=== PATIENT | male | born 1945 | race Caucasian/White ===

== ENCOUNTER → 2020-07-21 10:42 | Outpatient (BNVA) | payer MEDICARE, SELFPAY | PROVIDERS: Visit Provider Orthopaedic Surgery | DX: M25.561 Pain in right knee (principal); M17.10 Unilateral primary osteoarthritis, unspecified knee | CPT/HCPCS: 73560; 73565 ==

== ENCOUNTER 2020-08-24 15:08 | Inpatient (IN) | payer MEDICARE, SELFPAY ==
[2020-08-11 12:10] VITALS: BMI 30.7
--- NOTE | 2020-08-11 12:48 | ECG_ITS ---
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 Measurements Intervals [place] Rate: 47 P: 31 WA: 253 QRS: -34 QRSD: 101 T: 13 QT: 427 QTc: 381 Interpretive Statements SINUS BRADYCARDIA WITH FIRST DEGREE AV BLOCK MARKED LEFT AXIS DEVIATION [QRS AXIS < -30] MODERATE VOLTAGE CRITERIA FOR LVH, CONSIDER NORMAL VARIANT [MEETS CRITERIA IN ONE OF: R(aVL), S(V1), R(V5), R(V5/V6)+S(V1)] No previous ECG available for comparison Electronically Signed On 08-11-2020 23:50:06 BEE TENDER by Madai Richard M.D. [id number]
--- NOTE | 2020-08-11 13:20 | ANES.PREANE2 ---
Pre-Anesthetic Assessment Pre-Anesthetic Assessment: Height/Weight: Height 1.8 m Weight 99.79 kg Proposed Procedure: Operation Date: 08/24/20 09:40 Proposed Procedures p Total Knee Arthroplasty 48243 M17.0(Right) - Arnulfo Lawler MD Was Beta Eric taken within 24 hours: Yes Social: Social History: No alcohol and No tobacco Exam: Pre-Anes Outpt Exam: alert, oriented x 3, clear to auscultation bilaterally and regular rate & rhythm Airway: Submandibular: WNL Cervical ROM: WNL MP: 3 Dentition: Full Pulmonary: Pulmonary: None reported CV/HEM: CV/HEM: HTN : : None reported Hepatic: Hepatic: None reported GI: GI: None reported Metabolic: Metabolic: None reported Musc/skel: Musc/skel: OA/DJD Comments: Gout Neuropsych: Neuropsych: None reported Anesthetic Plan: ASA status: 3 Anesthesia: Regional (specify below) Other: SAB and adductor blk PFSH Anesthesia PFSH: Social History (Updated 07/21/20 @ 10:40 by Anni Lawson LPN) Smoking and tobacco status: never smoked Alcohol intake: never Data Anesthesia Cardiac Studies: No Data to Display
[2020-08-24] VITALS (19 sets, daily range): BP systolic 87–138; BP diastolic 39–90; PULSE 57–73; RESP 14–85; TEMP 36.3–36.8; O2SAT 93–99
[2020-08-24] MEDS: sodium chloride 0.9% 1,000 ML 30 ML IV (08:16)
[2020-08-24] MEDS: gabapentin 300 mg Capsule PO (08:26)
[2020-08-24] MEDS: oxyCODONE 20 mg ER (12 HR) Tablet PO (08:26)
[2020-08-24] MEDS: acetaminophen 500 mg Tablet 1000 MG PO (08:27)
[2020-08-24] MEDS: CELEcoxib 200 mg Capsule 400 MG PO (08:27)
--- NOTE | 2020-08-24 09:00 | ANES.PAUD2 ---
Pre-Anesthetic Update Pre-Anesthetic Assessment: Date of Surgery/Procedure: 08/24/20 Preop Diagnosis: Osteoarthritis Right knee Proposed Procedure: Operation Date: 08/24/20 09:40 Proposed Procedures p Total Knee Arthroplasty 36890 M17.0(Right) - Arnulfo Lawler MD Any changes to Pre-Anesthetic Assessment?: No Last Intake: Intake Last Liquid Date 08/24/20 Last Liquid Time 05:00 Last Solid Date 08/23/20 Last Solid Time 20:30 Vitals: Temperature 97.5 F L 08/24/20 08:00 Temperature Source Temporal Artery S can 08/24/20 08:00 Pulse Rate 65 08/24/20 08:00 Pulse Strength 3+ Normal 08/24/20 08:04 Respiratory Rate 18 08/24/20 08:00 Blood Pressure 132/77 08/24/20 08:00 Blood Pressure Diana n 95 08/24/20 08:00 Pulse Oximetry 99 08/24/20 08:00 Oxygen Delivery Me thod 08/24/20 08:04 Exam: Pre-Anes Outpt Exam: alert, oriented x 3, clear to auscultation bilaterally and regular rate & rhythm Cardiac Studies: No Data to Display
--- NOTE | 2020-08-24 09:26 | W.PM.OPSFHP ---
Same Day Surgery H&P Indication for Procedure/HPI DATE OF PROCEDURE: August 24, 2020 CHIEF COMPLAINT/INDICATIONFOR SURGICAL PROCEDURE: Enrique is a 74-year-old male with severe osteoarthritis of the right knee. 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 He has had an injection years ago with no significant improvement. He is here now for elective right total knee arthroplasty. He reports that he had been working very hard in the shop going up and down a step on a job and has quite a bit of swelling and pain today PREOP DIAGNOSIS: Osteoarthritis Right knee PLANNED PROCEDRUE: Operation Date: 08/24/20 09:40 Proposed Procedures p Total Knee Arthroplasty 58966 M17.0(Right) - Arnulfo Lawler MD Medications/Allergies* Home Medications Medication Instructions Recorded Confirmed Type allopurinol 100 mg tablet 100 mg PO DAILY 07/21/20 08/11/20 History atenolol 50 mg tablet 50 mg PO DAILY 07/21/20 08/11/20 History hydrochlorothiazide 25 mg tablet 25 mg PO DAILY 07/21/20 08/11/20 History Allergies/Adverse Reactions Allergy/AdvReac Type Severity Reaction Status Date / Time No Known Allergies Allergy Verified 07/21/20 10:36 Current Medications: Generic Name Dose Route Start Last Admin Trade Name Freq PRN Reason Stop Dose Admin Sodium Chloride 1,000 mls @ 30 mls/hr 08/24/20 07:45 08/24/20 08:16 Sodium Chloride 0.9% IV 08/25/20 07:44 30 mls/hr .Q24H RADHA Administration Pertinent History/Comorbid Conditions* Social History Smoking and tobacco status: never smoked Alcohol intake: never Pertinent Exam Findings alert, oriented x 3, clear to auscultation bilaterally and regular rate & rhythm Recommendations Surgery/Procedure today Coding Level of Care Code Acute 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
--- NOTE | 2020-08-24 10:20 | ANES.PROC ---
Anesthesia Procedures Procedure/Date: 08/24/20 Nerve Block ^: Nerve Block 1: Main Anesthesia: spinal anesthesia block Time Out Performed: Yes Consent: requested by attending/covering physician, from patient, risks and benefits reviewed and patient agrees to proceed Nerve block location: adductor canal Anesthesia monitors applied: pulse oximetry, EKG, BP cuff and oxygen Nerve block position: supine Anesthetic Used: ropivicaine 0.5% Amount of anesthesia used (mL): 20 Ultrasound used to: recognize landmarks Nerve Stimulator Used?: No Interscalene/Femoral BLK: 4 stimuplex 21 g needle used for position and inplane approach, visualize local anesthetic spread and no vascular puncture identified Injection: neg aspiration of heme Patient Tolerated Procedure: well and no complications Complications: none
[2020-08-24] MEDS: EPINEPHrine 1 mg/mL INJ IM (10:40)
[2020-08-24] MEDS: ketorolac 30 mg/mL INJ IM (10:40)
--- NOTE | 2020-08-24 11:24 | SUR.PHASEI ---
PT TO PACU AWAKE ALERT PT HAD ADDUCTOR CANAL BLOCK TO RT LEG PRE SURGERY AND HAD SPINAL ANESTHESIA, PT SPINAL LEVEL VOICED BY PT AT T-6 LEVEL , HOB AT 2O DEGREES , RT KNEE DRESSING D/I LUPE WRAP WITH DISTAL PULSE STRONG AND REGULAR, VSS. PT HAS FOOT PUMP TO LT FOOT. PT SURGERY WAS ABORTED.
--- NOTE | 2020-08-24 11:28 | PM.OP ---
Operative Report Date of procedure: August 24, 2020 Pre-op Diagnosis: Osteoarthritis Right knee Post-op Diagnosis: Same with possible superimposed septic knee Post-op Findings: The patient had mucopurulent material within the knee and cantor dysvascular synovium worrisome for deep infection. No gouty tophi were identified Procedure Done: Open excisional irrigation and debridement right knee Specimens removed/disposition: Fluid was sent for routine and anaerobic cultures. Synovial biopsies were sent for routine and anaerobic cultures as well as pathology for white blood cell count and crystals. Pathology: none sent Surgeon: Arnulfo Lawler Anesthesia: Nerve Block (Spinal) Estimated blood loss (mL): 100 Findings: Patient had full-thickness erosions in the medial lateral and patellofemoral compartment. He had mucoid material within the knee joint and a greatest necrotic hue to the synovium. No gouty tophi were identified. The appearance was worrisome for deep sepsis. Condition: stable Disposition: PACU Procedure: The patient was taken to the operating room and given a abductor canal block and spinal anesthesia. His right lower extremity was prepped and draped in the usual fashion for total knee with a tourniquet on the right thigh. The knee was entered through a medial parapatellar approach. Upon entering the knee a mucoid material was produced raising concerns about infection.'s routine anaerobic swabs of this fluid were sent for culture. The fluid was removed revealing fairly grayish mucoid synovium. Ronleona was used to send samples of this for pathology for cell count and crystals as well as routine and anaerobic culture. Aggressive debridement was then accomplished removing all visualized necrotic synovium in the suprapatellar pouch, medial and lateral gutters.. The knee was irrigated with 6 L of saline and antibiotic solution. As sepsis could not be completely excluded total decision was made to defer full joint replacement until infection can be treated or excluded. The extensor retinaculum was closed with interrupted 0 Vicryl. The subcu deep tissues were closed with a few 2-0 Vicryl and the skin with interrupted 1 Prolene. Sterile dressings were applied. The patient was taken to recovery room in stable condition.
--- NOTE | 2020-08-24 11:39 | SUR.PHASEI ---
PT NOW AT T8 LEVEL AND MOVING DOWN, HOB AT 30 DEGREES VSS PT ALERT, WILL MOVE TO OPS SO PT CAN HAVE SOMETHING TO DRINK, RT KNEE DRESSING D/I
--- NOTE | 2020-08-24 12:41 | ANE.PACU2 ---
Inpatient post-anesthesia follow up: Airway intact: Yes Vital signs: Temperature 98.2 F Pulse Rate 64 Respiratory Rate 16 Blood Pressure 130/64 Pulse Oximetry 96 Oxygen Delivery Me thod Room Air Oxygen Flow Rate Fraction of Inspir ed Oxygen Hydration adequate: Yes Nausea and vomiting: No Pain level: 2 Mental status: Baseline
--- NOTE | 2020-08-24 13:02 | SUR.PHASEII ---
PATIENT WITH BILATERAL THIGH SENSATION AND LEG MOVEMENT.
[2020-08-24] MEDS: ondansetron 2 mg/ML SDV 2 mL 4 MG IVP (13:12)
--- NOTE | 2020-08-24 13:12 | SUR.PHASEII ---
MEDICATED FOR NAUSEA.
[2020-08-24] MEDS: oxyCODONE-APAP 5-325 mg Tablet 1 TAB PO (13:53)
--- NOTE | 2020-08-24 14:13 | SUR.PHASEII ---
patient with relief of nausea.
[2020-08-24 15:13] LABS: Basophils % 0.2 %; Eosinophils % 0.1 %; Hematocrit 39.5 % (42.0-52.0); Hemoglobin 12.7 g/dL (11.7-16.6); Lymphocytes # 0.5 10^3/uL (0.8-4.8); Lymphocytes % 4.6 %; Mean Corpuscular HGB Conc 32.2 g/dL (30.0-36.0); Mean Corpuscular Hemoglobin 30.6 pg (28.0-34.0); Mean Corpuscular Volume 95.2 fL (80-94); Monocytes # 1.1 10^3/uL (0.2-0.9); Monocytes % 10.1 %; Neutrophils % 84.6 %; Nucleated Red Blood Cells % 0 %; Platelet Count 228 10^3/cmm (130-400); Red Blood Count 4.15 10^6/uL (4.1-5.3); Red Cell Distribution Width 13.9 % (12.1-15.1); White Blood Count 11.2 10^3/uL (4.0-10.0)
--- NOTE | 2020-08-24 15:13 | SUR.PHASEII ---
15:00 labs drawn. plan of care explained to patient and family.
[2020-08-24 15:37] LABS: Alanine Aminotransferase 20 U/L (0-41); Albumin Level 2.7 g/dL (3.5-5.2); Alkaline Phosphatase 114 IU/L (40-130); Anion Gap 11.8 (5-19); Aspartate Amino Transferase 16 U/L (0-40); Blood Urea Nitrogen 41 mg/dL (8-23); Calcium 9.1 mg/dL (8.5-10.5); Carbon Dioxide 28 mmol/L (22-29); Chloride 102 mmol/L (98-107); Globulin 3.7 g/dL (1.3-4.6); Glucose 145 mg/dL (65-115); Osmolality Calculated 299 mOsm/kg (285-295); Potassium 3.8 mmol/L (3.5-5.1); Sodium 138 mmol/L (136-145); Total Bilirubin 0.8 mg/dL (0.15-1.2); Total Protein 6.4 g/dL (6.6-8.7)
[2020-08-24 16:11] LABS: C Reactive Protein 390.8 mg/L (0.0-4.9)
--- NOTE | 2020-08-24 16:29 | SUR.PHASEII ---
report given to brianna whitman,weapons system instrument mechanic and pt brought to room 255 via w/c and assisted in bed,call light within reach and family at bedside
[2020-08-24 16:57] LABS: Erythrocyte Sedimentation Rate 73 mm/hr (0-10)
--- NOTE | 2020-08-24 18:26 | P.HP_ITS ---
Providers/Chief Complaint Admitting Physician: García Jimenez MD Chief Complaint: Primary osteoarthritis right knee History of Present Illness Enrique Murguia is a 74 year old male with PMH of HTN,Gout,Severe Rt knee O.A was admitted with c/o worseing rt knee pain and swelling.He was here today to see for elective rt knee Total arthoplasty,per patient underwent Open excisional irrigation and debridement of right knee with mucopurulent material within the knee and cantor dysvascular synovium worrisome for deep infection.No gouty tophi were identified. Fluid was sent for routine and anaerobic cultures. Synovial biopsies were sent for routine and anaerobic cultures as well as pathology for white blood cell count and crystals. Currently he deny any fever,cough, urinary complain, abdominal pain,nausea,vomiting. Prior Imaging study : Bone on bone articulation in the medial right knee joint. Significant osteo arthropathy in the patellofemoral joint space. Pertinet labs : WBC: 11.2 , ESR : 73, BUN/SCR: 41/1.7 (Baseline SCR is unkown ) Review of Systems Const: Denies: fever(s), chills, body aches, change in appetite or diaphoresis Card: Denies: palpitations, edema, swelling of feet/ankles, dyspnea on exertion, orthopnea or leg pain with exertion Resp: Denies: dyspnea, productive cough, wheezing or pain on inspiration GI: Denies: abdominal pain, nausea, vomiting, diarrhea or constipation : Denies: flank pain or difficulty urinating Musc: Denies: back pain Neuro: Denies: headache(s) Medications/Allergies Home Medications Medication Instructions Recorded Confirmed Last Taken Type allopurinol 100 mg tablet 100 mg PO DAILY 07/21/20 08/11/20 08/11/20 History atenolol 50 mg tablet 50 mg PO DAILY 07/21/20 08/11/20 08/24/20 05:00 History hydrochlorothiazide 25 mg tablet 25 mg PO DAILY 07/21/20 08/11/20 08/24/20 05:00 History cephalexin 500 mg PO Q8H #30 cap 08/24/20 Unknown Rx oxycodone 5 mg PO Q4H 7 Days #42 cap 08/24/20 Unknown Rx Allergies Allergy/AdvReac Type Severity Reaction Status Date / Time No Known Allergies Allergy Verified 07/21/20 10:36 PFSH Acute PFSH: Social History (Updated 07/21/20 @ 10:40 by Anni Lawson LPN) Smoking and tobacco status: never smoked Alcohol intake: never Vitals/I&O/Wt Last Vital Signs Temp 97.5 F L 08/24/20 16:33 Pulse 58 L 08/24/20 16:33 Resp 18 08/24/20 16:33 BP 106/64 08/24/20 16:33 Pulse Ox 95 08/24/20 16:33 08/24/20 08/24/20 08/24/20 06:59 14:59 22:59 Intake Total 170 / 170 Output Total 325 / 325 Balance -155 / -155 Physical Exam HENMT: COMMON NORMALS: normocephalic and atraumatic HEAD & SCALP: normocephalic and atraumatic Chest: COMMONS NORMALS: normal inspection of the chest and normal palpation of entire chest wall CHEST: Yes Symmetrical chest wall rise Resp: COMMON NORMALS: normal respiratory effort, No retractions, No use of accessory muscles and clear to auscultation bilaterally EFFORT & INSPECTION: Yes symmetric chest movement AUSCULTATION: clear to auscultation bilaterally Cardio: COMMON NORMALS: regular rate, regular rhythm, S1 normal heart sound present, S2 normal heart sound present, No gallops present (Cardio), No murmurs present (Cardio), No rub (Cardio) and Peripheral pulses 2+ throughout RATE: regular rate RHYTHM: regular rhythm HEART SOUNDS: S1 normal heart sound present and S2 normal heart sound present PERIPHERAL PULSES: Peripheral pulses 2+ throughout GI: COMMON NORMALS: Normal to inspection, nondistended, normoactive bowel sounds present, Soft to palpation, non-tender, No hepatosplenomegaly present and no masses AUSCULTATION: Yes normoactive bowel sounds PALPATION: Yes Soft to palpation and Yes No hepatosplenomegaly present RECTAL EXAM: Yes deferred Extremity: COMMON NORMALS: no clubbing, cyanosis or edema and no pedal edema Neuro: COMMON NORMALS: patient oriented x3 Urinary Catheter Management^: Castillo: Cath Placed During This Visit: yes, but has since been removed by the nurse Urinary Catheter Date of Insertion: 08/24/20 Urinary Catheter Time of Insertion: 10:10 Date Urinary Catheter Removed: 08/24/20 Time Urinary Catheter Discontinued: 11:05 Data : 08/24/20 14:56 08/24/20 14:56 Micro: Microbiology 08/24/20 10:28 Gram Stain - Final Knee - Right 08/24/20 10:28 Gram Stain - Final Knee - #1 A&P Assessment and plan (1) Septic arthritis: Continue Vancomycin and Zosyn for now. Follow rt knee joint fluid culture Status: Acute (2) Acute kidney injury superimposed on CKD: BUN/SCR: 41/1.7 (Baseline SCR is unkown ) Contiue I.V Hydartion Urine electrolytes ( Na,CR ) Monitor BMP Status: Acute (3) Osteoarthritis of right knee: Status: Acute (4) Gout: Allopurinol 100 mg po daily Status: Acute (5) Hypertension: Status: Acute Attestations Medical Necessity Statement*: Patient needs to be in hospital for the management of possible rt knee septic arthritis.Anticipated LOS Greater then 2 midnights. 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
[2020-08-24] MEDS: vancomycin 1,500 MG/300 ML PIGGYBACK 200 MG IV (18:41)
[2020-08-24] MEDS: heparin 5,000 unit/mL INJ 1 mL 5000 UNIT SUBCUT (18:41)
[2020-08-24] MEDS: piperacillin-tazobactam 3.375 GM in sodium chloride 0.9% (plus) 50 ML IV (21:36)
[2020-08-25] VITALS (9 sets, daily range): BP systolic 91–144; BP diastolic 59–84; PULSE 62–69; RESP 16–22; TEMP 36.6–37.2; O2SAT 93–97
[2020-08-25] MEDS: sodium chloride 0.9% 1,000 ML 75 ML IV ×2 (00:38→10:51)
[2020-08-25 02:01] LABS: Basophils % 0.2 %; Eosinophils % 0.5 %; Hematocrit 32.9 % (42.0-52.0); Hemoglobin 10.6 g/dL (11.7-16.6); Lymphocytes # 0.7 10^3/uL (0.8-4.8); Lymphocytes % 8.5 %; Mean Corpuscular HGB Conc 32.2 g/dL (30.0-36.0); Mean Corpuscular Hemoglobin 30.4 pg (28.0-34.0); Mean Corpuscular Volume 94.3 fL (80-94); Mean Platelet Volume 10.2 fL (7.4-10.4); Monocytes # 1.1 10^3/uL (0.2-0.9); Monocytes % 13.1 %; Neutrophils # 6.58 10^3/uL (1.8-7.7); Neutrophils % 77.1 %; Nucleated Red Blood Cells % 0 %; Platelet Count 213 10^3/cmm (130-400); Red Blood Count 3.49 10^6/uL (4.1-5.3); Red Cell Distribution Width 14.2 % (12.1-15.1); White Blood Count 8.5 10^3/uL (4.0-10.0)
[2020-08-25 02:09] LABS: INR 1.29 (0.8-1.2)
[2020-08-25 02:10] LABS: Partial Thromboplastin Time 40.3 SECONDS (23.9-36.7)
[2020-08-25 02:31] LABS: Alanine Aminotransferase 14 U/L (0-41); Albumin Level 2.4 g/dL (3.5-5.2); Alkaline Phosphatase 95 IU/L (40-130); Anion Gap 14.9 (5-19); Aspartate Amino Transferase 12 U/L (0-40); Blood Urea Nitrogen 46 mg/dL (8-23); Calcium 8.2 mg/dL (8.5-10.5); Carbon Dioxide 25 mmol/L (22-29); Chloride 101 mmol/L (98-107); Globulin 2.3 g/dL (1.3-4.6); Glucose 159 mg/dL (65-115); Magnesium 2.2 mg/dL (1.7-2.3); Osmolality Calculated 299 mOsm/kg (285-295); Potassium 3.9 mmol/L (3.5-5.1); Sodium 137 mmol/L (136-145); Total Bilirubin 0.6 mg/dL (0.15-1.2); Total Protein 4.7 g/dL (6.6-8.7)
[2020-08-25 02:40] LABS: Procalcitonin 1.21 ng/mL (0-0.5)
[2020-08-25] MEDS: heparin 5,000 unit/mL INJ 1 mL 5000 UNIT SUBCUT ×2 (05:40→16:57)
[2020-08-25] MEDS: piperacillin-tazobactam 3.375 GM in sodium chloride 0.9% (plus) 50 ML IV ×3 (05:40→21:47)
--- NOTE | 2020-08-25 07:55 | PM.PN ---
Subjective Subjective: Interval history: Expected right knee pain. Vitals/I&O/Wt Last Vital Signs Temp 99.0 F 08/25/20 07:43 Pulse 65 08/25/20 07:43 Resp 16 08/25/20 07:43 BP 118/73 08/25/20 07:43 Pulse Ox 94 08/25/20 07:43 08/24/20 08/25/20 08/25/20 22:59 06:59 14:59 Intake Total 120 / 290 50 / 340 Output Total 50 / 375 Balance 120 / -35 0 / -35 Physical Exam Narrative: EXAM NARRATIVE: Right knee dressing clean and dry. Urinary Catheter Management^: Castillo: Cath Placed During This Visit: yes, but has since been removed by the nurse Urinary Catheter Date of Insertion: 08/24/20 Urinary Catheter Time of Insertion: 10:10 Date Urinary Catheter Removed: 08/24/20 Time Urinary Catheter Discontinued: 11:05 Data : 08/25/20 01:45 08/25/20 01:45 Micro: Microbiology 08/24/20 10:28 Gram Stain - Final Knee - Right 08/24/20 10:28 Gram Stain - Final Knee - #1 A&P Assessment and plan (1) Osteoarthritis of right knee: Luminary pathology verbal report revealed high number of acute inflammatory cells and tissues. C-reactive protein significantly elevated both suggestive of superimposed infection. I again had a discussion the patient of possible source. He does report early last summer he received an injection in the knee in [facility]. He is not really certain what was injected. Perhaps a low grade infection could have been initiated at that time. Patient covered for septic joint now. Will await final culture and sensitivity results. Status: Acute Attestations Medical Necessity Statement*: As per medicine Coding Level of Care Code Acute Retail Product Demo Specialist for Main [place] Diagnoses Osteoarthritis of right knee M17.11
[2020-08-25] MEDS: allopurinol 100 mg Tablet PO (08:16)
[2020-08-25] MEDS: atenolol 50 mg Tablet PO (08:17)
[2020-08-25] MEDS: HYDROcodone-acetaminophen 5-325 mg Tablet 1 TAB PO (09:44)
--- NOTE | 2020-08-25 10:33 | PC.NURSE ---
DR JACK SANTIAGO NOTIFIED OF NEED FOR CHANGE IN PAIN MED - 1 5/325MG HYDROCODONE GIVEN PREVIOUSLY WITH NO PAIN RELIEF
[2020-08-25 11:06] LABS: Glucose Point of Care 179 mg/dL (70-110)
[2020-08-25] MEDS: vancomycin 1,500 MG/300 ML PIGGYBACK 200 MG IV (12:02)
[2020-08-25] MEDS: oxyCODONE 5 mg IR Tab/Cap 10 MG PO (13:22)
--- NOTE | 2020-08-25 15:08 | PM.PN ---
Subjective Subjective: Interval history: Patient was seen resting comfortably in bed. Was complaining of Rt knee pain. He has remained afebrile,his other vitals and labs have been reviewed. Medications: Reviewed: Yes Vitals/I&O/Wt Last Vital Signs Temp 97.8 F 08/25/20 14:00 Pulse 68 08/25/20 14:00 Resp 18 08/25/20 14:00 BP 130/74 08/25/20 14:00 Pulse Ox 97 08/25/20 14:00 08/25/20 08/25/20 08/25/20 06:59 14:59 22:59 Intake Total 50 / 640 1616.25 / 1616.25 Output Total 50 / 375 Balance 0 / 265 1616.25 / 1616.25 Physical Exam Const: COMMON NORMALS: patient oriented x3 HENMT: COMMON NORMALS: normocephalic and atraumatic HEAD & SCALP: normocephalic and atraumatic Resp: COMMON NORMALS: clear to auscultation bilaterally EFFORT & INSPECTION: Yes symmetric chest movement AUSCULTATION: clear to auscultation bilaterally Cardio: COMMON NORMALS: regular rate, regular rhythm, S1 normal heart sound present, S2 normal heart sound present, No gallops present (Cardio), No murmurs present (Cardio), No rub (Cardio) and Peripheral pulses 2+ throughout RATE: regular rate RHYTHM: regular rhythm HEART SOUNDS: S1 normal heart sound present and S2 normal heart sound present PERIPHERAL PULSES: Peripheral pulses 2+ throughout GI: COMMON NORMALS: Normal to inspection, nondistended, normoactive bowel sounds present, Soft to palpation, non-tender, No hepatosplenomegaly present and no masses AUSCULTATION: Yes normoactive bowel sounds PALPATION: Yes Soft to palpation and Yes No hepatosplenomegaly present RECTAL EXAM: Yes deferred Extremity: COMMON NORMALS: no clubbing, cyanosis or edema NARRATIVE EXTREMITY EXAM: Right knee dressing clean and dry. Neuro: COMMON NORMALS: patient oriented x3 Urinary Catheter Management^: Castillo: Cath Placed During This Visit: yes, but has since been removed by the nurse Urinary Catheter Date of Insertion: 08/24/20 Urinary Catheter Time of Insertion: 10:10 Date Urinary Catheter Removed: 08/24/20 Time Urinary Catheter Discontinued: 11:05 Data : 08/25/20 01:45 08/25/20 01:45 Micro: Microbiology 08/24/20 10:28 Gram Stain - Final Knee - #1 Anaerobic Culture - Preliminary Wound Culture - Preliminary Staphylococcus species 08/24/20 10:28 Gram Stain - Final Knee - Right Tissue Culture - Preliminary Staphylococcus species A&P Assessment and plan (1) Septic arthritis: Continue Vancomycin and Zosyn for now. rt knee joint fluid culture:Staph.Aureus Procalcitonin : 1.21 CRP:390 ESR:73 Status: Acute (2) Acute kidney injury superimposed on CKD: BUN/SCR: 41/1.7 (Baseline SCR is unkown ) Current SCR :1.9 Contiue I.V Hydartion Urine electrolytes ( Na,CR ) Monitor BMP Status: Acute (3) Osteoarthritis of right knee: Status: Acute (4) Gout: Allopurinol 100 mg po daily Status: Acute (5) Hypertension: Status: Acute Attestations Medical Necessity Statement*: Patient needs to be in hospital for the management of rt knee septic arthritis Coding Level of Care Code Acute Associate Professor Of Biostatistics for Main [place] Diagnoses Septic arthritis M00.9 Acute kidney injury superimposed on CKD N17.9; N18.9 Osteoarthritis of right knee M17.11 Gout M10.9 Hypertension I10
--- NOTE | 2020-08-25 17:04 | PC.CHAP ---
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 [x] Patient/Family/Request visit [] Outpatient visit [] Follow-up visit [] Physician referral [] Code/Alert [x] Routine visit [] Staff referral [] Actively dying [] Patient sleeping [] Family support [] [] Out of room [] Palliative care [] [] Receiving care in room [] Pre-surgical visit [] Trauma [] Long length of stay [] ICU visit [] Other: Relational/Emotional Strength [x] Patient feels connected with others/family/visitors/staff [] Distress [] Loneliness/isolation [] Abandonment Spirituality of Patient [x] Person of Michelle [] Attends Uatsdin of their Michelle [x] Believes in Prayer [] Reads Bible or Caodaism materials [] There are Spiritual issues to be addressed Livestock Broker Interventions [x] Prayer [x] Active listening [x] Non-anxious presence [] Spiritual/emotional support [] Crisis/trauma care [] Spiritual counseling [] Bereavement support [] Provided bereavement packet [] Provided Bible/devotional materials [] Provided toy/stuffed animal, coloring book to patient or family member [] Provided Communion [] Anointing/[place] [] Salvation [x] Completed spiritual assessment [] Other: Impact on Illness or Injury [] Angry [] Fearful [] Anxious [] Often cries [] Exhaustion [] Unable to work [] Unable to attend mandaeism [] Unable to walk/stand [] Unable to read [] Unable to drive [] Unable to eat/drink [] Unable to sleep [] Unable to be with family [] Patient intubated [] Other: Summary Happy man, though his knee is infected prohibiting his surgery. Time spent with patient 10min
[2020-08-25 20:10] LABS: Glucose Point of Care 192 mg/dL (70-110)
[2020-08-26] VITALS (9 sets, daily range): BP systolic 124–165; BP diastolic 73–82; PULSE 64–89; RESP 16–19; TEMP 36.3–37.1; O2SAT 92–96
[2020-08-26] MEDS: oxyCODONE 5 mg IR Tab/Cap 10 MG PO ×2 (02:31→12:24)
[2020-08-26] MEDS: sodium chloride 0.9% 1,000 ML 75 ML IV ×2 (02:50→16:16)
--- NOTE | 2020-08-26 02:58 | PC.NURSE ---
pt sat up on side of bed himself, when pt was ready to get back in bed, this nurse assisted him to a standing position using a front-wheeled walker. Pt needed some moderate assistance and coaching cues to pivot his left foot while toe-touching with his right foot. pt moved a couple steps up toward head of bed.
[2020-08-26] MEDS: piperacillin-tazobactam 3.375 GM in sodium chloride 0.9% (plus) 50 ML IV ×3 (04:22→20:25)
[2020-08-26 05:47] LABS: Basophils % 0.2 %; Eosinophils % 0.3 %; Hematocrit 36.3 % (42.0-52.0); Hemoglobin 11.5 g/dL (11.7-16.6); Lymphocytes # 0.6 10^3/uL (0.8-4.8); Mean Corpuscular HGB Conc 31.7 g/dL (30.0-36.0); Mean Corpuscular Hemoglobin 30.3 pg (28.0-34.0); Mean Corpuscular Volume 95.5 fL (80-94); Mean Platelet Volume 9.9 fL (7.4-10.4); Monocytes # 1.6 10^3/uL (0.2-0.9); Monocytes % 15.5 %; Neutrophils # 7.72 10^3/uL (1.8-7.7); Neutrophils % 77.2 %; Nucleated Red Blood Cells % 0 %; Platelet Count 287 10^3/cmm (130-400); Red Cell Distribution Width 14.5 % (12.1-15.1)
[2020-08-26 06:16] LABS: Alanine Aminotransferase 10 U/L (0-41); Albumin Level 2.6 g/dL (3.5-5.2); Alkaline Phosphatase 135 IU/L (40-130); Anion Gap 14.2 (5-19); Aspartate Amino Transferase 19 U/L (0-40); Blood Urea Nitrogen 42 mg/dL (8-23); Calcium 8.8 mg/dL (8.5-10.5); Carbon Dioxide 25 mmol/L (22-29); Chloride 101 mmol/L (98-107); Creatinine Clr Calc Pharmacy 42.0227; Globulin 3.9 g/dL (1.3-4.6); Glucose 138 mg/dL (65-115); Osmolality Calculated 295 mOsm/kg (285-295); Potassium 4.2 mmol/L (3.5-5.1); Sodium 136 mmol/L (136-145); Total Bilirubin 0.5 mg/dL (0.15-1.2); Total Protein 6.5 g/dL (6.6-8.7)
[2020-08-26 06:17] LABS: Vancomycin Trough 12.9 ug/mL (10-15)
[2020-08-26 06:36] LABS: Glucose Point of Care 125 mg/dL (70-110)
[2020-08-26] MEDS: vancomycin 1,500 MG/300 ML PIGGYBACK 200 MG IV (06:39)
[2020-08-26] MEDS: heparin 5,000 unit/mL INJ 1 mL 5000 UNIT SUBCUT ×2 (06:40→16:17)
--- NOTE | 2020-08-26 07:47 | P.PN_ITS ---
Subjective Subjective: Interval history: Still with expected right knee pain. Vitals/I&O/Wt Last Vital Signs Temp 97.9 F 08/26/20 04:00 Pulse 67 08/26/20 04:00 Resp 19 H 08/26/20 04:00 BP 133/75 08/26/20 04:00 Pulse Ox 93 08/26/20 04:00 08/25/20 08/26/20 08/26/20 22:59 06:59 14:59 Intake Total 170 / 2086.25 1079.792 / 3166.042 100 / 100 Output Total 250 / 250 800 / 1050 Balance -80 / 1836.25 279.792 / 2116.042 100 / 100 Physical Exam Narrative: EXAM NARRATIVE: Right knee incisoin clean and free of drainage. Expected swelling right knee Urinary Catheter Management^: Castillo: Cath Placed During This Visit: yes, but has since been removed by the nurse Urinary Catheter Date of Insertion: 08/24/20 Urinary Catheter Time of Insertion: 10:10 Date Urinary Catheter Removed: 08/24/20 Time Urinary Catheter Discontinued: 11:05 Data : 08/26/20 05:35 08/26/20 05:35 Micro: Microbiology 08/24/20 10:28 Gram Stain - Final Knee - #1 Anaerobic Culture - Preliminary Wound Culture - Preliminary Staphylococcus species 08/24/20 10:28 Gram Stain - Final Knee - Right Tissue Culture - Preliminary Staphylococcus species A&P Assessment and plan (1) Osteoarthritis of right knee: Status: Acute (2) Septic arthritis: Cultures with Staph aureus. Discussed with patient. Will need senior care IV ABX. Very likely caroline need Snf placement. Will have therapy begin working on ROM and gait training. Status: Acute Attestations Medical Necessity Statement*: as per medicine Coding Level of Care Code Acute Database Operator for Main [place] Diagnoses Osteoarthritis of right knee M17.11 Septic arthritis M00.9
[2020-08-26] MEDS: atenolol 50 mg Tablet PO (07:51)
[2020-08-26] MEDS: allopurinol 100 mg Tablet PO (07:51)
--- NOTE | 2020-08-26 08:47 | PC.NURSE ---
CHELLY MARTI FROM PT CURRENTLY WORKING WITH [employer]
--- NOTE | 2020-08-26 13:12 | PM.PN ---
Subjective Subjective: Interval history: Patient continues to complain rt knee pain. Vitals/I&O/Wt Last Vital Signs Temp 97.4 F L 08/26/20 11:19 Pulse 64 08/26/20 11:19 Resp 18 08/26/20 12:24 BP 129/82 08/26/20 11:19 Pulse Ox 96 08/26/20 11:19 08/25/20 08/26/20 08/26/20 22:59 06:59 14:59 Intake Total 170 / 6.25 1079.792 / 3166.042 220 / 220 Output Total 250 / 250 800 / 1050 Balance -80 / 1836.25 279.792 / 2116.042 220 / 220 Physical Exam Narrative: EXAM NARRATIVE: COMMON NORMALS: patient oriented x3 HENMT COMMON NORMALS: normocephalic and atraumatic HEAD & SCALP: normocephalic and atraumatic Resp COMMON NORMALS: clear to auscultation bilaterally EFFORT & INSPECTION: Yes symmetric chest movement AUSCULTATION: clear to auscultation bilaterally Cardio COMMON NORMALS: regular rate, regular rhythm, S1 normal heart sound present, S2 normal heart sound present, No gallops present (Cardio), No murmurs present (Cardio), No rub (Cardio) and Peripheral pulses 2+ throughout RATE: regular rate RHYTHM: regular rhythm HEART SOUNDS: S1 normal heart sound present and S2 normal heart sound present PERIPHERAL PULSES: Peripheral pulses 2+ throughout GI COMMON NORMALS: Normal to inspection, nondistended, normoactive bowel sounds present, Soft to palpation, non-tender, No hepatosplenomegaly present and no masses AUSCULTATION: Yes normoactive bowel sounds PALPATION: Yes Soft to palpation and Yes No hepatosplenomegaly present RECTAL EXAM: Yes deferred Extremity COMMON NORMALS: no clubbing, cyanosis or edema NARRATIVE EXTREMITY EXAM: Right knee dressing clean and dry. Const: COMMON NORMALS: patient oriented x3 HENMT: COMMON NORMALS: normocephalic and atraumatic HEAD & SCALP: normocephalic and atraumatic Chest: COMMONS NORMALS: normal inspection of the chest and normal palpation of entire chest wall CHEST: Yes Symmetrical chest wall rise Resp: COMMON NORMALS: clear to auscultation bilaterally EFFORT & INSPECTION: Yes symmetric chest movement AUSCULTATION: clear to auscultation bilaterally Cardio: COMMON NORMALS: regular rate, regular rhythm, S1 normal heart sound present, S2 normal heart sound present, No gallops present (Cardio), No murmurs present (Cardio), No rub (Cardio) and Peripheral pulses 2+ throughout RATE: regular rate RHYTHM: regular rhythm HEART SOUNDS: S1 normal heart sound present and S2 normal heart sound present PERIPHERAL PULSES: Peripheral pulses 2+ throughout GI: COMMON NORMALS: Normal to inspection, nondistended, normoactive bowel sounds present, Soft to palpation, non-tender, No hepatosplenomegaly present and no masses AUSCULTATION: Yes normoactive bowel sounds PALPATION: Yes Soft to palpation and Yes No hepatosplenomegaly present RECTAL EXAM: Yes deferred Extremity: COMMON NORMALS: no clubbing, cyanosis or edema NARRATIVE EXTREMITY EXAM: Right knee dressing clean and dry. Neuro: COMMON NORMALS: patient oriented x3 Urinary Catheter Management^: Castillo: Cath Placed During This Visit: yes, but has since been removed by the nurse Urinary Catheter Date of Insertion: 08/24/20 Urinary Catheter Time of Insertion: 10:10 Date Urinary Catheter Removed: 08/24/20 Time Urinary Catheter Discontinued: 11:05 Data : 08/26/20 05:35 08/26/20 05:35 Micro: Microbiology 08/24/20 10:28 Gram Stain - Final Knee - #1 Anaerobic Culture - Preliminary Wound Culture - Preliminary Staphylococcus species 08/24/20 10:28 Gram Stain - Final Knee - Right Tissue Culture - Preliminary Staphylococcus species A&P Assessment and plan (1) Septic arthritis: Rt knee joint fluid culture:Staph.Aureus pending sensitivity. Continue Vancomycin. Patient will need 6 weeks of I.V Abxs Zosyn DC on 08/26 Procalcitonin : 1.21 CRP:390 ESR:73 Ortho Rec : Appreciated Status: Acute (2) Acute kidney injury superimposed on CKD: BUN/SCR: 41/1.7 (Baseline SCR is unkown ) Current SCR :1.8 Contiue I.V Hydartion Urine electrolytes ( Na,CR ) Monitor BMP Status: Acute (3) Osteoarthritis of right knee: Status: Acute (4) Gout: Allopurinol 100 mg po daily Status: Acute (5) Hypertension: Status: Acute Attestations Medical Necessity Statement*: Patient needs to be in hospital for the management of rt knee septic arthritis and the need for I.V Abxs Coding Level of Care Code Acute 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
--- NOTE | 2020-08-26 15:19 | PC.NURSE ---
CRITICAL LAB CRITICAL LAB RESULTS CALLED TO FLOOR - PER THIS NURSE - DR SANTIAGO NOT NOTIFIED AT THIS TIME DUE TO THE FACT HE IS AWARE
[2020-08-27] VITALS (11 sets, daily range): BP systolic 103–166; BP diastolic 62–90; PULSE 68–98; RESP 16–20; TEMP 36.6–37; O2SAT 90–97
[2020-08-27] MEDS: vancomycin 1,500 MG/300 ML PIGGYBACK 200 MG IV (00:34)
[2020-08-27] MEDS: oxyCODONE 5 mg IR Tab/Cap 10 MG PO ×2 (00:34→18:08)
[2020-08-27 03:08] LABS: Basophils % 0.1 %; Eosinophils % 0.3 %; Hematocrit 34.7 % (42.0-52.0); Hemoglobin 10.9 g/dL (11.7-16.6); Lymphocytes # 0.7 10^3/uL (0.8-4.8); Lymphocytes % 7.9 %; Mean Corpuscular HGB Conc 31.4 g/dL (30.0-36.0); Mean Corpuscular Hemoglobin 29.8 pg (28.0-34.0); Mean Corpuscular Volume 94.8 fL (80-94); Mean Platelet Volume 9.8 fL (7.4-10.4); Monocytes # 1.2 10^3/uL (0.2-0.9); Monocytes % 13.8 %; Neutrophils # 6.59 10^3/uL (1.8-7.7); Neutrophils % 76.6 %; Nucleated Red Blood Cells % 0 %; Platelet Count 287 10^3/cmm (130-400); Red Blood Count 3.66 10^6/uL (4.1-5.3); Red Cell Distribution Width 14.3 % (12.1-15.1); White Blood Count 8.6 10^3/uL (4.0-10.0)
[2020-08-27 03:46] LABS: Alanine Aminotransferase 12 U/L (0-41); Albumin Level 2.3 g/dL (3.5-5.2); Alkaline Phosphatase 124 IU/L (40-130); Anion Gap 14.9 (5-19); Aspartate Amino Transferase 19 U/L (0-40); Blood Urea Nitrogen 33 mg/dL (8-23); Carbon Dioxide 21 mmol/L (22-29); Chloride 103 mmol/L (98-107); Globulin 3.5 g/dL (1.3-4.6); Glucose 114 mg/dL (65-115); Osmolality Calculated 288 mOsm/kg (285-295); Potassium 3.9 mmol/L (3.5-5.1); Sodium 135 mmol/L (136-145); Total Bilirubin 0.7 mg/dL (0.15-1.2); Total Protein 5.8 g/dL (6.6-8.7)
[2020-08-27 04:09] LABS: Calcium 8.6 mg/dL (8.5-10.5)
[2020-08-27] MEDS: heparin 5,000 unit/mL INJ 1 mL 5000 UNIT SUBCUT ×2 (06:00→18:07)
--- NOTE | 2020-08-27 06:08 | NUR.SHIFT ---
Patient mainly slept. Patient's RLE does have edema, but good pulses and cap refill and temp.
[2020-08-27] MEDS: sodium chloride 0.9% 1,000 ML 75 ML IV (08:32)
[2020-08-27] MEDS: atenolol 50 mg Tablet PO (08:36)
[2020-08-27] MEDS: allopurinol 100 mg Tablet PO (08:37)
[2020-08-27 09:50] LABS: Procalcitonin 0.64 ng/mL (0-0.5)
--- NOTE | 2020-08-27 11:57 | P.PN_ITS ---
Subjective Subjective: Interval history: Hospital course, labs and vitals noted. Examination patient working well with physical therapy. States pain in the knee is better. Denies any nausea, vomiting, headache. No acute events overnight. Medications: Reviewed: Yes Vitals/I&O/Wt Last Vital Signs Temp 97.8 F 08/27/20 11:46 Pulse 68 08/27/20 11:46 Resp 17 08/27/20 11:46 BP 145/70 08/27/20 11:46 Pulse Ox 95 08/27/20 11:46 08/26/20 08/27/20 08/27/20 22:59 06:59 14:59 Intake Total 1290 / 1810 1000 / 2810 240 / 240 Output Total 400 / 750 700 / 1450 250 / 250 Balance 890 / 1060 300 / 1360 -10 / -10 Physical Exam Narrative: EXAM NARRATIVE: General: No acute distress, AO x3 HEENT: PERRLA, pupils bilaterally equal and reactive Chest: Normal vesicular breath sounds, no added sounds, equal good air entry bilaterally CVS: S1-S2 regular, no murmurs, no tachycardia, no gallops, no rubs Abdomen: Soft, nontender, no organomegaly, bowel sounds present Neuro: No focal deficits, no facial deformity, AO x3, power 5/5 in all limbs Extremities: Right knee surgically bandaged, no soakage, bilateral lower limb pedal edema 1+. Urinary Catheter Management^: Castillo: Cath Placed During This Visit: yes, but has since been removed by the nurse Urinary Catheter Date of Insertion: 08/24/20 Urinary Catheter Time of Insertion: 10:10 Date Urinary Catheter Removed: 08/24/20 Time Urinary Catheter Discontinued: 11:05 Data : 08/27/20 02:40 08/27/20 02:40 Micro: Microbiology 08/27/20 10:30 Blood Culture - Preliminary Blood SPECIMEN COLLECTED 08/27/20 10:30 Blood Culture - Preliminary Blood SPECIMEN COLLECTED 08/24/20 10:28 Gram Stain - Final Knee - #1 Anaerobic Culture - Preliminary Wound Culture - Preliminary Staphylococcus aureus 08/24/20 10:28 Gram Stain - Final Knee - Right Tissue Culture - Preliminary Staphylococcus aureus A&P Assessment and plan (1) Septic arthritis: Status: Acute (2) Acute kidney injury superimposed on CKD: Status: Acute (3) Osteoarthritis of right knee: Status: Acute (4) Gout: Allopurinol 100 mg po daily Status: Acute (5) Hypertension: Status: Acute Additional A&P Information Septic arthritis: Fluid culture from the OR growing MSSA. Blood cultures remain negative. Patient currently on vancomycin. Switch to cefazolin 2 g IV every 8 hourly. Patient will require a 6-week course. We will request for a PICC line. We will consult ID as patient will need follow-up as an outpatient. Case discussed with Dr. Lawler and Dr. Gaines. Physical therapy and pain medications as per orthopedics. RISA on CKD: Creatinine resolving. 1.3 today. We do not have any baseline. Continue with IV hydration but decrease to 50 cc/h. Continue to monitor BMP daily. Continue other chronic medications. Full code. Cardiac diet. Heparin 5000 every 12 hourly. Discharge planning: Placement to SNF awaited for further rehabitation. Attestations Medical Necessity Statement*: Patient requires further hospitalization for management of septic arthritis because of MSSA while safe discharge planning is sought. Time Spent in Patient Care: Greater than 35 minutes (>than 50% of time spent in counselling and/or direct pt care on unit) . 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
[2020-08-27] MEDS: sodium chloride 0.9% 1,000 ML 50 ML IV (13:09)
--- NOTE | 2020-08-27 14:01 | P.PN_ITS ---
Subjective Subjective: Interval history: Pain better with oxycodone. Up with therapy. Vitals/I&O/Wt Last Vital Signs Temp 97.8 F 08/27/20 11:46 Pulse 68 08/27/20 11:46 Resp 17 08/27/20 11:46 BP 145/70 08/27/20 11:46 Pulse Ox 95 08/27/20 11:46 08/26/20 08/27/20 08/27/20 22:59 06:59 14:59 Intake Total 1290 / 1810 1000 / 2810 360 / 360 Output Total 400 / 750 700 / 1450 250 / 250 Balance 890 / 1060 300 / 1360 110 / 110 Physical Exam Narrative: EXAM NARRATIVE: Slight staining dressing, Pain with motion Urinary Catheter Management^: Castillo: Cath Placed During This Visit: yes, but has since been removed by the nurse Urinary Catheter Date of Insertion: 08/24/20 Urinary Catheter Time of Insertion: 10:10 Date Urinary Catheter Removed: 08/24/20 Time Urinary Catheter Discontinued: 11:05 Data : 08/27/20 02:40 08/27/20 02:40 Micro: Microbiology 08/27/20 10:30 Blood Culture - Preliminary Blood SPECIMEN COLLECTED 08/27/20 10:30 Blood Culture - Preliminary Blood SPECIMEN COLLECTED 08/24/20 10:28 Gram Stain - Final Knee - #1 Anaerobic Culture - Preliminary Wound Culture - Preliminary Staphylococcus aureus 08/24/20 10:28 Gram Stain - Final Knee - Right Tissue Culture - Preliminary Staphylococcus aureus A&P Assessment and plan (1) Septic arthritis: Will need correction IV antibiotics as per medicine Status: Acute (2) Osteoarthritis of right knee: continue to mobilize with therapy. Status: Acute Attestations Medical Necessity Statement*: OK to discharge to SNF vs home parental abx per ortho Coding Level of Care Code Acute Neuro Intensivist Physician for [facility] Fwd Diagnoses Septic arthritis M00.9 Osteoarthritis of right knee M17.11
--- NOTE | 2020-08-27 17:47 | P.CONIM_ITS ---
Providers/Reason For Consult Consulting Physican/Specialty*: Jennifer Gaines MD /Infectious Disease Reason for Consult*: Septic arthritis Attending Physician: Flavio Pickering MD History of Present Illness History of Present Illness Enrique Murguia is a 74 year old male with PMH gout, HTN and osteoarthritis who recently saw orthopedics as an outpatient for c/o worsening right knee pain interfering with his ADLs and occupation. he was planned for an elective right knee replacement on 08/24 and admitted for the same. However intraoperatively he was found to have mucopurulent material within the knee and cantor dysvascular synovium worrisome for deep infection. No gouty tophi were identified. Open excisional irrigation and debridement right knee was then performed and joint replacemnet deferred until infection can be cleared. OR cx eventually returned with growth of MSSA. cell count N/A. Blood cx not obtained until 08/27/20. Prior to admission, patient denies any c/o direct trauma to the knee. Only recalls injections into the right knee and right shoulder, possibly steroids , last taken one year ago without any overt complications. It is somewhat difficult to obtain history from the patient. He denies any fever, chills, swelling at any other joints. No known cardiac or orthopedic hardware. No h/o IVDU. Review of Systems General: Reports: 10 or more systems reviewed and unremarkable except in HPI and below Const: Denies: fever(s), chills or body aches Eyes: Denies: change in vision, blurry vision or photophobia ENMT: Reports: hoarseness; Denies: throat pain, enlarged tonsils, odynophagia or nasal congestion Card: Denies: chest pain, palpitations, irregular heart rhythm, edema, swelling of feet/ankles, lightheadedness, pre-syncope, dyspnea on exertion or orthopnea Resp: Denies: dyspnea, productive cough, non-productive cough, wheezing, stridor, pain on inspiration, change in phlegm color, hemoptysis or chest congestion GI: Denies: abdominal pain, nausea, vomiting, hematemesis, coffee ground emesis, dysphagia, heartburn, diarrhea, constipation, GI cramping, change in stool character, hematochezia or melena : Denies: flank pain, dysuria, urinary frequency, urinary urgency, urinary hesitancy or hematuria Musc: Denies: neck pain, back pain, extremity pain, joint swelling, joint warmth or deformity Neuro: Denies: headache(s), numbness in extremities, weakness in extremities, sensory changes, difficulty walking, frequent falls, dizziness, vertigo, behavioral changes, Slurred speech present or seizure-like activity Psych: Denies: anxiety, depression, suicidal ideation or homicidal ideation Endo: Denies: polyuria, polydipsia, tired all the time, cold intolerance or hot flashes Renato/Lymph: Denies: easy bruising or easy bleeding Meds/Allergies Home Medications and Allergies Home Medications Medication Instructions Recorded Confirmed Last Taken Type allopurinol 100 mg tablet 100 mg PO DAILY 07/21/20 08/11/20 08/11/20 History atenolol 50 mg tablet 50 mg PO DAILY 07/21/20 08/11/20 08/24/20 05:00 History hydrochlorothiazide 25 mg tablet 25 mg PO DAILY 07/21/20 08/11/20 08/24/20 05:00 History cephalexin 500 mg PO Q8H #30 cap 08/24/20 Unknown Rx oxycodone 5 mg PO Q4H 7 Days #42 cap 08/24/20 Unknown Rx Allergies Allergy/AdvReac Type Severity Reaction Status Date / Time No Known Allergies Allergy Verified 07/21/20 10:36 Current Medications Current Medications Generic Name Dose Route Start Last Admin Trade Name Freq PRN Reason Stop Dose Admin Allopurinol 100 mg 08/25/20 09:00 08/27/20 08:37 Allopurinol 100 Mg Tablet PO 100 mg DAILY RADHA Administration Atenolol 50 mg 08/25/20 09:00 08/27/20 08:36 Atenolol 50 Mg Tablet PO 50 mg DAILY RADHA Administration Heparin Sodium (Beef Lung) 5,000 unit 08/24/20 18:30 08/27/20 06:00 Heparin 5,000 Unit/Ml Inj 1 Ml SUBCUT 5,000 unit Q12H RADHA Administration Sodium Chloride 1,000 mls @ 50 mls/hr 08/27/20 11:45 08/27/20 13:09 Sodium Chloride 0.9% IV 50 mls/hr .Q20H RADHA Administration Cefazolin Sodium 2,000 mg/ 60 mls @ 100 mls/hr 08/27/20 12:30 08/27/20 14:44 Sodium Chloride IV Infused Q8H RADHA Infusion Oxycodone HCl 10 mg 08/25/20 13:06 08/27/20 00:34 Oxycodone 5 Mg Ir Tab/Cap PO 10 mg Q4H PRN Administration SEVERE PAIN PFSH Acute PFSH: Medical History (Updated 08/28/20 @ 12:55 by Jennifer Gaines MD) Gout Hypertension Hypertension Social History Smoking and tobacco status: never smoked Alcohol intake: never Vitals/I&O/Wt Last Vital Signs Temp 98.2 F 08/27/20 15:14 Pulse 98 08/27/20 15:14 Resp 17 08/27/20 15:14 BP 103/62 08/27/20 15:14 Pulse Ox 97 08/27/20 15:14 08/27/20 08/27/20 08/27/20 06:59 14:59 22:59 Intake Total 1000 / 2810 420 / 420 Output Total 700 / 1450 250 / 250 275 / 525 Balance 300 / 1360 170 / 170 -275 / -105 Physical Exam Narrative: EXAM NARRATIVE: GEN: Awake, alert and oriented, no acute distress CVS: S1S2 N RS: CTA B/L Abd: Soft, nt/nd , bs+ CUFF 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 LOCKSTITCH: no focal neuro deficits Ext: right knee warm and swollen, post op dressing in place, not opened for exam at this time Urinary Catheter Management^: Castillo: Cath Placed During This Visit: yes, but has since been removed by the nurse Urinary Catheter Date of Insertion: 08/24/20 Urinary Catheter Time of Insertion: 10:10 Date Urinary Catheter Removed: 08/24/20 Time Urinary Catheter Discontinued: 11:05 Data Micro: Micro: Microbiology 08/24/20 10:28 Gram Stain - Final Knee - Right Tissue Culture - F inal Staphylococcus aureus 08/24/20 10:28 Gram Stain - Final Knee - #1 Anaerobic Culture - Preliminary Wound Culture - Fi nal Staphylococcus aureus 08/27/20 10:30 Blood Culture - Pr eliminary Blood SPECIMEN [place]LE[place] DO 08/27/20 10:30 Blood Culture - Pr eliminary Blood SPECIMEN [facility] DO A&P Assessment and plan (1) Septic arthritis: Status: Acute (2) Osteoarthritis of right knee: Status: Acute Additional A&P Information # Septic arthritis Admitted initially for elective R TKR, however intraop found to have abundant purulent material Joint and synovial cx returned with growth of MSSA , cell count N/A Unclear source of septic arthritis, no clear antecedant history to suggest bacteremia , blood cx N/a from admission. Requested a set today. No h/o direct trauma that patient can recall. No other orthopedic or cardiac hardware. Has been on rx with iv vanc/zosyn, narrowed to iv vanc Given that susceptibilties are now available which show MSSA, switch to directed abx coverage with iv cefazolin 2g q8h for total 4 weeks, counting day 1 as day of surgery (08/24- 09/21) Prefer to treat with longer course of 4 weeks as against 2 weeks as unable to ascertain status of bacteremia upon admission. Cx from 08/27 has been collected few days after abx treatment, therefore may have cleared. Additionally patient planned for hardware placement down the line, therefore need to ensure joint sterility. While on iv abx, obtain weekly labs CBC and CMP, ESR PICC line to facilitate above Joint/wound care per orthopedics Thank you for this consult Consult Attestations Medical Necessity Statement: septic arthritis, need for iv antibiotics, per admitting team Coding Level of Care Code Acute Rn Transitional Care for [employer] [place] Diagnoses Septic arthritis M00.9 Osteoarthritis of right knee M17.11
[2020-08-28] VITALS (9 sets, daily range): BP systolic 144–168; BP diastolic 63–88; PULSE 68–89; RESP 16–24; TEMP 36.7–37.7; O2SAT 93–96
[2020-08-28 02:42] LABS: Basophils % 0.2 %; Eosinophils % 0.2 %; Hematocrit 35.2 % (42.0-52.0); Hemoglobin 11.2 g/dL (11.7-16.6); Lymphocytes % 11.4 %; Mean Corpuscular HGB Conc 31.8 g/dL (30.0-36.0); Mean Corpuscular Hemoglobin 29.9 pg (28.0-34.0); Mean Corpuscular Volume 93.9 fL (80-94); Mean Platelet Volume 9.8 fL (7.4-10.4); Monocytes # 1.1 10^3/uL (0.2-0.9); Monocytes % 11.7 %; Neutrophils % 73.6 %; Nucleated Red Blood Cells % 0 %; Platelet Count 329 10^3/cmm (130-400); Red Blood Count 3.75 10^6/uL (4.1-5.3); Red Cell Distribution Width 14.3 % (12.1-15.1); White Blood Count 9.1 10^3/uL (4.0-10.0)
[2020-08-28 03:13] LABS: Alanine Aminotransferase 19 U/L (0-41); Albumin Level 2.3 g/dL (3.5-5.2); Alkaline Phosphatase 136 IU/L (40-130); Anion Gap 14.4 (5-19); Aspartate Amino Transferase 29 U/L (0-40); Blood Urea Nitrogen 29 mg/dL (8-23); Calcium 8.9 mg/dL (8.5-10.5); Carbon Dioxide 21 mmol/L (22-29); Chloride 105 mmol/L (98-107); Globulin 3.9 g/dL (1.3-4.6); Glucose 128 mg/dL (65-115); Osmolality Calculated 289 mOsm/kg (285-295); Potassium 4.4 mmol/L (3.5-5.1); Sodium 136 mmol/L (136-145); Total Bilirubin 0.6 mg/dL (0.15-1.2); Total Protein 6.2 g/dL (6.6-8.7)
[2020-08-28] MEDS: sodium chloride 0.9% 1,000 ML 50 ML IV (03:45)
[2020-08-28] MEDS: heparin 5,000 unit/mL INJ 1 mL 5000 UNIT SUBCUT ×2 (06:21→17:29)
[2020-08-28] MEDS: atenolol 50 mg Tablet PO (08:24)
[2020-08-28] MEDS: allopurinol 100 mg Tablet PO (08:24)
--- NOTE | 2020-08-28 10:00 | PC.NURSE ---
Patient to CPU for PICC line placement.
--- NOTE | 2020-08-28 10:09 | XR_ITS ---
WS: [id number] Portable AP upright chest, 08/28/2020 Clinical Data: post picc Comparison: None. Findings: A right PICC line has been inserted and ends at the level of the right sixth interspace in the superior vena cava. No pneumothorax is seen. XR/XR chest 1V portable [id number] Impression: Insertion of right PICC line.
--- NOTE | 2020-08-28 11:04 | PC.NURSE ---
Patient returned to room at this time with PICC line in place. Kai Lam RN states that it is ready to use.
--- NOTE | 2020-08-28 13:14 | PM.PN ---
Subjective Subjective: Interval history: Infectious disease progress note: no new complaints, afebrile, hemodynamically stable ,c/o pain at right knee Medications: Reviewed: Yes Vitals/I&O/Wt Last Vital Signs Temp 98.6 F 08/28/20 11:49 Pulse 72 08/28/20 11:49 Resp 17 08/28/20 11:49 BP 157/63 08/28/20 11:49 Pulse Ox 95 08/28/20 11:49 08/27/20 08/28/20 08/28/20 22:59 06:59 14:59 Intake Total 180 / 600 760 / 1360 840 / 840 Output Total 800 / 1050 325 / 1375 Balance -620 / -450 435 / -15 840 / 840 Physical Exam Narrative: EXAM NARRATIVE: GEN: Awake, alert and oriented, no acute distress CVS: S1S2 N RS: CTA B/L Abd: Soft, nt/nd , bs+ BUNDLE SORTER: no focal neuro deficits Ext: right knee warm and swollen, post op dressing in place, not opened for exam at this time . no significant change compared to yesterday Urinary Catheter Management^: Castillo: Cath Placed During This Visit: yes, but has since been removed by the nurse Urinary Catheter Date of Insertion: 08/24/20 Urinary Catheter Time of Insertion: 10:10 Date Urinary Catheter Removed: 08/24/20 Time Urinary Catheter Discontinued: 11:05 Data : 08/28/20 02:16 08/28/20 02:16 Micro: Microbiology 08/24/20 10:28 Gram Stain - Final Knee - #1 Anaerobic Culture - Preliminary Wound Culture - Final Staphylococcus aureus 08/27/20 10:30 Blood Culture - Preliminary Blood NEGATIVE TO DATE 08/27/20 10:30 Blood Culture - Preliminary Blood NEGATIVE TO DATE 08/24/20 10:28 Gram Stain - Final Knee - Right Tissue Culture - Final Staphylococcus aureus A&P Assessment and plan (1) Septic arthritis: Status: Acute (2) Osteoarthritis of right knee: Status: Acute Additional A&P Information # Septic arthritis Admitted initially for elective R TKR, however intraop found to have abundant purulent material Joint and synovial cx returned with growth of MSSA , cell count N/A Unclear source of septic arthritis, no clear antecedant history to suggest bacteremia. No h/o direct trauma that patient can recall. No other orthopedic or cardiac hardware. Continue iv cefazolin 2g q8h for total 4 weeks of abx treatment (08/24- 09/21) Prefer to treat with longer course of 4 weeks as against 2 weeks as unable to ascertain status of bacteremia upon admission. Additionally patient planned for hardware placement down the line, therefore need to ensure joint sterility. 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
--- NOTE | 2020-08-28 13:56 | P.PN_ITS ---
Subjective Subjective: Interval history: No acute events overnight. Continues to work better with physical therapy. Denies any nausea, vomiting, headache. Lying comfortably in bed. Seems frustrated because of discomfort in his knee and being in hospital. Discussed in detail regarding need of slow steady progress. Patient states he lives by his himself but does have support around him but w ould like to be discharged to SNF if possible for further rehabitation for now. Medications: Reviewed: Yes Vitals/I&O/Wt Last Vital Signs Temp 98.6 F 08/28/20 11:49 Pulse 72 08/28/20 11:49 Resp 17 08/28/20 11:49 BP 157/63 08/28/20 11:49 Pulse Ox 95 08/28/20 11:49 08/27/20 08/28/20 08/28/20 22:59 06:59 14:59 Intake Total 180 / 600 760 / 1360 840 / 840 Output Total 800 / 1050 325 / 1375 Balance -620 / -450 435 / -15 840 / 840 Physical Exam Narrative: EXAM NARRATIVE: General: No acute distress, AO x3 HEENT: PERRLA, pupils bilaterally equal and reactive Chest: Normal vesicular breath sounds, no added sounds, equal good air entry bilaterally CVS: S1-S2 regular, no murmurs, no tachycardia, no gallops, no rubs Abdomen: Soft, nontender, no organomegaly, bowel sounds present Neuro: No focal deficits, no facial deformity, AO x3, power 5/5 in all limbs Extremities: Right knee surgically bandaged, no soakage, bilateral lower limb pedal edema 1+. Urinary Catheter Management^: Castillo: Cath Placed During This Visit: yes, but has since been removed by the nurse Urinary Catheter Date of Insertion: 08/24/20 Urinary Catheter Time of Insertion: 10:10 Date Urinary Catheter Removed: 08/24/20 Time Urinary Catheter Discontinued: 11:05 Data : 08/28/20 02:16 08/28/20 02:16 Micro: Microbiology 08/24/20 10:28 Gram Stain - Final Knee - #1 Anaerobic Culture - Preliminary Wound Culture - Final Staphylococcus aureus 08/27/20 10:30 Blood Culture - Preliminary Blood NEGATIVE TO DATE 08/27/20 10:30 Blood Culture - Preliminary Blood NEGATIVE TO DATE 08/24/20 10:28 Gram Stain - Final Knee - Right Tissue Culture - Final Staphylococcus aureus A&P Assessment and plan (1) Septic arthritis: Status: Acute (2) Osteoarthritis of right knee: Status: Acute Additional A&P Information Septic arthritis: Fluid culture from the OR growing MSSA. Blood cultures remain negative. Continue with cefazolin 2 g IV every 8 hours. Patient will require 6 weeks IV course. PICC line inserted earlier in the day today. Appreciate recommendations from Dr. Lawler and Dr. Gaines. Physical therapy and pain medications as per orthopedics. RISA on CKD: Resolved. We will stop IV fluids as patient is eating well. Continue to monitor BMP daily for now. Continue other chronic medications. Full code. Cardiac diet. Heparin 5000 every 12 hourly. Discharge plan: As per physical therapy evaluation patient would require discharge to SNF. Awaiting prior authorization at present. Attestations Medical Necessity Statement*: Patient requires further hospitalization for management of septic arthritis while safe discharge planning is sought. Time Spent in Patient Care: Greater than 35 minutes (>than 50% of time spent in counselling and/or direct pt care on unit) . 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
[2020-08-28] MEDS: oxyCODONE 5 mg IR Tab/Cap 10 MG PO (14:16)
[2020-08-28 18:48] LABS: SARS Covid-2 Antigen Negative (Negative)
--- NOTE | 2020-08-28 19:26 | PC.NURSE ---
Report to Margie DASH at this time. Patient had a good day. COVIID rapid was negative. Patient to go to a SNF.
[2020-08-28] MEDS: acetaminophen 325 mg Tablet 650 MG PO (20:39)
[2020-08-29] VITALS (7 sets, daily range): BP systolic 149–174; BP diastolic 68–90; PULSE 63–78; RESP 12–18; TEMP 37.2–37.7; O2SAT 94–96
[2020-08-29] MEDS: heparin 5,000 unit/mL INJ 1 mL 5000 UNIT SUBCUT ×2 (06:44→19:33)
[2020-08-29] MEDS: atenolol 50 mg Tablet PO (10:01)
[2020-08-29] MEDS: allopurinol 100 mg Tablet PO (10:01)
--- NOTE | 2020-08-29 10:37 | PM.PN ---
Subjective Subjective: Interval history: No acute overnight. Patient working well with physical therapy. States pain is controlled. Denies any nausea, vomiting, headache. T-max/24 hours 99.9 Fahrenheit. Medications: Reviewed: Yes Vitals/I&O/Wt Last Vital Signs Temp 99.4 F 08/29/20 08:00 Pulse 74 08/29/20 08:00 Resp 18 08/29/20 08:00 BP 174/90 08/29/20 08:00 Pulse Ox 96 08/29/20 08:00 08/28/20 08/29/20 08/29/20 22:59 06:59 14:59 Intake Total 240 / 240 Output Total 225 / 525 200 / 725 300 / 300 Balance -225 / 975 -200 / 775 -60 / -60 Physical Exam Narrative: EXAM NARRATIVE: General: No acute distress, AO x3 HEENT: PERRLA, pupils bilaterally equal and reactive Chest: Normal vesicular breath sounds, no added sounds, equal good air entry bilaterally CVS: S1-S2 regular, no murmurs, no tachycardia, no gallops, no rubs Abdomen: Soft, nontender, no organomegaly, bowel sounds present Neuro: No focal deficits, no facial deformity, AO x3, power 5/5 in all limbs Extremities: Right knee surgically bandaged, no soakage, bilateral lower limb pedal edema 1+. Urinary Catheter Management^: Castillo: Cath Placed During This Visit: yes, but has since been removed by the nurse Urinary Catheter Date of Insertion: 08/24/20 Urinary Catheter Time of Insertion: 10:10 Date Urinary Catheter Removed: 08/24/20 Time Urinary Catheter Discontinued: 11:05 Data : 08/28/20 02:16 08/28/20 02:16 Micro: Microbiology 08/24/20 10:28 Gram Stain - Final Knee - #1 Anaerobic Culture - Preliminary Wound Culture - Final Staphylococcus aureus 08/27/20 10:30 Blood Culture - Preliminary Blood NEGATIVE TO DATE 08/27/20 10:30 Blood Culture - Preliminary Blood NEGATIVE TO DATE A&P Assessment and plan (1) Septic arthritis: Status: Acute (2) Osteoarthritis of right knee: Status: Acute Additional A&P Information Labs holiday today. Septic arthritis: Fluid culture from the OR growing MSSA. Blood cultures remain negative. Continue with cefazolin 2 g IV every 8 hours. Patient will require 6 weeks IV course. PICC line inserted on August 28. Appreciate recommendations from Dr. Lawler and Dr. Gaines. As patient had fever overnight will repeat blood cultures. For now continue the same therapy. Physical therapy and pain medications as per orthopedics. RISA on CKD: Resolved. We will stop IV fluids as patient is eating well. Continue to monitor BMP daily for now. Hypertension: Goal blood pressure less than 140/90 mmHg. Blood pressure elevated today. Will add amlodipine 10 mg daily to atenolol 50 mg. Continue other chronic medications. Full code. Cardiac diet. Heparin 5000 every 12 hourly. Discharge plan: As per physical therapy evaluation patient would require discharge to SNF. Awaiting prior authorization at present. Attestations Medical Necessity Statement*: Patient requires further hospitalization for management of septic arthritis while safe discharge planning is sought to SNF. Time Spent in Patient Care: Greater than 35 minutes (>than 50% of time spent in counselling and/or direct pt care on unit). 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
--- NOTE | 2020-08-29 10:53 | PC.SOCIAL ---
IM follow up explained, initialed and copy provided to patient. No questions voiced.
[2020-08-29] MEDS: amlodipine 10 mg Tablet PO (12:13)
--- NOTE | 2020-08-29 19:47 | PC.NURSE ---
Missed dose of cefazolin Patient missed dose of cefazolin this am. Day nurse did not hang due to not knowing if medication was given or not. Medication was retimed by pharmacy and administered now. Bag on floor would not scan. Manually administered.
[2020-08-30] VITALS (8 sets, daily range): BP systolic 113–159; BP diastolic 70–85; PULSE 68–80; RESP 12–20; TEMP 36.7–38.1; O2SAT 93–96
--- NOTE | 2020-08-30 03:21 | PC.NURSE ---
Cefazolin bag is not scanning. Manually administered. Pharmacy is aware.
[2020-08-30 04:43] LABS: Basophils % 0.3 %; Eosinophils % 0.3 %; Hematocrit 32.8 % (42.0-52.0); Hemoglobin 10.6 g/dL (11.7-16.6); Lymphocytes # 1.1 10^3/uL (0.8-4.8); Lymphocytes % 11.1 %; Mean Corpuscular HGB Conc 32.3 g/dL (30.0-36.0); Mean Corpuscular Hemoglobin 30.1 pg (28.0-34.0); Mean Corpuscular Volume 93.2 fL (80-94); Mean Platelet Volume 9.7 fL (7.4-10.4); Monocytes # 0.9 10^3/uL (0.2-0.9); Monocytes % 9.1 %; Neutrophils # 7.32 10^3/uL (1.8-7.7); Neutrophils % 75.2 %; Nucleated Red Blood Cells % 0 %; Platelet Count 295 10^3/cmm (130-400); Red Blood Count 3.52 10^6/uL (4.1-5.3); White Blood Count 9.7 10^3/uL (4.0-10.0)
[2020-08-30] MEDS: heparin 5,000 unit/mL INJ 1 mL 5000 UNIT SUBCUT ×2 (05:51→18:33)
[2020-08-30 06:20] LABS: Alanine Aminotransferase 25 U/L (0-41); Albumin Level 2.3 g/dL (3.5-5.2); Alkaline Phosphatase 139 IU/L (40-130); Anion Gap 14.2 (5-19); Aspartate Amino Transferase 44 U/L (0-40); Blood Urea Nitrogen 25 mg/dL (8-23); Calcium 8.8 mg/dL (8.5-10.5); Carbon Dioxide 23 mmol/L (22-29); Chloride 103 mmol/L (98-107); Globulin 3.8 g/dL (1.3-4.6); Glucose 118 mg/dL (65-115); Osmolality Calculated 287 mOsm/kg (285-295); Potassium 4.2 mmol/L (3.5-5.1); Sodium 136 mmol/L (136-145); Total Bilirubin 0.5 mg/dL (0.15-1.2); Total Protein 6.1 g/dL (6.6-8.7)
--- NOTE | 2020-08-30 09:09 | PC.NURSE ---
patient was found in bathroom floor by dietary staff. patient said I thought I could make it back to bed by myself by I fell. patient was found by technical document writer and nurse CAMDEN Cook sitting with surgical leg bent under patient's buttock and sitting on walker. Patient has abrasion on right knee. Patient assisted to standing position by technical document writer and nurse CAMDEN Cook. Care nurse CAMDEN Jose notified and Senior Vice President & General Counsel CAMDEN Manning notified.
[2020-08-30] MEDS: amlodipine 10 mg Tablet PO (09:57)
[2020-08-30] MEDS: atenolol 50 mg Tablet PO (09:57)
[2020-08-30] MEDS: allopurinol 100 mg Tablet PO (09:57)
--- NOTE | 2020-08-30 11:14 | PC.NURSE ---
AT APPROX. 0909 PT FELL, HENRIK RN AND ZAC RN HELPED THE PT UP AND BACK TO BED, PT STATED HE WAS NOT HURTING, HE DID HAVE A SMALL ABRASION TO THE L KNEE. SUTURES INTACT ON R KNEE, DRESSING CHANGED. DR. TOLEDO WAS NOTIFIED AND I RECEIVED ORDERS XRAYS BLE.
--- NOTE | 2020-08-30 11:25 | XRR_ITS ---
PROCEDURE INFORMATION: Exam: XR Left Knee Exam date and time: 08/30/2020 11:43 AM Age: 74 years old Clinical indication: Injury or trauma; Fall; Blunt trauma; Knee; Left; Additional info: Fell TECHNIQUE: Imaging protocol: XR Left knee. Views: 1 or 2 views. COMPARISON: No relevant prior studies available. FINDINGS: Bones/joints: No acute bony injury or malalignment. Degenerative change, preferentially involving the medial tibiofemoral joint. Soft tissues: Soft tissue calcifications. Vasculature: Vascular calcification. XR/XR knee LT 1-2V [id number] IMPRESSION: No acute bony injury or malalignment.
--- NOTE | 2020-08-30 11:26 | XRR_ITS ---
PROCEDURE INFORMATION: Exam: XR Right Knee Exam date and time: 08/30/2020 11:41 AM Age: 74 years old Clinical indication: Injury or trauma; Fall; Blunt trauma; Knee; Right; Prior surgery TECHNIQUE: Imaging protocol: XR Right knee. Views: 1 or 2 views. COMPARISON: No relevant prior studies available. FINDINGS: Bones/joints: Severe degenerative change involving the medial tibiofemoral joint. Joint effusion and intra-articular air. No acute bony injury or malalignment . Soft tissues: Prominent soft tissue swelling. 5 mm metallic foreign body overlying the proximal fibular diaphysis. Soft tissue calcifications. XR/XR knee RT 1-2V [id number] IMPRESSION: 1. Severe degenerative change involving the medial tibiofemoral joint. 2. Prominent soft tissue swelling. 3. Joint effusion and intra-articular air.
--- NOTE | 2020-08-30 13:30 | P.PN_ITS ---
Subjective Subjective: Interval history: Infectious disease progress note. Since last being seen on August 28, patient has now had low-grade fevers, T-max up to 100.5 Fahrenheit since evening of August 28. His knee noted to be slightly swollen on the last exam, increased swelling and warmth noted on exam today. He attempted to ambulate to the bathroom today and had an episode where he slipped and fell. Reportedly was found on the floor with right knee buckled under his hips. Blood culture remains negative to date from August 27 and August 29. Current antibiotics : cefazolin 2 g IV every 8 hours since August 27, 2020 Previous antibiotics : Vancomycin August 24 to August 27 Piperacillin tazobactam August 24 to August 26 Medications: Reviewed: Yes Vitals/I&O/Wt Last Vital Signs Temp 99.4 F 08/30/20 11:42 Pulse 77 08/30/20 11:42 Resp 18 08/30/20 11:42 BP 147/81 08/30/20 11:42 Pulse Ox 96 08/30/20 11:42 08/30/20 08/30/20 08/30/20 06:59 14:59 22:59 Intake Total 60 / 720 720 / 720 Output Total 400 / 1100 350 / 350 Balance -340 / -380 370 / 370 Physical Exam Narrative: EXAM NARRATIVE: GEN: Awake, alert and oriented, no acute distress CVS: S1S2 N RS: CTA B/L Abd: Soft, nt/nd , bs+ 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 Lines: PICC placed aug Urinary Catheter Management^: Castillo: Cath Placed During This Visit: yes, but has since been removed by the nurse Urinary Catheter Date of Insertion: 08/24/20 Urinary Catheter Time of Insertion: 10:10 Date Urinary Catheter Removed: 08/24/20 Time Urinary Catheter Discontinued: 11:05 Data : 08/30/20 04:07 08/30/20 04:07 Micro: Microbiology 08/24/20 10:28 Gram Stain - Final Knee - #1 Anaerobic Culture - Preliminary Wound Culture - Final Staphylococcus aureus 08/29/20 06:19 Blood Culture - Preliminary Blood SPECIMEN COLLECTED 08/29/20 06:19 Blood Culture - Preliminary Blood SPECIMEN COLLECTED A&P Assessment and plan (1) Septic arthritis: Status: Acute (2) Osteoarthritis of right knee: Status: Acute Additional A&P Information # Septic arthritis -Admitted initially for elective R TKR on August 24, however intraoperatively found to have abundant purulent material -Joint and synovial cx returned with growth of MSSA , cell count N/A -Unclear source of septic arthritis, no clear antecedant history to suggest bacteremia. No h/o direct trauma that patient can recall. No other orthopedic or cardiac hardware. -Blood culture remains negative from August 27 and August 29. -Since last being seen on August 28, patient is experiencing low-grade fevers between 99.8-100.5. Concomitantly his knee is also noted to be more swollen compared to my last exam. Recommend repeat orthopedic evaluation assess for need of further I&D. -Currently on organism directed therapy for MSSA with iv cefazolin 2g q8h for at least 4 weeks of abx treatment (08/24- 09/21). -Prefer to treat with longer course of 4 weeks as against 2 weeks as unable to ascertain status of bacteremia upon admission. Additionally patient planned for hardware placement down the line, therefore need to ensure joint sterility. 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
--- NOTE | 2020-08-30 13:36 | PM.PN ---
Subjective Subjective: Interval history: No acute overnight. Patient had a fall today morning while coming back from the bathroom. He was walking with a walker and slipped on the floor. He was found on the floor with right knee buckled under his hips. He did not hit his head. Denies any nausea, vomiting, headache on examination. Blood pressures and vitals have been within normal limits. T-max in last 24 hours 100.5 Fahrenheit last night. No excessive discharge on examination of the knee though it does look more erythematous today. Medications: Reviewed: Yes Vitals/I&O/Wt Last Vital Signs Temp 99.4 F 08/30/20 11:42 Pulse 77 08/30/20 11:42 Resp 18 08/30/20 11:42 BP 147/81 08/30/20 11:42 Pulse Ox 96 08/30/20 11:42 08/29/20 08/30/20 08/30/20 22:59 06:59 14:59 Intake Total 300 / 660 720 / 720 Output Total 400 / 1100 350 / 350 Balance 300 / -40 -400 / -440 370 / 370 Physical Exam Narrative: EXAM NARRATIVE: General: No acute distress, AO x3 HEENT: PERRLA, pupils bilaterally equal and reactive Chest: Normal vesicular breath sounds, no added sounds, equal good air entry bilaterally CVS: S1-S2 regular, no murmurs, no tachycardia, no gallops, no rubs Abdomen: Soft, nontender, no organomegaly, bowel sounds present Neuro: No focal deficits, no facial deformity, AO x3, power 5/5 in all limbs Extremities: Right knee surgically bandaged, no soakage, bilateral lower limb pedal edema 1+. Urinary Catheter Management^: Castillo: Cath Placed During This Visit: yes, but has since been removed by the nurse Urinary Catheter Date of Insertion: 08/24/20 Urinary Catheter Time of Insertion: 10:10 Date Urinary Catheter Removed: 08/24/20 Time Urinary Catheter Discontinued: 11:05 Data : 08/30/20 04:07 08/30/20 04:07 Micro: Microbiology 08/24/20 10:28 Gram Stain - Final Knee - #1 Anaerobic Culture - Preliminary Wound Culture - Final Staphylococcus aureus 08/29/20 06:19 Blood Culture - Preliminary Blood SPECIMEN COLLECTED 08/29/20 06:19 Blood Culture - Preliminary Blood SPECIMEN COLLECTED A&P Assessment and plan (1) Septic arthritis: Status: Acute (2) Osteoarthritis of right knee: Status: Acute Additional A&P Information Septic arthritis: Fluid/tissue culture from the OR growing MSSA. Blood cultures remain negative. Continue with cefazolin 2 g IV every 8 hours. Patient will require 6 weeks IV course. PICC line inserted on August 28. Patient spiked continuous fever yesterday. Going as high as 100.5 overnight. Case discussed with ID and Dr. Man from orthopedics who is covering from Dr. Lawler. Requested to have a look at the patient again for possible need of redebridement of the knee as patient continues to spike fevers. Blood cultures from yesterday continue to remain negative. We will repeat blood culture, urine culture, sputum culture. Physical therapy and pain medications as per orthopedics. RISA on CKD: Resolved. We will stop IV fluids as patient is eating well. Continue to monitor BMP daily for now. Hypertension: Goal blood pressure less than 140/90 mmHg. Blood pressures better. Continue with amlodipine 10 mg regimen at home dose. Continue other chronic medications. Full code. Cardiac diet. Heparin 5000 every 12 hourly. Discharge plan: As per physical therapy evaluation patient would require discharge to SNF. Awaiting prior authorization at present. Attestations Medical Necessity Statement*: Requires further hospitalization for management of septic arthritis as patient continues to spike fevers. Time Spent in Patient Care: Greater than 35 minutes (>than 50% of time spent in counselling and/or direct pt care on unit). 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
--- NOTE | 2020-08-30 14:44 | PC.NURSE ---
CEFZOLIN WOULD NOT SCAN PROPERLY-WHEN SCANNED PULLED UP D/C MED TO DOCUMENT ON. MEDICATION VERIFIED BY 2 NURSES PRIOR TO ADMISTRATION---[place] AND SURVEILLANCE OPERATOR
--- NOTE | 2020-08-30 14:49 | PM.PN ---
Subjective Subjective: Interval history: patient in no acute distress Vitals/I&O/Wt Last Vital Signs Temp 99.4 F 08/30/20 11:42 Pulse 77 08/30/20 11:42 Resp 18 08/30/20 11:42 BP 147/81 08/30/20 11:42 Pulse Ox 96 08/30/20 11:42 08/29/20 08/30/20 08/30/20 22:59 06:59 14:59 Intake Total 300 / 660 60 / 720 720 / 720 Output Total 400 / 1100 350 / 350 Balance 300 / -40 -340 / -380 370 / 370 Physical Exam Narrative: EXAM NARRATIVE: Right knee s/p ID no erythema minimal swelling minimal pain with ROM Urinary Catheter Management^: Castillo: Cath Placed During This Visit: yes, but has since been removed by the nurse Urinary Catheter Date of Insertion: 08/24/20 Urinary Catheter Time of Insertion: 10:10 Date Urinary Catheter Removed: 08/24/20 Time Urinary Catheter Discontinued: 11:05 Data : 08/30/20 04:07 08/30/20 04:07 Micro: Microbiology 08/24/20 10:28 Gram Stain - Final Knee - #1 Anaerobic Culture - Preliminary Wound Culture - Final Staphylococcus aureus 08/29/20 06:19 Blood Culture - Preliminary Blood SPECIMEN COLLECTED 08/29/20 06:19 Blood Culture - Preliminary Blood SPECIMEN COLLECTED A&P Additional A&P Information s/p I+D Right knee Clinically I would hold off from I+D at this point but will defer to Dr. Lawler to eval tomorrow. 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
[2020-08-30 15:06] LABS: Procalcitonin 0.33 ng/mL (0-0.5)
[2020-08-30 20:05] LABS: Add Urine Microscopic? NO
[2020-08-30 20:16] LABS: Bilirubin Urine Neg (Negative); Blood Urine Neg (Negative); Glucose Urine UA Norm (Normal); Ketones Urine Negative (Negative); Leukocyte Esterase Urine Negative (Negative); Nitrate Urine Negative (Negative); Protein Urine Neg (Negative); Urine Appearance Clear (CLEAR); Urine Color Yellow (Yellow); Urobilinogen Urine Norm (Negative); pH Urine 5 (5-7)
[2020-08-31] VITALS (10 sets, daily range): BP systolic 117–152; BP diastolic 71–80; PULSE 64–77; RESP 16–18; TEMP 36.7–38.1; O2SAT 95–97
[2020-08-31 05:08] LABS: Basophils % 0.2 %; Eosinophils % 0.4 %; Hematocrit 32.3 % (42.0-52.0); Hemoglobin 10.2 g/dL (11.7-16.6); Lymphocytes # 1.1 10^3/uL (0.8-4.8); Lymphocytes % 12.2 %; Mean Corpuscular HGB Conc 31.6 g/dL (30.0-36.0); Mean Corpuscular Hemoglobin 30.1 pg (28.0-34.0); Mean Corpuscular Volume 95.3 fL (80-94); Mean Platelet Volume 9.8 fL (7.4-10.4); Monocytes # 0.9 10^3/uL (0.2-0.9); Monocytes % 9.5 %; Neutrophils # 6.82 10^3/uL (1.8-7.7); Nucleated Red Blood Cells % 0 %; Platelet Count 291 10^3/cmm (130-400); Red Blood Count 3.39 10^6/uL (4.1-5.3); Red Cell Distribution Width 14.1 % (12.1-15.1); White Blood Count 9.1 10^3/uL (4.0-10.0)
[2020-08-31 05:36] LABS: C Reactive Protein 134.1 mg/L (0.0-4.9)
[2020-08-31 05:37] LABS: Alanine Aminotransferase 21 U/L (0-41); Albumin Level 2.3 g/dL (3.5-5.2); Alkaline Phosphatase 131 IU/L (40-130); Anion Gap 11.3 (5-19); Aspartate Amino Transferase 42 U/L (0-40); Blood Urea Nitrogen 25 mg/dL (8-23); Calcium 8.8 mg/dL (8.5-10.5); Carbon Dioxide 26 mmol/L (22-29); Chloride 105 mmol/L (98-107); Globulin 3.6 g/dL (1.3-4.6); Glucose 119 mg/dL (65-115); Osmolality Calculated 292 mOsm/kg (285-295); Potassium 4.3 mmol/L (3.5-5.1); Sodium 138 mmol/L (136-145); Total Bilirubin 0.5 mg/dL (0.15-1.2); Total Protein 5.9 g/dL (6.6-8.7)
[2020-08-31] MEDS: heparin 5,000 unit/mL INJ 1 mL 5000 UNIT SUBCUT ×2 (05:44→19:13)
[2020-08-31 06:18] LABS: Erythrocyte Sedimentation Rate 93 mm/hr (0-10)
--- NOTE | 2020-08-31 08:14 | PM.PN ---
Subjective Subjective: Interval history: Complainss of less pain today than yestereday. Good po intake Vitals/I&O/Wt Last Vital Signs Temp 98.4 F 08/31/20 07:56 Pulse 69 08/31/20 07:56 Resp 17 08/31/20 07:56 BP 144/71 08/31/20 07:56 Pulse Ox 96 08/31/20 07:56 08/30/20 08/31/20 08/31/20 22:59 06:59 14:59 Intake Total 780 / 1560 Output Total 400 / 750 650 / 1400 300 / 300 Balance 380 / 810 -650 / 160 -300 / -300 Physical Exam Narrative: EXAM NARRATIVE: Less sswelling right knee. Incision with trace drainage.Unable to extend past 30 detgrees Urinary Catheter Management^: Castillo: Cath Placed During This Visit: yes, but has since been removed by the nurse Urinary Catheter Date of Insertion: 08/24/20 Urinary Catheter Time of Insertion: 10:10 Date Urinary Catheter Removed: 08/24/20 Time Urinary Catheter Discontinued: 11:05 Data : 08/31/20 04:30 08/31/20 04:30 Micro: Microbiology 08/29/20 06:19 Blood Culture - Preliminary Blood NEGATIVE TO DATE 08/29/20 06:19 Blood Culture - Preliminary Blood NEGATIVE TO DATE 08/24/20 10:28 Gram Stain - Final Knee - #1 Anaerobic Culture - Preliminary Wound Culture - Final Staphylococcus aureus A&P Assessment and plan (1) Osteoarthritis of right knee: Status: Acute (2) Septic arthritis: Patient with low grade temp this am. WBC WNL CRP much improved since admission. this is a highly atypical course of presentation of a septic joint. With elevated temperatures will obtain MRI right knee to be sure osteomyelitis is not a complicating feature. 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
--- NOTE | 2020-08-31 08:18 | MR_ITS ---
WS: [id number] MRI RIGHT KNEE, with and without contrast. HISTORY: Septic knee. Rule out osteomyelitis COMPARISON: 08/30/2020 Limited evaluation of the knee with and without contrast.Patient was unable to remain still for this examination due to significant amount of pain. There is also artifact from the nataliia placed within the posterior knee. There is significant soft tissue and synovial enhancement throughout the knee. There is marked synovi al thickening and enhancement. Soft tissue enhancement. Large suprapatellar joint effusion with diffu se enhancement and wall thickening. There is a defect along the anterior knee extending into the join t effusion which may be postsurgical. There is a significant amount of distortion and artifact through the bones of the knee due to the met allic hardware from the nataliia. There is enhancement with bone destruction involving the medial comp artment. Findings are very suspicious for osteomyelitis superimposed on severe degenerative joint dis ease. The enhancement and destructive changes involve the femoral condyle and the medial tibial plate au. Enhancement and soft tissue thickening extending into the popliteal fossa and there are several loose bodies in the Pedroza's cyst. MR/MR knee RT wo/w con [id number] IMPRESSION: 1. Limited evaluation of the knee due to motion and artifact from metal staple s. 2. Severe diffuse cellulitis with enhancement and thickening of the synovium a nd suprapatellar bursa consistent with a septic joint. 3. Severe degenerative changes involving the medial knee joint with destructio n and mild enhancement along the joint line. Findings are highly suspicious for osteomyelitis. This is also the area of greatest synovial thickening and enhan cement.
[2020-08-31] MEDS: atenolol 50 mg Tablet PO (08:34)
[2020-08-31] MEDS: amlodipine 10 mg Tablet PO (08:34)
[2020-08-31] MEDS: allopurinol 100 mg Tablet PO (08:34)
[2020-08-31] MEDS: acetaminophen 325 mg Tablet 650 MG PO (08:34)
--- NOTE | 2020-08-31 09:30 | PC.CHAP ---
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 [] Patient/Family/Request visit [] Outpatient visit [] Follow-up visit [] Physician referral [] Code/Alert [x] Routine visit [] Staff referral [] Actively dying [] Patient sleeping [] Family support [] [] Out of room [] Palliative care [] [x] Receiving care in room [] Pre-surgical visit [] Trauma [] Long length of stay [] ICU visit [] Other: Relational/Emotional Strength [] Patient feels connected with others/family/visitors/staff [] Distress [] Loneliness/isolation [] Abandonment Spirituality of Patient [] Person of Michelle [] Attends Mandaen of their Michelle [] Believes in Prayer [] Reads Bible or Zoroastrianism materials [] There are Spiritual issues to be addressed 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 Interventions [] Prayer [] Active listening [] Non-anxious presence [] Spiritual/emotional support [] Crisis/trauma care [] Spiritual counseling [] Bereavement support [] Provided bereavement packet [] Provided Bible/devotional materials [] Provided toy/stuffed animal, coloring book to patient or family member [] Provided Communion [] Anointing/[place] [] Salvation [] Completed spiritual assessment [] Other: Impact on Illness or Injury [] Angry [] Fearful [] Anxious [] Often cries [] Exhaustion [] Unable to work [] Unable to attend methodist [] Unable to walk/stand [] Unable to read [] Unable to drive [] Unable to eat/drink [] Unable to sleep [] Unable to be with family [] Patient intubated [] Other: Summary Time spent with patient
[2020-08-31] MEDS: oxyCODONE 5 mg IR Tab/Cap 10 MG PO ×2 (12:31→20:44)
--- NOTE | 2020-08-31 12:56 | PC.SOCIAL ---
*IMM Update* Gave IMM to pt. Provided a copy to pt. Initialed, dated, timed and placed in chart.
--- NOTE | 2020-08-31 16:51 | P.PN_ITS ---
Subjective Subjective: Interval history: The patient is doing well. He reports pain which is mostly well controlled with oral medications. Today he required small dose of morphine as well. No chills. No nausea or vomiting. No diarrhea. Appetite is improving Medications: Reviewed: Yes Medication Review Details: Generic Name Dose Route Start Last Admin Trade Name Freq PRN Reason Stop Dose Admin Acetaminophen 650 mg 08/24/20 18:16 08/31/20 08:34 Acetaminophen 32 5 Mg Tablet PO 650 mg Q6H PRN Administration Mild/Mod Pain Or Temp >/= 101 Allopurinol 100 mg 08/25/20 09:00 08/31/20 08:34 Allopurinol 100 Mg Tablet PO 100 mg DAILY RADHA Administration Amlodipine Besylat e 10 mg 08/29/20 11:00 08/31/20 08:34 Amlodipine 10 Mg Tablet PO 10 mg DAILY RADHA Administration Atenolol 50 mg 08/25/20 09:00 08/31/20 08:34 Atenolol 50 Mg T ablet PO 50 mg DAILY RADHA Administration Heparin Sodium (Be ef Lung) 5,000 unit 08/24/20 18:30 08/31/20 05:44 Heparin 5,000 Un it/Ml Inj 1 Ml SUBCUT 5,000 unit Q12H RADHA Administration Cefazolin Sodium 2 ,000 mg/ 60 mls @ 100 mls/ hr 08/29/20 20:00 08/31/20 12:31 Sodium Chloride IV 100 mls/hr Q8H RADHA Administration Oxycodone HCl 10 mg 08/25/20 13:06 08/31/20 12:31 Oxycodone 5 Mg I r Tab/Cap PO 10 mg Q4H PRN Administration SEVERE PAIN Vitals/I&O/Wt Last Vital Signs Temp 99.1 F 08/31/20 15:50 Pulse 64 08/31/20 15:50 Resp 16 08/31/20 15:50 BP 120/75 08/31/20 15:50 Pulse Ox 96 08/31/20 15:50 08/31/20 08/31/20 08/31/20 06:59 14:59 22:59 Intake Total 60 / 1620 600 / 600 Output Total 650 / 1400 400 / 400 100 / 500 Balance -590 / 220 200 / 200 -100 / 100 Physical Exam Narrative: EXAM NARRATIVE: Awake alert oriented. No acute distress. Mood and affect are appropriate. Responses are adequate. Skin is warm and dry. Moist mucous brains. Neck supple. No JVD Eyes Mari, extraocular muscles are intact Lungs are clear bilaterally. No respiratory distress Heart S1, S2, regular Abdomen soft, nontender, bowel sounds are present Extremities no calf tenderness bilaterally. No cyanosis. Normal capillary refill. Right knee is swollen. Dressing is dry and clean. Urinary Catheter Management^: Castillo: Cath Placed During This Visit: yes, but has since been removed by the nurse Urinary Catheter Date of Insertion: 08/24/20 Urinary Catheter Time of Insertion: 10:10 Date Urinary Catheter Removed: 08/24/20 Time Urinary Catheter Discontinued: 11:05 Data : 08/31/20 04:30 08/31/20 04:30 Micro: Microbiology 08/29/20 06:19 Blood Culture - Preliminary Blood NEGATIVE TO DATE 08/29/20 06:19 Blood Culture - Preliminary Blood NEGATIVE TO DATE 08/24/20 10:28 Gram Stain - Final Knee - #1 Anaerobic Culture - Preliminary Wound Culture - Final Staphylococcus aureus A&P Assessment and plan (1) Septic arthritis: Status: Acute (2) Osteoarthritis of right knee: Status: Acute Additional A&P Information [place] Septic arthritis. Cultures are positive for MSSA. Blood cultures are negative. Status post I&D by dr Lawler. Probably will have another procedure tomorrow. Antibiotics are managed by Dr. Gaines. She also ordered echo. Appreciate help from the specialists. Continue pain management. MRI is pending. Osteomyelitis is suspected. Discussed with Dr. Alcazar Anemia. Probably secondary to infection. Continue monitoring. Currently stable. Hypertension. Well-controlled. Continue current management. Moderate degree protein calorie malnutrition. Continue encouraging protein intake. Protein supplementation drinks. DVT prophylaxis. Heparin. The plan of care was discussed with the patient and her family. They verbalized understanding and agreement. Attestations Medical Necessity Statement*: The patient still requires inpatient hospitalization. Requires IV antibiotics and additional procedures. Coding Level of Care Code Acute Last Repairer for [facility] Diagnoses Septic arthritis M00.9 Osteoarthritis of right knee M17.11
[2020-09-01] VITALS (24 sets, daily range): BP systolic 113–177; BP diastolic 51–101; PULSE 59–78; RESP 16–21; TEMP 36.2–37.9; O2SAT 92–98
--- NOTE | 2020-09-01 07:49 | PM.PN ---
Subjective Subjective: Interval history: Patient states appetite better yesterday. Continued pain in the right knee. Vitals/I&O/Wt Last Vital Signs Temp 98.7 F 09/01/20 07:24 Pulse 66 09/01/20 07:24 Resp 17 09/01/20 07:24 BP 133/73 09/01/20 07:24 Pulse Ox 94 09/01/20 07:24 08/31/20 09/01/20 09/01/20 22:59 06:59 14:59 Intake Total 300 / 960 Output Total 100 / 500 650 / 1150 200 / 200 Balance 200 / 460 -650 / -190 -200 / -200 Physical Exam Narrative: EXAM NARRATIVE: Holds knee flexed approximately 30 degrees. Can bend it to perhaps 50 degrees. Perhaps slightly less swelling and no erythema. Trace drainage from incision Urinary Catheter Management^: Castillo: Cath Placed During This Visit: yes, but has since been removed by the nurse Urinary Catheter Date of Insertion: 08/24/20 Urinary Catheter Time of Insertion: 10:10 Date Urinary Catheter Removed: 08/24/20 Time Urinary Catheter Discontinued: 11:05 Data : 08/31/20 04:30 08/31/20 04:30 Micro: Microbiology 08/24/20 10:28 Gram Stain - Final Knee - #1 Anaerobic Culture - Final Wound Culture - Final Staphylococcus aureus MRI: My impression: Patient has mixed signal throughout the femur and tibia but no focal abscesses or obvious necrotic bone I can appreciate. There is marked erosion and destruction of the medial femoral condyle medial tibial plateau. I am unable to conclude that this is due to the underlying severe osteoarthritis or deep infection. Again severe tricompartmental degenerative changes are noted. A&P Assessment and plan (1) Septic arthritis: Status: Acute (2) Osteoarthritis of right knee: I discussed the case with Dr. Gaines yesterday. With the patient's persistent increased temperatures we will go back to the operating room today for second aggressive irrigation debridement. I see no abscesses or obvious necrotic bone to benefit from debridement of the femur or tibia. The erosions over the medial femoral condyle will be readily surgically visible for inspection. If there is any necrosis or localized purulence these can be aggressively debrided at that time. I discussed my indications for surgery with the patient. I discussed alternatives of continued antibiotics alone and the fears that persistent fevers raises to the possible presence of remaining aggressive infection. He agrees to proceed. Status: Acute Attestations Medical Necessity Statement*: As per medicine Coding Level of Care Code Acute Fiberglass Technician for [facility] Diagnoses Septic arthritis M00.9 Osteoarthritis of right knee M17.11
[2020-09-01] MEDS: amlodipine 10 mg Tablet PO (08:25)
[2020-09-01] MEDS: heparin 5,000 unit/mL INJ 1 mL 5000 UNIT SUBCUT ×2 (08:25→21:55)
[2020-09-01] MEDS: atenolol 50 mg Tablet PO (08:25)
[2020-09-01] MEDS: allopurinol 100 mg Tablet PO (08:25)
--- NOTE | 2020-09-01 09:07 | PC.CHAP ---
Pastoral Care Encounter/Spiritual Assessment Type of Contact [] Declined drum handler visit [] Patient/Family/Request visit [] Outpatient visit [] Follow-up visit [] Physician referral [] Code/Alert [x] Routine visit [] Staff referral [] Actively dying [] Patient sleeping [] Family support [] [] Out of room [] Palliative care [] [] Receiving care in room [] Pre-surgical visit [] Trauma [] Long length of stay [] ICU visit [] Other: Relational/Emotional Strength [x] Patient feels connected with others/family/visitors/staff [] Distress [] Loneliness/isolation [] Abandonment Spirituality of Patient [x] Person of Michelle [] Attends Zoroastrianism of their Michelle [] Believes in Prayer [] Reads Bible or Islam materials [] There are Spiritual issues to be addressed Hydraulic Controls Technician Interventions x[] Prayer [x] Active listening [] Non-anxious presence [] Spiritual/emotional support [] Crisis/trauma care [] Spiritual counseling [] Bereavement support [] Provided bereavement packet [x] Provided Bible/devotional materials [] Provided toy/stuffed animal, coloring book to patient or family member [] Provided Communion [] Anointing/[place] [] Salvation [x] Completed spiritual assessment [] Other: Impact on Illness or Injury [] Angry [] Fearful [] Anxious [] Often cries [] Exhaustion [] Unable to work [] Unable to attend yarsanism [] Unable to walk/stand [] Unable to read [] Unable to drive [] Unable to eat/drink [] Unable to sleep [] Unable to be with family [] Patient intubated [] Other: Summary Time spent with patient 15 min
--- NOTE | 2020-09-01 12:17 | ANES.PREANE2 ---
Pre-Anesthetic Assessment Pre-Anesthetic Assessment: Height/Weight: Height 1.8 m Weight 99.79 kg Temp Pulse Resp BP Pulse Ox 98.7 F 73 16 133/73 96 09/01/20 07:24 09/01/20 08:29 09/01/20 08:29 09/01/20 07:24 09/01/20 08:29 Preop Diagnosis: Osteoarthritis Right knee Proposed Procedure: Operation Date: 08/24/20 09:40 Proposed Procedures p Total Knee Arthroplasty 05592 M17.0(Right) - Arnulfo Lawler MD Operation Date: 09/01/20 12:00 Proposed Procedures p Debridement Lower Extremity And Irrigation(Right) - Arnulfo Lawler MD Familial anesthetic complications: None Was Beta Eric taken within 24 hours: Yes Last intake: Intake Last Liquid Date 08/24/20 Last Liquid Time 05:00 Last Solid Date 08/23/20 Last Solid Time 20:30 Social: Social History: No alcohol and No tobacco Exam: Pre-Anes Outpt Exam: alert, oriented x 3, clear to auscultation bilaterally and regular rate & rhythm Airway: Cervical ROM: WNL MP: 3 Dentition: Full CV/HEM: CV/HEM: HTN Musc/skel: Musc/skel: OA/DJD Comments: Knee infected joint Anesthetic Plan: ASA status: 2 Anesthesia: General Risk of > 500 ml blood loss (7ml/kg in children): No Meds/Allergies Current Medications: Current Medications Generic Name Dose Route Start Last Admin Trade Name Freq PRN Reason Stop Dose Admin Acetaminophen 650 mg 08/24/20 18:16 08/31/20 08:34 Acetaminophen 32 5 Mg Tablet PO 650 mg Q6H PRN Administration Mild/Mod Pain Or Temp >/= 101 Allopurinol 100 mg 08/25/20 09:00 09/01/20 08:25 Allopurinol 100 Mg Tablet PO 100 mg DAILY RADHA Administration Amlodipine Besylat e 10 mg 08/29/20 11:00 09/01/20 08:25 Amlodipine 10 Mg Tablet PO 10 mg DAILY RADHA Administration Atenolol 50 mg 08/25/20 09:00 09/01/20 08:25 Atenolol 50 Mg T ablet PO 50 mg DAILY RADHA Administration Heparin Sodium (Be ef Lung) 5,000 unit 09/01/20 09:00 09/01/20 08:25 Heparin 5,000 Un it/Ml Inj 1 Ml SUBCUT 5,000 unit Q12H RADHA Administration Cefazolin Sodium 2 ,000 mg/ 60 mls @ 100 mls/ hr 08/29/20 20:00 09/01/20 11:10 Sodium Chloride IV 100 mls/hr Q8H RADHA Administration Oxycodone HCl 10 mg 08/25/20 13:06 08/31/20 20:44 Oxycodone 5 Mg I r Tab/Cap PO 10 mg Q4H PRN Administration SEVERE PAIN Additional Medication Information: Generic Name Dose Route Start Last Admin Trade Name Freq PRN Reason Stop Dose Admin Acetaminophen 650 mg 08/24/20 18:16 08/31/20 08:34 Acetaminophen 32 5 Mg Tablet PO 650 mg Q6H PRN Administration Mild/Mod Pain Or Temp >/= 101 Allopurinol 100 mg 08/25/20 09:00 08/31/20 08:34 Allopurinol 100 Mg Tablet PO 100 mg DAILY RADHA Administration Amlodipine Besylat e 10 mg 08/29/20 11:00 08/31/20 08:34 Amlodipine 10 Mg Tablet PO 10 mg DAILY RADHA Administration Atenolol 50 mg 08/25/20 09:00 08/31/20 08:34 Atenolol 50 Mg T ablet PO 50 mg DAILY RADHA Administration Heparin Sodium (Be ef Lung) 5,000 unit 08/24/20 18:30 08/31/20 05:44 Heparin 5,000 Un it/Ml Inj 1 Ml SUBCUT 5,000 unit Q12H RADHA Administration Cefazolin Sodium 2 ,000 mg/ 60 mls @ 100 mls/ hr 08/29/20 20:00 08/31/20 12:31 Sodium Chloride IV 100 mls/hr Q8H RADHA Administration Oxycodone HCl 10 mg 08/25/20 13:06 08/31/20 12:31 Oxycodone 5 Mg I r Tab/Cap PO 10 mg Q4H PRN Administration SEVERE PAIN PFSH Anesthesia PFSH: Medical History (Updated 08/28/20 @ 12:55 by Jennifer Gaines MD) Gout Hypertension Hypertension Social History Smoking and tobacco status: never smoked Alcohol intake: never Data Anesthesia CBC & Chem 7: 08/31/20 04:30 08/31/20 04:30 Other Labs: Laboratory Results - last 48 hr 08/27/20 08/30/20 08/30/20 09:50 04:07 12:56 WBC RBC Hgb Hct MCV MCH MCHC RDW Plt Count MPV Neut % (Auto) Lymph % (Auto) [place] % (Auto) Eos % (Auto) Baso % (Auto) Neut # (Auto) Lymph # (Auto) [place] # (Auto) Eos # (Auto) Baso # (Auto) Nucleated RBC % (auto) Nucleated RBCs # ESR Sodium Potassium Chloride Carbon Dioxide Anion Gap BUN Creatinine GFR Calculation Glucose Calculated Osmolality Calcium Total Bilirubin AST ALT Alkaline Phosphatase C-Reactive Protein Total Protein Albumin Globulin Procalcitonin 0.33 Urine Color Yellow Urine Appearance Clear Urine pH 5 Ur Specific [place] 1.020 Urine Protein Neg Urine Glucose (UA) Norm Urine Ketones Negative Urine Blood Neg Urine Nitrate Negative Urine Bilirubin Neg Urine Urobilinogen Norm Ur Leukocyte Esterase Negative Misc Test Reference See comment 08/31/20 08/31/20 08/31/20 04:30 04:30 04:30 WBC 9.1 RBC 3.39 L Hgb 10.2 L Hct 32.3 L MCV 95.3 H MCH 30.1 MCHC 31.6 RDW 14.1 Plt Count 291 MPV 9.8 Neut % (Auto) 75.0 Lymph % (Auto) 12.2 [place] % (Auto) 9.5 Eos % (Auto) 0.4 Baso % (Auto) 0.2 Neut # (Auto) 6.82 Lymph # (Auto) 1.1 [place] # (Auto) 0.9 Eos # (Auto) 0.0 Baso # (Auto) 0.0 Nucleated RBC % (auto) 0 Nucleated RBCs # 0.0 ESR 93 H Sodium 138 Potassium 4.3 Chloride 105 Carbon Dioxide 26 Anion Gap 11.3 BUN 25 H Creatinine 1.1 GFR Calculation Not Reportable Glucose 119 H Calculated Osmolality 292 Calcium 8.8 Total Bilirubin 0.5 AST 42 H ALT 21 Alkaline Phosphatase 131 H C-Reactive Protein Total Protein 5.9 L Albumin 2.3 L Globulin 3.6 Procalcitonin Urine Color Urine Appearance Urine pH Ur Specific [place] Urine Protein Urine Glucose (UA) Urine Ketones Urine Blood Urine Nitrate Urine Bilirubin Urine Urobilinogen Ur Leukocyte Esterase Misc Test Reference 08/31/20 04:30 WBC RBC Hgb Hct MCV MCH MCHC RDW Plt Count MPV Neut % (Auto) Lymph % (Auto) [place] % (Auto) Eos % (Auto) Baso % (Auto) Neut # (Auto) Lymph # (Auto) [place] # (Auto) Eos # (Auto) Baso # (Auto) Nucleated RBC % (auto) Nucleated RBCs # ESR Sodium Potassium Chloride Carbon Dioxide Anion Gap BUN Creatinine GFR Calculation Glucose Calculated Osmolality Calcium Total Bilirubin AST ALT Alkaline Phosphatase C-Reactive Protein 134.1 H Total Protein Albumin Globulin Procalcitonin Urine Color Urine Appearance Urine pH Ur Specific [place] Urine Protein Urine Glucose (UA) Urine Ketones Urine Blood Urine Nitrate Urine Bilirubin Urine Urobilinogen Ur Leukocyte Esterase Misc Test Reference Micro: Microbiology 08/27/20 10:30 Blood Culture - Final Blood NO GROWTH AFTER 5 DAYS 08/27/20 10:30 Blood Culture - Final Blood NO GROWTH AFTER 5 DAYS 08/30/20 12:56 Urine Culture - Preliminary Urine,Clean Catch 08/24/20 10:28 Gram Stain - Final Knee - #1 Anaerobic Culture - Final Wound Culture - Final Staphylococcus aureus Cardiac Studies: No Data to Display
[2020-09-01] MEDS: sodium chloride 0.9% 1,000 ML 30 ML IV (12:23)
--- NOTE | 2020-09-01 13:43 | PM.PN ---
Subjective Subjective: Interval history: Doing okay. The pain is well controlled. Having lively conversation on the phone with his family. Medications: Reviewed: Yes Medication Review Details: Generic Name Dose Route Start Last Admin Trade Name Dorys PRN Reason Stop Dose Admin Acetaminophen 650 mg 08/24/20 18:16 08/31/20 08:34 Acetaminophen 32 5 Mg Tablet PO 650 mg Q6H PRN Administration Mild/Mod Pain Or Temp >/= 101 Allopurinol 100 mg 08/25/20 09:00 09/01/20 08:25 Allopurinol 100 Mg Tablet PO 100 mg DAILY RADHA Administration Amlodipine Besylat e 10 mg 08/29/20 11:00 09/01/20 08:25 Amlodipine 10 Mg Tablet PO 10 mg DAILY RADHA Administration Atenolol 50 mg 08/25/20 09:00 09/01/20 08:25 Atenolol 50 Mg T ablet PO 50 mg DAILY RADHA Administration Heparin Sodium (Be ef Lung) 5,000 unit 09/01/20 09:00 09/01/20 08:25 Heparin 5,000 Un it/Ml Inj 1 Ml SUBCUT 5,000 unit Q12H RADHA Administration Cefazolin Sodium 2 ,000 mg/ 60 mls @ 100 mls/ hr 08/29/20 20:00 09/01/20 11:10 Sodium Chloride IV 100 mls/hr Q8H RADHA Administration Sodium Chloride 1,000 mls @ 30 ml s/hr 09/01/20 12:30 09/01/20 12:23 Sodium Chloride 0.9% IV 30 mls/hr .Q24H RADHA Administration Oxycodone HCl 10 mg 08/25/20 13:06 08/31/20 20:44 Oxycodone 5 Mg I r Tab/Cap PO 10 mg Q4H PRN Administration SEVERE PAIN Vitals/I&O/Wt Last Vital Signs Temp 97.2 F L 09/01/20 12:23 Pulse 62 09/01/20 12:23 Resp 18 09/01/20 12:23 BP 142/66 09/01/20 12:23 Pulse Ox 95 09/01/20 12:23 08/31/20 09/01/20 09/01/20 22:59 06:59 14:59 Intake Total 300 / 960 60 / 1020 Output Total 100 / 500 650 / 1150 500 / 500 Balance 200 / 460 -590 / -130 -500 / -500 Physical Exam Narrative: EXAM NARRATIVE: Awake alert oriented. No acute distress. Mood and affect are appropriate. Responses are adequate. Skin is warm and dry. Moist mucous brains. No JVD extraocular muscles are intact No respiratory distress Abdomen soft Extremities no calf tenderness bilaterally. No cyanosis. Normal capillary refill. Right knee is swollen. Dressing is dry and clean. Urinary Catheter Management^: Castillo: Cath Placed During This Visit: yes, but has since been removed by the nurse Urinary Catheter Date of Insertion: 08/24/20 Urinary Catheter Time of Insertion: 10:10 Date Urinary Catheter Removed: 08/24/20 Time Urinary Catheter Discontinued: 11:05 Data : 08/31/20 04:30 08/31/20 04:30 Micro: Microbiology 08/27/20 10:30 Blood Culture - Final Blood NO GROWTH AFTER 5 DAYS 08/27/20 10:30 Blood Culture - Final Blood NO GROWTH AFTER 5 DAYS 08/30/20 12:56 Urine Culture - Preliminary Urine,Clean Catch 08/24/20 10:28 Gram Stain - Final Knee - #1 Anaerobic Culture - Final Wound Culture - Final Staphylococcus aureus A&P Assessment and plan (1) Septic arthritis: Status: Acute (2) Osteoarthritis of right knee: Status: Acute Additional A&P Information [place] Septic arthritis and osteomyelitis. Cultures are positive for MSSA. Blood cultures are negative. Status post I&D by dr Lawler. Antibiotics are managed by Dr. Gaines. She also ordered echo. Appreciate help from the specialists. Continue pain management. Anemia. Probably secondary to infection. Continue monitoring. Currently stable. Hypertension. Well-controlled. Continue current management. Moderate degree protein calorie malnutrition. Continue encouraging protein intake. Protein supplementation drinks. DVT prophylaxis. Heparin. Attestations Medical Necessity Statement*: Still requires IV antibiotics and probably will need another procedure before he is ready for discharge. 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
--- NOTE | 2020-09-01 14:02 | PM.OP ---
Operative Report Date of procedure: September 01, 2020 Pre-op Diagnosis: Osteoarthritis Right knee, septic right knee Post-op diagnosis: same Post-op Diagnosis: The patient had a hematoma within the right knee. No necrotic or purulent material was identified. He had destruction of the articular cartilage and subchondral bone over the medial femoral condyle or medial tibial plateau but no necrotic bone or abscesses were identified Procedure Done: Irrigation and debridement right knee Pathology: none sent Surgeon: Arnulfo Lawler Anesthesia: General Estimated blood loss (mL): 100 Findings: The patient had a hematoma within the right knee. No necrotic or purulent material was identified. He had destruction of the articular cartilage and subchondral bone over the medial femoral condyle or medial tibial plateau but no necrotic bone or abscesses were identified Condition: stable Disposition: PACU Procedure: The patient was taken to the operating room and given a general anesthesia. He was prepped and draped in the supine position with a tourniquet on the right thigh. The tourniquet was inflated to 350 mmHg. Initially all skin stitches were removed and deep Vicryl suture was removed allowing access to the knee through the previous parapatellar incision. A rongeur was used to remove all hematoma and synovial tissue of any questionable viability. The medial femoral condyle and medial tibial plateau were carefully probed and found to be free of necrotic tissue or deep abscess and destruction there was thought to be predominantly osteoarthritic in nature. The knee was irrigated with 6 L of saline. The extensor retinaculum was closed with 1 Ethibond. The subcutaneous tissues were closed with 0 Vicryl. The skin was closed with interrupted 2-0 nylon and nataliia. Medium Hemovac drain was placed prior to closure. Xeroform gauze 4 x 4's web roll and a compressive Aime wrap were applied. The patient was extubated taken recovery room in stable condition.
--- NOTE | 2020-09-01 14:22 | SUR.PHASEI ---
PT AWAKES TO VOICE , GOOD RESP EFFORT, PT DENEIS PAIN AT THIS TIME, PT WITH SOFT DRESSING AND KERLIX TO RT KNEE AND LEG IMMOBILIZER PT WITH HEMOVAC DRAIN COMPRESSED AND WITH SMALL AMT RED DRAINAGE TO RT KNEE, DISTAL FOOT SWOLLEN COOL TO WARM, STRONG REGULAR PULSE NOTED AND MARKED. PT TAKING OCC ICE CHIIPS.
--- NOTE | 2020-09-01 14:29 | SUR.PHASEI ---
PT AWAKE ALERT DENIES PAIN AND NAUSEA, SLEEPS IF NOT DISTURBED VSS KNEE D/I PT NOW OUT OF PHASE 1 AND IS IN HOLDING WAITIING FOR NURSE TO TAKE REPORT ON FLOOR.
[2020-09-01] MEDS: oxyCODONE 5 mg IR Tab/Cap 10 MG PO ×2 (14:59→18:43)
[2020-09-01] MEDS: morphine 4 mg/mL SDV 1 mL 2 MG IVP ×2 (16:33→20:45)
--- NOTE | 2020-09-01 18:30 | PM.PN ---
Subjective Subjective: Interval history: Infectious disease progress note. Patient remains afebrile, last fever on 118 at midnight. Hemodynamically stable. Went to the OR today and noted to have a hematoma within the right knee. No necrotic or purulent material was identified. No other destruction of the articular cartilage and subchondral bone of the medial femoral condyle or medial tibial plateau. Underwent I&D of the right knee. Has a drain in place after the procedure. Medications: Reviewed: Yes Medication Review Details: Generic Name Dose Route Start Last Admin Trade Name Freq PRN Reason Stop Dose Admin Acetaminophen 650 mg 08/24/20 18:16 08/31/20 08:34 Acetaminophen 32 5 Mg Tablet PO 650 mg Q6H PRN Administration Mild/Mod Pain Or Temp >/= 101 Allopurinol 100 mg 08/25/20 09:00 09/01/20 08:25 Allopurinol 100 Mg Tablet PO 100 mg DAILY RADHA Administration Amlodipine Besylat e 10 mg 08/29/20 11:00 09/01/20 08:25 Amlodipine 10 Mg Tablet PO 10 mg DAILY RADHA Administration Atenolol 50 mg 08/25/20 09:00 09/01/20 08:25 Atenolol 50 Mg T ablet PO 50 mg DAILY RADHA Administration Heparin Sodium (Be ef Lung) 5,000 unit 09/01/20 09:00 09/01/20 08:25 Heparin 5,000 Un it/Ml Inj 1 Ml SUBCUT 5,000 unit Q12H RADHA Administration Cefazolin Sodium 2 ,000 mg/ 60 mls @ 100 mls/ hr 08/29/20 20:00 09/01/20 11:10 Sodium Chloride IV 100 mls/hr Q8H RADHA Administration Sodium Chloride 1,000 mls @ 30 ml s/hr 09/01/20 12:30 09/01/20 12:23 Sodium Chloride 0.9% IV 30 mls/hr .Q24H RADHA Administration Oxycodone HCl 10 mg 08/25/20 13:06 08/31/20 20:44 Oxycodone 5 Mg I r Tab/Cap PO 10 mg Q4H PRN Administration SEVERE PAIN Vitals/I&O/Wt Last Vital Signs Temp 99.4 F 09/01/20 18:15 Pulse 72 09/01/20 18:15 Resp 18 09/01/20 18:15 BP 156/75 09/01/20 18:15 Pulse Ox 94 09/01/20 18:15 09/01/20 09/01/20 09/01/20 06:59 14:59 22:59 Intake Total 60 / 1020 0 / 0 240 / 240 Output Total 650 / 1150 600 / 600 220 / 820 Balance -590 / -130 -600 / -600 20 / -580 Physical Exam Narrative: EXAM NARRATIVE: GEN: Awake, alert and oriented, no acute distress CVS: S1S2 N RS: CTA B/L Abd: Soft, nt/nd , bs+ 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 Urinary Catheter Management^: Castillo: Cath Placed During This Visit: yes, but has since been removed by the nurse Urinary Catheter Date of Insertion: 08/24/20 Urinary Catheter Time of Insertion: 10:10 Date Urinary Catheter Removed: 08/24/20 Time Urinary Catheter Discontinued: 11:05 Data : 08/31/20 04:30 08/31/20 04:30 Micro: Microbiology 08/27/20 10:30 Blood Culture - Final Blood NO GROWTH AFTER 5 DAYS 08/27/20 10:30 Blood Culture - Final Blood NO GROWTH AFTER 5 DAYS 08/30/20 12:56 Urine Culture - Preliminary Urine,Clean Catch 08/24/20 10:28 Gram Stain - Final Knee - #1 Anaerobic Culture - Final Wound Culture - Final Staphylococcus aureus A&P Assessment and plan (1) Septic arthritis: Status: Acute (2) Osteoarthritis of right knee: Status: Acute (3) Knee osteomyelitis: Status: Acute Additional A&P Information # Septic arthritis -Admitted initially for elective R TKR on August 24, however intraoperatively found to have abundant purulent material -Joint and synovial cx returned with growth of MSSA , cell count N/A -Hospital course notable for intermittent low-grade fever, return to the OR today due to concern for persistent infection, no purulent or necrotic material was noted intraoperatively. There was a hematoma which was evacuated and a drain is currently in place which is draining blood only at this present time. -MRI of the knee was performed which showed possibility osteomyelitis superimposed on a chronic degenerative process. -Unclear source of septic arthritis, no clear antecedant history to suggest bacteremia. No h/o direct trauma that patient can recall. No other orthopedic or cardiac hardware. -Blood culture remains negative from August 27 and August 29. -Currently on organism directed therapy for MSSA with iv cefazolin 2g q8h for at least 6 weeks of abx treatment (08/24- 10/05). -Prefer to treat with longer course of 6 weeks as unable to ascertain status of bacteremia upon admission, possibility of osteomyelitis additionally as noted on MRI, planned for hardware placement down the line, therefore need to ensure joint sterility. -Picc placed August 28 to facilitate above -While on the above antibiotic course, please obtain weekly CBC CMP ESR and fax it over to infectious disease clinic for review. -Follow-up in ID clinic on Sep Attestations Medical Necessity Statement*: please see hospitalist note Coding Level of Care Code Acute Mutual Fund Analyst for [facility] Diagnoses Septic arthritis M00.9 Osteoarthritis of right knee M17.11 Knee osteomyelitis M86.9
[2020-09-01] MEDS: acetaminophen 325 mg Tablet 650 MG PO (22:08)
[2020-09-02] VITALS (10 sets, daily range): BP systolic 114–132; BP diastolic 58–75; PULSE 57–87; RESP 14–18; TEMP 36.6–37.7; O2SAT 92–96
--- NOTE | 2020-09-02 02:41 | PC.NURSE ---
Assessed patients operative leg, Pt states he has limited feeling in foot (can feel poking, not light touch) +2/3 pitting edema at foot -- dorsalis pedis pulse is marked and palpable. Cap refill 3 seconds at great toe. Pt not in pain at this time, only with slight movement. Hemavac compressed with visible output and also what looks like clotted blood in tubing. Attempted to manipulate tube to free any clots but was unsuccessful. Will continue to monitor.
[2020-09-02] MEDS: oxyCODONE 5 mg IR Tab/Cap 10 MG PO ×3 (04:23→14:02)
[2020-09-02 06:23] LABS: Basophils % 0.2 %; Eosinophils % 0.3 %; Hematocrit 32.5 % (42.0-52.0); Lymphocytes # 0.9 10^3/uL (0.8-4.8); Lymphocytes % 8.6 %; Mean Corpuscular HGB Conc 30.8 g/dL (30.0-36.0); Mean Corpuscular Hemoglobin 29.7 pg (28.0-34.0); Mean Corpuscular Volume 96.4 fL (80-94); Monocytes # 1.3 10^3/uL (0.2-0.9); Monocytes % 11.9 %; Neutrophils # 8.26 10^3/uL (1.8-7.7); Neutrophils % 77.2 %; Nucleated Red Blood Cells % 0 %; Platelet Count 394 10^3/cmm (130-400); Red Blood Count 3.37 10^6/uL (4.1-5.3); Red Cell Distribution Width 14.3 % (12.1-15.1); White Blood Count 10.7 10^3/uL (4.0-10.0)
[2020-09-02 06:52] LABS: Magnesium 1.9 mg/dL (1.7-2.3)
[2020-09-02 07:20] LABS: Albumin Level 2.3 g/dL (3.5-5.2); Anion Gap 12.8 (5-19); Blood Urea Nitrogen 26 mg/dL (8-23); Calcium 8.2 mg/dL (8.5-10.5); Carbon Dioxide 26 mmol/L (22-29); Chloride 102 mmol/L (98-107); Glucose 120 mg/dL (65-115); Phosphorus 4.5 mg/dL (2.5-4.5); Potassium 4.8 mmol/L (3.5-5.1); Sodium 136 mmol/L (136-145)
--- NOTE | 2020-09-02 07:38 | P.PN_ITS ---
Subjective Subjective: Interval history: Pain better this am Vitals/I&O/Wt Last Vital Signs Temp 98.2 F 09/02/20 07:33 Pulse 63 09/02/20 07:33 Resp 18 09/02/20 07:33 BP 127/74 09/02/20 07:33 Pulse Ox 94 09/02/20 07:33 09/01/20 09/02/20 09/02/20 22:59 06:59 14:59 Intake Total 300 / 360 200 / 560 Output Total 320 / 920 600 / 1520 Balance -20 / -560 -400 / -960 Physical Exam Narrative: EXAM NARRATIVE: Right knee in brace. Hemovac patent Urinary Catheter Management^: Castillo: Cath Placed During This Visit: yes, but has since been removed by the nurse Urinary Catheter Date of Insertion: 08/24/20 Urinary Catheter Time of Insertion: 10:10 Date Urinary Catheter Removed: 08/24/20 Time Urinary Catheter Discontinued: 11:05 Data : 09/02/20 05:44 09/02/20 05:44 Micro: Microbiology 08/27/20 10:30 Blood Culture - Final Blood NO GROWTH AFTER 5 DAYS 08/27/20 10:30 Blood Culture - Final Blood NO GROWTH AFTER 5 DAYS 08/30/20 12:56 Urine Culture - Preliminary Urine,Clean Catch A&P Assessment and plan (1) Knee osteomyelitis: Status: Acute (2) Osteoarthritis of right knee: Status: Acute (3) Septic arthritis: Appearnace of bone most cosistent with osteoarthritis however I certainly cannot exclude the posibility of some osteomyelitis. No purulence or necrosis of tissues noted at surgery. I feel surgical debridemeent has been optimized. Will need appropriate antibiotics per ID service. Will dc drain as hemovac drainage decreases. Status: Acute Attestations Medical Necessity Statement*: as per medicine Coding Level of Care Code Acute Onion Farmer for [facility] Diagnoses Knee osteomyelitis M86.9 Osteoarthritis of right knee M17.11 Septic arthritis M00.9
[2020-09-02] MEDS: atenolol 50 mg Tablet PO (07:51)
[2020-09-02] MEDS: amlodipine 10 mg Tablet PO (07:51)
[2020-09-02] MEDS: allopurinol 100 mg Tablet PO (07:51)
[2020-09-02] MEDS: heparin 5,000 unit/mL INJ 1 mL 5000 UNIT SUBCUT ×2 (07:51→21:29)
--- NOTE | 2020-09-02 09:18 | PC.SOCIAL ---
IMM Update Pg. 2 of IMM updated with patient, who verbalized understanding, copy provided.
--- NOTE | 2020-09-02 14:31 | PM.PN ---
Subjective Subjective: Interval history: The patient is doing okay. Denies any active complaints. The pain in the right knee is well controlled. Denies fever or chills. Denies nausea or vomiting. No diarrhea. No chest pain, shortness of breath, cough, palpitations. Medications: Reviewed: Yes Medication Review Details: Generic Name Dose Route Start Last Admin Trade Name Freq PRN Reason Stop Dose Admin Acetaminophen 650 mg 08/24/20 18:16 09/01/20 22:08 Acetaminophen 32 5 Mg Tablet PO 650 mg Q6H PRN Administration Mild/Mod Pain Or Temp >/= 101 Allopurinol 100 mg 08/25/20 09:00 09/02/20 07:51 Allopurinol 100 Mg Tablet PO 100 mg DAILY RADHA Administration Amlodipine Besylat e 10 mg 08/29/20 11:00 09/02/20 07:51 Amlodipine 10 Mg Tablet PO 10 mg DAILY RADHA Administration Atenolol 50 mg 08/25/20 09:00 09/02/20 07:51 Atenolol 50 Mg T ablet PO 50 mg DAILY RADHA Administration Heparin Sodium (Be ef Lung) 5,000 unit 09/01/20 09:00 09/02/20 07:51 Heparin 5,000 Un it/Ml Inj 1 Ml SUBCUT 5,000 unit Q12H RADHA Administration Cefazolin Sodium 2 ,000 mg/ 60 mls @ 100 mls/ hr 08/29/20 20:00 09/02/20 11:09 Sodium Chloride IV 100 mls/hr Q8H RADHA Administration Morphine Sulfate 2 mg 08/31/20 12:31 09/01/20 20:45 Morphine 4 Mg/Ml Sdv 1 Ml IVP 2 mg Q4H PRN Administration SEVERE PAIN Oxycodone HCl 10 mg 08/25/20 13:06 09/02/20 14:02 Oxycodone 5 Mg I r Tab/Cap PO 10 mg Q4H PRN Administration SEVERE PAIN Vitals/I&O/Wt Last Vital Signs Temp 99.1 F 09/02/20 11:53 Pulse 72 09/02/20 11:53 Resp 14 09/02/20 14:02 BP 132/75 09/02/20 11:53 Pulse Ox 95 09/02/20 11:53 09/01/20 09/02/20 09/02/20 22:59 06:59 14:59 Intake Total 300 / 360 260 / 620 600 / 600 Output Total 320 / 920 600 / 1520 300 / 300 Balance -20 / -560 -340 / -900 300 / 300 Physical Exam Narrative: EXAM NARRATIVE: Awake alert oriented. No acute distress. Mood and affect are appropriate. Responses are adequate. Skin is warm and dry. Moist mucous brains. No JVD extraocular muscles are intact No respiratory distress Abdomen soft Extremities no calf tenderness bilaterally. No cyanosis. Normal capillary refill. Right knee is swollen. Dressing is dry and clean. Urinary Catheter Management^: Castillo: Cath Placed During This Visit: yes, but has since been removed by the nurse Urinary Catheter Date of Insertion: 08/24/20 Urinary Catheter Time of Insertion: 10:10 Date Urinary Catheter Removed: 08/24/20 Time Urinary Catheter Discontinued: 11:05 Data : 09/02/20 05:44 09/02/20 05:44 Micro: Microbiology 08/30/20 12:56 Urine Culture - Final Urine,Clean Catch 08/27/20 10:30 Blood Culture - Final Blood NO GROWTH AFTER 5 DAYS 08/27/20 10:30 Blood Culture - Final Blood NO GROWTH AFTER 5 DAYS A&P Assessment and plan (1) Septic arthritis: Status: Acute (2) Osteoarthritis of right knee: Status: Acute (3) Knee osteomyelitis: Status: Acute Additional A&P Information [place] Septic arthritis and osteomyelitis. Cultures are positive for MSSA. Blood cultures are negative. Status post I&D by dr Lawler. Antibiotics are managed by Dr. Gaines. Appreciate help from the specialists. Continue pain management. Discussed with the case management and multidisciplinary team. Will assess his discharge needs. Waiting for PT OT evaluation. ?Placement. Mild dehydration. Creatinine has increased today. oral hydration is encouraged. We will monitor renal function. Anemia. Probably secondary to infection. Continue monitoring. Currently stable. Hypertension. Well-controlled. Continue current management. Moderate degree protein calorie malnutrition. Continue encouraging protein intake. Protein supplementation drinks. DVT prophylaxis. Heparin. The plan of care was discussed with the patient. He verbalized understanding and agreement. Attestations Medical Necessity Statement*: Possible discharge tomorrow. Assessing discharge needs. Coding Level of Care Code Acute Nurse Behavioral Health Care for [facility] Diagnoses Septic arthritis M00.9 Osteoarthritis of right knee M17.11 Knee osteomyelitis M86.9
--- NOTE | 2020-09-02 14:45 | P.PN_ITS ---
Subjective Subjective: Interval history: The patient is doing okay. Denies any active complaints. The pain in the right knee is well controlled. Denies fever or chills. Denies nausea or vomiting. No diarrhea. No chest pain, shortness of breath, cough, palpitations. Vitals/I&O/Wt Last Vital Signs Temp 99.1 F 09/02/20 11:53 Pulse 72 09/02/20 11:53 Resp 14 09/02/20 14:02 BP 132/75 09/02/20 11:53 Pulse Ox 95 09/02/20 11:53 09/01/20 09/02/20 09/02/20 22:59 06:59 14:59 Intake Total 300 / 360 260 / 620 600 / 600 Output Total 320 / 920 600 / 1520 300 / 300 Balance -20 / -560 -340 / -900 300 / 300 Physical Exam Narrative: EXAM NARRATIVE: Awake alert oriented. No acute distress. Mood and affect are appropriate. Responses are adequate. Skin is warm and dry. Moist mucous brains. No JVD extraocular muscles are intact No respiratory distress Abdomen soft Extremities no calf tenderness bilaterally. No cyanosis. Normal capillary refill. Right knee is swollen. Dressing is dry and clean. Urinary Catheter Management^: Castillo: Cath Placed During This Visit: yes, but has since been removed by the nurse Urinary Catheter Date of Insertion: 08/24/20 Urinary Catheter Time of Insertion: 10:10 Date Urinary Catheter Removed: 08/24/20 Time Urinary Catheter Discontinued: 11:05 Data : 09/02/20 05:44 09/02/20 05:44 Micro: Microbiology 08/30/20 12:56 Urine Culture - Final Urine,Clean Catch 08/27/20 10:30 Blood Culture - Final Blood NO GROWTH AFTER 5 DAYS 08/27/20 10:30 Blood Culture - Final Blood NO GROWTH AFTER 5 DAYS A&P Assessment and plan (1) Septic arthritis: Status: Acute (2) Osteoarthritis of right knee: Status: Acute (3) Knee osteomyelitis: Status: Acute Additional A&P Information [place] Septic arthritis and osteomyelitis. Cultures are positive for MSSA. Blood cultures are negative. Status post I&D by dr Lawler. Antibiotics are managed by Dr. Gaines. Appreciate help from the specialists. Continue pain management. Discussed with the case management and multidisciplinary team. Will assess his discharge needs. Waiting for PT OT evaluation. ?Placement. Mild dehydration. Creatinine has increased today. oral hydration is encouraged. We will monitor renal function. Anemia. Probably secondary to infection. Continue monitoring. Currently stable. Hypertension. Well-controlled. Continue current management. Moderate degree protein calorie malnutrition. Continue encouraging protein intake. Protein supplementation drinks. DVT prophylaxis. Heparin. The plan of care was discussed with the patient. He verbalized understanding and agreement. Attestations Medical Necessity Statement*: Pending assessment of discharge needs. 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
[2020-09-03] VITALS (9 sets, daily range): BP systolic 109–136; BP diastolic 67–75; PULSE 68–78; RESP 15–20; TEMP 36.6–38.1; O2SAT 95–97
[2020-09-03 02:37] LABS: Basophils % 0.2 %; Eosinophils % 0.2 %; Hematocrit 32.1 % (42.0-52.0); Lymphocytes # 1.1 10^3/uL (0.8-4.8); Lymphocytes % 8.2 %; Mean Corpuscular HGB Conc 31.2 g/dL (30.0-36.0); Mean Corpuscular Hemoglobin 30.2 pg (28.0-34.0); Mean Platelet Volume 10.2 fL (7.4-10.4); Monocytes % 7.9 %; Neutrophils # 10.66 10^3/uL (1.8-7.7); Neutrophils % 82.3 %; Nucleated Red Blood Cells % 0 %; Platelet Count 434 10^3/cmm (130-400); Red Blood Count 3.31 10^6/uL (4.1-5.3); Red Cell Distribution Width 13.9 % (12.1-15.1)
[2020-09-03 02:54] LABS: Albumin Level 2.3 g/dL (3.5-5.2); Anion Gap 12.9 (5-19); Blood Urea Nitrogen 30 mg/dL (8-23); Calcium 8.6 mg/dL (8.5-10.5); Carbon Dioxide 26 mmol/L (22-29); Chloride 101 mmol/L (98-107); Glucose 124 mg/dL (65-115); Phosphorus 3.9 mg/dL (2.5-4.5); Potassium 4.9 mmol/L (3.5-5.1); Sodium 135 mmol/L (136-145)
[2020-09-03 02:55] LABS: Magnesium 1.8 mg/dL (1.7-2.3)
[2020-09-03] MEDS: oxyCODONE 5 mg IR Tab/Cap 10 MG PO ×2 (08:00→13:47)
[2020-09-03] MEDS: sodium chloride 0.9% 1,000 ML 75 ML IV ×2 (09:02→21:49)
[2020-09-03] MEDS: atenolol 50 mg Tablet PO (09:04)
[2020-09-03] MEDS: heparin 5,000 unit/mL INJ 1 mL 5000 UNIT SUBCUT ×2 (09:04→20:20)
[2020-09-03] MEDS: amlodipine 10 mg Tablet PO (09:04)
[2020-09-03] MEDS: allopurinol 100 mg Tablet PO (09:04)
--- NOTE | 2020-09-03 11:55 | XR_ITS ---
WS: [id number] Portable AP upright chest, 09/03/2020 Clinical Data: Fever, possible pneumonia Comparison: Portable chest, 08/28/2020. Findings: No nodules, masses or effusions are seen. The heart is normal. The pulmonary vascularity is not increased. No pneumonia or pneumothorax is seen. The right PICC line remains in good position. T he aortic arch and descending aorta are tortuous. XR/XR chest 1V portable [id number] Impression: Atherosclerosis.
--- NOTE | 2020-09-03 11:58 | P.PN_ITS ---
Subjective Subjective: Interval history: The patient is feeling about the same. The pain is well controlled. Denies cough, shortness of breath, chills. However his temperature was elevated this morning. No diarrhea. No abdominal pain. Vitals/I&O/Wt Last Vital Signs Temp 99.8 F H 09/03/20 11:50 Pulse 70 09/03/20 11:50 Resp 18 09/03/20 11:50 BP 132/75 09/03/20 11:50 Pulse Ox 96 09/03/20 11:50 09/02/20 09/03/20 09/03/20 22:59 06:59 14:59 Intake Total 240 / 840 50 / 890 120 / 120 Output Total 5 / 305 405 / 710 300 / 300 Balance 235 / 535 -355 / 180 -180 / -180 Physical Exam Narrative: EXAM NARRATIVE: Awake alert oriented. No acute distress. Skin is warm and dry. Dry mucous membranes. No JVD extraocular muscles are intact No respiratory distress. Mild basilar crackles more pronounced in the right base. Abdomen soft, nontender, bowel sounds are present Extremities no calf tenderness bilaterally. No cyanosis. Normal capillary refill. Right knee is swollen. Dressing is dry and clean. Small amount of blood in the right knee drain. Urinary Catheter Management^: Castillo: Cath Placed During This Visit: yes, but has since been removed by the nurse Urinary Catheter Date of Insertion: 08/24/20 Urinary Catheter Time of Insertion: 10:10 Date Urinary Catheter Removed: 08/24/20 Time Urinary Catheter Discontinued: 11:05 Data : 09/03/20 02:15 09/03/20 02:15 Micro: Microbiology 08/30/20 12:56 Urine Culture - Final Urine,Clean Catch A&P Assessment and plan (1) Septic arthritis: Status: Acute (2) Osteoarthritis of right knee: Status: Acute (3) Knee osteomyelitis: Status: Acute Additional A&P Information [place] Septic arthritis and osteomyelitis. Cultures are positive for MSSA. Blood cultures are negative. Status post I&D by dr Lawler. Antibiotics are managed by Dr. Gaines. Appreciate help from the specialists. Continue pain management. Discussed with the case management and multidisciplinary team. Will assess his discharge needs. Waiting for PT OT evaluation. ?Placement. Fever. Not sure what the source is exactly. Of course could be secondary to infection in the knee. However I would like to rule out other possibilities. Ordering chest x-ray. He has some crackles at the bases. ?Atelectasis. We will check his UA to rule out UTI. Will discuss with Dr. Alcazar Mild dehydration. Did not improve with oral hydration. Will order gentle IV fluids. Anemia. Probably secondary to infection. Continue monitoring. Currently s table. Hypertension. Well-controlled. Continue current management. Moderate degree protein calorie malnutrition. Continue encouraging protein intake. Protein supplementation drinks. DVT prophylaxis. Heparin. The plan of care was discussed with the patient. Attestations Medical Necessity Statement*: We need to continue IV antibiotics. Need additional work-up to evaluate his fever. Coding Level of Care Code Acute Skimmer Scoop Operator for [facility] Diagnoses Septic arthritis M00.9 Osteoarthritis of right knee M17.11 Knee osteomyelitis M86.9
--- NOTE | 2020-09-03 12:44 | PM.PN ---
Subjective Subjective: Interval history: Pain better. Progress slow with therapy. Vitals/I&O/Wt Last Vital Signs Temp 99.8 F H 09/03/20 11:50 Pulse 70 09/03/20 11:50 Resp 18 09/03/20 11:50 BP 132/75 09/03/20 11:50 Pulse Ox 96 09/03/20 11:50 09/02/20 09/03/20 09/03/20 22:59 06:59 14:59 Intake Total 240 / 840 50 / 890 120 / 120 Output Total 5 305 405 / 710 300 / 300 Balance 235 / 535 -355 / 180 -180 / -180 Physical Exam Narrative: EXAM NARRATIVE: Knee in immobilizer. Drain clotted and removed Urinary Catheter Management^: Castillo: Cath Placed During This Visit: yes, but has since been removed by the nurse Urinary Catheter Date of Insertion: 08/24/20 Urinary Catheter Time of Insertion: 10:10 Date Urinary Catheter Removed: 08/24/20 Time Urinary Catheter Discontinued: 11:05 Data : 09/03/20 02:15 09/03/20 02:15 Micro: Microbiology 08/30/20 12:56 Urine Culture - Final Urine,Clean Catch A&P Assessment and plan (1) Knee osteomyelitis: Status: Acute (2) Septic arthritis: No planned additional surgical debridement. Will need completion of a 6 weeks course of antibiotics ultimate placement per medicine. 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
[2020-09-03 15:20] LABS: Add Urine Microscopic? YES; Bilirubin Urine Neg (Negative); Blood Urine Neg (Negative); Glucose Urine UA Norm (Normal); Ketones Urine Negative (Negative); Leukocyte Esterase Urine Trace (Negative); Nitrate Urine Negative (Negative); Protein Urine Neg (Negative); Urine Appearance Clear (CLEAR); Urine Color Yellow (Yellow); Urobilinogen Urine Norm (Negative); pH Urine 5 (5-7)
[2020-09-03 15:36] LABS: Add Urine Culture? No; Bacteria Urine 1+ /hpf; RBC Urine 0-4 /hpf (0-2); Squamous Epithelial Cell Urine 0-4 /hpf (0-5)
[2020-09-04] VITALS (7 sets, daily range): BP systolic 123–135; BP diastolic 69–76; PULSE 63–67; RESP 17–19; TEMP 36.9–37.2; O2SAT 94–96
[2020-09-04 02:38] LABS: Basophils % 0.2 %; Eosinophils # 0.1 10^3/uL (0.0-0.8); Eosinophils % 0.5 %; Hematocrit 29.7 % (42.0-52.0); Hemoglobin 9.1 g/dL (11.7-16.6); Lymphocytes % 10.6 %; Mean Corpuscular HGB Conc 30.6 g/dL (30.0-36.0); Mean Corpuscular Hemoglobin 30.1 pg (28.0-34.0); Mean Corpuscular Volume 98.3 fL (80-94); Mean Platelet Volume 10.1 fL (7.4-10.4); Monocytes # 0.9 10^3/uL (0.2-0.9); Monocytes % 9.7 %; Neutrophils % 78.1 %; Nucleated Red Blood Cells % 0 %; Platelet Count 444 10^3/cmm (130-400); Red Blood Count 3.02 10^6/uL (4.1-5.3); White Blood Count 9.5 10^3/uL (4.0-10.0)
[2020-09-04 03:20] LABS: Albumin Level 2.2 g/dL (3.5-5.2); Anion Gap 12.9 (5-19); Blood Urea Nitrogen 30 mg/dL (8-23); Calcium 8.6 mg/dL (8.5-10.5); Carbon Dioxide 26 mmol/L (22-29); Chloride 104 mmol/L (98-107); Glucose 112 mg/dL (65-115); Phosphorus 3.7 mg/dL (2.5-4.5); Potassium 4.9 mmol/L (3.5-5.1); Sodium 138 mmol/L (136-145)
[2020-09-04 03:21] LABS: C Reactive Protein 144.2 mg/L (0.0-4.9)
--- NOTE | 2020-09-04 05:26 | PC.NURSE ---
SHIFT SUMMARY Has rested well tonight without c/o pain or discomfort. Says knee really only hurts with therapy. Dressing/saundra wrap/immobilizer in place to RLE. IV infusing without difficulty at 75ml/hr rate. Receiving IV antibiotics
[2020-09-04] MEDS: allopurinol 100 mg Tablet PO (07:46)
[2020-09-04] MEDS: atenolol 50 mg Tablet PO (07:46)
[2020-09-04] MEDS: heparin 5,000 unit/mL INJ 1 mL 5000 UNIT SUBCUT (07:46)
[2020-09-04] MEDS: amlodipine 10 mg Tablet PO (07:46)
--- NOTE | 2020-09-04 10:42 | P.DS_ITS ---
Discharge Providers Date of Admission: 08/24/20 18:20 Date of Discharge: September 04, 2020 Attending Provider at Admission: García Jimenez MD Attending Provider at Discharge: Issa Ortega Diagnoses at Discharge Discharge Diagnosis (1) Knee osteomyelitis: Status: Acute (2) Septic arthritis: Status: Acute Reason for Visit Reason for Visit: Primary osteoarthritis right knee Hospital Course Hospital Course Please see patient's H&P, consult notes, progress notes, and procedure notes for more details. Discharge diagnoses and problem list: Septic arthritis and osteomyelitis. Cultures are positive for MSSA. Blood cultures are negative. Status post I&D by dr Lawler. Antibiotics by Dr. Gaines. Currently the pain is well controlled.the patient is cleared by the specialists for discharge. Continue pain management. Will need at least 6 weeks of IV antibiotics. We will continue follow-up with Dr. Alcazar for adjustments of the treatments as needed. We will also follow-up with Dr. Lawler. Currently the fever has resolved. Still not moving very much. Discharging on Lovenox for DVT prophylaxis. Please continue monitoring chemistry panel and CBC. Fever. Could be secondary to septic arthritis or atelectasis. Currently resolved. Leukocytosis is improving. UA was consistent with UA but he is not symptomatic. Probably covered with current antibiotics since the fever has resolved. Continue close monitoring. Continue incentive spirometry. Mild dehydration. Resolved. Continue oral hydration and close monitoring of the renal function and electrolytes. Anemia. Probably secondary to infection. Continue monitoring. Currently stable. Hypertension. Well-controlled. Continue current management. Moderate degree protein calorie malnutrition. Continue encouraging protein intake. Protein supplementation drinks. DVT prophylaxis. Being discharged on Lovenox. Please adjust the duration depending on patient's functional status and laboratory test results. The plan of care was discussed with the patient. He verbalized understanding and agreement. Physical Exam Narrative: EXAM NARRATIVE: Awake alert oriented. No acute distress. Skin is warm and dry. MMM. No JVD extraocular muscles are intact No respiratory distress. Abdomen soft Right knee is swollen. Dressing is dry and clean. Urinary Catheter Management^: Castillo: Cath Placed During This Visit: yes, but has since been removed by the nurse Urinary Catheter Date of Insertion: 08/24/20 Urinary Catheter Time of Insertion: 10:10 Date Urinary Catheter Removed: 08/24/20 Time Urinary Catheter Discontinued: 11:05 Discharge Data Data Completed and Pending: Completed Studies During Hospitalization Category Date Time Status CXRP [XR chest 1V portable 71204] R outine Exams 08/28/20 10:09 Completed XR chest 1V mian ble 23859 Routine Exams 09/03/20 11:55 Completed XR knee LT 1-2V 7 3560 Stat Exams 08/30/20 11:25 Completed XR knee RT 1-2V 7 3560 Routine Exams 08/30/20 11:26 [place] RT wo/[place] [address] Routine MRI 08/31/20 08:18 Completed Pathology: Surgic al [PTH] Routine Pth 08/24/20 11:21 Completed Pending at discharge Category Date Time Status Complete Blood Co unt w/Auto AM LABS Lab 09/05/20 04:00 Ordered Magnesium AM LABS Lab 09/05/20 04:00 Ordered Renal Function Pa jenna AM LABS Lab 09/05/20 04:00 Ordered Urine Culture Sta t Lab 09/04/20 08:30 Received Labs from last 24 hours 09/04/20 09/04/20 09/04/20 02:06 02:06 02:06 WBC 9.5 RBC 3.02 L Hgb 9.1 L Hct 29.7 L MCV 98.3 H MCH 30.1 MCHC 30.6 RDW 14.0 Plt Count 444 H MPV 10.1 Neut % (Auto) 78.1 Lymph % (Auto) 10.6 Whiteside % (Auto) 9.7 Eos % (Auto) 0.5 Baso % (Auto) 0.2 Neut # (Auto) 7.40 Lymph # (Auto) 1.0 Whiteside # (Auto) 0.9 Eos # (Auto) 0.1 Baso # (Auto) 0.0 Nucleated RBC % (a uto) 0 Nucleated RBCs # 0.0 Sodium 138 Potassium 4.9 Chloride 104 Carbon Dioxide 26 Anion Gap 12.9 BUN 30 H Creatinine 1.2 GFR Calculation Not Reportable Glucose 112 Calcium 8.6 Phosphorus 3.7 Magnesium 2.0 C-Reactive Protein 144.2 H Albumin 2.2 L Urine Color Urine Appearance Urine pH Ur Specific Gravit y Urine Protein Urine Glucose (UA) Urine Ketones Urine Blood Urine Nitrate Urine Bilirubin Urine Urobilinogen Ur Leukocyte Sofy ase Urine RBC Urine WBC Ur Squamous Epith Cells Amorphous Sediment Urine Bacteria 09/03/20 14:59 WBC RBC Hgb Hct MCV MCH MCHC RDW Plt Count MPV Neut % (Auto) Lymph % (Auto) Whiteside % (Auto) Eos % (Auto) Baso % (Auto) Neut # (Auto) Lymph # (Auto) Whiteside # (Auto) Eos # (Auto) Baso # (Auto) Nucleated RBC % (a uto) Nucleated RBCs # Sodium Potassium Chloride Carbon Dioxide Anion Gap BUN Creatinine GFR Calculation Glucose Calcium Phosphorus Magnesium C-Reactive Protein Albumin Urine Color Yellow Urine Appearance Clear Urine pH 5 Ur Specific Gravit y 1.020 Urine Protein Neg Urine Glucose (UA) Norm Urine Ketones Negative Urine Blood Neg Urine Nitrate Negative Urine Bilirubin Neg Urine Urobilinogen Norm Ur Leukocyte Sofy ase Trace H Urine RBC 0-4 H Urine WBC 5-10 H Ur Squamous Epith Cells 0-4 H Amorphous Sediment Not Reportable Urine Bacteria 1+ H Vitals: Last Vital Signs Temp 98.9 F 09/04/20 07:31 Pulse 63 09/04/20 07:31 Resp 18 09/04/20 07:31 BP 125/72 09/04/20 07:31 Pulse Ox 96 09/04/20 07:31 Discharge Plan Discharge Patient Disposition: Xfer SNF Condition: Stable Prescriptions: New oxycodone 5 mg capsule 5 mg PO Q4H 7 Days Qty: 42 RF: 0 amlodipine 10 mg Tablet 10 mg PO DAILY Qty: 30 RF: 0 cefazolin in dextrose (iso-os) 2 gram/50 mL Piggyback 2 g continuous IV infusion Q8H 42 Days Qty: 6300 RF: 0 Lovenox 40 mg/0.4 mL syringe 40 mg SUBCUT DAILY 21 Days RF: 0 Continued allopurinol 100 mg tablet 100 mg PO DAILY RF: 0 atenolol 50 mg tablet 50 mg PO DAILY RF: 0 hydrochlorothiazide 25 mg tablet 25 mg PO DAILY RF: 0 Discharge Orders: Discharge Order (Routine); Ordered 09/04/20 Ordered By: Issa Ortega Other Ambulatory Orders: Complete Blood Count w/Auto (WEEKLY) Timeframe: 20200904 Location: Determined by Patient Ordered By: Jennifer Gaines Complete Blood Count w/Auto (WEEKLY) Timeframe: 20200905 Location: Determined by Patient Ordered By: Jennifer Gaines Complete Blood Count w/Auto (WEEKLY) Timeframe: 20200906 Location: Determined by Patient Ordered By: Jennifer Gianes Complete Blood Count w/Auto (Routine) Timeframe: 1 Week Location: Determined by Patient Ordered By: Issa Ortega Comprehensive Metabolic Panel (WEEKLY) Timeframe: 20200904 Location: Determined by Patient Ordered By: Jennifer Gaines Comprehensive Metabolic Panel (WEEKLY) Timeframe: 20200905 Location: Determined by Patient Ordered By: Jennifer Gaines Comprehensive Metabolic Panel (WEEKLY) Timeframe: 20200906 Location: Determined by Patient Ordered By: Jennifer Gaines Comprehensive Metabolic Panel (Routine) Timeframe: 1 Week Facility: [facility] - Location: Lab - Main Lab Ordered By: Issa Ortega Erythrocyte Sedimentation Rate (WEEKLY) Timeframe: 20200904 Facility: [facility] - Location: Lab - Main Lab Ordered By: Jennifer Chavesriselene Erythrocyte Sedimentation Rate (WEEKLY) Timeframe: 20200905 Facility: [facility] - Location: Lab - Main Lab Ordered By: Jennifer Gaines Erythrocyte Sedimentation Rate (WEEKLY) Timeframe: 20200906 Facility: [facility] - Location: Lab - Main Lab Ordered By: Jennifer Gaines DME: Walker (Order) Location: None Selected Ordered By: Arnulfo Lawler Referrals: Jennifer Gaines MD [Hospitalist] - 09/29/20 9:00 am Arnulfo Lawler MD [Physician] - 09/08/20 3:45 pm Discharge Diet: Usual diet Discharge Activity: As per PT/OT instructions Patient Instructions: Cephalexin (By mouth), Oxycodone/Acetaminophen (By mouth), Cellulitis (GEN), Total Knee Replacement (DC), Spinal and Epidural Anesthesia (GEN), Surgical Site Infections (GEN) Activity Restrictions/Additional Instructions: rest today. keep dressing dry for 2 days. use walker. keep leg elevated as much as possible. Follow-up with infectious disease clinic on September 15, 2020. Call [phone] to make appointment. 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
--- NOTE | 2020-09-04 11:27 | DCPLANNER ---
IMM completed on 09/04/20 @ 5187. Copy of rights given to pt.
--- NOTE | 2020-09-04 12:07 | PC.NURSE ---
pt iv's taken out and intact. discharge instructions explained and all questions answered. demonstrated and explained how to do wound dressing changes.
[2020-09-04] MEDS: oxyCODONE 5 mg IR Tab/Cap 10 MG PO (14:01)
--- NOTE | 2020-09-04 14:41 | PC.NURSE ---
called report to sherlyn
--- NOTE | 2020-09-04 16:33 | PC.NURSE ---
pt iv taken out and intact. answered all discharge/transfer questions. assisted pt via wheelchair to surgical services entrance.
== END 2020-09-04 16:42 | disposition skilled nursing facility (03) | DRG 486 ==
LOC: MEDSURG 15:35
PROVIDERS: Orthopaedic Surgery; Student in an Organized Health Care Education/Training Program; Admitting Provider Internal Medicine; Visit Provider Internal Medicine
PROC: 0QDD0ZZ Extraction of Right Patella, Open Approach (ICD-10-PCS; CPT 27447; principal; 2020-08-24 09:40)
PROC: 0SCC0ZZ Extirpation of Matter from Right Knee Joint, Open Approach (ICD-10-PCS; principal; 2020-09-01 12:00)
DX: M00.061 Staphylococcal arthritis, right knee (principal); N17.9 Acute kidney failure, unspecified; M86.8X6 Other osteomyelitis, lower leg; E44.0 Moderate protein-calorie malnutrition; B95.61 Methicillin susceptible Staphylococcus aureus infection as the cause of diseases classified elsewhere; I12.9 Hypertensive chronic kidney disease with stage 1 through stage 4 chronic kidney disease, or unspecified chronic kidney disease; N18.9 Chronic kidney disease, unspecified; M10.9 Gout, unspecified; W01.0XXA Fall on same level from slipping, tripping and stumbling without subsequent striking against object, initial encounter; Y92.230 Patient room in hospital as the place of occurrence of the external cause; D64.9 Anemia, unspecified; Z68.30 Body mass index [BMI] 30.0-30.9, adult; S80.01XA Contusion of right knee, initial encounter; X58.XXXA Exposure to other specified factors, initial encounter; E86.0 Dehydration
CPT/HCPCS: 12345; 36415; 36416; 36569; 36592; 51702; 64447; 71045; 73560; 73723; 80053; 80069; 80202; 80500; 81001; 81003; 82962; 83735; 84145; 85025; 85610; 85651; 85730; 86140; 87040; 87070; 87075; 87077; 87081; 87086; 87176; 87186; 87205; 87426; 88305; 93005; 96365; 96372; 97110; 97116; 97162; 97530; A9579; G0378; J0171; J0690; J1580; J1644; J1885; J2250; J2270; J2370; J2405; J2543; J2704; J2795; J3010; J3370; J3490; J7030

== ENCOUNTER 2021-02-09 16:11 | Outpatient (CLI) | payer MEDICARE, SELFPAY ==
[2021-02-09 17:10] LABS: C Reactive Protein 13.8 mg/L (0.0-4.9)
[2021-02-09 17:36] LABS: Erythrocyte Sedimentation Rate 16 mm/hr (0-10)
== END 2021-02-09 16:12 | disposition home or self-care (01) ==
PROVIDERS: PCP Nurse Practitioner Family; Visit Provider Orthopaedic Surgery
DX: M00.061 Staphylococcal arthritis, right knee (principal); M17.11 Unilateral primary osteoarthritis, right knee; M86.9 Osteomyelitis, unspecified
CPT/HCPCS: 36415; 85651; 86140; 87070

== ENCOUNTER → 2021-04-28 13:33 | Outpatient (BNVA) | payer MEDICARE, SELFPAY | PROVIDERS: PCP Nurse Practitioner Family; Visit Provider Orthopaedic Surgery | DX: Z01.812 Encounter for preprocedural laboratory examination (principal); Z20.822 Contact with and (suspected) exposure to COVID-19 | CPT/HCPCS: 87635 ==

== ENCOUNTER 2021-05-03 09:48 | Observation (INO) | payer MEDICARE, SELFPAY ==
[2021-04-28 12:13] VITALS: BMI 32.8
--- NOTE | 2021-04-28 12:18 | ECG_ITS ---
[facility] Test Date: 2021-04-28 Pat Name: Enrique Murguia Department: Room: Gender: Male [employer] Principal: : [id number] Requested By: Elton Moreno Order Number: [id number] Rojelio MD: JUSTUS CONWAY Measurements Intervals Barney Rate: 53 P: 97 MD: 323 QRS: -39 QRSD: 89 T: 2 QT: 395 QTc: 372 Interpretive Statements SINUS BRADYCARDIA WITH SINUS ARRHYTHMIA WITH FIRST DEGREE AV BLOCK LEFT AXIS DEVIATION [QRS AXIS < -30] POSSIBLE RIGHT VENTRICULAR CONDUCTION DELAY [RSR (QR) IN V1/V2] MODERATE VOLTAGE CRITERIA FOR LVH, CONSIDER NORMAL VARIANT [MEETS CRITERIA IN ONE OF: R(aVL), S(V1), R(V5), R(V5/V6)+S(V1)] Compared to ECG 08/11/2020 12:53:29 No significant changes Electronically Signed On 04-28-2021 19:28:31 CDT by JUSTUS CONWAY [id number]
--- NOTE | 2021-04-28 13:10 | ANES.PREANE2 ---
Pre-Anesthetic Assessment Pre-Anesthetic Assessment: Height/Weight: Height 1.8 m Weight 106.594 kg Preop Diagnosis: Osteoarthritis Right knee, septic right knee Proposed Procedure: Operation Date: 05/03/21 09:40 Proposed Procedures p Right Total Knee Arthroplasty 06598 M17.11(Right) - Arnulfo Lawler MD Was Beta Eric taken within 24 hours: Yes Was Clonidine taken within 24 hours: N/A Social: Social History: No alcohol and No tobacco Exam: Pre-Anes Outpt Exam: alert, oriented x 3, clear to auscultation bilaterally and regular rate & rhythm Airway: Submandibular: WNL Cervical ROM: WNL MP: 2 Dentition: Chipped CV/HEM: CV/HEM: HTN Musc/skel: Musc/skel: OA/DJD Anesthetic Plan: ASA status: 3 Anesthesia: Regional (specify below) (SAB with adductor blk) PFSH Anesthesia PFSH: Medical History Gout Hypertension Hypertension Social History Alcohol intake: never Data Anesthesia Cardiac Studies: No Data to Display
[2021-04-28 14:32] LABS: Blood Urea Nitrogen 34 mg/dL (8-23); Carbon Dioxide 30 mmol/L (22-29); Chloride 99 mmol/L (98-107); Glucose 97 mg/dL (65-115); Osmolality Calculated 294 mOsm/kg (285-295); Sodium 138 mmol/L (136-145)
[2021-05-03] VITALS (13 sets, daily range): BP systolic 109–163; BP diastolic 64–81; PULSE 41–55; RESP 10–20; TEMP 36.3–36.7; O2SAT 92–98; BMI 35.4
[2021-05-03] MEDS: gabapentin 300 mg Capsule PO ×2 (06:11→17:35)
[2021-05-03] MEDS: oxyCODONE 20 mg ER (12 HR) Tablet PO (06:12)
[2021-05-03] MEDS: CELEcoxib 200 mg Capsule 400 MG PO (06:12)
[2021-05-03] MEDS: acetaminophen 500 mg Tablet 1000 MG PO ×3 (06:12→22:35)
[2021-05-03] MEDS: sodium chloride 0.9% 1,000 ML 30 ML IV (06:14)
--- NOTE | 2021-05-03 06:15 | ANES.PAUD2 ---
Pre-Anesthetic Update Pre-Anesthetic Assessment: Date of Surgery/Procedure: 05/03/21 Preop Diagnosis: Osteoarthritis Right knee Proposed Procedure: Operation Date: 05/03/21 07:00 Proposed Procedures p Right Total Knee Arthroplasty 98694 M17.11(Right) - Arnulfo Lawler MD Any changes to Pre-Anesthetic Assessment?: No Last Intake: Intake Last Liquid Date 05/02/21 Last Liquid Time 23:30 Last Solid Date 05/02/21 Last Solid Time 19:00 Vitals: Temperature 97.8 F 05/03/21 06:01 Temperature Source Temporal Artery S can 05/03/21 06:01 Pulse Rate 53 L 05/03/21 06:01 Respiratory Rate 16 05/03/21 06:12 Respiratory Effort 05/03/21 06:12 Respiratory Depth Normal 05/03/21 06:12 Respiratory Patter n 05/03/21 06:12 Blood Pressure 163/81 05/03/21 06:01 Blood Pressure Diana n 108 05/03/21 06:01 Pulse Oximetry 97 05/03/21 06:12 Oxygen Delivery Me thod 05/03/21 06:01 Exam: Pre-Anes Outpt Exam: alert, oriented x 3, clear to auscultation bilaterally and regular rate & rhythm Cardiac Studies: No Data to Display
[2021-05-03] MEDS: vancomycin 1,000 MG in sodium chloride 0.9% 250 ML 250 MG IV (07:00)
--- NOTE | 2021-05-03 07:03 | P.HP_ITS ---
Same Day Surgery H&P Indication for Procedure/HPI DATE OF PROCEDURE: May 03, 2021 CHIEF COMPLAINT/INDICATIONFOR SURGICAL PROCEDURE: Osteoarthritis right knee. Here for total knee arthroplasty PREOP DIAGNOSIS: Osteoarthritis Right knee PLANNED PROCEDRUE: Operation Date: 05/03/21 07:00 Proposed Procedures p Right Total Knee Arthroplasty 67261 M17.11(Right) - Arnulfo Lawler MD 75-year-old male with chronic right knee pain attributed to osteoarthritis. Was scheduled for elective right total knee on August 24, 2020 however was noted to have septic arthritis and osteomyelitis at the time of arthrotomy. Ultimate cultures revealed staph aureus. He was managed with IV antibiotics under the care of our infectious disease team. He has had good improvement in his medical parameters and is here today for right total knee arthroplasty Medications/Allergies* Home Medications Medication Instructions Recorded Confirmed Type allopurinol 100 mg tablet 100 mg PO DAILY 07/21/20 05/03/21 History atenolol 50 mg tablet 50 mg PO DAILY 07/21/20 05/03/21 History hydrochlorothiazide 25 mg tablet 25 mg PO DAILY 07/21/20 05/03/21 History Allergies/Adverse Reactions Allergy/AdvReac Type Severity Reaction Status Date / Time No Known Allergies Allergy Verified 04/28/21 12:09 Current Medications: Generic Name Dose Route Start Last Admin Trade Name Freq PRN Reason Stop Dose Admin Sodium Chloride 1,000 mls @ 30 mls/hr 05/03/21 06:00 05/03/21 06:14 Sodium Chloride 0.9% IV 05/04/21 05:59 30 mls/hr .Q24H RADHA Administration Pertinent History/Comorbid Conditions* Medical History (Updated 09/29/20 @ 12:54 by Jennifer Gaines MD) Gout Hypertension Hypertension Social History Alcohol intake: never Pertinent Exam Findings alert, oriented x 3, clear to auscultation bilaterally, regular rate & rhythm and operative site marked No right knee effusion. 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
--- NOTE | 2021-05-03 08:23 | ANES.PROC ---
Anesthesia Procedures Procedure/Date: 05/03/21 Nerve Block ^: Nerve Block 1: Main Anesthesia: spinal anesthesia block Time Out Performed: Yes Consent: requested by attending/covering physician, from patient, risks and benefits reviewed and patient agrees to proceed Nerve block location: adductor canal (right) Anesthesia monitors applied: pulse oximetry, EKG, BP cuff and oxygen Nerve block position: supine Anesthetic Used: ropivicaine 0.5% Amount of anesthesia used (mL): 20 Ultrasound used to: recognize landmarks Nerve Stimulator Used?: No Interscalene/Femoral BLK: 4 stimuplex 21 g needle used for position and inplane approach and visualize local anesthetic spread Injection: neg aspiration of heme Patient Tolerated Procedure: well Complications: none
[2021-05-03] MEDS: EPINEPHrine 1 mg/mL INJ XX (08:34)
[2021-05-03] MEDS: tranexamic acid 1,000 mg/10mL SDV 1000 MG XX (08:34)
[2021-05-03] MEDS: ketorolac 30 mg/mL INJ IM (08:34)
--- NOTE | 2021-05-03 10:43 | XRR_ITS ---
PROCEDURE INFORMATION: Exam: XR Right Knee Exam date and time: 05/03/2021 10:43 AM Age: 75 years old Clinical indication: Device placement; Joint replacement hardware; Prior surgery; Surgery date: Post-operative (0-2 days); Surgery type: Post op/total knee; Additional info: Right total knee arthroplasty TECHNIQUE: Imaging protocol: XR Right knee. Views: 1 or 2 views. Total images: 2 COMPARISON: MR knee RT wo/w con [id number] 08/31/2020 10:50 AM FINDINGS: Tubes, catheters and devices: The prosthesis appears near anatomic in positioning. No parallel lucencies adjacent to the prosthesis are seen to suggest loosening. No acute fractures, subluxation, nor dislocation. Bones/joints: Right knee arthroplasty is present. Soft tissues: Skin nataliia and subcutaneous emphysema are present from recent surgery. XR/XR knee RT 1-2V 78280 IMPRESSION: Status post recent right knee arthroplasty without complication.
--- NOTE | 2021-05-03 10:44 | P.OP_ITS ---
Operative Report Date of procedure: May 03, 2021 Pre-op Diagnosis: Osteoarthritis Right knee Post-op diagnosis: same Post-op Findings: Same Procedure Done: Right total knee arthroplasty Implants: ker total knee arthroplasty components were used includin) Size 6 triathalon cemented posterior stabilized femoral component 2) Size 7 universal tibial component 3) 38 mm cement asymetric patella 4) Size 7/13 mm thickness posteriorly stabilized tibial bearing insert Pathology: none sent Pathology: Specimen of medial femoral condyle bone specimen was sent for culture Surgeon: Arnulfo Lawler Anesthesia: Nerve Block (Spinal, ADD adductor canal block) Estimated blood loss (mL): 100 Tourniquet time (min): 100 Findings: Patient had severe tricompartmental with marked varus wear over the medial tibial plateau. He had hypoplasia of the lateral femoral condyle. No evidence of a deep infection and no necrotic bone was identified Condition: stable Disposition: PACU Procedure: The patient was taken to the operating room. Patient was given 1 g of tranexamic acid . The above anesthesia provided by the anesthesia service. A timeout was performed. The patient was prepped and draped in the usual fashion with the lower extremity exposed. A anterior incision was made, midline, from a point proximal to the patella to the distal tibial tubercle in line with the previous scar.. The knee was entered through a medial parapat ellar approach. The patella could be displaced laterally and the knee flexed. The patellar fat pad and excessive infrapatellar scar tissue was resected to provide better visibility. Adhesions of the quadriceps from the anterior medial and lateral femur were released as well. Retractors were placed medially and laterally adjacent to the tibial plateau. The femoral canal was drilled in line with the longitudinal axis of the femur. Intramedullary femoral guide for used to make a distal femoral cut in 5 degrees of valgus, resecting 10 mm from the more prominent condyle accommodate for the large flexion contracture.. Next the extra medullary tibial guide was placed in alignment with the longitudinal axis of the tibia. The cutting guides were set to remove just over 2 mm from the low medial tibial plateau. The proximal tibia was then cut. The femoral measuring guide was then placed over the distal femur. Rotation was verified checking the relationship of the guide to the condyle and the trochlear groove. The femur was measured and cut for the desired femoral component. The desired tibial baseplate was then chosen. A trial reduction with the femur tibial baseplate and polyethylene was done, assuring that the knee was stable throughout full motion. Ligament balancing involved a removal of prominent osteophytes from the medial tibial plateau and a release of the proximal superficial medial collateral ligament from the tibia..The tibia was prepared for the tibial baseplate. Patellar thickness was then measured. The patella was cut removing articular cartilage and prepared for appropriate size patellar button. surfaces were cleaned with a gentamicin/tranexamic acid solution. The femur tibia and patella were then cemented into place with antibiotic impregnated cement.. The posterior capsule and collateral ligaments were then injected with a solution of 100 mL of 0.2% ropivacaine, 1 mL of a 1:1000 epinephrine solution, 30 mg of Toradol, and 1 g of tranexamic acid. final polyethylene component was then snapped into place into the tibia. The extensor retinaculum was closed with a running 1 Stratafix.. The subcutaneous tissues were closed with 2-0 Vicryl and the skin was closed with a running 3-0 Stratafix. The wound was covered with a Dermabond Prinio dressing. It was covered with 4xrs and a compressive Tubigauae was applied. The patient was taken to recovery room in stable condition. Patience
[2021-05-03] MEDS: sodium chloride 0.9% 1,000 ML 100 ML IV ×2 (12:28→22:36)
--- NOTE | 2021-05-03 15:30 | ANE.PACU2 ---
Inpatient post-anesthesia follow up: Airway intact: Yes Vital signs: Temperature 97.6 F Pulse Rate 43 Respiratory Rate 18 Blood Pressure 116/65 Pulse Oximetry 95 Oxygen Delivery Me thod Room Air Oxygen Flow Rate 8 Fraction of Inspir ed Oxygen Hydration adequate: Yes Nausea and vomiting: No Pain level: 2 Mental status: Baseline
[2021-05-03] MEDS: CELEcoxib 200 mg Capsule PO (17:35)
[2021-05-03] MEDS: sennosides-docusate Tablet 2 TAB PO (17:35)
[2021-05-03] MEDS: mupirocin oint 22 gm 1 APPLIC TOPICAL (17:52)
[2021-05-04 02:56] LABS: Hemoglobin 12.6 g/dL (11.7-16.6)
[2021-05-04 03:35] VITALS: BP 115/66; PULSE 58; RESP 20; TEMP 37; O2SAT 93
[2021-05-04] MEDS: CELEcoxib 200 mg Capsule PO ×2 (05:16→17:36)
[2021-05-04 07:34] VITALS: BP 128/71; PULSE 55; RESP 18; TEMP 36.5; O2SAT 91
[2021-05-04] MEDS: aspirin 325 mg EC Tablet PO (08:29)
[2021-05-04] MEDS: allopurinol 100 mg Tablet PO (08:29)
[2021-05-04] MEDS: sennosides-docusate Tablet 2 TAB PO ×2 (08:29→17:36)
[2021-05-04] MEDS: gabapentin 300 mg Capsule PO ×2 (08:30→17:36)
[2021-05-04] MEDS: mupirocin oint 22 gm 1 APPLIC TOPICAL ×2 (08:34→17:36)
[2021-05-04 10:42] VITALS: RESP 18
[2021-05-04] MEDS: oxyCODONE 5 mg IR Tab/Cap PO (10:42)
[2021-05-04] MEDS: amlodipine 10 mg Tablet PO (10:43)
[2021-05-04 12:00] VITALS: BP 117/75; PULSE 80; RESP 18; TEMP 37.1; O2SAT 96
--- NOTE | 2021-05-04 13:05 | PM.PN ---
Subjective Subjective: Interval history: Complains of some nausea. Slower with therapy. Vitals/I&O/Wt Last Vital Signs Temp 97.7 F 05/04/21 07:34 Pulse 55 L 05/04/21 07:34 Resp 18 05/04/21 10:42 BP 128/71 05/04/21 07:34 Pulse Ox 91 05/04/21 07:34 05/03/21 05/04/21 05/04/21 22:59 06:59 14:59 Intake Total 1480 / 3340 240 / 3580 240 / 240 Output Total 300 / 1200 600 / 1800 Balance 1180 / 2140 -360 / 1780 240 / 240 Weight last 48 hrs Weight 254 lb 4.8 oz Physical Exam Narrative: EXAM NARRATIVE: Slight staining right knee dressing. Expected swelling Urinary Catheter Management^: Castillo: Cath Placed During This Visit: yes, but has since been removed by the nurse Reason for Continuing Indwelling Catheter: Accurate Measurement of Urinary Output in Critically Ill Patients Urinary Catheter Date of Insertion: 05/03/21 Urinary Catheter Time of Insertion: 07:55 Date Urinary Catheter Removed: 05/04/21 Time Urinary Catheter Discontinued: 06:06 Data : 05/04/21 02:30 04/28/21 12:30 Micro: Microbiology 05/03/21 08:20 Gram Stain - Final Knee - #1 Tissue Culture - Preliminary A&P Assessment and plan (1) Status post total right knee replacement: Continue with physical therapy. Anticipate discharge tomorrow. Status: Acute Attestations Medical Necessity Statement*: Patient slow with therapy. 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
--- NOTE | 2021-05-04 14:48 | PC.NURSE ---
pt had not voided since almodovar out, orders received to bladder scan, this showed 366mL in bladder, Dr. Lawler notified, orders received to straight cath. 450mL urine returned when performed. pt tolerated well. will encourage fluids and rescan patient prn
[2021-05-04] MEDS: acetaminophen 500 mg Tablet 1000 MG PO ×2 (15:08→21:22)
[2021-05-04] MEDS: ondansetron 2 mg/ML SDV 2 mL 4 MG IVP (15:09)
[2021-05-04 16:00] VITALS: BP 128/86; PULSE 78; RESP 17; TEMP 37.2; O2SAT 96
[2021-05-04 20:00] VITALS: BP 133/76; PULSE 60; RESP 17; TEMP 36.7; O2SAT 96
[2021-05-05] VITALS (7 sets, daily range): BP systolic 126–135; BP diastolic 69–82; PULSE 53–92; RESP 16–18; TEMP 36.4–36.6; O2SAT 91–98
--- NOTE | 2021-05-05 04:36 | PC.NURSE ---
i reported low pulse 53 to nurse
[2021-05-05] MEDS: CELEcoxib 200 mg Capsule PO ×2 (05:06→17:45)
[2021-05-05] MEDS: acetaminophen 500 mg Tablet 1000 MG PO ×2 (05:07→13:34)
--- NOTE | 2021-05-05 06:47 | PC.NURSE ---
Shift Summary Pt slept most of the night. Pt had not urinated since he was straight cathed by day shift. He was bladder scanned and it showed 377 mL. Nurse straight cathed and got 575 mL out
--- NOTE | 2021-05-05 07:49 | P.PN_ITS ---
Subjective Subjective: Interval history: Pain okay. Tolerating p.o. intake without vomiting. Still unable to urinate. Vitals/I&O/Wt Last Vital Signs Temp 97.9 F 05/05/21 04:00 Pulse 53 L 05/05/21 04:00 Resp 17 05/05/21 04:00 BP 126/74 05/05/21 04:00 Pulse Ox 91 05/05/21 04:00 05/04/21 05/05/21 05/05/21 22:59 06:59 14:59 Intake Total 1360 / 1840 120 / 1960 Output Total 575 / 575 Balance 1360 / 1840 -455 / 1385 Weight last 48 hrs Weight 254 lb 4.8 oz Physical Exam Narrative: EXAM NARRATIVE: OpSite dressing removed. Incision with dried blood and no active bleeding. Expected swelling right knee Urinary Catheter Management^: Castillo: Cath Placed During This Visit: yes, but has since been removed by the nurse Reason for Continuing Indwelling Catheter: Accurate Measurement of Urinary Output in Critically Ill Patients Urinary Catheter Date of Insertion: 05/03/21 Urinary Catheter Time of Insertion: 07:55 Date Urinary Catheter Removed: 05/04/21 Time Urinary Catheter Discontinued: 06:06 Data : 05/04/21 02:30 04/28/21 12:30 Micro: Microbiology 05/03/21 08:20 Gram Stain - Final Knee - #1 Tissue Culture - Preliminary A&P Assessment and plan (1) Status post total right knee replacement: Continue to mobilize. Hopefully home today. Patient has excellent family support Status: Acute (2) Urinary retention: If unable to void will be discharged with Castillo catheter. Status: Acute Attestations Medical Necessity Statement*: Discharge home if satisfactory progress with marcellus khan. 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
[2021-05-05] MEDS: allopurinol 100 mg Tablet PO (08:43)
[2021-05-05] MEDS: hydroCHLOROthiazide 25 mg Tablet PO (08:43)
[2021-05-05] MEDS: sennosides-docusate Tablet 2 TAB PO ×2 (08:43→17:45)
[2021-05-05] MEDS: aspirin 325 mg EC Tablet PO (08:43)
[2021-05-05] MEDS: amlodipine 10 mg Tablet PO (08:43)
[2021-05-05] MEDS: gabapentin 300 mg Capsule PO ×2 (08:43→17:45)
[2021-05-05] MEDS: oxyCODONE 5 mg IR Tab/Cap PO (13:35)
--- NOTE | 2021-05-05 14:29 | P.DS_ITS ---
Discharge Providers Date of Admission: 05/03/21 09:48 Date of Discharge: May 05, 2021 Attending Provider at Admission: Arnulfo Lawler MD Attending Provider at Discharge: Arnulfo Lawler MD Primary Care Provider: Raymond Jansen [facility] Diagnoses at Discharge Discharge Diagnosis (1) Status post total right knee replacement: Status: Acute (2) Urinary retention: Status: Acute Reason for Visit Reason for Visit: Right Total Knee Arthroplasty Hospital Course Hospital Course The patient tolerated surgery well. They remained hemodynamically stable. They was begun on aspirin and foot pumps for DVT prophylaxis. The patient was mobilized with therapy beginning the day of surgery and progressed slower than expected. By the second postoperative day independent with the walker. Patient was unable to void and a Castillo catheter was placed. He will follow up with his primary care physician for removal of this at their discretion. As the pain was adequately controlled and they were fully mobile they were discharged home. Physical Exam Narrative: EXAM NARRATIVE: OpSite dressing removed. Incision with dried blood and no active bleeding. Expected swelling right knee Urinary Catheter Management^: Castillo: Cath Placed During This Visit: yes, but has since been removed by the nurse Reason for Continuing Indwelling Catheter: Accurate Measurement of Urinary Output in Critically Ill Patients Urinary Catheter Date of Insertion: 05/05/21 Urinary Catheter Time of Insertion: 11:15 Date Urinary Catheter Removed: 05/04/21 Time Urinary Catheter Discontinued: 06:06 Discharge Data Data Completed and Pending: Completed Studies During Hospitalization Category Date Time Status XR knee RT 1-2V 7 [id number] Routine Exams 05/03/21 10:43 Completed Pending at discharge Category Date Time Status Tissue Culture an d Gram Stain [facility] ne Lab 05/03/21 08:20 Results Vitals: Last Vital Signs Temp 97.6 F 05/05/21 12:00 Pulse 72 05/05/21 12:00 Resp 17 05/05/21 13:35 BP 129/69 05/05/21 12:00 Pulse Ox 95 05/05/21 12:00 Discharge Plan Discharge Patient Disposition: Home Condition: Stable Prescriptions: New acetaminophen 500 mg Tablet 1,000 mg PO Q8H 14 Days Qty: 84 RF: 0 celecoxib 200 mg Capsule 200 mg PO Q12H 15 Days Qty: 30 RF: 0 aspirin 325 mg Tablet,Delayed Release (Dr/Ec) 325 mg PO DAILY 30 Days Qty: 30 RF: 0 gabapentin 300 mg Capsule 300 mg PO BID 7 Days Qty: 14 RF: 0 oxycodone 5 mg Tablet 5 mg PO Q4H PRN (Reason: Moderate Pain) 7 Days Qty: 30 RF: 0 Bactrim DS 800-160 mg tablet 1 tab PO BID Qty: 90 RF: 0 Continued allopurinol 100 mg tablet 100 mg PO DAILY RF: 0 atenolol 50 mg tablet 50 mg PO DAILY RF: 0 hydrochlorothiazide 25 mg tablet 25 mg PO DAILY RF: 0 amlodipine 10 mg Tablet 10 mg PO DAILY Qty: 30 RF: 0 Discontinued mupirocin 2 % ointment 1 applic topical BID Qty: 15 RF: 0 Discharge Orders: Discharge Order (Routine); Ordered 05/05/21 Ordered By: Arnulfo Lawler Referrals: [facility] [Outside] ([facility] will be contacting you about a time to admit you to their services. If you have any questions please call them at [phone].) Arnulfo Lawler MD [Physician] - 05/07/21 8:30 am Discharge Diet: Advance as tolerated Discharge Activity: Limit activity as instructed Patient Instructions: Aspirin (By mouth), Gabapentin (By mouth), Oxycodone, Rapid Release (By mouth), Celecoxib (By mouth), Total Knee Replacement (DC), Opioid Safety Activity Restrictions/Additional Instructions: Okay to shower Keep Tubigauze sleeve in place for swelling. Okay to remove for hygiene. Apply FirstIce up to 20 min/hr for pain and swelling Take Celebrex twice a day for the next 15 days for pain , discontinue other anti-inflammatories Take Neurontin twice a day for 7 days. Take Tylenol 500mg (1-2 tabs) as needed 3 times a day for mild pain take oxycodone for breakthrough pain. Exercises per physical therapy. May weight-bear as tolerated on total knee arthroplasty Discharge Attestations Time Spent in Discharge Care*: other Quality Metrics Clinical Quality Measures During this hospital stay, did patient experience: None Coding Level of Care Code Acute Chg FW DC note Diagnoses Status post total right knee replacement Z96.651 Urinary retention R33.9
--- NOTE | 2021-05-06 10:49 | PC.SOCIAL ---
discharge follow up call made, spoke with patient. pt understands new medications and directions for taking. patient is aware of follow up appointment tomorrow with dr. morales. Patient has home health referral but they haven't visited yet. pts daughter is helping care for him. discussed using ice 20 mins every hour, patient will attempt this and let his daughter know, he reports doing his at home exercises.went over dressing care and that its ok to shower but not soak and to leave tubiqauze in place to help with swelling. patient denies questions or concerns.
== END 2021-05-05 18:30 | disposition home or self-care (01) ==
LOC: MEDSURG 09:48
PROVIDERS: Anesthesiology; Admitting Provider Orthopaedic Surgery; PCP Nurse Practitioner Family; Visit Provider Orthopaedic Surgery
PROC: (CPT 27447; principal; 2021-05-03 07:00)
DX: M17.11 Unilateral primary osteoarthritis, right knee (principal); R33.9 Retention of urine, unspecified; I10 Essential (primary) hypertension
CPT/HCPCS: 27447; 36415; 51702; 51798; 64447; 73560; 76942; 80048; 85018; 87070; 87176; 87205; 93005; 97110; 97116; 97161; 97166; 97530; 97535; C1776; G0378; J0171; J1580; J1885; J2405; J2704; J2795; J3370; J7030; J7050

== ENCOUNTER 2021-05-15 08:07 | Inpatient (IN) | payer MEDICARE, SELFPAY ==
[2021-05-15] VITALS (8 sets, daily range): BP systolic 114–156; BP diastolic 70–95; PULSE 60–74; RESP 17–29; TEMP 36.8–36.9; O2SAT 92–96; BMI 35.5; BMI 35.9
--- NOTE | 2021-05-15 08:13 | CTR_ITS ---
PROCEDURE INFORMATION: Exam: CT Head Without Contrast Exam date and time: 05/15/2021 8:13 AM Age: 75 years old Clinical indication: Altered mental status/memory loss; Additional info: AMS TECHNIQUE: Imaging protocol: Computed tomography of the head without contrast. Radiation optimization: All CT scans at this facility use at least one of these dose optimization techniques: automated exposure control; mA and/or kV adjustment per patient size (includes targeted exams where dose is matched to clinical indication); or iterative reconstruction. COMPARISON: CR XR knees AP WB w RT lmt ORTH 07/21/2020 10:48 AM RADIATION DOSE METRICS: Total DLP (mGy-cm): 850.98 FINDINGS: Brain: No hemorrhage, mass effect or midline shift. No acute, major vascular distribution infarction identified. There is foci of decreased attenuation in the periventricular and subcortical white matter, likely representing chronic small vessel ischemic changes. Mild cerebral volume loss is present. No intra-axial or extra-axial fluid collection seen. Cerebral ventricles: No ventriculomegaly. Paranasal sinuses: Visualized sinuses are unremarkable. No fluid levels. Mastoid air cells: Visualized mastoid air cells are well aerated. Bones/joints: Unremarkable. No acute fracture. Soft tissues: Unremarkable. CT/CT head wo con* [id number] IMPRESSION: No acute intracranial abnormality. Radiation Dose CTDIVOL = (mGy): DLP = 850.98 (mGy-cm)
--- NOTE | 2021-05-15 08:13 | XRR_ITS ---
PROCEDURE INFORMATION: Exam: XR Chest Exam date and time: 05/15/2021 8:13 AM Age: 75 years old Clinical indication: Dyspnea; Additional info: AMS TECHNIQUE: Imaging protocol: XR of the chest. Views: 1 view. COMPARISON: CR XR chest 1V portable [id number] 09/03/2020 12:10 PM FINDINGS: Lungs: Interstitial prominence and chronic granulomatous disease. Mild right infrahilar airspace disease. Pleural spaces: No significant pleural effusion. Heart/Mediastinum: Borderline cardiomegaly. Vasculature: Ectasia of the thoracic aorta. Bones/joints: Osteopenia and degenerative change. XR/XR chest 1V portable [id number] IMPRESSION: 1. Interstitial prominence and chronic granulomatous disease. 2. Mild right infrahilar airspace disease.
--- NOTE | 2021-05-15 08:14 | ECG_ITS ---
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1945 Requested By: Federica Hawley Order Number: [id number] Reading MD: JUSTUS CONWAY Measurements Intervals [place] Rate: 60 P: [place]: QRS: -21 QRSD: 98 T: 47 QT: 373 QTc: 376 Interpretive Statements ATRIAL FIBRILLATION BORDERLINE LEFT AXIS DEVIATION [QRS AXIS < -20] POSSIBLE RIGHT VENTRICULAR CONDUCTION DELAY [RSR (QR) IN V1/V2] ABNORMAL RHYTHM ECG Compared to ECG 04/28/2021 12:39:36 Sinus bradycardia no longer present Sinus arrhythmia no longer present First degree AV block no longer present Electronically Signed On 05-15-2021 18:23:00 CDT by JUSTUS CONWAY [id number]
--- NOTE | 2021-05-15 08:57 | ED_ITS ---
HPI - General Adult General: Chief complaint: Urogenital-Male Stated complaint: AMS POSS UTI Time Seen by Provider: 05/15/21 08:10 History of Present Illness: HPI narrative: Patient is a 75-year-old male with a history of UTIs who was diagnosed with UTI on Monday started on Bactrim presenting to the emergency room for concerns of altered mental status. Per , patient woke up this morning hallucinating and seeing people who are not there. is concerned that his UTI is not controlled. denies any fever/chill, nausea/vomiting. Patient did report mild lower abdominal pain. No other focal complaints at this time. Onset: 7 days ago Duration:7 days Location:home Severity:mild/moderate Review of Systems Narrative: Constitutional: No fever, no chills. HEENT: No vision changes CV: No chest pain, no palpitations PULM: no cough, no dyspnea. GI: +lower abdominal pain, no N/V/D. : +dysuria MSKEL: No muscle pain SKIN: No new rashes, no lesions. NEURO: No headache, no focal weakness. +AMS HEME: No visible bruises PSYCH: Normal mood, +visual hallucination PFSH ED PFSH: Medical History (Updated 05/17/21 @ 20:41 by Jesus Mcfarland MD) Gout Hydronephrosis of right kidney Hypertension Hypertension Left renal mass Social History Alcohol intake: never Physical Exam Narrative: EXAM NARRATIVE: Head: Atraumatic Eyes: PERRL, conjunctiva without injection ENT: Mucous membrane moist NECK: Supple, ROM intact LUNGS: LCTAB, no crackles/rhonchi CV: RRR ABDOMEN: No focal TTP. NO guarding rebound, guarding, rigidity. No CVA tenderness to percussion. Neg Rojas/Neg McBurney's point tenderness, no suprabupic tenderness to palpation. EXTREMITY: Normal ROM SKIN: No rash or erythema NEURO: Awake and alert, no focal motor deficits PSYCH: Normal mood and affect Course Vital Signs: Vital signs: Vital Signs Temperature 98.1 F 05/17/21 16:30 Pulse Rate 74 05/18/21 00:24 Respiratory Rate 23 H 05/18/21 00:24 Blood Pressure 147/92 05/18/21 00:24 Pulse Oximetry 93 05/18/21 00:24 MDM - General Adult MDM Narrative: Medical decision making narrative: Patient is 75-year-old male presenting to the emergency room for evaluation of urinary symptoms. Altered mental status work-up including troponin appears to be elevated. Patient is known to have creatinine 2.4. Will be admitted to hospital for treatment of UTI. Status post 500 cc of NS, ceftriaxone in the emergency room. Creatinine of 2.4, will need rehydration. Patient has a troponin elevation to 200, will give heparin. Disposition: Admission Lab Data: Labs: Lab Results 05/15/21 05/15/21 05/15/21 09:18 09:18 09:18 WBC 7.8 10^3/uL 10^3/ uL (4.0-10.0) RBC 3.98 10^6/uL L 10 ^6/uL (4.1-5.3) Hgb 12.3 g/dL g/dL (11.7-16.6) Hct 37.0 % L % (42.0-52.0) MCV 93.0 fl fl (80-94) MCH 30.9 pg pg (28.0-34.0) MCHC 33.2 g/dL g/dL (30.0-36.0) RDW 13.1 % % (12.1-15.1) Plt Count 270 10^3/cmm 10^3 /cmm (130-400) MPV 10.1 fL fL (7.4-10.4) Neut % (Auto) 74.9 % % Lymph % (Auto) 10.8 % % [place] % (Auto) 13.4 % % Eos % (Auto) 0.3 % % Baso % (Auto) 0.1 % % Neut # (Auto) 5.83 10^3/uL 10^3 /uL (1.8-7.7) Lymph # (Auto) 0.8 10^3/uL 10^3/ uL (0.8-4.8) [place] # (Auto) 1.0 10^3/uL H 10^ 3/uL (0.2-0.9) Eos # (Auto) 0.0 10^3/uL 10^3/ uL (0.0-0.8) Baso # (Auto) 0.0 10^3/uL 10^3/ uL (0.0-0.1) Nucleated RBC % (a uto) 0 % % Nucleated RBCs # 0.0 /100WBC /100W BC APTT Sodium 134 mmol/L L mmol /L (136-145) Potassium 4.7 mmol/L mmol/L (3.5-5.1) Chloride 100 mmol/L mmol/L (98-107) Carbon Dioxide 24 mmol/L mmol/L (22-29) Anion Gap 14.7 (5-19) BUN 44 mg/dL H mg/dL (8-23) Creatinine 2.4 mg/dL H mg/dL (0.7-1.2) GFR Calculation Not Reportable Glucose 126 mg/dL H mg/dL (65-115) Calculated Osmolal ity 291 mOsm/kg mOsm/ kg (285-295) Lactate 1.5 mmol/L mmol/L (0.5-2.2) Calcium 13.2 mg/dL H mg/d L (8.5-10.5) Total Bilirubin 0.2 mg/dL mg/dL (0.15-1.2) AST 19 U/L U/L (0-40) ALT 19 U/L U/L (0-41) Alkaline Phosphata se 119 IU/L IU/L (40-130) Troponin T Baselin e Total Protein 6.0 g/dL L g/dL (6.6-8.7) Albumin 3.3 g/dL L g/dL (3.5-5.2) Globulin 2.7 g/dL g/dL (1.3-4.6) Lipase 31 U/L U/L (13-60) Urine Color Urine Appearance Urine pH Ur Specific Gravit y Urine Protein Urine Glucose (UA) Urine Ketones Urine Blood Urine Nitrate Urine Bilirubin Urine Urobilinogen Ur Leukocyte Sofy ase Urine RBC Urine WBC Ur Squamous Epith Cells Amorphous Sediment Urine Bacteria 05/15/21 05/15/21 05/15/21 09:18 09:18 09:32 WBC RBC Hgb Hct MCV MCH MCHC RDW Plt Count MPV Neut % (Auto) Lymph % (Auto) [place] % (Auto) Eos % (Auto) Baso % (Auto) Neut # (Auto) Lymph # (Auto) [place] # (Auto) Eos # (Auto) Baso # (Auto) Nucleated RBC % (a uto) Nucleated RBCs # APTT 38.9 SECONDS H SE CONDS (23.9-36.7) Sodium Potassium Chloride Carbon Dioxide Anion Gap BUN Creatinine GFR Calculation Glucose Calculated Osmolal ity Lactate Calcium Total Bilirubin AST ALT Alkaline Phosphata se Troponin T Baselin e 231 ng/L H* ng/L (0-15) Total Protein Albumin Globulin Lipase Urine Color Yellow (Yellow) Urine Appearance Clear (CLEAR) Urine pH 5 (5-7) Ur Specific Gravit y 1.020 (1.005-1.030) Urine Protein Neg (Negative) Urine Glucose (UA) Norm (Normal) Urine Ketones Negative (Negative) Urine Blood Neg (Negative) Urine Nitrate Positive H (Negative) Urine Bilirubin Neg (Negative) Urine Urobilinogen Norm mg/dL mg/dL (Negative) Ur Leukocyte Sofy ase Negative (Negative) Urine RBC None /hpf /hpf (0-2) Urine WBC 10-15 /hpf H /hpf (0-5) Ur Squamous Epith Cells None /hpf /hpf (0-5) Amorphous Sediment Not Reportable Urine Bacteria 3+ /hpf H /hpf (NONE) Discharge Plan Discharge Patient Disposition: Admitted As Inpatient Admit Provider: García Jimenez Clinical Impression: Altered mental status, RISA (acute kidney injury), Elevated troponin, Acute UTI Condition: Stable Discharge Diet: Advance as tolerated Discharge Activity: Resume usual activity Coding Level of 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
--- NOTE | 2021-05-15 08:59 | CTR_ITS ---
PROCEDURE INFORMATION: Exam: CT Abdomen And Pelvis Without Contrast Exam date and time: 05/15/2021 8:59 AM Age: 75 years old Clinical indication: Abdominal pain; Generalized; Additional info: Abd pain TECHNIQUE: Imaging protocol: Computed tomography of the abdomen and pelvis without contrast. Radiation optimization: All CT scans at this facility use at least one of these dose optimization techniques: automated exposure control; mA and/or kV adjustment per patient size (includes targeted exams where dose is matched to clinical indication); or iterative reconstruction. COMPARISON: CR XR knees AP WB w RT lmt ORTH 07/21/2020 10:48 AM RADIATION DOSE METRICS: Total DLP (mGy-cm): 1751.33 FINDINGS: Evaluation is limited by motion and beam hardening artifacts, along with absence of intravenous contrast. Inferior thorax: Interstitial prominence , trace dependent airspace disease, and mild pleural thickening. Liver: No focal hepatic mass. Gallbladder and bile ducts: Evaluation of the gallbladder is limited by motion artifact and contraction. Questionable cholelithiasis, which can be better evaluated with ultrasound if clinically indicated. No biliary ductal dilatation. Pancreas: Inhomogeneous attenuation and mild enlargement the pancreatic head, with subtle infiltration of peripancreatic fat, suggesting pancreatitis. Correlation with pancreatic enzymes is recommended. Spleen: Enlarged spleen measuring 13.8 cm in length with calcified granuloma. Adrenal glands: Unremarkable adrenals. Kidneys and ureters: Marked dilatation of the right pelvicaliceal system with abrupt change in caliber at the level of the UPJ, suggesting underlying UPJ stenosis. Nonobstructing right renal calculi, the largest measuring 6 mm. Atrophy with multiloculated cystic change in the left kidney. Stomach and bowel: Mildly dilated fluid-filled stomach. No significant small bowel dilatation. Prominent stool in a pattern suggesting constipation. Diverticula, without pericolonic inflammation. Appendix: No acute appendicitis. Intraperitoneal space: No significant free fluid. Vasculature: Prominent vascular calcification. No abdominal aortic aneurysm. Lymph nodes: Subcentimeter lymph nodes. Urinary bladder: Lobulated morphology of the dilated bladder with multiple dependent calculi. Reproductive: Unremarkable as visualized. Bones/joints: Osteopenia. Grade 1 anterolisthesis of L4 on L5. Degenerative change and disc bulging. Soft tissues: Small fat containing umbilical and inguinal hernias. CT/CT abdomen pelvis wo con [id number] IMPRESSION: 1. Inhomogeneous attenuation and mild enlargement the pancreatic head, with subtle infiltration of peripancreatic fat, suggesting pancreatitis. Correlation with pancreatic enzymes is recommended. 2. Marked dilatation of the right pelvicaliceal system with abrupt change in caliber at the level of the UPJ, suggesting underlying UPJ stenosis. Nonobstructing right renal calculi, the largest measuring 6 mm. 3. Lobulated morphology of the dilated bladder with multiple dependent calculi. 4. Additional findings as described above. COMMENTS: Consistent with the [employer]'s Incidental Findings Committee white paper (J Am Kirk Radiol 2018): Any incidental renal lesion less than 1 cm or classified as too small to characterize, or any incidental cystic renal lesion characterized as simple-appearing, is likely benign. No follow-up imaging is recommended for these lesions per consensus recommendations based on imaging criteria. Radiation Dose CTDIVOL = (mGy): DLP = 1751.33 (mGy-cm)
[2021-05-15 09:32] LABS: Basophils % 0.1 %; Eosinophils % 0.3 %; Hemoglobin 12.3 g/dL (11.7-16.6); Lymphocytes # 0.8 10^3/uL (0.8-4.8); Lymphocytes % 10.8 %; Mean Corpuscular HGB Conc 33.2 g/dL (30.0-36.0); Mean Corpuscular Hemoglobin 30.9 pg (28.0-34.0); Mean Platelet Volume 10.1 fL (7.4-10.4); Monocytes % 13.4 %; Neutrophils # 5.83 10^3/uL (1.8-7.7); Neutrophils % 74.9 %; Nucleated Red Blood Cells % 0 %; Platelet Count 270 10^3/cmm (130-400); Red Blood Count 3.98 10^6/uL (4.1-5.3); Red Cell Distribution Width 13.1 % (12.1-15.1); White Blood Count 7.8 10^3/uL (4.0-10.0)
[2021-05-15 09:40] LABS: Add Urine Microscopic? YES; Bilirubin Urine Neg (Negative); Blood Urine Neg (Negative); Glucose Urine UA Norm (Normal); Ketones Urine Negative (Negative); Leukocyte Esterase Urine Negative (Negative); Nitrate Urine Positive (Negative); Protein Urine Neg (Negative); Urine Appearance Clear (CLEAR); Urine Color Yellow (Yellow); Urobilinogen Urine Norm (Negative); pH Urine 5 (5-7)
[2021-05-15 09:50] LABS: Add Urine Culture? Yes; Bacteria Urine 3+ /hpf
[2021-05-15 09:52] LABS: Alanine Aminotransferase 19 U/L (0-41); Albumin Level 3.3 g/dL (3.5-5.2); Alkaline Phosphatase 119 IU/L (40-130); Anion Gap 14.7 (5-19); Aspartate Amino Transferase 19 U/L (0-40); Blood Urea Nitrogen 44 mg/dL (8-23); Calcium 13.2 mg/dL (8.5-10.5); Carbon Dioxide 24 mmol/L (22-29); Chloride 100 mmol/L (98-107); Globulin 2.7 g/dL (1.3-4.6); Glucose 126 mg/dL (65-115); Lipase 31 U/L (13-60); Osmolality Calculated 291 mOsm/kg (285-295); Potassium 4.7 mmol/L (3.5-5.1); Sodium 134 mmol/L (136-145); Total Bilirubin 0.2 mg/dL (0.15-1.2)
[2021-05-15 09:55] LABS: Lactate (Lactic Acid level) 1.5 mmol/L (0.5-2.2)
[2021-05-15 09:57] LABS: Troponin(5th) Baseline 231 ng/L (0-15)
[2021-05-15] MEDS: cefTRIAXone 1,000 MG in sodium chloride 0.9% (plus) 50 ML 100 MG IV (10:08)
--- NOTE | 2021-05-15 10:14 | ECG_ITS ---
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1945 Requested By: Federica Hawley Order Number: [id number] Reading MD: JUSTUS CONWAY Measurements Intervals [place] Rate: 49 P: [place]: QRS: -21 QRSD: 107 T: 38 QT: 386 QTc: 350 Interpretive Statements ATRIAL FIBRILLATION WITH SLOW VENTRICULAR RESPONSE BORDERLINE LEFT AXIS DEVIATION [QRS AXIS < -20] POSSIBLE RIGHT VENTRICULAR CONDUCTION DELAY [RSR (QR) IN V1/V2] ABNORMAL RHYTHM ECG INTERPRETATION BASED ON A DEFAULT AGE OF 40 YEARS Compared to ECG 05/15/2021 08:49:52 No significant changes Electronically Signed On 05-15-2021 18:24:28 CDT by JUSTUS CONWAY [email or web address]
[2021-05-15] MEDS: aspirin 81 mg Chew Tablet 324 MG PO (10:28)
[2021-05-15 11:30] LABS: Partial Thromboplastin Time 38.9 SECONDS (23.9-36.7)
[2021-05-15] MEDS: heparin drip 25,000 UNIT/500 ML PREMIX 78.65 UNIT IV (12:47)
[2021-05-15 14:42] LABS: Troponin T (5th) Once 218 ng/L (0-15)
--- NOTE | 2021-05-15 15:56 | P.HP_ITS ---
Providers/Chief Complaint Admitting Physician: García Jimenez MD Primary Care Provider: Raymond Jansen [facility] Chief Complaint: AMS POSS UTI History of Present Illness 75 year old male HTN,Gout,Severe b/l knee O.A, s/p right knee total replacement, came in with chief complaint of acute onset of confusion, patient is very hard of hearing history is being provided by the son who is at the bedside, according to him his father became acutely altered this morning he was having hallucination was seeing people who were not there. He was recently discharged from the hospital after right knee replacement, he was discharged on Castillo catheter because of urinary retention, followed with his primary care physician, for Castillo catheter removal and was diagnosed with UTI at that time (this Monday and was started on Bactrim). Upon arrival in the ER he was worked up for above-mentioned complaint. Pertinent imaging studies: CT head without contrast:No acute intracranial abnormality. X-ray chest: No infiltrates, no effusion no pneumothorax. CT abdomen pelvis wo con: Inhomogeneous attenuation and mild enlargement the pancreatic head, with subtle infiltration of peripancreatic fat, suggesting pancreatitis. Marked dilatation of the right pelvicaliceal system with abrupt change in caliber at the level of the UPJ, suggesting underlying UPJ stenosis. Nonobstructing right renal calculi, the largest measuring 6 mm. Lobulated morphology of the dilated bladder with multiple dependent calculi. EKG: A.fib with slow ventricular response Pertinent labs: WBC 7.8 H&H 12.3/ 37 plt : 270, serum sodium 134 , serum potassium: 4.7, BUN / serum creatinine : 44/2.4 , Troponin: Baseline troponin: 231, 218, 249 Urinalysis: Urine nitrite positive, urine WBC:10-15, urine bacteria 3+ Patient was started on heparin drip in the ER because of elevated troponin. Review of Systems Const: Denies: fever(s), chills, body aches, change in appetite or diaphoresis Card: Denies: palpitations, edema, swelling of feet/ankles, dyspnea on exe rtion or orthopnea Resp: Denies: productive cough, wheezing or pain on inspiration GI: Denies: abdominal pain, nausea, vomiting, diarrhea or constipation : Denies: flank pain or difficulty urinating Musc: Denies: back pain, extremity pain or extremity swelling Neuro: Denies: headache(s) or difficulty walking Medications/Allergies Home Medications Medication Instructions Recorded Confirmed Last Taken Type allopurinol 100 mg tablet 100 mg PO BID 07/21/20 05/15/21 05/13/21 History atenolol 50 mg tablet 50 mg PO DAILY 07/21/20 05/15/21 05/14/21 History hydrochlorothiazide 25 mg tablet 25 mg PO DAILY 07/21/20 05/15/21 05/14/21 History amlodipine 10 mg PO DAILY #30 tab 09/04/20 05/15/21 05/14/21 Rx aspirin 325 mg PO DAILY 30 Days #30 tab 05/04/21 05/15/21 05/14/21 Rx celecoxib 200 mg PO Q12H 15 Days #30 cap 05/04/21 05/15/21 05/14/21 Rx sulfamethoxazole-trimethoprim 1 tab PO BID #90 tab 05/05/21 05/15/21 05/14/21 Rx [Bactrim DS] acetaminophen 1,000 mg PO Q8H PRN 05/15/21 05/15/21 Unknown History oxycodone 5 mg PO Q4H PRN 05/15/21 05/15/21 Unknown History Allergies Allergy/AdvReac Type Severity Reaction Status Date / Time No Known Allergies Allergy Verified 05/11/21 11:00 PFSH Acute PFSH: Medical History (Updated 05/16/21 @ 09:48 by García Jimenez MD) Gout Hydronephrosis of right kidney Hypertension Hypertension Left renal mass Social History Alcohol intake: never Vitals/I&O/Wt Last Vital Signs Temp 98.2 F 05/15/21 08:31 Pulse 61 05/15/21 12:00 Resp 18 05/15/21 12:00 BP 156/95 05/15/21 12:00 Pulse Ox 92 05/15/21 12:00 Weight last 48 hrs Weight 115.666 kg Physical Exam Const: COMMON NORMALS: patient oriented x3 HENMT: COMMON NORMALS: normocephalic and atraumatic HEAD & SCALP: normocephalic and atraumatic Resp: COMMON NORMALS: clear to auscultation bilaterally AUSCULTATION: clear to auscultation bilaterally Cardio: COMMON NORMALS: regular rate, regular rhythm, S1 normal heart sound present, S2 normal heart sound present, No gallops present (Cardio), No murmurs present (Cardio), No rub (Cardio) and Peripheral pulses 2+ throughout RATE: regular rate RHYTHM: regular rhythm HEART SOUNDS: S1 normal heart sound present and S2 normal heart sound present PERIPHERAL PULSES: Peripheral pulses 2+ throughout GI: COMMON NORMALS: Normal to inspection, nondistended, normoactive bowel sounds present, Soft to palpation, non-tender, No hepatosplenomegaly present and no masses AUSCULTATION: Yes normoactive bowel sounds PALPATION: Yes Soft to palpation and Yes No hepatosplenomegaly present RECTAL EXAM: Yes deferred Extremity: COMMON NORMALS: no clubbing, cyanosis or edema and no pedal edema Neuro: COMMON NORMALS: patient oriented x3 Data : 05/16/21 07:52 05/16/21 07:52 A&P Assessment and plan (1) Altered mental status: Acute metabolic encephalopathy (multifactorial, uremia, UTI ) Continue to monitor mentation for Status: Acute (2) RISA (acute kidney injury): RISA on CKD stage III: Likely secondary to obstructive uropathy Castillo catheter in place Monitor intake output chart Urine electrolytes Status: Acute (3) Elevated troponin: Patient denies any chest pain, EKG has failed to show any acute ST-T wave changes. Patient was started on heparin drip in the ER it has been stopped. Aspirin 325 mg p.o. Follow 2D echo: Telemetry Serial EKG Status: Acute (4) Acute UTI: Follow urine culture Continue ceftriaxone for now Status: Acute (5) A-fib: Af.ib with slow ventricular response. Currently deny any Dizziness, chest pain, SOB Stop Atenolol his home medication Will Initiate Ac Continue Telemetry Possible Event monitor as outpatient Status: Acute (6) Urinary retention: CT abdomen and pelvis : Marked dilatation of the right pelvicaliceal system with abrupt change in caliber at the level of the UPJ, suggesting underlying UPJ stenosis. Nonobstructing right renal calculi, the largest tabatha suring 6 mm. Lobulated morphology of the dilated bladder with multiple dependent calculi. Castillo catheter in place Urology consult appreciated Status: Acute (7) Hypertension: Status: Acute (8) Gout: Continue allopurinol 100 mg p.o. twice daily Status: Acute Attestations Medical Necessity Statement*: Patient needs to be in hospital for management of acute encephalopathy, acute urinary retention, UTI, elevated troponin. Anticipated length of stay greater than 2 midnights. Coding Level of Care Code Acute Survey Interviewer for Chg Fwd Exam Detailed Diagnoses Altered mental status R41.82 RISA (acute kidney injury) N17.9 Elevated troponin R77.8 Acute UTI N39.0 A-fib I48.91 Urinary retention R33.9 Hypertension I10 Gout M10.9
[2021-05-15] MEDS: heparin 5,000 unit/mL INJ 1 mL 5000 UNIT SUBCUT (17:44)
[2021-05-15] MEDS: allopurinol 100 mg Tablet PO (17:44)
[2021-05-15 19:10] LABS: Troponin T (5th) Once 249 ng/L (0-15)
--- NOTE | 2021-05-15 19:22 | ECG_ITS ---
[facility] Test Date: 2021-05-15 Pat Name: Enrique Murguia Department: Room: 111 Gender: Male Order Booker: : 1945 Requested By: García Jimenez Order Number: [id number] Reading MD: JUSTUS CONWAY Measurements Intervals [place] Rate: 65 P: VT: QRS: -30 QRSD: 94 T: 27 QT: 363 QTc: 380 Interpretive Statements ATRIAL FIBRILLATION BORDERLINE LEFT AXIS DEVIATION [QRS AXIS < -20] ABNORMAL RHYTHM ECG WARNING: DATA QUALITY MAY AFFECT INTERPRETATION Compared to ECG 05/15/2021 10:35:47 No significant changes Electronically Signed On 05-17-2021 20:25:32 CDT by JUSTUS CONWAY [id number]
--- NOTE | 2021-05-15 19:39 | PC.NURSE ---
pt received into room 111-2 via stretcher from er at 1140.report received.pt is alert and awake.cooperative and oriented x 2.had voided small amts of urine ..50 cc each time..called dr decker...and he ordered bladder scan. 650 cc noted.received order for catheter insertion.inserted w/o difficulty..return of 650 cc clear light yo urine noted.pt became quite confused and restless toward end of shift..pulling at iv,tubes and removing oxygen and monitor leads.trying to crawl out of bed.dr decker notified and received order for 5 mg haldol im and order for 1;1 sitter.
[2021-05-15 21:24] LABS: Potassium, Radom Urine 22 mmol/L; Urine Random Chloride 32 mmol/L; Urine Random Sodium 48 mmol/L
[2021-05-15 21:27] LABS: SARS Covid-2 Antigen Negative (Negative)
[2021-05-16] VITALS (9 sets, daily range): BP systolic 108–147; BP diastolic 70–86; PULSE 68–80; RESP 23–29; TEMP 36.5–37.4; O2SAT 94–96
[2021-05-16] MEDS: heparin 5,000 unit/mL INJ 1 mL 5000 UNIT SUBCUT (04:28)
--- NOTE | 2021-05-16 07:41 | PM.CONSULT ---
Providers/Reason For Consult Consulting Physician/Specialty*: Urology/Kong Reason for Consult*: Urinary retention, UTI, right hydronephrosis Attending Physician: García Jimenez MD Primary Care Provider: Raymond Jansen [facility] History of Present Illness History of Present Illness Enrique Murguia is a 75 year old male who I evaluated for the first time this morning at the request of Dr. Jimenez. Patient was recently hospitalized with knee replacement. Developed postoperative urinary retention. Castillo catheter was removed at his primary care office. Patient began experiencing increasing lower urinary tract symptoms of frequency urgency urgency incontinence at times. Admission was initiated when he was discovered to be confused at home and he was seen in the emergency department found to have a UTI. Apparently earlier in the week he had been diagnosed with a UTI and placed on BACTRIM. CT scan of the head was unremarkable. CT scan of abdomen and pelvis had several urologic findings: 1. Bladder was distended with some probably very small calcifications in the bladder. 2. RIGHT kidney demonstrated what appeared to be most likely chronic UPJ obstructive changes but with sparing of the parenchyma and no evidence of long-term obstructive process. There was a stone within the collecting system but it was nonobstructive. 3. LEFT kidney was also abnormal. Interpretation was a multilocular cystic change. I felt it was hard to characterize these changes a cystic based on the noncontrast CT scan. In portions of the cystic changes areas the Hounsfield units were consistent with renal parenchyma. Since admission a Castillo catheter has been placed with about 700 cc return. Has been placed on ceftriaxone for UTI. Cultures are pending. Baseline creatinine was 1.6 on 04/28/2021. On admission his creatinine was 2.4. Regarding baseline lower urinary tract symptoms it sounds as though he did have some baseline obstructive type symptoms but did not describe them as severe. He is unaware of having taken prostate medications in the past. Home medicine list does not include alpha-lino or 5 alpha reductase inhibitor. It appears that his confusion is improving. Recommendations: 1. Initiate TAMSULOSIN 0.4 mg p.o. nightly 2. Maintain Castillo catheter and continue until recovers from UTI and can evaluate in the office for voiding trial, SCIC instruction etc. 3. Renal ultrasound while he is here to assess whether the changes seen on the CT scan in the LEFT kidney are in fact cystic or solid. 4. He states that he lives in [facility] where he receives his primary care. If he prefers to stay closer to home for his urologic care we can help facilitate consultation with one of the local urology group in [place]. Review of Systems Const: Reports: malaise Eyes: Denies: change in vision ENMT: Denies: hoarseness Card: Denies: chest pain or palpitations Resp: Denies: dyspnea or productive cough GI: Denies: abdominal pain or vomiting : Reports: difficulty urinating, urinary frequency and urinary urgency; Denies: flank pain Musc: Denies: joint redness or joint warmth Skin/Breast: Denies: jaundice Neuro: Reports: confusion; Denies: seizure-like activity Psych: Reports: difficulty concentrating Endo: Denies: flushing Renato/Lymph: Reports: easy bruising All/Imm: Denies: urticaria Meds/Allergies Home Medications and Allergies Home Medications Medication Instructions Recorded Confirmed Last Taken Type allopurinol 100 mg tablet 100 mg PO BID 07/21/20 05/15/21 05/13/21 History amlodipine 10 mg PO DAILY #30 tab 09/04/20 05/15/21 05/14/21 Rx acetaminophen 1,000 mg PO Q8H PRN 05/15/21 05/15/21 Unknown History oxycodone 5 mg PO Q4H PRN 05/15/21 05/15/21 Unknown History apixaban [Eliquis] 5 mg PO Q12H 30 Days #60 tab 05/18/21 Unknown Rx aspirin 81 mg PO DAILY 30 Days #30 cap 05/18/21 Unknown Rx atorvastatin 40 mg PO BEDTIME 30 Days #30 tab 05/18/21 Unknown Rx cefdinir 300 mg PO BID 2 Days #4 cap 05/18/21 Unknown Rx tamsulosin 0.4 mg PO DAILY 30 Days #30 cap 05/18/21 Unknown Rx Allergies Allergy/AdvReac Type Severity Reaction Status Date / Time No Known Allergies Allergy Verified 05/11/21 11:00 Current Medications Current Medications Generic Name Dose Route Start Last Admin Trade Name Freq PRN Reason Stop Dose Admin Allopurinol 100 mg 05/15/21 18:00 05/15/21 17:44 Allopurinol 100 Mg Tablet PO 100 mg BID RADHA Administration Heparin Sodium (Beef Lung) 5,000 unit 05/15/21 17:00 05/16/21 04:28 Heparin 5,000 Unit/Ml Inj 1 Ml SUBCUT 5,000 unit Q12H RADHA Administration PFSH Acute PFSH: Medical History (Updated 05/17/21 @ 20:41 by Jesus Mcfarland MD) Gout Hydronephrosis of right kidney Hypertension Hypertension Left renal mass Social History Alcohol intake: never Vitals/I&O/Wt Last Vital Signs Temp 98.4 F 05/16/21 04:15 Pulse 73 05/16/21 06:00 Resp 27 H 05/16/21 04:15 BP 114/70 05/16/21 04:15 Pulse Ox 94 05/16/21 04:15 05/15/21 05/16/21 05/16/21 22:59 06:59 14:59 Intake Total 910 / 910 Output Total 650 / 650 850 / 1500 Balance 260 / 260 -850 / -590 Weight last 48 hrs Weight 258 lb Weight 255 lb Physical Exam HENMT: COMMON NORMALS: atraumatic HEAD & SCALP: atraumatic GI: COMMON NORMALS: Soft to palpation PALPATION: Yes Soft to palpation and No Tenderness to palpation present (GI) : BLADDER/KIDNEY EXAM: Yes catheter in place Catheter type (Male): other (Urine is clear) MALE GROIN/PERINEUM EXAM: No ecchymosis PENIS: normal penis, uncircumcised and other MEATUS: meatus normal, no meatla discharge and No Blood at meatus present SCROTUM: Yes testes descended bilaterally, No edematous and No scrotal swelling TESTES: No absent testicle, No testicular tenderness, No testicular mass, Yes epididymides normal and No epididymal tenderness Urinary Catheter Management^: Castillo: Cath Placed During This Visit: yes Urinary Catheter Date of Insertion: 05/15/21 Urinary Catheter Time of Insertion: 18:30 A&P Assessment and plan (1) Acute UTI: Status: Acute (2) Urinary retention: Recurrent. Recommend maintaining Castillo catheter hospital stay as well as at discharge to be managed on outpatient basis with likely cystoscopy SCIC instruction. TAMSULOSIN 0.4 mg p.o. nightly Status: Acute (3) Left renal mass: Recommend renal ultrasound to clarify cystic versus solid. Status: Acute (4) Bladder stone: Appear to be multiple small stones likely secondary to chronic stasis of urine from BPH. Status: Acute (5) Hydronephrosis of right kidney: Appears to be consistent with a chronic right UPJ type configuration but with no evidence of deterioration of renal parenchyma. Associated with nonobstructing small right renal calculus Status: Acute (6) Right renal stone: Status: Acute (7) RISA (acute kidney injury): Status: Acute Consult Attestations Medical Necessity Statement: see attending Coding Level of Care Code Acute Insurance Loss Control Surveyor for Chg Fwd Exam Expanded Problem Focused Diagnoses Acute UTI N39.0 Urinary retention R33.9 Left renal mass N28.89 Bladder stone N21.0 Hydronephrosis of right kidney N13.30 Right renal stone N20.0 RISA (acute kidney injury) N17.9
--- NOTE | 2021-05-16 07:49 | PC.NURSE ---
Shift Note Frequent safety and comfort rounds continue. Orders and/or nursing care completed as indicated. Patient monitored for response to intervention and treatment(s). Education provided includes plan of care. Patient and/or mortician supplies sales representative needs reinforcment due to confusion. Will continue to monitor.
--- NOTE | 2021-05-16 07:58 | USR_ITS ---
PROCEDURE INFORMATION: Exam: US Retroperitoneal; Complete; Kidneys and Bladder Exam date and time: 05/16/2021 7:58 AM Age: 75 years old Clinical indication: Abnormal findings; Abnormal radiologic finding of the abdomen; Radiologic exam and body structure: CT abdomen and pelvis; Additional info: Abnormal left kidney on CT scan. Unclear cystic versus, solid. Right hydronephrosis suspicious for upj narrowing TECHNIQUE: Imaging protocol: Real-time ultrasound of the retroperitoneum with image documentation. Complete exam focused on the kidneys and bladder. COMPARISON: CT abdomen pelvis wo con [id number] 05/15/2021 10:16 AM FINDINGS: Right kidney: Right kidney measures 12.[address] detected 6 mm right renal calculus is not visualized on the images obtained. Decreased conspicuity of CT detected right pelvicaliceal dilatation. Left kidney: Multiloculated cystic change in the left kidney, which was better visualized on CT. Urinary bladder: Nonvisualization of the Castillo containing bladder. US/US renal BI* [id number] IMPRESSION: 1. CT detected 6 mm right renal calculus is not visualized on the images obtained. Decreased conspicuity of CT detected right pelvicaliceal dilatation. 2. Multiloculated cystic change in the left kidney, which was better visualized on CT.
[2021-05-16 08:18] LABS: Basophils % 0.1 %; Hematocrit 36.9 % (42.0-52.0); Hemoglobin 12.2 g/dL (11.7-16.6); Lymphocytes # 1.2 10^3/uL (0.8-4.8); Lymphocytes % 12.6 %; Mean Corpuscular HGB Conc 33.1 g/dL (30.0-36.0); Mean Corpuscular Hemoglobin 30.7 pg (28.0-34.0); Mean Corpuscular Volume 92.9 fl (80-94); Mean Platelet Volume 10.6 fL (7.4-10.4); Monocytes # 1.1 10^3/uL (0.2-0.9); Monocytes % 11.6 %; Neutrophils % 75.3 %; Nucleated Red Blood Cells % 0 %; Platelet Count 237 10^3/cmm (130-400); Red Blood Count 3.97 10^6/uL (4.1-5.3); Red Cell Distribution Width 13.2 % (12.1-15.1); White Blood Count 9.7 10^3/uL (4.0-10.0)
--- NOTE | 2021-05-16 08:39 | PC.NURSE ---
security installation sales technician at bedside completed ultrasound, no distress noted.
[2021-05-16 08:40] LABS: Alanine Aminotransferase 17 U/L (0-41); Albumin Level 2.9 g/dL (3.5-5.2); Alkaline Phosphatase 101 IU/L (40-130); Aspartate Amino Transferase 18 U/L (0-40); Blood Urea Nitrogen 43 mg/dL (8-23); Calcium 12.5 mg/dL (8.5-10.5); Carbon Dioxide 24 mmol/L (22-29); Chloride 100 mmol/L (98-107); Globulin 3.3 g/dL (1.3-4.6); Glucose 105 mg/dL (65-115); Osmolality Calculated 289 mOsm/kg (285-295); Sodium 134 mmol/L (136-145); Total Bilirubin 0.3 mg/dL (0.15-1.2); Total Protein 6.2 g/dL (6.6-8.7)
[2021-05-16] MEDS: aspirin 325 mg EC Tablet PO (08:58)
[2021-05-16] MEDS: amlodipine 10 mg Tablet PO (08:58)
[2021-05-16] MEDS: allopurinol 100 mg Tablet PO ×2 (08:58→18:09)
[2021-05-16] MEDS: tamsulosin 0.4 mg Capsule PO (08:58)
[2021-05-16 09:12] LABS: Anion Gap 14.9 (5-19); Potassium 4.9 mmol/L (3.5-5.1)
[2021-05-16] MEDS: cefTRIAXone 1,000 MG in sodium chloride 0.9% (plus) 50 ML 100 MG IV (09:27)
[2021-05-16 09:36] LABS: Troponin T (5th) Once 238 ng/L (0-15)
--- NOTE | 2021-05-16 18:40 | P.PN_ITS ---
Subjective Subjective: Interval history: Patient was seen and examined this morning, overnight, he does sometimes become slightly confused. Telemetry has shown significant pauses: Up to 4 seconds. Medications: Reviewed: Yes Vitals/I&O/Wt Last Vital Signs Temp 99.3 F 05/16/21 11:24 Pulse 74 05/16/21 17:50 Resp 25 H 05/16/21 17:50 BP 108/81 05/16/21 17:50 Pulse Ox 96 05/16/21 17:50 05/16/21 05/16/21 05/16/21 06:59 14:59 22:59 Intake Total 288 / 288 360 / 648 Output Total 850 / 1500 750 / 750 700 / 1450 Balance -850 / -590 -462 / -462 -340 / -802 Weight last 48 hrs Weight 117.027 kg Weight 115.666 kg Physical Exam Const: COMMON NORMALS: patient oriented x3 HENMT: COMMON NORMALS: normocephalic and atraumatic HEAD & SCALP: normocephalic and atraumatic Resp: COMMON NORMALS: clear to auscultation bilaterally AUSCULTATION: clear to auscultation bilaterally Cardio: COMMON NORMALS: regular rate, regular rhythm, S1 normal heart sound present, S2 normal heart sound present, No gallops present (Cardio), No murmurs present (Cardio), No rub (Cardio) and Peripheral pulses 2+ throughout RATE: regular rate RHYTHM: regular rhythm HEART SOUNDS: S1 normal heart sound present and S2 normal heart sound present PERIPHERAL PULSES: Peripheral pulses 2+ throughout GI: COMMON NORMALS: Normal to inspection, nondistended, normoactive bowel sounds present, Soft to palpation, non-tender, No hepatosplenomegaly present and no masses AUSCULTATION: Yes normoactive bowel sounds PALPATION: Yes Soft to palpation and Yes No hepatosplenomegaly present RECTAL EXAM: Yes deferred Extremity: COMMON NORMALS: no clubbing, cyanosis or edema and no pedal edema Neuro: COMMON NORMALS: patient oriented x3 Urinary Catheter Management^: Castillo: Cath Placed During This Visit: yes Reason for Continuing Indwelling Catheter: Acute Urinary Retention or Obstructi on Urinary Catheter Date of Insertion: 05/15/21 Urinary Catheter Time of Insertion: 18:30 Data : 05/16/21 07:52 05/16/21 07:52 Micro: Microbiology 05/15/21 09:32 Urine Culture - Preliminary Urine,Clean Catch Gram Negative Rods A&P Assessment and plan (1) Altered mental status: Acute metabolic encephalopathy (multifactorial, uremia, UTI ) Continue to monitor mentation for now. Status: Acute (2) RISA (acute kidney injury): RISA on CKD stage III: Likely secondary to obstructive uropathy Baseline serum creatinine: 1.3-1.6 Admission serum creatinine: 2.[address] Monitor intake output chart Urine random sodium:48: urine random creatinine; Fena Status: Acute (3) Elevated troponin: NSTEMI Type II : Demand Ischemia Patient denies any chest pain, EKG has failed to show any acute ST-T wave ch anges. Patient was started on heparin drip in the ER it has been stopped. Aspirin 325 mg p.o. Lipitor 40 mg po daily Follow 2D echo: Telemetry Serial EKG Status: Acute (4) Acute UTI: Urine culture:GNR Continue ceftriaxone for now Status: Acute (5) A-fib: Af.ib with slow ventricular response. Currently deny any Dizziness, chest pain, SOB Stop Atenolol his home medication.Monitor heart rate for now Lovenox 120 mg sc q12 h daily Continue Telemetry Cardiology Consult Status: Acute (6) Urinary retention: CT abdomen and pelvis : Marked dilatation of the right pelvicaliceal system with abrupt change in caliber at the level of the UPJ, suggesting underlying UPJ stenosis. Nonobstructing right renal calculi, the largest measuring 6 mm. Lobulated morphology of the dilated bladder with multiple dependent calculi. Renal ultrasound: Flomax 0.4 mg p.o. daily Castillo catheter in place Urology consult appreciated.Maintain Castillo catheter and continue until recovers from UTI and can evaluate in the office for voiding trial, SCIC instruction etc. Status: Acute (7) Hypertension: Status: Acute (8) Gout: Continue allopurinol 100 mg p.o. twice daily Status: Acute Attestations Medical Necessity Statement*: Patient is to be in hospital for management of, acute urinary retention, encephalopathy, Elevated troponin. Coding Level of Care Code Acute Power Plant Manager for [facility] [place] Diagnoses Altered mental status R41.82 RISA (acute kidney injury) N17.9 Elevated troponin R77.8 Acute UTI N39.0 A-fib I48.91 Urinary retention R33.9 Hypertension I10 Gout M10.9
--- NOTE | 2021-05-16 19:10 | PC.NURSE ---
pt continues in afib on monitor.began having pauses on monitor around 11:00.pauses increased and some as long as 3.[address] decker notified.he placed a cardiology consult order.will cont to observe.
--- NOTE | 2021-05-16 19:19 | USCV_ITS ---
Enrique Murguia Age: 75 Gender: M : 1945 Exam Date: 05/16/2021 08:57 Ordering Phys: García Jimenez MD Technologist: Delmy Quinones Exam Location: [facility] – [place] Indication: Shortness of breath BP: 147 / 86 HR: 88 Rhythm: Sinus Technical Quality: Technically difficult study MEASUREMENTS (Male / Female) Normal Values 2D ECHO LV Diastolic Diameter PLAX 4.0 cm 4.2 - 5.9 / 3.9 - 5.3 cm LV Systolic Diameter PLAX 2.9 cm LV Chamber Size 3.8 cm IVS Diastolic Thickness 1.9 cm 0.6 - 1.0 / 0.6 - 0.9 cm IVS Systolic Thickness 1.8 cm LVPW Diastolic Thickness 1.0 cm 0.6 - 1.0 / 0.6 - 0.9 cm LVPW Systolic Thickness 1.3 cm RV Chamber Size 3.0 cm LVOT Diameter 2.0 cm LV Ejection Fraction 2D Teich 55.5 % LV Ejection Fraction MOD 2C 62.1 % LV Ejection Fraction 2C AL 62.7 % LA Diameter 4.6 cm LA Width 3.4 cm LA Height 6.4 cm RA Width 3.8 cm RA Height 6.4 cm Aorta at Sinotubular Diameter 2.7 cm M-MODE LV Diastolic Diameter MM 5.8 cm 4.2 - 5.9 / 3.9 - 5.3 cm LV Systolic Diameter MM 4.2 cm LV Ejection Fraction MM Teich 52.0 % IVS Diastolic Thickness MM 1.4 cm 0.6 - 1.0 / 0.6 - 0.9 cm IVS Systolic Thickness MM 1.9 cm LVPW Diastolic Thickness MM 1.5 cm 0.6 - 1.0 / 0.6 - 0.9 cm LVPW Systolic Thickness MM 1.8 cm RV Diastolic Diameter MM 1.0 cm Aortic Annulus Diameter 3.5 cm LA Ao Ratio MM 1.6 DOPPLER AV Peak Velocity 150.0 cm/s LVOT Peak Velocity 102.0 cm/s AV Area Cont Eq vti 2.3 cm squared AV Area Cont Eq pk 2.2 cm squared MV Area PHT 4.3 cm squared MV E' Velocity 123.0 cm/s TV Peak E Velocity 95.0 cm/s Right Atrial Pressure 3.0 mmHg PV Peak Velocity 97.0 cm/s RV Acceleration Time 0.1 s RV Ejection Time 0.3 s RV AcT/ET 0.3 FINDINGS Left Ventricle Normal left ventricular cavity size. Normal left ventricular systolic function. Left ventricular ejection fraction is estimated at 55 %. In the presence of atrial fibrillation diastolic function cannot be assessed accurately. Right Ventricle The right ventricle is normal in size and function. Right Atrium The right atrium is normal in size. Left Atrium The left atrium is normal in size. Mitral Valve Mildly thickened mitral valve. No mitral valve stenosis. Trace mitral valve regurgitation. Aortic Valve Aortic valve sclerosis without stenosis or regurgitation. Tricuspid Valve Structurally normal tricuspid valve without significant stenosis or regurgitation. Pulmonary artery systolic pressure is normal. Pulmonic Valve Structurally normal pulmonic valve without significant stenosis. There is no pulmonic regurgitation. Pericardium Normal pericardium without effusion. Aorta Normal ascending aorta dimension. CONCLUSIONS 1-Normal left ventricular cavity size. Normal left ventricular systolic function. Left ventricular ejection fraction is estimated at 55 %. In the presence of atrial fibrillation diastolic function cannot be assessed accurately. 2-Aortic valve sclerosis without stenosis or regurgitation. 3-Mildly thickened mitral valve. No mitral valve stenosis. Trace mitral valve regurgitation. 4-There is no pericardial effusion. 5-No significant valve abnormalities. 6-There are no prior echocardiogram studies to compare. Jesus Mcfarland MD (Electronically Signed) Final Date: 18 May 2021 19:32 S
[2021-05-16] MEDS: atorvastatin 40 mg Tablet PO (20:15)
[2021-05-16] MEDS: enoxaparin 120 mg/0.8 mL Syringe SUBCUT (20:16)
[2021-05-16 23:53] LABS: Urine Creatinine 90 mg/dL (39-259)
[2021-05-17] VITALS (8 sets, daily range): BP systolic 123–160; BP diastolic 78–92; PULSE 66–82; RESP 25–34; TEMP 36.7–37.2; O2SAT 93–99
[2021-05-17 04:56] LABS: Basophils % 0.1 %; Hematocrit 35.6 % (42.0-52.0); Lymphocytes # 1.4 10^3/uL (0.8-4.8); Lymphocytes % 17.3 %; Mean Corpuscular HGB Conc 33.7 g/dL (30.0-36.0); Mean Corpuscular Hemoglobin 31.4 pg (28.0-34.0); Mean Corpuscular Volume 93.2 fl (80-94); Mean Platelet Volume 10.7 fL (7.4-10.4); Monocytes # 0.8 10^3/uL (0.2-0.9); Monocytes % 10.3 %; Neutrophils # 5.73 10^3/uL (1.8-7.7); Neutrophils % 71.5 %; Nucleated Red Blood Cells % 0 %; Platelet Count 238 10^3/cmm (130-400); Red Blood Count 3.82 10^6/uL (4.1-5.3); Red Cell Distribution Width 13.2 % (12.1-15.1)
[2021-05-17 05:23] LABS: Slide Review Slide Review Perform
--- NOTE | 2021-05-17 06:41 | PC.NURSE ---
Shift Note Frequent safety and comfort rounds continue. Orders and/or nursing care completed as indicated. Patient monitored for response to intervention and treatment(s). Education provided includes plan of care. Patient and/or retail service representative verbalized understanding. Will continue to monitor.
[2021-05-17] MEDS: aspirin 325 mg EC Tablet PO (08:10)
[2021-05-17] MEDS: allopurinol 100 mg Tablet PO ×2 (08:10→18:01)
[2021-05-17] MEDS: enoxaparin 120 mg/0.8 mL Syringe SUBCUT ×2 (08:10→22:10)
[2021-05-17] MEDS: amlodipine 10 mg Tablet PO (08:10)
[2021-05-17] MEDS: tamsulosin 0.4 mg Capsule PO (08:10)
[2021-05-17 08:58] LABS: Anion Gap 13.7 (5-19); Blood Urea Nitrogen 49 mg/dL (8-23); Calcium 12.1 mg/dL (8.5-10.5); Carbon Dioxide 25 mmol/L (22-29); Chloride 103 mmol/L (98-107); Glucose 111 mg/dL (65-115); Osmolality Calculated 298 mOsm/kg (285-295); Potassium 4.7 mmol/L (3.5-5.1); Sodium 137 mmol/L (136-145)
[2021-05-17] MEDS: cefTRIAXone 1,000 MG in sodium chloride 0.9% (plus) 50 ML 100 MG IV (09:50)
--- NOTE | 2021-05-17 11:11 | USCV_ITS ---
Enrique Murguia Age: 75 Gender: M : 1945 Exam Date: 05/17/2021 14:44 Ordering Phys: Dave Lockwood MD Technologist: [place]am Location[place] [facility] [place] Indication: POST RT KNEE SURG PROCEDURES: The venous duplex Doppler examination of both lower extremities was performed in the standard fashion. The following venous structures were evaluated: common femoral vein, profunda vein, proximal portion of the greater saphenous vein, superficial femoral vein, and the popliteal vein. In addition, the posterior tibial and peroneal trunk were evaluated. Bilaterally, the common femoral, superficial femoral, profunda femoral, popliteal, posterior tibial, greater saphenous veins, and the peroneal trunk were identified and interrogated in the standard fashion. These veins were found to be easily compressible with spontaneous blood flow. No evidence of insufficiency or thrombus noted. FINDINGS: Normal 2-D Doppler and augmentation and compressibility throughout the lower extremity venous structures. Additional imaging through the proximal calf veins also reveals no thrombus. Limited evaluation of the greater saphenous vein is patent with no thrombus.. The veins were found to be easily compressible with spontaneous blood flow. Non pulsatile flow pattern. CONCLUSIONS No evidence of DVT in the above-mentioned identifiable veins. Dr Madai Richard MD [facility] (Electronically Signed) Final Date: 19 May 2021 10:01 S
--- NOTE | 2021-05-17 11:40 | P.CONIM_ITS ---
Providers/Reason For Consult Consulting Physician/Specialty*: Cardiology Reason for Consult*: Non-STEMI, heart blocks, atrial fibrillation Attending Physician: Dave Lockwood MD Primary Care Provider: Raymond Jansen [facility] History of Present Illness History of Present Illness 75 yrs-old male past medical history significant for atrial fibrillation hypertension chronic kidney disease history of knee replacement on the right side hard of hearing was admitted with altered mental status electrolyte imbalance obstructive uropathy worsening of renal function on baseline chronic kidney disease and perhaps urosepsis. Patient was also noted to have abnormal cardiac markers as troponin was increased to 249. 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 Beta-lino was stopped. We have been asked to assist in his care Review of Systems Narrative: Const: Reports: malaise; Denies: fever(s), chills, body aches, change in appetite or diaphoresis Eyes: Denies: change in vision or photophobia ENMT: Denies: enlarged tonsils or hoarseness Card: Denies: chest pain, palpitations, edema, swelling of feet/ankles, dyspnea on exertion or orthopnea Resp: Denies: dyspnea, productive cough, wheezing or pain on inspiration GI: Denies: abdominal pain, nausea, vomiting, diarrhea or constipation : Reports: difficulty urinating, urinary frequency and urinary urgency; Denies: flank pain Musc: Denies: back pain, extremity pain, extremity swelling, joint redness or joint warmth Skin/Breast: Denies: jaundice Neuro: Reports: confusion; Denies: headache(s), difficulty walking or seizure-like activity Psych: Reports: difficulty concentrating Endo: Denies: flushing Renato/Lymph: Reports: easy bruising All/Imm: Denies: urticaria Meds/Allergies Home Medications and Allergies Home Medications Medication Instructions Recorded Confirmed Last Taken Type allopurinol 100 mg tablet 100 mg PO BID 07/21/20 05/15/21 05/13/21 History amlodipine 10 mg PO DAILY #30 tab 09/04/20 05/15/21 05/14/21 Rx acetaminophen 1,000 mg PO Q8H PRN 05/15/21 05/15/21 Unknown History oxycodone 5 mg PO Q4H PRN 05/15/21 05/15/21 Unknown History apixaban [Eliquis] 5 mg PO Q12H 30 Days #60 tab 05/18/21 Unknown Rx aspirin 81 mg PO DAILY 30 Days #30 cap 05/18/21 Unknown Rx atorvastatin 40 mg PO BEDTIME 30 Days #30 tab 05/18/21 Unknown Rx cefdinir 300 mg PO BID 2 Days #4 cap 05/18/21 Unknown Rx tamsulosin 0.4 mg PO DAILY 30 Days #30 cap 05/18/21 Unknown Rx Allergies Allergy/AdvReac Type Severity Reaction Status Date / Time No Known Allergies Allergy Verified 05/11/21 11:00 Current Medications Current Medications Generic Name Dose Route Start Last Admin Trade Name Freq PRN Reason Stop Dose Admin Allopurinol 100 mg 05/15/21 18:00 05/17/21 08:10 Allopurinol 100 Mg Tablet PO 100 mg BID RADHA Administration Amlodipine Besylate 10 mg 05/16/21 09:00 05/17/21 08:10 Amlodipine 10 Mg Tablet PO 10 mg DAILY RADHA Administration Aspirin 325 mg 05/16/21 09:00 05/17/21 08:10 Aspirin 325 Mg Ec Tablet PO 325 mg DAILY RADHA Administration Atorvastatin Calcium 40 mg 05/16/21 21:00 05/16/21 20:15 Atorvastatin 40 Mg Tablet PO 40 mg BEDTIME RADHA Administration Enoxaparin Sodium 120 mg 05/16/21 20:00 05/17/21 08:10 Enoxaparin 120 Mg/0.8 Ml Syringe SUBCUT 120 mg Q12H RADHA Administration Ceftriaxone Sodium 1,000 mg/ 50 mls @ 100 mls/hr 05/16/21 10:00 05/17/21 09:50 Sodium Chloride IV 100 mls/hr Q24H RADHA Administration Protocol Tamsulosin HCl 0.4 mg 05/16/21 09:00 05/17/21 08:10 Tamsulosin 0.4 Mg Capsule PO 0.4 mg DAILY RADHA Administration PFSH Acute PFSH: Medical History (Updated 05/17/21 @ 20:41 by Jesus Mcfarland MD) Gout Hydronephrosis of right kidney Hypertension Hypertension Left renal mass Social History Alcohol intake: never Vitals/I&O/Wt Last Vital Signs Temp 98.7 F 05/17/21 08:00 Pulse 66 05/17/21 08:00 Resp 25 H 05/17/21 08:00 BP 140/88 05/17/21 08:00 Pulse Ox 99 05/17/21 08:00 05/16/21 05/17/21 05/17/21 22:59 06:59 14:59 Intake Total 360 / 648 Output Total 700 / 1450 850 / 2300 Balance -340 / -802 -850 / -1652 Weight last 48 hrs Weight 258 lb Physical Exam Narrative: EXAM NARRATIVE: GENERAL: Patient is alert, awake and oriented x3. NECK: No jugular vein distension. HEENT: No cyanosis. No icterus. No pallor. HEART: Regular S1 and S2. No murmur, rub or gallop. LUNGS: Clear to auscultate bilaterally. ABDOMEN: Soft, nontender and nondistended. Positive bowel sounds. No guarding, rebound or tenderness. CENTRAL NERVOUS SYSTEM: Grossly nonfocal. EXTREMITIES: Lower extremities without edema bilaterally. 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 Atenolol is on hold we will continue to watch the patient at this moment patient does not qualify for pacemaker. Status: Acute Qualifiers: Atrial fibrillation type: persistent (not longstanding) Qualified Code(s): I48.19 - Other persistent atrial fibrillation (2) Hypertension: Well-controlled continue to monitor Status: Acute Qualifiers: Hypertension type: primary hypertension Qualified Code(s): I10 - Essential (primary) hypertension (3) Elevated troponin: Patient may have underlying coronary artery disease abnormal cardiac markers are most likely due to demand ischemia patient is not a good candidate for invasive or interventional approach due to underlying comorbidities such as renal failure. We will continue to manage him medically for now. Further plan will be devised as per progress of the patient Status: Acute (4) Heart block, AV: As defined above patient has underlying murphy block due to conduction abnormality/tachybradycardia syndrome, will continue holding atenolol, continue correcting electrolytes and monitor on the telemetry. Status: Acute Consult Attestations Medical Necessity Statement: Patient require continuation hospitalization for preventive care. Coding Level of Care Code New Pt Acute Product Safety Technician for Chg Fwd Patient Type New History Detailed Exam Detailed Medical Decision Making Moderate Complexity Diagnoses A-fib I48.19 Atrial fibrillation type: persistent (not longstanding) Hypertension I10 Hypertension type: primary hypertension Elevated troponin R77.8 Heart block, AV I44.30
[2021-05-17 11:47] LABS: C Reactive Protein 72.3 mg/L (0.0-4.9)
[2021-05-17 11:54] LABS: Procalcitonin 0.37 ng/mL (0-0.5)
--- NOTE | 2021-05-17 14:26 | PM.PN ---
Subjective Subjective: Interval history: Patient was seen this morning, he is alert to person, to place, not to time, he follows all commands, he is hard of hearing, he does report chronic right knee pain, he recently had surgery to his right knee for chronic infection, he tells me that he has been a bit immobile after surgery, because of worsening left knee pain, he denies chest pain, palpitations, no lightheadedness, no dizziness Vitals/I&O/Wt Last Vital Signs Temp 98.3 F 05/17/21 11:39 Pulse 80 05/17/21 11:39 Resp 34 H 05/17/21 11:39 BP 123/78 05/17/21 11:39 Pulse Ox 94 05/17/21 11:39 05/16/21 05/17/21 05/17/21 22:59 06:59 14:59 Intake Total 360 / 648 Output Total 700 / 1450 850 / 2300 Balance -340 / -802 -850 / -1652 Physical Exam Const: COMMON NORMALS: no acute distress ORIENTATION/CONSCIOUSNESS: Yes awake, Yes oriented to person and Yes oriented to place; not oriented to time Resp: COMMON NORMALS: normal respiratory effort, No retractions, No use of accessory muscles and clear to auscultation bilaterally AUSCULTATION: clear to auscultation bilaterally Cardio: COMMON NORMALS: regular rate, regular rhythm, S1 normal heart sound present and S2 normal heart sound present RATE: regular rate RHYTHM: regular rhythm HEART SOUNDS: S1 normal heart sound present and S2 normal heart sound present GI: COMMON NORMALS: Normal to inspection, nondistended, normoactive bowel sounds present, Soft to palpation, non-tender, No hepatosplenomegaly present and no masses PALPATION: Yes Soft to palpation and Yes No hepatosplenomegaly present Extremity: COMMON NORMALS: no pedal edema NARRATIVE EXTREMITY EXAM: Right knee, bandage in place, looks clean and dry, no erythema, significant swelling, no tenderness, no warmth Neuro: SENSORIUM/ORIENTATION: Yes oriented to person, Yes oriented to place and No oriented to time Psych: COMMON NORMALS: mental status grossly normal Urinary Catheter Management^: Castillo: Cath Placed During This Visit: yes Reason for Continuing Indwelling Catheter: Acute Urinary Retention or Obstruction Urinary Catheter Date of Insertion: 05/15/21 Urinary Catheter Time of Insertion: 18:30 Data : 05/17/21 04:42 05/17/21 07:53 Micro: Microbiology 05/15/21 09:32 Urine Culture - Final Urine,Clean Catch Proteus mirabilis A&P Assessment and plan (1) Altered mental status: Acute metabolic encephalopathy (multifactorial, uremia, UTI ) Continue to monitor mentation for now. Patient's sister at bedside tells me that he has some degree of dementia, has some degree of forgetfulness at baseline, lives home alone, she thinks that he would benefit from short-term rehab at a [facility] just like when he had back in August Status: Acute (2) RISA (acute kidney injury): RISA on CKD stage III: Likely secondary to obstructive uropathy Baseline serum creatinine: 1.3-1.6 Admission serum creatinine: 2.[address] Creatinine remains elevated, possibly sec dehydration, with elevated BUN, will do a trial of fluid therapy Monitor intake output chart Urine random sodium:48 urine random creatinine; Fena Status: Acute (3) Elevated troponin: NSTEMI Type II : Demand Ischemia Patient denies any chest pain, EKG has failed to show any acute ST-T wave changes. On therapeutic Lovenox Aspirin 325 mg p.o. Lipitor 40 mg po daily Follow 2D echo: Is pending Telemetry Serial EKG Status: Acute (4) Acute UTI: Urine culture:GNR Continue ceftriaxone for now Status: Acute (5) A-fib: Af.ib with slow ventricular response. Currently deny any Dizziness, chest pain, SOB Stop Atenolol his home medication.Monitor heart rate for now Lovenox 120 mg sc q12 h daily Continue Telemetry Cardiology Consult Status: Acute (6) Urinary retention: CT abdomen and pelvis : Marked dilatation of the right pelvicaliceal system with abrupt change in caliber at the level of the UPJ, suggesting underlying UPJ stenosis. Nonobstructing right renal calculi, the largest measuring 6 mm. Lobulated morphology of the dilated bladder with multiple dependent calculi. Renal ultrasound: Flomax 0.4 mg p.o. daily Castillo catheter in place Urology consult appreciated.Maintain Castillo catheter and continue until recovers from UTI and can evaluate in the office for voiding trial, SCIC instruction etc. Status: Acute (7) Hypertension: Status: Acute (8) Gout: Continue allopurinol 100 mg p.o. twice daily Status: Acute (9) Sinus pause: -Patient continues to have sinus pauses on telemetry, -Holding all murphy blocking agents -Currently in A. fib -Cardiology on consult Status: Acute Additional A&P Information Immobility after surgery, bilateral extremity ultrasound for DVTs Disposition, right knee surgery, chronic left knee pain, now with Castillo catheter sinus pauses, daughter at bedside would like us to pursue short-term rehab Attestations Medical Necessity Statement*: Patient requires hospitalization, inpatient, greater than 2 midnights, sinus pause, A. fib, urinary tension, UTI Coding Level of Care Code Acute Tube Laser Operator for Chg Fwd Diagnoses Altered mental status R41.82 RISA (acute kidney injury) N17.9 Elevated troponin R77.8 Acute UTI N39.0 A-fib I48.91 Urinary retention R33.9 Hypertension I10 Gout M10.9 Sinus pause I45.5
[2021-05-17 14:37] LABS: Creatine Phosphokinase 31 U/L (39-308)
[2021-05-17] MEDS: sodium chloride 0.9% 1,000 ML 50 ML IV (15:21)
[2021-05-17] MEDS: acetaminophen 325 mg Tablet 650 MG PO (18:01)
[2021-05-17] MEDS: atorvastatin 40 mg Tablet PO (22:10)
[2021-05-18] VITALS (12 sets, daily range): BP systolic 107–147; BP diastolic 23–92; PULSE 70–92; RESP 16–23; TEMP 36.3–36.7; O2SAT 93–97
[2021-05-18 04:40] LABS: Basophils % 0.2 %; Hematocrit 33.8 % (42.0-52.0); Hemoglobin 10.7 g/dL (11.7-16.6); Lymphocytes # 1.6 10^3/uL (0.8-4.8); Mean Corpuscular HGB Conc 31.7 g/dL (30.0-36.0); Mean Corpuscular Hemoglobin 29.9 pg (28.0-34.0); Mean Corpuscular Volume 94.4 fl (80-94); Mean Platelet Volume 10.6 fL (7.4-10.4); Monocytes # 0.7 10^3/uL (0.2-0.9); Monocytes % 9.1 %; Neutrophils # 5.57 10^3/uL (1.8-7.7); Neutrophils % 69.5 %; Nucleated Red Blood Cells % 0 %; Platelet Count 274 10^3/cmm (130-400); Red Blood Count 3.58 10^6/uL (4.1-5.3)
[2021-05-18 05:25] LABS: Anion Gap 13.5 (5-19); Blood Urea Nitrogen 59 mg/dL (8-23); Calcium 11.8 mg/dL (8.5-10.5); Carbon Dioxide 23 mmol/L (22-29); Chloride 105 mmol/L (98-107); Glucose 107 mg/dL (65-115); Osmolality Calculated 301 mOsm/kg (285-295); Potassium 4.5 mmol/L (3.5-5.1); Sodium 137 mmol/L (136-145)
[2021-05-18 06:09] LABS: Slide Review Slide Review Perform
--- NOTE | 2021-05-18 08:26 | PC.CHAP ---
Pastoral Care Encounter/Spiritual Assessment Type of Contact [] Declined signing teacher visit [] Patient/Family/Request visit [] Outpatient visit [] Follow-up visit [] Physician referral [] Code/Alert [x] Routine visit [] Staff referral [] Actively dying [] Patient sleeping [] Family support [] [] Out of room [] Palliative care [] [] Receiving care in room [] Pre-surgical visit [] Trauma [] Long length of stay [] ICU visit [] Other: Relational/Emotional Strength [x] Patient feels connected with others/family/visitors/staff [] Distress [] Loneliness/isolation [] Abandonment Spirituality of Patient [x] Person of Michelle [x] Attends Quaker of their Michelle [x] Believes in Prayer [x] Reads Bible or Amish materials [] There are Spiritual issues to be addressed Binding Bench Worker Interventions [x] Prayer [x] Active listening [x] Non-anxious presence [x] Spiritual/emotional support [] Crisis/trauma care [] Spiritual counseling [] Bereavement support [] Provided bereavement packet [] Provided Bible/devotional materials [] Provided toy/stuffed animal, coloring book to patient or family member [] Provided Communion [] Anointing/[place] [] Salvation [x] Completed spiritual assessment [] Other: Impact on Illness or Injury [] Angry [] Fearful [] Anxious [] Often cries [] Exhaustion [] Unable to work [] Unable to attend bahai [] Unable to walk/stand [] Unable to read [] Unable to drive [] Unable to eat/drink [] Unable to sleep [] Unable to be with family [] Patient intubated [] Other: Summary Pt has had health issues since last August when he had severe infection in his knee. Spent two months this summer in rehab in a nursing facility with IV antibiotics. He lost his to cancer 15 years ago and has lived alone since. 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 Twenty three years ago, as part of a [employer] plant, his son moved to [place] but has recently moved back to the area which Pt is happy about. Looking forward to spending more time with him. Expecting to go home today from hospital. Time spent with patient 15 m
[2021-05-18] MEDS: allopurinol 100 mg Tablet PO ×2 (08:49→18:16)
[2021-05-18] MEDS: enoxaparin 120 mg/0.8 mL Syringe SUBCUT ×2 (08:50→19:23)
[2021-05-18] MEDS: aspirin 325 mg EC Tablet PO (08:50)
[2021-05-18] MEDS: tamsulosin 0.4 mg Capsule PO (08:50)
[2021-05-18] MEDS: amlodipine 10 mg Tablet PO (08:50)
--- NOTE | 2021-05-18 08:56 | PC.SOCIAL ---
IMM Update Pg. 2 of IMM updated and reviewed with patient, who verbalized understanding. Copy provided.
--- NOTE | 2021-05-18 09:15 | PC.NURSE ---
Verbal order during rounds from Dr. Lockwood to stop IV fluids and notification of nephrology consult. Telenephrology consult discussed with patient and patient's daughter (by phone at patient request). Consent for telenephrology signed by patient.
[2021-05-18] MEDS: cefTRIAXone 1,000 MG in sodium chloride 0.9% (plus) 50 ML 100 MG IV (10:22)
--- NOTE | 2021-05-18 11:37 | PM.DCS ---
Discharge Providers Date of Admission: 05/15/21 10:28 Date of Discharge: May 18, 2021 Attending Provider at Admission: García Jimenez MD Attending Provider at Discharge: Dave Lockwood MD Primary Care Provider: Raymond Jansen [facility] Diagnoses at Discharge Discharge Diagnosis (1) A-fib: Status: Acute Qualifiers: Atrial fibrillation type: persistent (not longstanding) Qualified Code(s): I48.19 - Other persistent atrial fibrillation (2) Hypertension: Status: Acute Qualifiers: Hypertension type: primary hypertension Qualified Code(s): I10 - Essential (primary) hypertension (3) Elevated troponin: Status: Acute (4) Heart block, AV: Status: Acute Reason for Visit Reason for Visit: AMS POSS UTI Hospital Course Hospital Course This is a 75-year-old male with a past medical history of hypertension, gout, severe bilateral knee osteoarthritis, status post right knee total replacement, who presents to [facility] due to increased confusion Patient presented to [facility] due to acute metabolic encephalopathy secondary to UTI, uremia. Patient received antibiotic therapy, received IV hydration, mentation improved, according to his sister, he is alert and oriented x2, he does forget the date, but this is his baseline, he has some dementia, will be discharged on 3 more days of cefdinir, urine culture showed Proteus. Patient has [facility] due to his right knee surgery, and his family checks up on him daily. For his RISA on CKD, likely secondary to obstructive uropathy, Castillo catheter was placed, creatinine on discharge was 2.3. Patient also was found to have A. fib with slow ventricular response, and sinus pauses, cardiology was consulted, murphy blocking agents were held, he had episodes of sinus pauses, longest 2 seconds, but remained asymptomatic., Cardiology was consulted. Will be discharged on Eliquis for DVT prophylaxis, all murphy blocking agents have been held, he will be discharged on event monitor, with a follow-up with cardiology as outpatient Patient was advised if he were to have bloody or black stools, falls, injuries, significant trauma, come back to the emergency room. Follow-up with primary care provider for recheck hemoglobin in 1 week. Patient was found to have urinary retention, and postobstructive uropathy, urology was consulted, Castillo catheter was placed, will be discharged with a Castillo catheter, tamsulosin 0.4 mg p.o. daily, with outpatient follow-up with Dr. Kong. He was also found to have hydronephrosis of right kidney, consistent with chronic right UPJ type configuration, likely associated with nonobstructing small right renal colliculi, will continue to monitor, follow-up with Dr. Kong as outpatient He was also found to have a left renal mass, multiloculated cystic change, will have patient follow-up with urology Physical Exam Const: COMMON NORMALS: no acute distress ORIENTATION/CONSCIOUSNESS: Yes awake, Yes oriented to person and Yes oriented to place; not oriented to time Resp: COMMON NORMALS: normal respiratory effort, No retractions, No use of accessory muscles and clear to auscultation bilaterally AUSCULTATION: clear to auscultation bilaterally Cardio: COMMON NORMALS: regular rate, S1 normal heart sound present and S2 normal heart sound present RATE: regular rate RHYTHM: abnormal rhythm irregularly irregular HEART SOUNDS: S1 normal heart sound present and S2 normal heart sound present GI: COMMON NORMALS: Normal to inspection, nondistended, normoactive bowel sounds present Extremity: COMMON NORMALS: no pedal edema Neuro: SENSORIUM/ORIENTATION: Yes oriented to person, Yes oriented to place and No oriented to time Urinary Catheter Management^: Castillo: Cath Placed During This Visit: yes Reason for Continuing Indwelling Catheter: Acute Urinary Retention or Obstruction Urinary Catheter Date of Insertion: 05/15/21 Urinary Catheter Time of Insertion: 18:30 Discharge Data Data Completed and Pending: Completed Studies During Hospitalization Category Date Time Status CT abdomen pelvis wo con [id number] Urge nt Cat Scan 05/15/21 08:[address] head wo con* [id number] Urgent Cat Scan 05/15/21 08:13 Completed XR chest 1V mian ble [id number] Urgent Exams 05/15/21 08:13 Completed US renal BI* [id number] Routine Ultrasound 05/16/21 07:58 Completed Pending at discharge Category Date Time Status Erythrocyte Sedim entation Rate Rout ine Lab 05/17/21 12:25 [place] [id number] Routin e Ultrasound 05/17/21 11:11 Taken CV. echo complete * [id number] Routine Ultrasound 05/16/21 19:19 Taken Labs from last 24 hours 05/18/21 05/18/21 05/17/21 04:06 04:06 12:25 WBC 8.0 RBC 3.58 L Hgb 10.7 L Hct 33.8 L MCV 94.4 H MCH 29.9 MCHC 31.7 D RDW 13.0 Plt Count 274 MPV 10.6 H Neut % (Auto) 69.5 Lymph % (Auto) 20.0 [place] % (Auto) 9.1 Eos % (Auto) 0.0 Baso % (Auto) 0.2 Neut # (Auto) 5.57 Lymph # (Auto) 1.6 [place] # (Auto) 0.7 Eos # (Auto) 0.0 Baso # (Auto) 0.0 Nucleated RBC % (a uto) 0 Nucleated RBCs # 0.0 ESR Pending Sodium 137 Potassium 4.5 Chloride 105 Carbon Dioxide 23 Anion Gap 13.5 BUN 59 H Creatinine 2.3 H GFR Calculation Not Reportable Glucose 107 Calculated Osmolal ity 301 H Calcium 11.8 H Creatine Kinase C-Reactive Protein Procalcitonin 05/17/21 05/17/21 07:53 07:53 WBC RBC Hgb Hct MCV MCH MCHC RDW Plt Count MPV Neut % (Auto) Lymph % (Auto) [place] % (Auto) Eos % (Auto) Baso % (Auto) Neut # (Auto) Lymph # (Auto) [place] # (Auto) Eos # (Auto) Baso # (Auto) Nucleated RBC % (a uto) Nucleated RBCs # ESR Sodium Potassium Chloride Carbon Dioxide Anion Gap BUN Creatinine GFR Calculation Glucose Calculated Osmolal ity Calcium Creatine Kinase 31 L C-Reactive Protein 72.3 H Procalcitonin 0.37 Vitals: Last Vital Signs Temp 97.4 F L 05/18/21 08:00 Pulse 72 05/18/21 08:00 Resp 16 05/18/21 08:00 BP 122/88 05/18/21 08:00 Pulse Ox 94 05/18/21 08:00 Discharge Plan Discharge Patient Disposition: Home Health Service Condition: Stable Prescriptions: New atorvastatin 40 mg Tablet 40 mg PO BEDTIME 30 Days Qty: 30 RF: 0 tamsulosin 0.4 mg Capsule 0.4 mg PO DAILY 30 Days Qty: 30 RF: 0 cefdinir 300 mg capsule 300 mg PO BID 2 Days Qty: 4 RF: 0 Eliquis 5 mg tablet 5 mg PO Q12H 30 Days Qty: 60 RF: 0 aspirin 81 mg capsule 81 mg PO DAILY 30 Days Qty: 30 RF: 0 Continued allopurinol 100 mg tablet 100 mg PO BID RF: 0 amlodipine 10 mg Tablet 10 mg PO DAILY Qty: 30 RF: 0 oxycodone 5 mg Tablet 5 mg PO Q4H PRN (Reason: Pain) RF: 0 acetaminophen 500 mg tablet 1,000 mg PO Q8H PRN (Reason: Pain) RF: 0 Discontinued atenolol 50 mg tablet 50 mg PO DAILY RF: 0 hydrochlorothiazide 25 mg tablet 25 mg PO DAILY RF: 0 celecoxib 200 mg Capsule 200 mg PO Q12H 15 Days Qty: 30 RF: 0 aspirin 325 mg Tablet,Delayed Release (Dr/Ec) 325 mg PO DAILY 30 Days Qty: 30 RF: 0 sulfamethoxazole-trimethoprim [Bactrim DS] 800-160 mg tablet 1 tab PO BID Qty: 90 RF: 0 Discharge Orders: Discharge Order (Routine); Ordered 05/18/21 Ordered By: Dave Lockwood Other Ambulatory Orders: [place] cardiac event monitor (Routine) Timeframe: 1 Day Facility: [facility] - Location: Cardiac Diagnostic Laboratory Ordered By: Dave Lockwood Referrals: [facility] [Outside] [facility] [Primary Care Provider[facility] - 1-3 days Ebenezer Kong MD [Physician] - 1 week Jesus Mcfarland MD [Physician] - 1 month Discharge Diet: Advance as tolerated Discharge Activity: Resume usual activity Patient Instructions: Aspirin (By mouth), Atorvastatin (By mouth), Tamsulosin (By mouth), Cefdinir (By mouth), Apixaban (By mouth) (Eliquis), A-fib (Atrial Fibrillation) (DC), Kidney Stones (DC), Heart Block (DC), Hypertension (DC), Opioid Safety, Urinary Tract Infection - Men Activity Restrictions/Additional Instructions: -Monitor for bloody or black stools if so go to the emergency room -Follow-up with primary care provider in 1 week for recheck hemoglobin -If you fall, or have is a significant injury, go to the emergency room as you are on a blood thinner -Please stop taking Celebrex -Aspirin dose has been decreased to 81 mg -Please stop taking atenolol -If you have chest pain, palpitations go to the emergency room -Follow-up with cardiology in a month -Event monitor ordered -Following up with urology in 1 week Coding Level of Care Code Acute Chg FW DC note Diagnoses A-fib I48.19 Atrial fibrillation type: persistent (not longstanding) Hypertension I10 Hypertension type: primary hypertension Elevated troponin R77.8 Heart block, AV I44.30
--- NOTE | 2021-05-18 12:05 | PC.NURSE ---
Placed phone call to patient's daughter, Renay, regarding patient's order for discharge home with home health. Daughter states she is on her way to the hospital and will discuss with her Dad, as she and her brother would recommend patient go to rehab for a few weeks.
--- NOTE | 2021-05-18 13:24 | PM.PN ---
Subjective Subjective: Interval history: Enrique was seen in the hospital today. Recent events are noted. He has no specific complaints about his knee and feels good with what he is done in therapy Vitals/I&O/Wt Last Vital Signs Temp 97.4 F L 05/18/21 11:38 Pulse 72 05/18/21 11:38 Resp 16 05/18/21 11:38 BP 122/88 05/18/21 11:38 Pulse Ox 94 05/18/21 11:38 05/17/21 05/18/21 05/18/21 22:59 06:59 14:59 Intake Total 882.5 / 882.5 Output Total 980 / 980 950 / 1930 Balance -980 / -930 -950 / -1880 882.5 / 882.5 Physical Exam Narrative: EXAM NARRATIVE: His right knee incision is clean and free of drainage. Motion is from 10 degrees short of full extension to about 90 degrees of flexion Urinary Catheter Management^: Castillo: Cath Placed During This Visit: yes Reason for Continuing Indwelling Catheter: Acute Urinary Retention or Obstruction Urinary Catheter Date of Insertion: 05/15/21 Urinary Catheter Time of Insertion: 18:30 Data : 05/18/21 04:06 05/18/21 04:06 Micro: Microbiology 05/15/21 09:32 Urine Culture - Final Urine,Clean Catch Proteus mirabilis A&P Assessment and plan (1) Status post total right knee replacement: Enrique will continue with the therapy. He may be transferred to a [facility] facility or can continue with home health if he is discharged home. I will see him back in a month. Status: Acute Attestations Medical Necessity Statement*: As per medicine. 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
--- NOTE | 2021-05-18 13:45 | PC.NURSE ---
Patient states he would like to go for rehab for a few weeks . CM notified of change in patient's decision.
--- NOTE | 2021-05-18 14:50 | P.CONIM_ITS ---
Providers/Reason For Consult Consulting Physician/Specialty*: Nephrology Reason for Consult*: Eval for RISA Attending Physician: Dave Lockwood MD Primary Care Provider: Raymond Jansen [facility] History of Present Illness History of Present Illness Thank you for consultation, today at the pleasure of reviewing Mr. Murguia for evaluation of acute kidney injury. He presented to our facility on 05/15 with confusion, who believed he was being admitted to the hospital for revision of his right knee. He was found to have urinary retention and a Castillo catheter was subsequently placed with the assistance of Dr. Kong. He has since received treatment with Rocephin as well as intravenous hydration. He actually feels very well today with no specific complaints. The Castillo catheter is comfortable for him, without causing agitation. The urine is light napier color with no blood or cloudiness. He denies any knowledge of prior history of acute or chronic kidney disease. Back on 04/28 creatinine was 1.6, historically his creatinine has ranged between 1.1 to 1.9 mg/dL. On presentation his creatinine was 2.4, staying at roughly this level until today, also 2.3 mg/dL. He is eating and drinking normally. No extremity edema, shortness of breath or other hypervolemic symptoms. He denies any knowledge of prior nephrotoxic exposures including anti- inflammatory medications, IV contrast etc. Hemodynamics have been stable following hospitalization as well. At this time he is ready for discharge. Review of Systems Narrative: ROS - 12 point review of systems completed per HPI and subjective assessment, this includes Constitutional: No weakness, fatigue Respiratory: No SOB on exertion, comfortable at rest CardioVasc: No chest pain, palpitations Gastrointestinal: No nausea, no vomiting Neurological: No seizures, no AMS Derm: No new rashes, lesions or wounds Immunological: No seasonal and no food allergies Meds/Allergies Home Medications and Allergies Home Medications Medication Instructions Recorded Confirmed Last Taken Type allopurinol 100 mg tablet 100 mg PO BID 07/21/20 05/15/21 05/13/21 History amlodipine 10 mg PO DAILY #30 tab 09/04/20 05/15/21 05/14/21 Rx acetaminophen 1,000 mg PO Q8H PRN 05/15/21 05/15/21 Unknown History oxycodone 5 mg PO Q4H PRN 05/15/21 05/15/21 Unknown History apixaban [Eliquis] 5 mg PO Q12H 30 Days #60 tab 05/18/21 Unknown Rx aspirin 81 mg PO DAILY 30 Days #30 cap 05/18/21 Unknown Rx atorvastatin 40 mg PO BEDTIME 30 Days #30 tab 05/18/21 Unknown Rx cefdinir 300 mg PO BID 2 Days #4 cap 05/18/21 Unknown Rx tamsulosin 0.4 mg PO DAILY 30 Days #30 cap 05/18/21 Unknown Rx Allergies Allergy/AdvReac Type Severity Reaction Status Date / Time No Known Allergies Allergy Verified 05/11/21 11:00 Current Medications Current Medications Generic Name Dose Route Start Last Admin Trade Name Freq PRN Reason Stop Dose Admin Acetaminophen 650 mg 05/15/21 15:57 05/17/21 18:01 Acetaminophen 325 Mg Tablet PO 650 mg Q6H PRN Administration Mild/Mod Pain Or Temp >/= 101 Allopurinol 100 mg 05/15/21 18:00 05/18/21 08:49 Allopurinol 100 Mg Tablet PO 100 mg BID RADHA Administration Amlodipine Besylate 10 mg 05/16/21 09:00 05/18/21 08:50 Amlodipine 10 Mg Tablet PO 10 mg DAILY RADHA Administration Aspirin 325 mg 05/16/21 09:00 05/18/21 08:50 Aspirin 325 Mg Ec Tablet PO 325 mg DAILY RADHA Administration Atorvastatin Calcium 40 mg 05/16/21 21:00 05/17/21 22:10 Atorvastatin 40 Mg Tablet PO 40 mg BEDTIME RADHA Administration Enoxaparin Sodium 120 mg 05/16/21 20:00 05/18/21 08:50 Enoxaparin 120 Mg/0.8 Ml Syringe SUBCUT 120 mg Q12H RADHA Administration Ceftriaxone Sodium 1,000 mg/ 50 mls @ 100 mls/hr 05/16/21 10:00 05/18/21 10:22 Sodium Chloride IV 100 mls/hr Q24H RADHA Administration Protocol Sodium Chloride 1,000 mls @ 50 mls/hr 05/17/21 14:00 05/18/21 10:17 Sodium Chloride 0.9% IV Not Given .Q20H RADHA Tamsulosin HCl 0.4 mg 05/16/21 09:00 05/18/21 08:50 Tamsulosin 0.4 Mg Capsule PO 0.4 mg DAILY RADHA Administration PFSH Acute PFSH: Medical History (Updated 05/17/21 @ 20:41 by Jesus Mcfarland MD) Gout Hydronephrosis of right kidney Hypertension Hypertension Left renal mass Social History Alcohol intake: never Vitals/I&O/Wt Last Vital Signs Temp 97.4 F L 05/18/21 12:00 Pulse 70 05/18/21 12:00 Resp 16 05/18/21 12:00 BP 116/68 05/18/21 12:00 Pulse Ox 94 05/18/21 12:00 05/17/21 05/18/21 05/18/21 22:59 06:59 14:59 Intake Total 882.5 / 882.5 Output Total 980 / 980 950 / 1930 Balance -980 / -930 -950 / -1880 882.5 / 882.5 Physical Exam Narrative: EXAM NARRATIVE: Constitutional: Awake, comfortable HEENT: Wet mucosa, no jvp, non icteric Lungs: Bilaterally clear without discernible wheeze, rales in all lung zones CVS: S1 S2, no murmurs Abdo: Soft, BS ok Ext 4: Minimal edema, peripheral perfusion with no cyanosis Neurological: Grossly non-focal Urinary Catheter Management^: Castillo: Cath Placed During This Visit: yes Reason for Continuing Indwelling Catheter: Acute Urinary Retention or Obstruction Urinary Catheter Date of Insertion: 05/15/21 Urinary Catheter Time of Insertion: 18:30 Data Micro: Micro: Microbiology 05/15/21 09:32 Urine Culture - Fi nal Urine,Clean Catch Proteus mirabil is A&P Additional A&P Information 1. Acute kidney injury Consistent with obstructive uropathy, there may be an element of infection mediated RISA. After decompression of the urinary system, it can sometimes take a few days for renal recovery to occur, especially if there is underlying chronic kidney disease to some degree. Castillo catheter skin to be staying in place, until he is seen by Dr. Kong in the outpatient clinic to discuss further options. I do hope to see further recovery over time back to his baseline renal function. 2. UTI Urine culture grew out Proteus, sensitive species and is currently on Rocephin. 3. Hemodynamics They look to be stable at this time. Okay for discharge from my own perspective. Would recommend follow-up in Dr. Sesay's clinic in the next few weeks. 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
[2021-05-18] MEDS: acetaminophen 325 mg Tablet 650 MG PO (15:16)
--- NOTE | 2021-05-18 15:43 | PM.PN ---
Subjective Subjective: Interval history: Patient had an uneventful night, his telemetry monitoring showed one episode of 2-second sinus pause, currently alert to person, to place, not to time, he follows all commands, he has no complaints this morning, I had an extensive discussion with patient about intermediate placement, initially he declined, however his sister came in the afternoon, and convinced him for a short term intermediate stay for rehab, he is agreeable Vitals/I&O/Wt Last Vital Signs Temp 97.4 F L 05/18/21 12:00 Pulse 70 05/18/21 12:00 Resp 16 05/18/21 12:00 BP 116/68 05/18/21 12:00 Pulse Ox 94 05/18/21 12:00 05/18/21 05/18/21 05/18/21 06:59 14:59 22:59 Intake Total 882.5 / 882.5 Output Total 950 / 1930 Balance -950 / -1880 882.5 / 882.5 Physical Exam Const: COMMON NORMALS: no acute distress and patient oriented x3 Resp: COMMON NORMALS: normal respiratory effort, No retractions, No use of accessory muscles and clear to auscultation bilaterally AUSCULTATION: clear to auscultation bilaterally Cardio: COMMON NORMALS: S1 normal heart sound present and S2 normal heart sound present RHYTHM: abnormal rhythm HEART SOUNDS: S1 normal heart sound present and S2 normal heart sound present GI: COMMON NORMALS: Normal to inspection, nondistended, normoactive bowel sounds present, Soft to palpation and non-tender PALPATION: Yes Soft to palpation Extremity: COMMON NORMALS: no pedal edema NARRATIVE EXTREMITY EXAM: Right knee, bandage in place, looks clean and dry, no erythema, significant swelling, no tenderness, no warmth Neuro: COMMON NORMALS: patient oriented x3 Psych: COMMON NORMALS: mental status grossly normal Urinary Catheter Management^: Castillo: Cath Placed During This Visit: yes Reason for Continuing Indwelling Catheter: Acute Urinary Retention or Obstruction Urinary Catheter Date of Insertion: 05/15/21 Urinary Catheter Time of Insertion: 18:30 Data : 05/18/21 04:06 05/18/21 04:06 Micro: Microbiology 05/15/21 09:32 Urine Culture - Final Urine,Clean Catch Proteus mirabilis A&P Assessment and plan (1) A-fib: Af.ib with slow ventricular response. Currently deny any Dizziness, chest pain, SOB Stop Atenolol his home medication.Monitor heart rate for now, 2-second pause overnight Lovenox 120 mg sc q12 h daily, discharged on Eliquis Continue Telemetry, will do event monitor on discharge Cardiology Consult Status: Acute Qualifiers: Atrial fibrillation type: persistent (not longstanding) Qualified Code(s): I48.19 - Other persistent atrial fibrillation (2) Hypertension: Status: Acute Qualifiers: Hypertension type: primary hypertension Qualified Code(s): I10 - Essential (primary) hypertension (3) Elevated troponin: NSTEMI Type II : Demand Ischemia Patient denies any chest pain, EKG has failed to show any acute ST-T wave changes. On therapeutic Lovenox Aspirin 325 mg p.o. Lipitor 40 mg po daily Follow 2D echo: Is pending Telemetry Serial EKG Status: Acute (4) Heart block, AV: Status: Acute Additional A&P Information RISA, creatinine persistently 2.4, consult nephrology Postobstructive uropathy, maintain Castillo, discharge Castillo, continue Flomax Proteus Mirabella's UTI, continue Rocephin Left loculated cystic lesion, follow-up with urology Immobility after surgery, bilateral extremity ultrasound for DVTs Disposition, right knee surgery, chronic left knee pain, now with Castillo catheter sinus pauses, daughter at bedside would like us to pursue short-term rehab Attestations Medical Necessity Statement*: Patient requires hospitalization with A. 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
--- NOTE | 2021-05-18 16:24 | PC.OT ---
OT EVALUATION ATTEMPTED. PATIENT SLEEPING SOUNDLY. WILL ATTEMPT AGAIN TOMORROW.
--- NOTE | 2021-05-18 17:32 | PM.PN ---
Subjective Subjective: Interval history: This morning patient had few episodes of more than 2 to 3-second pauses but overall during the daytime remained stable heart rate is also into 60s to 70s. Medications: Reviewed: Yes Vitals/I&O/Wt Last Vital Signs Temp 97.4 F L 05/18/21 12:00 Pulse 74 05/18/21 16:30 Resp 18 05/18/21 16:30 BP 107/82 05/18/21 16:30 Pulse Ox 95 05/18/21 16:30 05/18/21 05/18/21 05/18/21 06:59 14:59 22:59 Intake Total 882.5 / 882.5 Output Total 950 / 1930 1020 / 1020 Balance -950 / -1880 882.5 / 882.5 -1020 / -137.5 Physical Exam Narrative: EXAM NARRATIVE: GENERAL: Patient is alert, awake and oriented x3. NECK: No jugular vein distension. HEENT: No cyanosis. No icterus. No pallor. HEART: Regular S1 and S2. No murmur, rub or gallop. LUNGS: Clear to auscultate bilaterally. ABDOMEN: Soft, nontender and nondistended. Positive bowel sounds. No guarding, rebound or tenderness. CENTRAL NERVOUS SYSTEM: Grossly nonfocal. EXTREMITIES: Lower extremities without edema bilaterally. 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 Atenolol is on hold we will continue to watch the patient at this moment patient does not qualify for pacemaker. Patient has been taken off atenolol due to multiple pauses tachybradycardia syndrome. At this point we will continue weaning him not being on any murphy lino may be we can use event monitor as an outpatient to monitor him however for therapeutic purpose if required may consider pacemaker but it will be suggested after see monitor result Status: Acute Qualifiers: Atrial fibrillation type: persistent (not longstanding) Qualified Code(s): I48.19 - Other persistent atrial fibrillation (2) Hypertension: Well-controlled continue to monitor Status: Acute Qualifiers: Hypertension type: primary hypertension Qualified Code(s): I10 - Essential (primary) hypertension (3) Elevated troponin: Patient may have underlying coronary artery disease abnormal cardiac markers are most likely due to demand ischemia patient is not a good candidate for invasive or interventional approach due to underlying comorbidities such as renal failure. We will continue to manage him medically for now. Further plan will be devised as per progress of the patient Could have underlying coronary artery disease currently stable denies any chest pain continue conservative management no intention of taking him to the [facility] due to high risk for contrast-induced nephropathy and renal failure at the same time patient is stable and not having any arrhythmia or vital issue Status: Acute (4) Heart block, AV: As defined above patient has underlying murphy block due to conduction abnormality/tachybradycardia syndrome, will continue holding atenolol, continue correcting electrolytes and monitor on the telemetry. As defined above patient has been taken off atenolol electrolytes are improving continue to monitor Status: Acute Attestations Medical Necessity Statement*: Patient require continuation hospitalization for above defined care Coding Level of Care Code Established Pt Acute Heel Former for [facility] [place] Patient Type Established History Detailed Exam Detailed Medical Decision Making Moderate Complexity Diagnoses A-fib I48.19 Atrial fibrillation type: persistent (not longstanding) Hypertension I10 Hypertension type: primary hypertension Elevated troponin R77.8 Heart block, AV I44.30
[2021-05-18] MEDS: atorvastatin 40 mg Tablet PO (19:23)
[2021-05-19] VITALS (9 sets, daily range): BP systolic 98–135; BP diastolic 65–86; PULSE 74–109; RESP 16–26; TEMP 36.4–36.6; O2SAT 95–98
[2021-05-19] MEDS: acetaminophen 325 mg Tablet 650 MG PO ×2 (06:01→19:29)
[2021-05-19] MEDS: enoxaparin 120 mg/0.8 mL Syringe SUBCUT (09:40)
[2021-05-19] MEDS: cefTRIAXone 1,000 MG in sodium chloride 0.9% (plus) 50 ML 100 MG IV (09:40)
[2021-05-19] MEDS: aspirin 325 mg EC Tablet PO (09:41)
[2021-05-19] MEDS: tamsulosin 0.4 mg Capsule PO (09:41)
[2021-05-19] MEDS: allopurinol 100 mg Tablet PO ×2 (09:41→17:34)
--- NOTE | 2021-05-19 09:41 | PC.NURSE ---
bp 98/74. pauses up to 3 sc noted.amlodpine held per dr banerjee
--- NOTE | 2021-05-19 13:17 | P.PN_ITS ---
Subjective Subjective: Interval history: no complaints. awaiting rehab placement Medications: Reviewed: Yes Vitals/I&O/Wt Last Vital Signs Temp 97.9 F 05/19/21 03:52 Pulse 86 05/19/21 12:00 Resp 26 H 05/19/21 12:00 BP 116/73 05/19/21 12:00 Pulse Ox 95 05/19/21 12:00 05/18/21 05/19/21 05/19/21 22:59 06:59 14:59 Intake Total 400 / 1332.5 480 / 480 Output Total 1020 / 1020 1325 / 2345 Balance -1020 / -87.5 -925 / -1012.5 480 / 480 Physical Exam Const: COMMON NORMALS: no acute distress GENERAL APPEARANCE: cooperative Extremity: GENERAL: Yes edema Urinary Catheter Management^: Almodovar: Cath Placed During This Visit: yes Reason for Continuing Indwelling Catheter: Acute Urinary Retention or Obstructio n Urinary Catheter Date of Insertion: 05/15/21 Urinary Catheter Time of Insertion: 18:30 Data : 05/18/21 04:06 05/19/21 04:37 Other Labs: calcium 11.4 albumin 2.9 A&P Additional A&P Information 1. Acute kidney injury - component of obstruction, good urine output with almodovar, serum Cr improving, urology following 2. Chronic kidney disease 3. Hypercalcemia, kidney stone. Rule-out hyperparathyroidism, check PTH, 25(OH)D, paraproteinemia workup. Ensure adequate hydration. 4. Hypertension, well-controlled Outpatient nephrology follow-up planned. Attestations Medical Necessity Statement*: per primary service Time Spent in Patient Care: 16 - 35 minutes Coding Level of Care Code Acute Bagging Salvager for Chg Fwd Exam Expanded Problem Focused
[2021-05-19 13:26] LABS: Erythrocyte Sedimentation Rate 17 mm/hr (0-10)
[2021-05-19 13:54] LABS: Phosphorus 2.7 mg/dL (2.5-4.5)
[2021-05-19 15:14] LABS: 25 Hydroxy Vitamin D > 100 ng/mL (30-100)
[2021-05-19 16:42] LABS: Calcium 11.1 mg/dL (8.5-10.5); Parathyroid Hormone 6.2 pg/mL (15-65)
--- NOTE | 2021-05-19 17:04 | P.PN_ITS ---
Subjective Subjective: Interval history: Patient was seen this morning, he sitting up to a chair, tells me that he is feeling well, no chest pain, no palpitations, he does tell me that the Castillo catheter is a bit irritating, overnight he had 2 episodes of pauses, longest being 3 seconds, asymptomatic Vitals/I&O/Wt Last Vital Signs Temp 97.9 F 05/19/21 03:52 Pulse 74 05/19/21 16:00 Resp 26 H 05/19/21 12:00 BP 116/73 05/19/21 12:00 Pulse Ox 95 05/19/21 12:00 05/19/21 05/19/21 05/19/21 06:59 14:59 22:59 Intake Total 400 / 1332.5 480 / 480 Output Total 1325 / 2345 Balance -925 / -1012.5 480 / 480 Physical Exam Const: COMMON NORMALS: no acute distress ORIENTATION/CONSCIOUSNESS: Yes aldair ke, Yes oriented to person and Yes oriented to place; not oriented to time Resp: COMMON NORMALS: normal respiratory effort, No retractions, No use of accessory muscles and clear to auscultation bilaterally AUSCULTATION: clear to auscultation bilaterally Cardio: COMMON NORMALS: regular rate, S1 normal heart sound present and S2 normal heart sound present RATE: regular rate RHYTHM: abnormal rhythm irregularly irregular HEART SOUNDS: S1 normal heart sound present and S2 normal heart sound present GI: COMMON NORMALS: Normal to inspection, nondistended, normoactive bowel sounds present, Soft to palpation and non-tender PALPATION: Yes Soft to palpation Extremity: COMMON NORMALS: no pedal edema Neuro: SENSORIUM/ORIENTATION: Yes oriented to person, Yes oriented to place and No oriented to time Psych: COMMON NORMALS: mental status grossly normal Urinary Catheter Management^: Castillo: Cath Placed During This Visit: yes Reason for Continuing Indwelling Catheter: Acute Urinary Retention or Obstruction Urinary Catheter Date of Insertion: 05/15/21 Urinary Catheter Time of Insertion: 18:30 Data : 05/18/21 04:06 05/19/21 04:37 A&P Assessment and plan (1) A-fib: Af.ib with slow ventricular response. Currently deny any Dizziness, chest pain, SOB Stop Atenolol his home medication.Monitor heart rate for now, had a 3-second pause of Switch to Eliquis tomorrow Continue Telemetry, will do event monitor on discharge Cardiology Consult Status: Acute Qualifiers: Atrial fibrillation type: persistent (not longstanding) Qualified Code(s): I48.19 - Other persistent atrial fibrillation (2) Hypertension: Status: Acute Qualifiers: Hypertension type: primary hypertension Qualified Code(s): I10 - Essential (primary) hypertension (3) Elevated troponin: NSTEMI Type II : Demand Ischemia Patient denies any chest pain, EKG has failed to show any acute ST-T wave changes. On therapeutic Lovenox Aspirin 325 mg p.o. Lipitor 40 mg po daily Follow 2D echo: Is pending Telemetry Serial EKG Status: Acute (4) Heart block, AV: Status: Acute Additional A&P Information RISA, creatinine persistently 2.0, consult nephrology Postobstructive uropathy, maintain Castillo, discharge Castillo, continue Flomax Proteus Mirabella's UTI, continue Rocephin Left loculated cystic lesion, follow-up with urology Immobility after surgery, bilateral extremity ultrasound for DVTs no evidence of DVT Disposition, right knee surgery, chronic left knee pain, now with Castillo catheter sinus pauses, daughter at bedside would like us to pursue short-term rehab Attestations Medical Necessity Statement*: Patient requires hospitalization for atrial fibrillation, sinus pause, UTI, deconditioning, require [facility] placement Coding Level of Care Code Acute Mechanical Press Operator for Chg Fwd Diagnoses A-fib I48.19 Atrial fibrillation type: persistent (not longstanding) Hypertension I10 Hypertension type: primary hypertension Elevated troponin R77.8 Heart block, AV I44.30
--- NOTE | 2021-05-19 17:51 | NUR.SHIFT ---
pt had several pauses noted on monitor today..some as long as [address]erjee and dr hawk aware.dr hawk stated he plans on talking with another regulatory coordinator re:possible need for pacemaker placement.waiting on insurance approval for transfer to rehab facility.
--- NOTE | 2021-05-19 17:55 | PM.PN ---
Subjective Subjective: Interval history: Patient has multiple pauses more than 2 to 3 seconds especially while eating and at rest. Medications: Reviewed: Yes Vitals/I&O/Wt Last Vital Signs Temp 97.9 F 05/19/21 03:52 Pulse 109 H 05/19/21 17:45 Resp 19 H 05/19/21 17:45 BP 115/72 05/19/21 17:45 Pulse Ox 97 05/19/21 17:45 05/19/21 05/19/21 05/19/21 06:59 14:59 22:59 Intake Total 400 / 1332.5 480 / 480 240 / 720 Output Total 1325 / 2345 900 / 900 Balance -925 / -1012.5 480 / 480 -660 / -180 Physical Exam Narrative: EXAM NARRATIVE: GENERAL: Patient is alert, awake and oriented x3. NECK: No jugular vein distension. HEENT: No cyanosis. No icterus. No pallor. HEART: Regular S1 and S2. No murmur, rub or gallop. LUNGS: Clear to auscultate bilaterally. ABDOMEN: Soft, nontender and nondistended. Positive bowel sounds. No guarding, rebound or tenderness. CENTRAL NERVOUS SYSTEM: Grossly nonfocal. EXTREMITIES: Lower extremities without edema bilaterally. 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 Atenolol is on hold we will continue to watch the patient at this moment patient does not qualify for pacemaker. Patient has been taken off atenolol due to multiple pauses tachybradycardia syndrome. At this point we will continue weaning him not being on any murphy lino may be we can use event monitor as an outpatient to monitor him however for therapeutic purpose if required may consider pacemaker but it will be suggested after see monitor result Patient has underlying tachybradycardia syndrome or sick sinus syndrome despite of being not on murphy lino patient continues to have more than 3-second multiple pauses while awake especially when he is eating and sitting. I believe that he may will be needing permanent pacemaker placement for tachybradycardia syndrome/sick sinus syndrome. Patient may will be requiring murphy lino. Dilemma is that patient has underlying infection going on which need to be eradicated first. I have also discussed with the patient at this point he is not ready for it he would like to think about it. We will for now continue to monitor Status: Acute Qualifiers: Atrial fibrillation type: persistent (not longstanding) Qualified Code(s): I48.19 - Other persistent atrial fibrillation (2) Hypertension: Well-controlled continue to monitor Status: Acute Qualifiers: Hypertension type: primary hypertension Qualified Code(s): I10 - Essential (primary) hypertension (3) Elevated troponin: Patient may have underlying coronary artery disease abnormal cardiac markers are most likely due to demand ischemia patient is not a good candidate for invasive or interventional approach due to underlying comorbidities such as renal failure. We will continue to manage him medically for now. Further plan will be devised as per progress of the patient Continue to manage conservatively patient is not a good candidate for intervention add isosorbide mononitrate to the regimen. Patient is not on Plavix due to high risk for bleeding since he is on apixaban and aspirin Status: Acute (4) Heart block, AV: As defined above patient has underlying murphy block due to conduction abnormality/tachybradycardia syndrome, will continue holding atenolol, continue correcting electrolytes and monitor on the telemetry. As defined above patient has been taken off atenolol electrolytes are improving continue to monitor Status: Acute Attestations Medical Necessity Statement*: Patient require continuation hospitalization for above defined care. Coding Level of Care Code Established Pt Acute Sports Marketing Coordinator for [facility] [place] Patient Type Established History Detailed Exam Detailed Medical Decision Making Moderate Complexity Diagnoses A-fib I48.19 Atrial fibrillation type: persistent (not longstanding) Hypertension I10 Hypertension type: primary hypertension Elevated troponin R77.8 Heart block, AV I44.30
[2021-05-19] MEDS: apixaban 5 mg Tablet PO (19:29)
[2021-05-19] MEDS: atorvastatin 40 mg Tablet PO (19:29)
[2021-05-20] VITALS (17 sets, daily range): BP systolic 91–127; BP diastolic 63–84; PULSE 72–114; RESP 14–26; TEMP 36.6–37.1; O2SAT 94–98
[2021-05-20] MEDS: acetaminophen 325 mg Tablet 650 MG PO ×2 (03:41→10:00)
[2021-05-20 05:58] LABS: Alanine Aminotransferase 25 U/L (0-41); Albumin Level 2.8 g/dL (3.5-5.2); Alkaline Phosphatase 78 IU/L (40-130); Anion Gap 13.2 (5-19); Aspartate Amino Transferase 17 U/L (0-40); Blood Urea Nitrogen 72 mg/dL (8-23); Calcium 11.2 mg/dL (8.5-10.5); Carbon Dioxide 22 mmol/L (22-29); Chloride 107 mmol/L (98-107); Globulin 3.1 g/dL (1.3-4.6); Glucose 106 mg/dL (65-115); Osmolality Calculated 308 mOsm/kg (285-295); Potassium 4.2 mmol/L (3.5-5.1); Sodium 138 mmol/L (136-145); Total Bilirubin 0.2 mg/dL (0.15-1.2); Total Protein 5.9 g/dL (6.6-8.7)
[2021-05-20] MEDS: aspirin 81 mg EC Tablet PO (08:10)
[2021-05-20] MEDS: allopurinol 100 mg Tablet PO ×2 (08:10→18:16)
[2021-05-20] MEDS: apixaban 5 mg Tablet PO (08:10)
[2021-05-20] MEDS: tamsulosin 0.4 mg Capsule PO (08:11)
[2021-05-20] MEDS: isosorbide mononitrate ER 30 mg Tablet PO (08:12)
--- NOTE | 2021-05-20 09:31 | PM.PN ---
Subjective Subjective: Interval history: no complaints. States he is drinking adequate fluids Medications: Reviewed: Yes Vitals/I&O/Wt Last Vital Signs Temp 98.8 F 05/20/21 07:42 Pulse 105 H 05/20/21 07:42 Resp 26 H 05/20/21 07:42 BP 98/66 05/20/21 07:42 Pulse Ox 97 05/20/21 07:42 05/19/21 05/20/21 05/20/21 22:59 06:59 14:59 Intake Total 240 / 770 300 / 1070 118 / 118 Output Total 900 / 900 775 / 1675 Balance -660 / -130 -475 / -605 118 / 118 Physical Exam Const: COMMON NORMALS: no acute distress GENERAL APPEARANCE: cooperative Extremity: GENERAL: Yes edema Urinary Catheter Management^: Almodovar: Cath Placed During This Visit: yes Reason for Continuing Indwelling Catheter: Acute Urinary Retention or Obstruction Urinary Catheter Date of Insertion: 05/15/21 Urinary Catheter Time of Insertion: 18:30 Data : 05/20/21 04:25 05/20/21 04:25 A&P Additional A&P Information 1. Acute kidney injury - component of obstruction, good urine output with almodovar, urology following 2. Chronic kidney disease 3. Hypercalcemia, kidney stone. PTH low, 25(OH)D high, paraproteinemia workup pending. Ensure adequate hydration. Outpatient nephrology follow-up planned. Attestations Medical Necessity Statement*: per primary service Time Spent in Patient Care: 16 - 35 minutes Coding Level of Care Code Acute Automatic Fabric Cutter for [facility] [place]
--- NOTE | 2021-05-20 09:49 | PC.SOCIAL ---
IMM Update Pg. 2 of IMM updated and reviewed with patient, who verbalized understanding. Copy provided.
[2021-05-20 10:01] LABS: Basophils % 0.1 %; Hematocrit 27.9 % (42.0-52.0); Hemoglobin 8.8 g/dL (11.7-16.6); Lymphocytes # 1.7 10^3/uL (0.8-4.8); Lymphocytes % 18.9 %; Mean Corpuscular HGB Conc 31.5 g/dL (30.0-36.0); Mean Corpuscular Hemoglobin 31.2 pg (28.0-34.0); Mean Corpuscular Volume 98.9 fl (80-94); Mean Platelet Volume 11.4 fL (7.4-10.4); Monocytes % 10.4 %; Neutrophils # 5.92 10^3/uL (1.8-7.7); Neutrophils % 65.1 %; Nucleated Red Blood Cells % 0 %; Platelet Count 370 10^3/cmm (130-400); Red Blood Count 2.82 10^6/uL (4.1-5.3); Red Cell Distribution Width 13.2 % (12.1-15.1); White Blood Count 9.1 10^3/uL (4.0-10.0)
[2021-05-20] MEDS: cefTRIAXone 1,000 MG in sodium chloride 0.9% (plus) 50 ML 100 MG IV (10:06)
[2021-05-20 10:08] LABS: PROTEIN, TOTAL 5.6 g/dL (6.1-8.1)
[2021-05-20 10:49] LABS: Slide Review Slide Review Perform
[2021-05-20] MEDS: sodium chloride 0.9% (100 ml) 100 ML 240 ML (12:19)
--- NOTE | 2021-05-20 12:38 | P.PN_ITS ---
Subjective Subjective: Interval history: Patient was seen this morning, he tells me that overnight he had 2 episodes of dark bloody stools, no abdominal pain, some lightheadedness, he was seen ambulating with physical therapy staff, blood pressures are on the lower end, but he denies any lightheadedness, dizziness, his hemoglobin was down to 8.8, he had already received his morning Eliquis, adv ised nursing staff to hold Eliquis, monitor blood pressures, recheck hemoglobin, At roughly noon, patient was seen as his blood pressures were 60s over 40s, he was sitting up in the chair, alert to person, place, not to time, following all commands, denies any lightheadedness, dizziness, nausea, vomiting he had not had any more bloody bowel movements, he was quickly moved into the bed, put in [facility], and his blood pressures improved to 90s over 60s, map 70, 2 IVs were obtained patient, he is receiving a liter bolus, patient will receive 2 units PRBC, Protonix, Carafate, started on midodrine, Levophed if MAP less than 65, kept n.p.o., 2 units of blood, stat CBC, INR, lactic acid ordered, patient moved to the ICU, remained alert oriented x2, following all commands, had no particular complaints except his chronic right knee pain Vitals/I&O/Wt Last Vital Signs Temp 98.5 F 05/20/21 11:45 Pulse 114 H 05/20/21 11:45 Resp 21 H 05/20/21 11:45 BP 91/63 05/20/21 11:45 Pulse Ox 95 05/20/21 11:45 05/19/21 05/20/21 05/20/21 22:59 06:59 14:59 Intake Total 240 / 770 300 / 1070 168 / 168 Output Total 900 / 900 775 / 1675 Balance -660 / -130 -475 / -605 168 / 168 Physical Exam Const: COMMON NORMALS: no acute distress ORIENTATION/CONSCIOUSNESS: Yes awake, Yes oriented to person and Yes oriented to place; not oriented to time OTHER: Scleral icterus Resp: COMMON NORMALS: normal respiratory effort, No retractions, No use of accessory muscles and clear to auscultation bilaterally AUSCULTATION: clear to auscultation bilaterally Cardio: COMMON NORMALS: regular rate, regular rhythm, S1 normal heart sound present and S2 normal heart sound present RATE: regular rate RHYTHM: re gular rhythm HEART SOUNDS: S1 normal heart sound present and S2 normal heart sound present GI: COMMON NORMALS: Normal to inspection, nondistended, normoactive bowel sounds present, Soft to palpation and non-tender PALPATION: Yes Soft to palpation Extremity: COMMON NORMALS: no pedal edema NARRATIVE EXTREMITY EXAM: Right knee, bandage in place, looks clean and dry, no erythema, significant swelling, no tenderness, no warmth Neuro: SENSORIUM/ORIENTATION: Yes oriented to person, Yes oriented to place and No oriented to time Psych: COMMON NORMALS: mental status grossly normal Urinary Catheter Management^: Castillo: Cath Placed During This Visit: yes Reason for Continuing Indwelling Catheter: Acute Urinary Retention or Obstruction Urinary Catheter Date of Insertion: 05/15/21 Urinary Catheter Time of Insertion: 18:30 Data : 05/20/21 04:25 05/20/21 04:25 A&P Assessment and plan (1) GI bleed: -Hypotension, tachycardia, hemoglobin down to 8.8, complains of bloody and black stools, on Eliquis, concerning for GI bleed with hemorrhagic shock Plan: -Moved to ICU -Monitor hemodynamics closely -Trend hemoglobins, INR, lactic acid -Start 2 units PRBC -1 L normal saline bolus -Protonix bolus followed by Protonix 40 twice daily, Carafate -Monitor for bloody or black stools -Midodrine 10 every 6 hours -Maintain MAP more than 65, Levophed -Keep n.p.o. -Once stable, will discuss with general surgery about performing an EGD Status: Acute (2) A-fib: Af.ib with slow ventricular response. Currently denies dizziness, chest pain, SOB continues to have episodes of pauses, lasting 2 to 3 seconds Continue Telemetry, will do event monitor on discharge Cardiology Consult Status: Acute Qualifiers: Atrial fibrillation type: persistent (not longstanding) Qualified Code(s): I48.19 - Other persistent atrial fibrillation (3) Hypertension: Status: Acute Qualifiers: Hypertension type: primary hypertension Qualified Code(s): I10 - Essential (primary) hypertension (4) Elevated troponin: NSTEMI Type II : Demand Ischemia Patient denies any chest pain, EKG has failed to show any acute ST-T wave changes. Hold aspirin Lipitor 40 mg po daily Follow 2D echo: 1-Normal left ventricular cavity size. Normal left ventricular systolic function. Left ventricular ejection fraction is estimated at 55 %. In the presence of atrial fibrillation diastolic function cannot be assessed accurately. 2-Aortic valve sclerosis without stenosis or regurgitation. 3-Mildly thickened mitral valve. No mitral valve stenosis. Trace mitral valve regurgitation. 4-There is no pericardial effusion. 5-No significant valve abnormalities. 6-There are no prior echocardiogram studies to compare. Telemetry Status: Acute (5) Heart block, AV: Status: Acute (6) Acute anemia: Status: Acute (7) Hemorrhagic shock: Status: Acute Additional A&P Information RISA, creatinine persistently 2.0, consult nephrology Postobstructive uropathy, maintain Castillo, discharge Castillo, continue Flomax Proteus Mirabella's UTI, continue Rocephin Left loculated cystic lesion, follow-up with urology Immobility after surgery, bilateral extremity ultrasound for DVTs no evidence of DVT Disposition, right knee surgery, chronic left knee pain, now with Castillo catheter sinus pauses, daughter at bedside would like us to pursue short-term rehab Attestations Medical Necessity Statement*: Patient requires hospitalization for GI bleed, with hemorrhagic shock, requiring ICU admission Coding Level of Care Code Acute Sleep Technologist for [facility] Diagnoses GI bleed K92.2 A-fib I48.19 Atrial fibrillation type: persistent (not longstanding) Hypertension I10 Hypertension type: primary hypertension Elevated troponin R77.8 Heart block, AV I44.30 Acute anemia D64.9 Hemorrhagic shock R57.8
[2021-05-20] MEDS: sucralfate 1 gm/10 mL Oral Liq UDC PO ×3 (12:40→21:22)
[2021-05-20] MEDS: pantoprazole 40 mg SDV 80 MG IVP (12:45)
[2021-05-20] MEDS: metOLazone 5 MG Tablet 10 MG PO ×2 (12:45→18:16)
--- NOTE | 2021-05-20 12:52 | ECG_ITS ---
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 Measurements Intervals [place] Rate: 86 P: AR: QRS: -33 QRSD: 102 T: 77 QT: 266 QTc: 319 Interpretive Statements ATRIAL FIBRILLATION LEFT AXIS DEVIATION [QRS AXIS < -30] POSSIBLE RIGHT VENTRICULAR CONDUCTION DELAY [RSR (QR) IN V1/V2] NONSPECIFIC T-WAVE ABNORMALITY Compared to ECG 05/15/2021 21:11:46 T-wave abnormality now present Electronically Signed On 05-21-2021 9:37:47 CDT by Dipika Pyle M.D. [id number]
[2021-05-20 13:06] LABS: Hematocrit 26.8 % (42.0-52.0); Hemoglobin 8.3 g/dL (11.7-16.6); Mean Corpuscular Hemoglobin 30.5 pg (28.0-34.0); Mean Corpuscular Volume 98.5 fl (80-94); Mean Platelet Volume 11.2 fL (7.4-10.4); Platelet Count 423 10^3/cmm (130-400); Red Blood Count 2.72 10^6/uL (4.1-5.3); Red Cell Distribution Width 13.3 % (12.1-15.1); White Blood Count 12.8 10^3/uL (4.0-10.0)
--- NOTE | 2021-05-20 13:07 | PC.NURSE ---
Pt's blood pressure dropped and heart rate elevated. Dr. Lockwood ordered for 1000L bolus and 2 units of blood via emergency use. Nurse obtained blood and RN, David initiated. Pt transferred to ICU.
[2021-05-20 13:21] LABS: INR 1.29 (0.8-1.2)
--- NOTE | 2021-05-20 13:25 | PC.NURSE ---
Rapid transfused 1 unit of PRBC. Pt tolerated well. No complications noted.
[2021-05-20 13:26] LABS: Lactate (Lactic Acid level) 2.5 mmol/L (0.5-2.2)
[2021-05-20 13:52] LABS: NT Pro B Type Natriuretic Pept 229 pg/mL (0-450); Procalcitonin 0.44 ng/mL (0-0.5)
[2021-05-20 14:04] LABS: Absolute Eosinophils 0.1 10^3/cmm (0.0-0.7); Absolute Segmented Neutrophil 9.3 10/cmm (1.6-7.1); Band Neutrophils Absolute 0.4 10^3/cmm (0.0-1.2); Eosinophils 1 %; Lymphocytes 11 %; Lymphocytes Absolute 1.7 10^3/cmm (1.2-3.4); Monocytes Absolute 0.8 10^3/cmm (0.1-0.6); Segmented Neutrophils 73 %; Total Cells Counted 100 (0-100)
[2021-05-20 14:06] LABS: C Reactive Protein 8.3 mg/L (0.0-4.9)
[2021-05-20 14:08] LABS: Absolute Neutrophil 9.7 10^3/cmm (1.4-6.5); Giant Platelets Trace; Hypochromasia 1+; Platelet Estimate Increased (Normal)
[2021-05-20 14:09] LABS: Hypersegmented Polys 1+; Ovalocytes Trace; Tear Drop Cells Trace
--- NOTE | 2021-05-20 14:52 | ECG_ITS ---
[facility] Test Date: 2021-05-20 Pat Name: Enrique Murguia Department: Room: ICU02 Gender: Male Stogie Packer: : 1945 Requested By: Dave Lockwood Order Number: [id number] Reading MD: Dipika Pyle M.D. Measurements Intervals [place] Rate: 83 P: VT: QRS: -39 QRSD: 89 T: 49 QT: 342 QTc: 404 Interpretive Statements ATRIAL FIBRILLATION LEFT AXIS DEVIATION [QRS AXIS < -30] POSSIBLE RIGHT VENTRICULAR CONDUCTION DELAY [RSR (QR) IN V1/V2] NONSPECIFIC T-WAVE ABNORMALITY Compared to ECG 05/20/2021 13:52:50 No significant changes Electronically Signed On 05-21-2021 19:40:06 CDT by Dipika Pyle M.D. [id number]
[2021-05-20 14:59] LABS: ALBUMIN 2.7 g/dL (3.8-4.8); ALPHA 1 GLOBULIN 0.4 g/dL (0.2-0.3); ALPHA 2 GLOBULIN 0.6 g/dL (0.5-0.9); BETA 1 GLOBULIN 0.3 g/dL (0.4-0.6); BETA 2 GLOBULIN 0.3 g/dL (0.2-0.5); GAMMA GLOBULIN 1.2 g/dL (0.8-1.7)
[2021-05-20 15:02] LABS: Troponin(5th) Baseline 110 ng/L (0-15)
[2021-05-20] MEDS: sodium chloride 0.9% 1,000 ML 30 ML IV (15:41)
[2021-05-20 16:04] LABS: KAPPA LIGHT CHAIN, FREE, SERUM 100.2 mg/L (3.3-19.4); KAPPA/LAMBDA LIGHT CHAINS FREE 0.95 (0.26-1.65); LAMBDA LIGHT CHAIN, FREE, SERU 105.5 mg/L (5.7-26.3)
[2021-05-20 16:49] LABS: Basophils % 0.1 %; Hematocrit 26.6 % (42.0-52.0); Hemoglobin 8.7 g/dL (11.7-16.6); Lymphocytes # 1.6 10^3/uL (0.8-4.8); Lymphocytes % 15.7 %; Mean Corpuscular HGB Conc 32.7 g/dL (30.0-36.0); Mean Corpuscular Hemoglobin 30.3 pg (28.0-34.0); Mean Corpuscular Volume 92.7 fl (80-94); Mean Platelet Volume 10.8 fL (7.4-10.4); Monocytes % 9.9 %; Neutrophils # 6.82 10^3/uL (1.8-7.7); Neutrophils % 66.5 %; Nucleated Red Blood Cells % 0 %; Platelet Count 319 10^3/cmm (130-400); Red Blood Count 2.87 10^6/uL (4.1-5.3); Red Cell Distribution Width 15.3 % (12.1-15.1); White Blood Count 10.3 10^3/uL (4.0-10.0)
[2021-05-20 17:17] LABS: Troponin 5 2HR 102.5 ng/L (0-15); Troponin 5 2HR Delta -7.5 ABS# (0-10)
[2021-05-20] MEDS: magnesium citrate Btl 296 mL PO ×2 (17:24→21:22)
[2021-05-20 17:54] LABS: Slide Review Slide Review Perform
[2021-05-20] MEDS: atorvastatin 40 mg Tablet PO (21:21)
[2021-05-20 22:02] LABS: Hematocrit 26.5 % (42.0-52.0); Hemoglobin 8.8 g/dL (11.7-16.6)
[2021-05-20] MEDS: pantoprazole 40 mg SDV IVP (22:28)
[2021-05-20 22:29] LABS: Troponin 5 6HR 91.51 ng/L (0-15)
--- NOTE | 2021-05-20 22:35 | PC.NURSE ---
Patient Report Patient report received from CAMDEN Johnson. Medications running per MAR, patient up to bedside commode. Nurse to assume care.
[2021-05-20] MEDS: bisacodyl 5 mg Tablet 20 MG PO (22:55)
--- NOTE | 2021-05-20 23:28 | PC.NURSE ---
Patient under care from [id number]. During that time patient had vitals within normal parameters and was resting in bed. Patient had one bowel movement around 1999 that was reported as tarry and loose. Patient denies pain. Report given to Marybel at 7.
--- NOTE | 2021-05-20 23:30 | PC.NURSE ---
Personal Hygiene When asked, patient refused bathing and oral care. Patient stated that he bathed not too long ago.
[2021-05-21] VITALS (32 sets, daily range): BP systolic 97–129; BP diastolic 53–97; PULSE 61–104; RESP 14–25; TEMP 36.1–37.1; O2SAT 73–98
[2021-05-21] MEDS: metOLazone 5 MG Tablet 10 MG PO ×2 (00:04→06:14)
--- NOTE | 2021-05-21 00:38 | PC.NURSE ---
Bedside Commode Patient transitioned to bedside commode and back to bed with minimal assistance.Movement was tolerated well.
--- NOTE | 2021-05-21 02:15 | PC.NURSE ---
Cardiac Rhythm Patient's telemetry showed several instances where pauses occurred in the cardiac rhythm for multiple seconds. Patient's vital signs stable, and patient not symptomatic. Past documentation in patient's chart shows previous similar rhythms/pauses throughout stay. Cardiac strips printed and placed in chart.
[2021-05-21 03:35] LABS: Basophils % 0.1 %; Hematocrit 28.2 % (42.0-52.0); Lymphocytes # 1.9 10^3/uL (0.8-4.8); Lymphocytes % 16.8 %; Mean Corpuscular HGB Conc 31.9 g/dL (30.0-36.0); Mean Corpuscular Hemoglobin 29.8 pg (28.0-34.0); Mean Corpuscular Volume 93.4 fl (80-94); Mean Platelet Volume 10.5 fL (7.4-10.4); Monocytes # 1.1 10^3/uL (0.2-0.9); Monocytes % 9.9 %; Neutrophils # 7.21 10^3/uL (1.8-7.7); Neutrophils % 64.7 %; Nucleated Red Blood Cells % 0 %; Platelet Count 323 10^3/cmm (130-400); Red Blood Count 3.02 10^6/uL (4.1-5.3); Red Cell Distribution Width 16.8 % (12.1-15.1); White Blood Count 11.1 10^3/uL (4.0-10.0)
[2021-05-21 03:55] LABS: Slide Review Slide Review Perform
[2021-05-21 04:10] LABS: Alanine Aminotransferase 25 U/L (0-41); Albumin Level 2.9 g/dL (3.5-5.2); Alkaline Phosphatase 73 IU/L (40-130); Anion Gap 14.1 (5-19); Aspartate Amino Transferase 17 U/L (0-40); Blood Urea Nitrogen 74 mg/dL (8-23); Calcium 10.8 mg/dL (8.5-10.5); Carbon Dioxide 20 mmol/L (22-29); Chloride 109 mmol/L (98-107); Globulin 2.8 g/dL (1.3-4.6); Glucose 109 mg/dL (65-115); Osmolality Calculated 310 mOsm/kg (285-295); Phosphorus 2.9 mg/dL (2.5-4.5); Potassium 4.1 mmol/L (3.5-5.1); Sodium 139 mmol/L (136-145); Total Bilirubin 0.3 mg/dL (0.15-1.2); Total Protein 5.7 g/dL (6.6-8.7)
[2021-05-21] MEDS: sucralfate 1 gm/10 mL Oral Liq UDC PO ×3 (06:14→23:29)
[2021-05-21 06:48] LABS: Hematocrit 31.8 % (42.0-52.0); Hemoglobin 9.9 g/dL (11.7-16.6)
--- NOTE | 2021-05-21 07:00 | PC.NURSE ---
Shift Note Frequent safety and comfort rounds continue. Orders and/or nursing care completed as indicated. Patient monitored for response to intervention and treatment(s). Education provided includes time of impending procedure and information about medications received. Patient verbalized understanding. Will continue to monitor.
--- NOTE | 2021-05-21 07:15 | PC.NURSE ---
Pt picked up for colonoscopy by Jacklyn via wheelchair.
[2021-05-21] MEDS: sodium chloride 0.9% 1,000 ML 30 ML IV (07:17)
--- NOTE | 2021-05-21 07:40 | ANES.PREANE2 ---
Pre-Anesthetic Assessment Pre-Anesthetic Assessment: Height/Weight: Height 1.8 m Weight 117.027 kg Temp Pulse Resp BP Pulse Ox 98.8 F 89 18 129/76 97 05/21/21 04:00 05/21/21 06:01 05/21/21 06:01 05/21/21 06:01 05/21/21 06:01 Preop Diagnosis: Anemia blood loss Proposed Procedure: Operation Date: 05/21/21 08:00 Proposed Procedures p EGD(Not Applicable) - Trey Menendez MD s Colonoscopy(Not Applicable) - Trey Menendez MD Was Beta Eric taken within 24 hours: N/A Was Clonidine taken within 24 hours: N/A Social: Social History: No alcohol and No tobacco Exam: Pre-Anes Outpt Exam: alert, oriented x 3 and clear to auscultation bilaterally Airway: Submandibular: WNL Cervical ROM: WNL MP: 2 Dentition: Chipped CV/HEM: CV/HEM: Afib, Anemia (severe, recent transfusion), Arrythmia, CAD and HTN Comments: EF 55% : : Chronic renal Insufficiency GI: GI: GERD Comments: GI bleed Metabolic: Metabolic: Morbid obesity Anesthetic Plan: ASA status: 3 Anesthesia: MAC Risk of > 500 ml blood loss (7ml/kg in children): No Meds/Allergies Current Medications: Current Medications Generic Name Dose Route Start Last Admin Trade Name Freq PRN Reason Stop Dose Admin Acetaminophen 650 mg 05/15/21 15:57 05/20/21 10:00 Acetaminophen 32 5 Mg Tablet PO 650 mg Q6H PRN Administration Mild/Mod Pain Or Temp >/= 101 Allopurinol 100 mg 05/15/21 18:00 05/20/21 18:16 Allopurinol 100 Mg Tablet PO 100 mg BID RADHA Administration Atorvastatin Calci um 40 mg 05/16/21 21:00 05/20/21 21:21 Atorvastatin 40 Mg Tablet PO 40 mg BEDTIME RADHA Administration Sodium Chloride 1,000 mls @ 30 ml s/hr 05/20/21 14:45 05/21/21 00:09 Sodium Chloride 0.9% IV 30 mls/hr .Q24H RADHA Infusion Sodium Chloride 1,000 mls @ 30 ml s/hr 05/20/21 14:36 05/20/21 15:37 Sodium Chloride 0.9% IV 05/21/21 14:35 Not Given .Q24H ONE Isosorbide Mononit rate 30 mg 05/20/21 09:00 05/20/21 08:12 Isosorbide Isle itrate Er 30 Mg Ta blet PO 30 mg DAILY RADHA Administration Metolazone 10 mg 05/20/21 12:30 05/21/21 06:14 Metolazone 5 Mg Tablet PO 10 mg Q6H RADHA Administration Pantoprazole Sodiu m 40 mg 05/20/21 11:00 05/20/21 22:28 Pantoprazole 40 Mg Sdv IVP 40 mg Q12H RADHA Administration Sucralfate 1 gm 05/20/21 11:00 05/21/21 06:14 Sucralfate 1 Gm/ 10 Ml Oral Liq Udc PO 1 gm AC&BEDTIME RADHA Administration Tamsulosin HCl 0.4 mg 05/16/21 09:00 05/20/21 08:11 Tamsulosin 0.4 M g Capsule PO 0.4 mg DAILY RADHA Administration PFSH Anesthesia PFSH: Medical History (Updated 05/20/21 @ 12:46 by Dave Lockwood MD) Gout Hydronephrosis of right kidney Hypertension Hypertension Left renal mass Social History Alcohol intake: never Data Anesthesia CBC & Chem 7: 05/21/21 06:30 05/21/21 03:20 Other Labs: Laboratory Results - last 48 hr 05/17/21 05/19/21 05/19/21 12:25 04:37 15:08 WBC RBC Hgb Hct MCV MCH MCHC RDW Plt Count MPV Neut % (Auto) Lymph % (Auto) [place] % (Auto) Eos % (Auto) Baso % (Auto) Neut # (Auto) Lymph # (Auto) [place] # (Auto) Eos # (Auto) Baso # (Auto) Nucleated RBC % (auto) Total Counted Atypical Lymphs % Absolute Neutrophils Segmented Neutrophils Abs Segm Neuts (Man) Band Neutrophils Abs Band Neuts (Man) Absolute Lymphocytes Lymphocytes (Manual) Monocytes (Manual) Absolute Monocytes Eosinophils (Manual) Absolute Eosinophils Basophils (Manual) Metamyelocytes Myelocytes Nucleated RBCs # Hypersegmented Polys Platelet Estimate Giant Platelets Hypochromasia Tear Drop Cells Ovalocytes ESR 17 H PT INR Sodium Potassium Chloride Carbon Dioxide Anion Gap BUN Creatinine GFR Calculation Glucose Calculated Osmolality Lactate Calcium Phosphorus 2.7 Magnesium Total Bilirubin AST ALT Alkaline Phosphatase Troponin T Baseline Troponin T 120 Minute Delta Troponin T Troponin T Hi Sens 6Hr Troponin T Hi Sens 6Hr Delta C-Reactive Protein NT-Pro-B Natriuret Pep Total Protein Albumin Globulin Vanvc-3-Euhqceeha Jppbv-5-Kxbyodswr Glsh-7-Bamzajgu Opiv-4-Yojgyxhz Gamma Globulins Abnorm Protein Band 1 25-OH Vitamin D Total > 100 H Procalcitonin PTH Intact 6.2 L Calcium (PTH Intact) 11.1 H U Abnormal Prot Band 2 U Abnormal Prot Band 3 Pro Electrophoresis Int Free [employer] Light Chains Free Lambda Light Chain Free [employer]/Lambda Ratio Blood Type Rho(D) Type Antibody Screen Crossmatch 05/19/21 05/19/21 05/20/21 15:08 15:08 04:25 WBC RBC Hgb Hct MCV MCH MCHC RDW Plt Count MPV Neut % (Auto) Lymph % (Auto) [place] % (Auto) Eos % (Auto) Baso % (Auto) Neut # (Auto) Lymph # (Auto) [place] # (Auto) Eos # (Auto) Baso # (Auto) Nucleated RBC % (auto) Total Counted Atypical Lymphs % Absolute Neutrophils Segmented Neutrophils Abs Segm Neuts (Man) Band Neutrophils Abs Band Neuts (Man) Absolute Lymphocytes Lymphocytes (Manual) Monocytes (Manual) Absolute Monocytes Eosinophils (Manual) Absolute Eosinophils Basophils (Manual) Metamyelocytes Myelocytes Nucleated RBCs # Hypersegmented Polys Platelet Estimate Giant Platelets Hypochromasia Tear Drop Cells Ovalocytes ESR PT INR Sodium 138 Potassium 4.2 Chloride 107 Carbon Dioxide 22 Anion Gap 13.2 BUN 72 H Creatinine 2.0 H GFR Calculation Not Reportable Glucose 106 Calculated Osmolality 308 H Lactate Calcium 11.2 H Phosphorus Magnesium Total Bilirubin 0.2 AST 17 ALT 25 Alkaline Phosphatase 78 Troponin T Baseline Troponin T 120 Minute Delta Troponin T Troponin T Hi Sens 6Hr Troponin T Hi Sens 6Hr Delta C-Reactive Protein NT-Pro-B Natriuret Pep Total Protein 5.6 L 5.9 L Albumin 2.7 L 2.8 L Globulin 3.1 Tmmru-8-Zezsahtdq 0.4 H Dtdwf-6-Wyilikazg 0.6 Rblg-8-Ungpppfz 0.3 L Anuk-1-Rgwtajns 0.3 Gamma Globulins 1.2 Abnorm Protein Band 1 Not Reportable 25-OH Vitamin D Total Procalcitonin PTH Intact Calcium (PTH Intact) U Abnormal Prot Band 2 Not Reportable U Abnormal Prot Band 3 Not Reportable Pro Electrophoresis Int See note Free [employer] Light Chains 100.2 H Free Lambda Light Chain 105.5 H Free [employer]/Lambda Ratio 0.95 Blood Type Rho(D) Type Antibody Screen Crossmatch 05/20/21 05/20/21 05/20/21 04:25 12:40 12:40 WBC 9.1 12.8 H RBC 2.82 L 2.72 L Hgb 8.8 L 8.3 L Hct 27.9 L 26.8 L MCV 98.9 H 98.5 H MCH 31.2 30.5 MCHC 31.5 31.0 RDW 13.2 13.3 Plt Count 370 423 H MPV 11.4 H 11.2 H Neut % (Auto) 65.1 Lymph % (Auto) 18.9 Not Reportable [place]igs % (Auto) 10.4 Not Reportable Eos % (Auto) 0.0 Baso % (Auto) 0.1 Neut # (Auto) 5.92 Lymph # (Auto) 1.7 Not Reportable [place] # (Auto) 1.0 H Not Reportable Eos # (Auto) 0.0 Baso # (Auto) 0.0 Nucleated RBC % (auto) 0 Total Counted 100 Atypical Lymphs % 2.0 Absolute Neutrophils 9.7 H Segmented Neutrophils 73 Abs Segm Neuts (Man) 9.3 H Band Neutrophils 3.0 Abs Band Neuts (Man) 0.4 Absolute Lymphocytes 1.7 Lymphocytes (Manual) 11 Monocytes (Manual) 6.0 Absolute Monocytes 0.8 H Eosinophils (Manual) 1 Absolute Eosinophils 0.1 Basophils (Manual) Not Reportable Metamyelocytes 2.0 Myelocytes 2.0 Nucleated RBCs # 0.0 Hypersegmented Polys 1+ Platelet Estimate Increased Giant Platelets Trace Hypochromasia 1+ H Tear Drop Cells Trace Ovalocytes Trace ESR PT 16.40 H INR 1.29 H Sodium Potassium Chloride Carbon Dioxide Anion Gap BUN Creatinine GFR Calculation Glucose Calculated Osmolality Lactate Calcium Phosphorus Magnesium Total Bilirubin AST ALT Alkaline Phosphatase Troponin T Baseline Troponin T 120 Minute Delta Troponin T Troponin T Hi Sens 6Hr Troponin T Hi Sens 6Hr Delta C-Reactive Protein NT-Pro-B Natriuret Pep Total Protein Albumin Globulin Tetfa-1-Mphiqfapu Ucted-0-Nteoivqgs Mfsh-4-Piaoiyic Epkk-1-Spmsbzzk Gamma Globulins Abnorm Protein Band 1 25-OH Vitamin D Total Procalcitonin PTH Intact Calcium (PTH Intact) U Abnormal Prot Band 2 U Abnormal Prot Band 3 Pro Electrophoresis Int Free [employer] Light Chains Free Lambda Light Chain Free [employer]/Lambda Ratio Blood Type Rho(D) Type Antibody Screen Crossmatch 05/20/21 05/20/21 05/20/21 12:40 12:40 12:40 WBC RBC Hgb Hct MCV MCH MCHC RDW Plt Count MPV Neut % (Auto) Lymph % (Auto) [place] % (Auto) Eos % (Auto) Baso % (Auto) Neut # (Auto) Lymph # (Auto) [place] # (Auto) Eos # (Auto) Baso # (Auto) Nucleated RBC % (auto) Total Counted Atypical Lymphs % Absolute Neutrophils Segmented Neutrophils Abs Segm Neuts (Man) Band Neutrophils Abs Band Neuts (Man) Absolute Lymphocytes Lymphocytes (Manual) Monocytes (Manual) Absolute Monocytes Eosinophils (Manual) Absolute Eosinophils Basophils (Manual) Metamyelocytes Myelocytes Nucleated RBCs # Hypersegmented Polys Platelet Estimate Giant Platelets Hypochromasia Tear Drop Cells Ovalocytes ESR PT INR Sodium Potassium Chloride Carbon Dioxide Anion Gap BUN Creatinine GFR Calculation Glucose Calculated Osmolality Lactate 2.5 H Calcium Phosphorus Magnesium Total Bilirubin AST ALT Alkaline Phosphatase Troponin T Baseline Troponin T 120 Minute Delta Troponin T Troponin T Hi Sens 6Hr Troponin T Hi Sens 6Hr Delta C-Reactive Protein 8.3 H NT-Pro-B Natriuret Pep 229 Total Protein Albumin Globulin Kzfvs-5-Jnkhmqfgh Pmcok-9-Jtaufaotq Bkkj-7-Jiwtyhwr Zomr-1-Iskrylyj Gamma Globulins Abnorm Protein Band 1 25-OH Vitamin D Total Procalcitonin 0.44 PTH Intact Calcium (PTH Intact) U Abnormal Prot Band 2 U Abnormal Prot Band 3 Pro Electrophoresis Int Free [employer] Light Chains Free Lambda Light Chain Free [employer]/Lambda Ratio Blood Type A Positive Rho(D) Type Positive Antibody Screen Negative Crossmatch See Detail 05/20/21 05/20/21 05/20/21 14:10 16:28 16:28 WBC 10.3 H RBC 2.87 L Hgb 8.7 L Hct 26.6 L MCV 92.7 D MCH 30.3 MCHC 32.7 D RDW 15.3 H Plt Count 319 MPV 10.8 H Neut % (Auto) 66.5 Lymph % (Auto) 15.7 Meigs % (Auto) 9.9 Eos % (Auto) 0.0 Baso % (Auto) 0.1 Neut # (Auto) 6.82 Lymph # (Auto) 1.6 [place] # (Auto) 1.0 H Eos # (Auto) 0.0 Baso # (Auto) 0.0 Nucleated RBC % (auto) 0 Total Counted Atypical Lymphs % Absolute Neutrophils Segmented Neutrophils Abs Segm Neuts (Man) Band Neutrophils Abs Band Neuts (Man) Absolute Lymphocytes Lymphocytes (Manual) Monocytes (Manual) Absolute Monocytes Eosinophils (Manual) Absolute Eosinophils Basophils (Manual) Metamyelocytes Myelocytes Nucleated RBCs # 0.0 Hypersegmented Polys Platelet Estimate Giant Platelets Hypochromasia Tear Drop Cells Ovalocytes ESR PT INR Sodium Potassium Chloride Carbon Dioxide Anion Gap BUN Creatinine GFR Calculation Glucose Calculated Osmolality Lactate Calcium Phosphorus Magnesium Total Bilirubin AST ALT Alkaline Phosphatase Troponin T Baseline 110 H* Troponin T 120 Minute 102.5 H Delta Troponin T -7.5 L Troponin T Hi Sens 6Hr Troponin T Hi Sens 6Hr Delta C-Reactive Protein NT-Pro-B Natriuret Pep Total Protein Albumin Globulin Kpsfg-4-Yqjrsvukf Uelbv-4-Xytsbuwsk Znkb-2-Buucqqji Pzmz-1-Yygyaxct Gamma Globulins Abnorm Protein Band 1 25-OH Vitamin D Total Procalcitonin PTH Intact Calcium (PTH Intact) U Abnormal Prot Band 2 U Abnormal Prot Band 3 Pro Electrophoresis Int Free [employer] Light Chains Free Lambda Light Chain Free [employer]/Lambda Ratio Blood Type Rho(D) Type Antibody Screen Crossmatch 05/20/21 05/20/21 05/21/21 21:53 21:53 03:20 WBC RBC Hgb 8.8 L Hct 26.5 L MCV MCH MCHC RDW Plt Count MPV Neut % (Auto) Lymph % (Auto) [place] % (Auto) Eos % (Auto) Baso % (Auto) Neut # (Auto) Lymph # (Auto) [place] # (Auto) Eos # (Auto) Baso # (Auto) Nucleated RBC % (auto) Total Counted Atypical Lymphs % Absolute Neutrophils Segmented Neutrophils Abs Segm Neuts (Man) Band Neutrophils Abs Band Neuts (Man) Absolute Lymphocytes Lymphocytes (Manual) Monocytes (Manual) Absolute Monocytes Eosinophils (Manual) Absolute Eosinophils Basophils (Manual) Metamyelocytes Myelocytes Nucleated RBCs # Hypersegmented Polys Platelet Estimate Giant Platelets Hypochromasia Tear Drop Cells Ovalocytes ESR PT INR Sodium 139 Potassium 4.1 Chloride 109 H Carbon Dioxide 20 L Anion Gap 14.1 BUN 74 H Creatinine 1.8 H GFR Calculation Not Reportable Glucose 109 Calculated Osmolality 310 H Lactate Calcium 10.8 H Phosphorus 2.9 Magnesium 3.0 H Total Bilirubin 0.3 AST 17 ALT 25 Alkaline Phosphatase 73 Troponin T Baseline Troponin T 120 Minute Delta Troponin T Troponin T Hi Sens 6Hr 91.51 H Troponin T Hi Sens 6Hr Delta -18.49 L C-Reactive Protein NT-Pro-B Natriuret Pep Total Protein 5.7 L Albumin 2.9 L Globulin 2.8 Zvquc-8-Qznqaiiwu Pgkez-0-Ppalvxhlz Oipv-4-Qmvcpaks Zlsw-9-Rcncsuzf Gamma Globulins Abnorm Protein Band 1 25-OH Vitamin D Total Procalcitonin PTH Intact Calcium (PTH Intact) U Abnormal Prot Band 2 U Abnormal Prot Band 3 Pro Electrophoresis Int Free [employer] Light Chains Free Lambda Light Chain Free [employer]/Lambda Ratio Blood Type Rho(D) Type Antibody Screen Crossmatch 05/21/21 05/21/21 03:20 06:30 WBC 11.1 H RBC 3.02 L Hgb 9.0 L 9.9 L Hct 28.2 L 31.8 L MCV 93.4 MCH 29.8 MCHC 31.9 RDW 16.8 H Plt Count 323 MPV 10.5 H Neut % (Auto) 64.7 Lymph % (Auto) 16.8 [place] % (Auto) 9.9 Eos % (Auto) 0.0 Baso % (Auto) 0.1 Neut # (Auto) 7.21 Lymph # (Auto) 1.9 [place] # (Auto) 1.1 H Eos # (Auto) 0.0 Baso # (Auto) 0.0 Nucleated RBC % (auto) 0 Total Counted Atypical Lymphs % Absolute Neutrophils Segmented Neutrophils Abs Segm Neuts (Man) Band Neutrophils Abs Band Neuts (Man) Absolute Lymphocytes Lymphocytes (Manual) Monocytes (Manual) Absolute Monocytes Eosinophils (Manual) Absolute Eosinophils Basophils (Manual) Metamyelocytes Myelocytes Nucleated RBCs # 0.0 Hypersegmented Polys Platelet Estimate Giant Platelets Hypochromasia Tear Drop Cells Ovalocytes ESR PT INR Sodium Potassium Chloride Carbon Dioxide Anion Gap BUN Creatinine GFR Calculation Glucose Calculated Osmolality Lactate Calcium Phosphorus Magnesium Total Bilirubin AST ALT Alkaline Phosphatase Troponin T Baseline Troponin T 120 Minute Delta Troponin T Troponin T Hi Sens 6Hr Troponin T Hi Sens 6Hr Delta C-Reactive Protein NT-Pro-B Natriuret Pep Total Protein Albumin Globulin Hdpol-1-Wbkdhwdtq Druou-7-Uebalwfwo Ruld-2-Igxjabsk Ohgm-9-Ibovosij Gamma Globulins Abnorm Protein Band 1 25-OH Vitamin D Total Procalcitonin PTH Intact Calcium (PTH Intact) U Abnormal Prot Band 2 U Abnormal Prot Band 3 Pro Electrophoresis Int Free [employer] Light Chains Free Lambda Light Chain Free [employer]/Lambda Ratio Blood Type Rho(D) Type Antibody Screen Crossmatch Cardiac Studies: Echocardiogram 05/16/21
--- NOTE | 2021-05-21 07:44 | PM.CONSULT ---
Providers/Reason For Consult Consulting Physician/Specialty*: Endoscopy Reason for Consult*: Anemia due to GI blood loss Attending Physician: Dave Lockwood MD Primary Care Provider: Raymond Jansen [facility] History of Present Illness History of Present Illness Enrique Murguia is a 75 year old male who was admitted for urinary obstruction. He subsequently developed atrial fibrillation and was placed on anticoagulation. The hospitalist team was preparing to get him to some rehab time, when his blood pressure suddenly became very soft. He was noted to have dropped his hemoglobin from 12-8 and he was given some blood. His blood pressure recovered. At the time there was obscure information regarding whether or not he was having any black and tarry stools. This morning after he prep for his colonoscopy, he mentioned that his stools were black as tar. He has no history of GI bleed, and he denies ever having any endoscopy including colonoscopy. Review of Systems General: Reports: 10 or more systems reviewed and unremarkable except in HPI and below Meds/Allergies Home Medications and Allergies Home Medications Medication Instructions Recorded Confirmed Last Taken Type allopurinol 100 mg tablet 100 mg PO BID 07/21/20 05/15/21 05/13/21 History acetaminophen 1,000 mg PO Q8H PRN 05/15/21 05/15/21 Unknown History oxycodone 5 mg PO Q4H PRN 05/15/21 05/15/21 Unknown History aspirin 81 mg PO DAILY 30 Days #30 cap 05/18/21 Unknown Rx tamsulosin 0.4 mg PO DAILY 30 Days #30 cap 05/18/21 Unknown Rx isosorbide mononitrate 30 mg PO DAILY 30 Days #30 tab 05/20/21 Unknown Rx Allergies Allergy/AdvReac Type Severity Reaction Status Date / Time No Known Allergies Allergy Verified 05/11/21 11:00 Current Medications Current Medications Generic Name Dose Route Start Last Admin Trade Name Freq PRN Reason Stop Dose Admin Acetaminophen 650 mg 05/15/21 15:57 05/20/21 10:00 Acetaminophen 325 Mg Tablet PO 650 mg Q6H PRN Administration Mild/Mod Pain Or Temp >/= 101 Allopurinol 100 mg 05/15/21 18:00 05/20/21 18:16 Allopurinol 100 Mg Tablet PO 100 mg BID RADHA Administration Atorvastatin Calcium 40 mg 05/16/21 21:00 05/20/21 21:21 Atorvastatin 40 Mg Tablet PO 40 mg BEDTIME RADHA Administration Sodium Chloride 1,000 mls @ 30 mls/hr 05/20/21 14:45 05/21/21 00:09 Sodium Chloride 0.9% IV 30 mls/hr .Q24H RADHA Infusion Sodium Chloride 1,000 mls @ 30 mls/hr 05/20/21 14:36 05/20/21 15:37 Sodium Chloride 0.9% IV 05/21/21 14:35 Not Given .Q24H ONE Isosorbide Mononitrate 30 mg 05/20/21 09:00 05/20/21 08:12 Isosorbide Mononitrate Er 30 Mg Tablet PO 30 mg DAILY RADHA Administration Metolazone 10 mg 05/20/21 12:30 05/21/21 06:14 Metolazone 5 Mg Tablet PO 10 mg Q6H RADHA Administration Pantoprazole Sodium 40 mg 05/20/21 11:00 05/20/21 22:28 Pantoprazole 40 Mg Sdv IVP 40 mg Q12H RADHA Administration Sucralfate 1 gm 05/20/21 11:00 05/21/21 06:14 Sucralfate 1 Gm/10 Ml Oral Liq Udc PO 1 gm AC&BEDTIME RADHA Administration Tamsulosin HCl 0.4 mg 05/16/21 09:00 05/20/21 08:11 Tamsulosin 0.4 Mg Capsule PO 0.4 mg DAILY RADHA Administration PFSH Acute PFSH: Medical History (Updated 05/20/21 @ 12:46 by Dave Lockwood MD) Gout Hydronephrosis of right kidney Hypertension Hypertension Left renal mass Social History Alcohol intake: never Vitals/I&O/Wt Last Vital Signs Temp 98.8 F 05/21/21 04:00 Pulse 89 05/21/21 06:01 Resp 18 05/21/21 06:01 BP 129/76 05/21/21 06:01 Pulse Ox 97 05/21/21 06:01 05/20/21 05/21/21 05/21/21 22:59 06:59 14:59 Intake Total 549.5 / 1067.5 0 / 1067.5 Output Total 1300 / 1300 1150 / 2450 Balance -750.5 / -232.5 -1150 / -1382.5 Physical Exam Narrative: EXAM NARRATIVE: This morning as he prepares for his endoscopy is in no distress. His abdomen is soft and nontender. He is having copious stools, but he is recently prepped for colonoscopy. Urinary Catheter Management^: Castillo: Cath Placed During This Visit: yes Reason for Continuing Indwelling Catheter: Accurate Measurement of Urinary Output in Critically Ill Patients Urinary Catheter Date of Insertion: 05/15/21 Urinary Catheter Time of Insertion: 18:30 A&P Assessment and plan (1) GI bleed: Likely an upper source, but since he is never had a colonoscopy will do double endoscopy this morning. 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
[2021-05-21] MEDS: EPINEPHrine 1 mg/mL INJ XX (08:02)
--- NOTE | 2021-05-21 09:30 | P.PN_ITS ---
Subjective Subjective: Interval history: no complaints Medications: Reviewed: Yes Vitals/I&O/Wt Last Vital Signs Temp 97 F L 05/21/21 07:47 Pulse 95 05/21/21 07:47 Resp 18 05/21/21 07:47 BP 119/72 05/21/21 07:47 Pulse Ox 95 05/21/21 07:47 05/20/21 05/21/21 05/21/21 22:59 06:59 14:59 Intake Total 549.5 / 1067.5 0 / 1067.5 200 / 200 Output Total 1300 / 1300 1150 / 2450 Balance -750.5 / -232.5 -1150 / -1382.5 200 / 200 Physical Exam Const: COMMON NORMALS: no acute distress GENERAL APPEARANCE: cooperative Urinary Catheter Management^: [place]mod[place]ar: Cath Placed During This Visit: yes Reason for Continuing Indwelling Catheter: Accurate Measurement of Urinary Output in Critically Ill Patients Urinary Catheter Date of Insertion: 05/15/21 Urinary Catheter Time of Insertion: 18:30 Data : 05/21/21 06:30 05/21/21 03:20 Micro: Microbiology 05/21/21 00:13 Occult Blood (FIT) - Final Stool Routine Collection A&P Additional A&P Information 1. Acute GI bleed, due to duodenal ulcer, contributing to elevated BUN, s/p transfusion pRBC 2. Acute kidney injury - component of obstruction, good urine output with almodovar, urology following 3. Hypercalcemia, kidney stone. PTH low, 25(OH)D high, paraproteinemia workup unremarkable. High 25(OH)D may be seen in granulomatous disease (sarcoid), lymphoma or with thiazide diuretics (receiving high dose metolazone) 4. Chronic kidney disease Recommend: discontinue metolazone. Ensure adequate hydration. 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
[2021-05-21] MEDS: pantoprazole 40 mg SDV IVP (10:10)
[2021-05-21] MEDS: tamsulosin 0.4 mg Capsule PO (10:10)
[2021-05-21] MEDS: isosorbide mononitrate ER 30 mg Tablet PO (10:11)
--- NOTE | 2021-05-21 10:39 | ANE.PACU2 ---
Inpatient post-anesthesia follow up: Airway intact: Yes Vital signs: Temperature 97.2 F Pulse Rate [Monito r] 63 Pulse Rate 85 Respiratory Rate 17 Blood Pressure [Le ft Arm] 130/76 Blood Pressure 119/73 Pulse Oximetry 92 Oxygen Delivery Me thod Room Air Oxygen Flow Rate 2 Fraction of Inspir ed Oxygen Hydration adequate: Yes Nausea and vomiting: No Pain level: 1 Mental status: Baseline
--- NOTE | 2021-05-21 10:42 | PC.CHAP ---
Pastoral Care Encounter/Spiritual Assessment Type of Contact [] Declined shaft mechanic visit [] Patient/Family/Request visit [] Outpatient visit [] Follow-up visit [] Physician referral [] Code/Alert [x] Routine visit [] Staff referral [] Actively dying [] Patient sleeping [] Family support [] [x] Out of room [] Palliative care [] [] Receiving care in room [] Pre-surgical visit [] Trauma [] Long length of stay [x] ICU visit [x] Other:testing Relational/Emotional Strength [] Patient feels connected with others/family/visitors/staff [] Distress [] Loneliness/isolation [] Abandonment Spirituality of Patient [] Person of Michelle [] Attends Baptist of their Michelle [] Believes in Prayer [] Reads Bible or Anabaptism materials [] There are Spiritual issues to be addressed Technical Project Manager Interventions [x] Prayer [] Active listening [] Non-anxious presence [] Spiritual/emotional support [] Crisis/trauma care [] Spiritual counseling [] Bereavement support [] Provided bereavement packet [] Provided Bible/devotional materials [] Provided toy/stuffed animal, coloring book to patient or family member [] Provided Communion [] Anointing/[place] [] Salvation [x] Completed spiritual assessment [] Other: Impact on Illness or Injury [] Angry [] Fearful [] Anxious [] Often cries [] Exhaustion [] Unable to work [] Unable to attend muslim [] Unable to walk/stand [] Unable to read [] Unable to drive [] Unable to eat/drink [] Unable to sleep [] Unable to be with family [] Patient intubated [] Other: Summary Time spent with patient
--- NOTE | 2021-05-21 12:36 | P.PN_ITS ---
Subjective Subjective: Interval history: Patient was seen twice today, once when he was in the GI Lab underwent EGD, second when he was in ICU, in the GI lab he was found to have at that time duodenal ulcers with active bleeding, treated with epinephrine, and dual clips. In the ICU, he tells me is doing fine, no nausea, no vomiting, no bloody or black stools, no lightheadedness, no dizziness, remains normotensive, Vitals/I&O/Wt Last Vital Signs Temp 97.2 F L 05/21/21 09:00 Pulse 85 05/21/21 09:30 Resp 17 05/21/21 09:30 BP 119/73 05/21/21 09:30 Pulse Ox 92 05/21/21 09:30 05/20/21 05/21/21 05/21/21 22:59 06:59 14:59 Intake Total 549.5 / 1067.5 0 / 1067.5 200 / 200 Output Total 1300 / 1300 1150 / 2450 Balance -750.5 / -232.5 -1150 / -1382.5 200 / 200 Physical Exam Const: COMMON NORMALS: no acute distress and patient oriented x3 Resp: COMMON NORMALS: normal respiratory effort, No retractions, No use of accessory muscles and clear to auscultation bilaterally AUSCULTATION: clear to auscultation bilaterally Cardio: COMMON NORMALS: regular rate, regular rhythm, S1 normal heart sound present and S2 normal heart sound present RATE: regular rate RHYTHM: regular rhythm HEART SOUNDS: S1 normal heart sound present and S2 normal heart sound present GI: COMMON NORMALS: Normal to inspection, nondistended, normoactive bowel sounds present, Soft to palpation and non-tender PALPATION: Yes Soft to palpation Extremity: COMMON NORMALS: no pedal edema Neuro: COMMON NORMALS: patient oriented x3 Psych: COMMON NORMALS: mental status grossly normal Urinary Catheter Management^: Castillo: Cath Placed During This Visit: yes Reason for Continuing Indwelling Catheter: Accurate Measurement of Urinary Output in Critically Ill Patients Urinary Catheter Date of Insertion: 05/15/21 Urinary Catheter Time of Insertion: 18:30 Data : 05/21/21 06:30 05/21/21 03:20 Micro: Microbiology 05/21/21 00:13 Occult Blood (FIT) - Final Stool Routine Collection A&P Assessment and plan (1) GI bleed: -Hypotension, tachycardia, hemoglobin down to 8.3, complains of bloody and black stools, on Eliquis, concerning for GI bleed with hemorrhagic shock -Status post 2 units PRBC, moved to the ICU, remained hemodynamically stable -EGD showed showed duodenal ulcer status post epinephrine, and clipping -Currently stable in ICU, normotensive, alert oriented x3, following all commands, no melenic stools, no abdominal pain, on clear liquid diet plan: -Can move to general medical floors -Monitor hemodynamics closely -Recheck hemoglobin in the afternoon -Continue Protonix and Carafate -Monitor for bloody or black stools -Transition diet as tolerated -Hold all anticoagulation for now -Working on placement to [facility] Status: Acute (2) A-fib: Af.ib with slow ventricular response. Currently denies dizziness, chest pain, SOB continues to have episodes of pauses, lasting 2 to 3 seconds Continue Telemetry, will do event monitor on discharge Cardiology Consult Status: Acute Qualifiers: Atrial fibrillation type: persistent (not longstanding) Qualified Code(s): I48.19 - Other persistent atrial fibrillation (3) Hypertension: Status: Acute Qualifiers: Hypertension type: primary hypertension Qualified Code(s): I10 - Essential (primary) hypertension (4) Elevated troponin: NSTEMI Type II : Demand Ischemia Patient denies any chest pain, EKG has failed to show any acute ST-T wave changes. Hold aspirin Lipitor 40 mg po daily Follow 2D echo: 1-Normal left ventricular cavity size. Normal left ventricular systolic function. Left ventricular ejection fraction is estimated at 55 %. In the presence of atrial fibrillation diastolic function cannot be assessed accurately. 2-Aortic valve sclerosis without stenosis or regurgitation. 3-Mildly thickened mitral valve. No mitral valve stenosis. Trace mitral valve regurgitation. 4-There is no pericardial effusion. 5-No significant valve abnormalities. 6-There are no prior echocardiogram studies to compare. Telemetry -Repeat elevated troponins, as high as 110, no complaints of chest pain, no acute ST-T wave changes, secondary to type II NSTEMI, treated to GI bleed as above Status: Acute (5) Heart block, AV: Status: Acute (6) Acute anemia: Resolved Status: Acute (7) Hemorrhagic shock: Resolved Status: Acute Additional A&P Information RISA, creatinine persistently 1.8, consult nephrology Postobstructive uropathy, maintain Castillo, discharge Castillo, continue Flomax Proteus Mirabella's UTI, completed antibiotic therapy Left loculated cystic lesion, follow-up with urology Immobility after surgery, bilateral extremity ultrasound for DVTs no evidence of DVT Disposition, right knee surgery, chronic left knee pain, now with Castillo catheter sinus pauses, daughter at bedside would like us to pursue short-term rehab Attestations Medical Necessity Statement*: Patient requires hospitalization for GI bleed, A. fib, elevated troponins, sinus pauses Coding Level of Care Code Acute [place] Man for [facility] Fwd Diagnoses GI bleed K92.2 A-fib I48.19 Atrial fibrillation type: persistent (not longstanding) Hypertension I10 Hypertension type: primary hypertension Elevated troponin R77.8 Heart block, AV I44.30 Acute anemia D64.9 Hemorrhagic shock R57.8
[2021-05-21] MEDS: allopurinol 100 mg Tablet PO (17:40)
[2021-05-21 18:44] LABS: Basophils % 0.1 %; Hematocrit 26.4 % (42.0-52.0); Hemoglobin 8.6 g/dL (11.7-16.6); Lymphocytes # 1.3 10^3/uL (0.8-4.8); Lymphocytes % 13.7 %; Mean Corpuscular HGB Conc 32.6 g/dL (30.0-36.0); Mean Corpuscular Hemoglobin 30.5 pg (28.0-34.0); Mean Corpuscular Volume 93.6 fl (80-94); Mean Platelet Volume 10.7 fL (7.4-10.4); Monocytes # 0.9 10^3/uL (0.2-0.9); Monocytes % 9.5 %; Neutrophils # 6.46 10^3/uL (1.8-7.7); Neutrophils % 70.4 %; Nucleated Red Blood Cells % 0 %; Platelet Count 363 10^3/cmm (130-400); Red Blood Count 2.82 10^6/uL (4.1-5.3); White Blood Count 9.2 10^3/uL (4.0-10.0)
[2021-05-21 19:11] LABS: Slide Review Slide Review Perform
[2021-05-21] MEDS: atorvastatin 40 mg Tablet PO (23:29)
[2021-05-22] MEDS: pantoprazole 40 mg SDV IVP ×3 (00:20→22:50)
[2021-05-22 04:00] VITALS: BP 100/69; PULSE 76; RESP 19; TEMP 36.8; O2SAT 96
[2021-05-22] MEDS: sucralfate 1 gm/10 mL Oral Liq UDC PO ×4 (06:10→20:44)
[2021-05-22 06:24] LABS: Hematocrit 26.2 % (42.0-52.0); Hemoglobin 8.4 g/dL (11.7-16.6); Lymphocytes # 1.5 10^3/uL (0.8-4.8); Lymphocytes % 15.9 %; Mean Corpuscular HGB Conc 32.1 g/dL (30.0-36.0); Mean Corpuscular Hemoglobin 30.3 pg (28.0-34.0); Mean Corpuscular Volume 94.6 fl (80-94); Mean Platelet Volume 10.6 fL (7.4-10.4); Monocytes % 11.2 %; Neutrophils # 6.22 10^3/uL (1.8-7.7); Nucleated Red Blood Cells % 0.2 %; Platelet Count 340 10^3/cmm (130-400); Red Blood Count 2.77 10^6/uL (4.1-5.3); Red Cell Distribution Width 16.6 % (12.1-15.1); White Blood Count 9.2 10^3/uL (4.0-10.0)
[2021-05-22 06:25] LABS: Neutrophils % 72.9 %
[2021-05-22 06:29] LABS: Alanine Aminotransferase 21 U/L (0-41); Alkaline Phosphatase 76 IU/L (40-130); Anion Gap 10.8 (5-19); Aspartate Amino Transferase 16 U/L (0-40); Blood Urea Nitrogen 46 mg/dL (8-23); Calcium 10.3 mg/dL (8.5-10.5); Carbon Dioxide 24 mmol/L (22-29); Chloride 106 mmol/L (98-107); Globulin 2.6 g/dL (1.3-4.6); Glucose 101 mg/dL (65-115); Magnesium 2.1 mg/dL (1.7-2.3); Osmolality Calculated 296 mOsm/kg (285-295); Potassium 3.8 mmol/L (3.5-5.1); Sodium 137 mmol/L (136-145); Total Bilirubin 0.5 mg/dL (0.15-1.2); Total Protein 5.6 g/dL (6.6-8.7)
[2021-05-22 08:00] VITALS: BP 106/70; PULSE 78; RESP 18; TEMP 36.3; O2SAT 98
[2021-05-22] MEDS: isosorbide mononitrate ER 30 mg Tablet PO (08:48)
[2021-05-22] MEDS: allopurinol 100 mg Tablet PO ×2 (08:48→17:40)
--- NOTE | 2021-05-22 09:41 | PC.SOCIAL ---
IMM update IMM updated with patient. Verbalized an understanding. Copy Pg2 provided. Initialled,dated, timed, and placed in chart.
[2021-05-22 12:00] VITALS: BP 115/66; PULSE 92; RESP 17; TEMP 36.8; O2SAT 96
[2021-05-22] MEDS: acetaminophen 325 mg Tablet 650 MG PO (14:28)
--- NOTE | 2021-05-22 14:28 | PM.PN ---
Subjective Subjective: Interval history: Patient was seen this morning, he tells me he is doing well, he had a small bowel movement overnight, a bit dark appearing, no lightheadedness, dizziness, no nausea, no vomiting Vitals/I&O/Wt Last Vital Signs Temp 98.3 F 05/22/21 12:00 Pulse 92 05/22/21 12:00 Resp 17 05/22/21 12:00 BP 115/66 05/22/21 12:00 Pulse Ox 96 05/22/21 12:00 05/21/21 05/22/21 05/22/21 22:59 06:59 14:59 Intake Total 360 / 560 1300.5 / 1860.5 120 / 120 Output Total 200 / 200 1150 / 1350 800 / 800 Balance 160 / 360 150.5 / 510.5 -680 / -680 Physical Exam Const: COMMON NORMALS: no acute distress ORIENTATION/CONSCIOUSNESS: Yes awake, Yes oriented to person and Yes oriented to place; not oriented to time Resp: COMMON NORMALS: normal respiratory effort, No retractions, No use of accessory muscles and clear to auscultation bilaterally AUSCULTATION: clear to auscultation bilaterally Cardio: COMMON NORMALS: regular rate, regular rhythm, S1 normal heart sound present and S2 normal heart sound present RATE: regular rate RHYTHM: regular rhythm HEART SOUNDS: S1 normal heart sound present and S2 normal heart sound present GI: COMMON NORMALS: Normal to inspection, nondistended, normoactive bowel sounds present, Soft to palpation, non-tender, No hepatosplenomegaly present, no masses and no bruits PALPATION: Yes Soft to palpation and Yes No hepatosplenomegaly present Extremity: COMMON NORMALS: no pedal edema Neuro: SENSORIUM/ORIENTATION: Yes oriented to person, Yes oriented to place and No oriented to time Psych: COMMON NORMALS: mental status grossly normal Urinary Catheter Management^: Castillo: Cath Placed During This Visit: yes Reason for Continuing Indwelling Catheter: Accurate Measurement of Urinary Output in Critically Ill Patients Urinary Catheter Date of Insertion: 05/15/21 Urinary Catheter Time of Insertion: 18:30 Data : 05/22/21 05:56 05/22/21 05:56 A&P Assessment and plan (1) GI bleed: -Hypotension, tachycardia, hemoglobin down to 8.3, complains of bloody and black stools, on Eliquis, concerning for GI bleed with hemorrhagic shock -Status post 2 units PRBC, moved to the ICU, remained hemodynamically stable -EGD showed showed duodenal ulcer status post epinephrine, and clipping -Currently stable moved to general medical floors, normotensive, alert oriented x3, following all commands, 1 dark-colored stool, hemoglobin stable at 8.4, plan: -Continue to monitor medical floors -Monitor hemodynamics closely -Recheck hemoglobin in the afternoon -Continue Protonix and Carafate -Monitor for bloody or black stools -Transition diet as tolerated to GI soft diet -Hold all anticoagulation for now -Working on placement to assisted Status: Acute (2) A-fib: Af.ib with slow ventricular response. Currently denies dizziness, chest pain, SOB continues to have episodes of pauses intermittently, lasting 2 to 3 seconds Continue Telemetry, will do event monitor on discharge Cardiology Consult Status: Acute Qualifiers: Atrial fibrillation type: persistent (not longstanding) Qualified Code(s): I48.19 - Other persistent atrial fibrillation (3) Hypertension: Status: Acute Qualifiers: Hypertension type: primary hypertension Qualified Code(s): I10 - Essential (primary) hypertension (4) Elevated troponin: NSTEMI Type II : Demand Ischemia Patient denies any chest pain, EKG has failed to show any acute ST-T wave changes. Hold aspirin Lipitor 40 mg po daily Follow 2D echo: 1-Normal left ventricular cavity size. Normal left ventricular systolic function. Left ventricular ejection fraction is estimated at 55 %. In the presence of atrial fibrillation diastolic function cannot be assessed accurately. 2-Aortic valve sclerosis without stenosis or regurgitation. 3-Mildly thickened mitral valve. No mitral valve stenosis. Trace mitral valve regurgitation. 4-There is no pericardial effusion. 5-No significant valve abnormalities. 6-There are no prior echocardiogram studies to compare. Telemetry -Repeat elevated troponins, as high as 110, no complaints of chest pain, no acute ST-T wave changes, secondary to type II NSTEMI, treated to GI bleed as above Status: Acute (5) Heart block, AV: Status: Acute (6) Acute anemia: Resolved Status: Acute (7) Hemorrhagic shock: Resolved Status: Acute Additional A&P Information RISA, creatinine persistently 1.6, consult nephrology Postobstructive uropathy, maintain Castillo, discharge Castillo, continue Flomax, discharged with Castillo Proteus Mirabella's UTI, completed antibiotic therapy Left loculated cystic lesion, follow-up with urology Immobility after surgery, bilateral extremity ultrasound for DVTs no evidence of DVT Disposition, right knee surgery, chronic left knee pain, now with Castillo catheter, GI bleed, awaiting assisted placement Attestations Medical Necessity Statement*: Patient requires hospitalization for GI bleed, postobstructive uropathy, RISA, awaiting assisted placement Coding Level of Care Code Acute Combination Operator for [facility] Fwd Diagnoses GI bleed K92.2 A-fib I48.19 Atrial fibrillation type: persistent (not longstanding) Hypertension I10 Hypertension type: primary hypertension Elevated troponin R77.8 Heart block, AV I44.30 Acute anemia D64.9 Hemorrhagic shock R57.8
[2021-05-22 15:50] VITALS: BP 109/57; PULSE 70; RESP 18; TEMP 36.5; O2SAT 96
--- NOTE | 2021-05-22 16:47 | PM.PN ---
Subjective Subjective: Interval history: I am seeing him in follow up for his renal failure. No nausea or vomiting Medications: Reviewed: Yes Vitals/I&O/Wt Last Vital Signs Temp 97.7 F 05/22/21 15:50 Pulse 70 05/22/21 15:50 Resp 18 05/22/21 15:50 BP 109/57 05/22/21 15:50 Pulse Ox 96 05/22/21 15:50 05/22/21 05/22/21 05/22/21 06:59 14:59 22:59 Intake Total 1300.5 / 1860.5 120 / 120 Output Total 1150 / 1350 800 / 800 Balance 150.5 / 510.5 -680 / -680 Physical Exam Const: COMMON NORMALS: no acute distress, patient oriented x3 and alert GENERAL APPEARANCE: cooperative ORIENTATION/CONSCIOUSNESS: Yes awake Resp: COMMON NORMALS: clear to auscultation bilaterally AUSCULTATION: clear to auscultation bilaterally Cardio: COMMON NORMALS: S1 normal heart sound present and S2 normal heart sound present HEART SOUNDS: S1 normal heart sound present and S2 normal heart sound present GI: AUSCULTATION: Yes normoactive bowel sounds Extremity: GENERAL: Yes edema Neuro: COMMON NORMALS: patient oriented x3 SENSORIUM/ORIENTATION: Yes alert Skin: COMMON NORMALS: no rashes or lesions noted GENERAL SKIN EXAM: no rashes or lesions noted Urinary Catheter Management^: Castillo: Cath Placed During This Visit: yes Reason for Continuing Indwelling Catheter: Accurate Measurement of Urinary Output in Critically Ill Patients Urinary Catheter Date of Insertion: 05/15/21 Urinary Catheter Time of Insertion: 18:30 Data : 05/22/21 05:56 05/22/21 05:56 A&P Assessment and plan (1) RISA (acute kidney injury): Kidney function improving, Cr down to 1.6 Avoid new nephrotoxins & wide fluctuation in BP Status: Acute (2) Acute UTI: Continue antibiotic Status: Acute (3) Acute anemia: Follow hb Status: Acute (4) Hypertension: BP stable Status: Acute Qualifiers: Hypertension type: primary hypertension Qualified Code(s): I10 - Essential (primary) hypertension Attestations Medical Necessity Statement*: RISA Coding Level of Care Code Acute Regional Operations Manager for [facility] Diagnoses RISA (acute kidney injury) N17.9 Acute UTI N39.0 Acute anemia D64.9 Hypertension I10 Hypertension type: primary hypertension
[2021-05-22 18:50] LABS: Hematocrit 27.4 % (42.0-52.0); Hemoglobin 9.1 g/dL (11.7-16.6)
[2021-05-22 19:46] VITALS: BP 103/69; PULSE 64; RESP 18; TEMP 36.6; O2SAT 97
[2021-05-22] MEDS: atorvastatin 40 mg Tablet PO (20:44)
[2021-05-22 23:44] VITALS: BP 124/71; PULSE 73; RESP 18; TEMP 36.6; O2SAT 95
[2021-05-23] VITALS (11 sets, daily range): BP systolic 89–126; BP diastolic 59–87; PULSE 91–124; RESP 16–19; TEMP 36.6–37.3; O2SAT 92–97
[2021-05-23] MEDS: acetaminophen 325 mg Tablet 650 MG PO (04:32)
[2021-05-23] MEDS: sucralfate 1 gm/10 mL Oral Liq UDC PO ×4 (06:01→21:01)
[2021-05-23 06:06] LABS: Basophils % 0.1 %; Hematocrit 27.2 % (42.0-52.0); Hemoglobin 8.6 g/dL (11.7-16.6); Lymphocytes # 1.5 10^3/uL (0.8-4.8); Lymphocytes % 17.8 %; Mean Corpuscular HGB Conc 31.6 g/dL (30.0-36.0); Mean Corpuscular Hemoglobin 30.1 pg (28.0-34.0); Mean Corpuscular Volume 95.1 fl (80-94); Mean Platelet Volume 10.6 fL (7.4-10.4); Neutrophils % 67.1 %; Nucleated Red Blood Cells % 0 %; Platelet Count 361 10^3/cmm (130-400); Red Blood Count 2.86 10^6/uL (4.1-5.3); Red Cell Distribution Width 16.8 % (12.1-15.1); White Blood Count 8.4 10^3/uL (4.0-10.0)
[2021-05-23 06:33] LABS: Alanine Aminotransferase 20 U/L (0-41); Albumin Level 2.8 g/dL (3.5-5.2); Alkaline Phosphatase 80 IU/L (40-130); Anion Gap 13.5 (5-19); Aspartate Amino Transferase 14 U/L (0-40); Blood Urea Nitrogen 35 mg/dL (8-23); Calcium 10.3 mg/dL (8.5-10.5); Carbon Dioxide 22 mmol/L (22-29); Chloride 104 mmol/L (98-107); Globulin 2.7 g/dL (1.3-4.6); Glucose 103 mg/dL (65-115); Magnesium 1.6 mg/dL (1.7-2.3); Osmolality Calculated 290 mOsm/kg (285-295); Phosphorus 3.5 mg/dL (2.5-4.5); Potassium 3.5 mmol/L (3.5-5.1); Sodium 136 mmol/L (136-145); Total Bilirubin 0.5 mg/dL (0.15-1.2); Total Protein 5.5 g/dL (6.6-8.7)
[2021-05-23] MEDS: isosorbide mononitrate ER 30 mg Tablet PO (09:42)
[2021-05-23] MEDS: allopurinol 100 mg Tablet PO ×2 (09:42→18:18)
[2021-05-23] MEDS: tamsulosin 0.4 mg Capsule PO (09:42)
[2021-05-23] MEDS: magnesium sulfate premix 2 GM/50 ML PIGGYBACK IV (11:02)
[2021-05-23] MEDS: pantoprazole 40 mg SDV IVP (12:56)
--- NOTE | 2021-05-23 16:29 | P.PN_ITS ---
Subjective Subjective: Interval history: States he is feeling all right today. Denies pain or discomfort. No chest pain. No trouble breathing. Has been participating with physical therapy. Vitals/I&O/Wt Last Vital Signs Temp 98.1 F 05/23/21 15:28 Pulse 124 H 05/23/21 15:28 Resp 17 05/23/21 15:28 BP 89/59 05/23/21 15:28 Pulse Ox 96 05/23/21 15:28 05/23/21 05/23/21 05/23/21 06:59 14:59 22:59 Intake Total 240 / 600 650 / 650 Output Total 1350 / 3400 1200 / 1200 Balance -1110 / -2800 650 / 650 -1200 / -550 Physical Exam Narrative: EXAM NARRATIVE: Son at bedside Const: COMMON NORMALS: no acute distress and patient oriented x3 GENERAL APPEARANCE: frail appearing HENMT: COMMON NORMALS: oropharynx normal Neck/C-Spine: COMMON NORMALS: no JVD Resp: COMMON NORMALS: normal respiratory effort and clear to auscultation bilaterally AUSCULTATION: clear to auscultation bilaterally Cardio: COMMON NORMALS: no JVD, regular rhythm, S1 normal heart sound present, S2 normal heart sound present and No murmurs present (Cardio) RHYTHM: regular rhythm HEART SOUNDS: S1 normal heart sound present and S2 normal heart sound present GI: COMMON NORMALS: Normal to inspection, nondistended, normoactive bowel sounds present, Soft to palpation and non-tender PALPATION: Yes Soft to palpation Extremity: COMMON NORMALS: no joint enlargement and no pedal edema Neuro: COMMON NORMALS: patient oriented x3 and moves all extremities Skin: COMMON NORMALS: no rashes or lesions noted GENERAL SKIN EXAM: no rashes or lesions noted Urinary Catheter Management^: Castillo: Cath Placed During This Visit: yes Reason for Continuing Indwelling Catheter: Acute Urinary Retention or Obstruction Urinary Catheter Date of Insertion: 05/15/21 Urinary Catheter Time of Insertion: 18:30 Data : 05/23/21 05:35 05/23/21 05:35 A&P Assessment and plan (1) GI bleed: Continues on PPI. Of aspirin, anticoagulation had been held. This morning doing well, hemoglobin down slightly to 8.6. Had just had a bowel movement, no blood reported. This afternoon blood pressure noted low, 89/59, requested to hold further Imdur, Flomax. Rechecking vital signs. Requested to ensure 2 lge bore IVs. Recheck blood pressure 101/65. Heart rate 108. Requesting a bolus of LR, additional transfusion 1 unit PRBC. school lunch monitor. Bedrest for now. N.p.o. Follow-up requested recheck hemoglobin. -Status post 2 units PRBC, moved to the ICU, remained hemodynamically stable -EGD showed showed duodenal ulcer status post epinephrine, and clipping Status: Acute (2) Hemorrhagic shock: Resolved. This afternoon again low blood pressure 101/65, HR 108. Additional assessment, management as above. Status: Acute (3) A-fib: Somewhat tachycardic this afternoon, add cardiac monitoring. Blood pressure soft. Hemoglobin down to 8.6. EF was normal. Small IVF bolus. Additional PRBC transfusion. Recheck hemoglobin as above. Replace hypomagnesemia, supplement low normal potassium. Was in Af.ib with slow ventricular response. Episodes of pauses intermittently, lasting 2 to 3 seconds Event monitor on discharge Cardiology Consult Status: Acute Qualifiers: Atrial fibrillation type: persistent (not longstanding) Qualified Code(s): I48.19 - Other persistent atrial fibrillation (4) Hypertension: Status: Acute Qualifiers: Hypertension type: primary hypertension Qualified Code(s): I10 - Essential (primary) hypertension (5) Elevated troponin: NSTEMI Type II : Demand Ischemia Patient denies any chest pain, EKG has failed to show any acute ST-T wave changes. Hold aspirin Lipitor 40 mg po daily Follow 2D echo: 1-Normal left ventricular cavity size. Normal left ventricular systolic function. Left ventricular ejection fraction is estimated at 55 %. In the presence of atrial fibrillation diastolic function cannot be assessed accurately. 2-Aortic valve sclerosis without stenosis or regurgitation. 3-Mildly thickened mitral valve. No mitral valve stenosis. Trace mitral valve regurgitation. 4-There is no pericardial effusion. 5-No significant valve abnormalities. 6-There are no prior echocardiogram studies to compare. Telemetry -Repeat elevated troponins, as high as 110, no complaints of chest pain, no acute ST-T wave changes, secondary to type II NSTEMI, treated to GI bleed as above Status: Acute (6) Heart block, AV: Status: Acute (7) Acute anemia: Additional. BC transfusion as above. Status: Acute Additional A&P Information Hypomagnesemia: Replace RISA, creatinine persistently 1.6, unchanged today. Monitor blood pressure closely, additional boluses above. Additional PBC transfusion as above. Postobstructive uropathy, maintain Castillo, continue Flomax, discharged with Castillo Proteus Mirabella's UTI, completed antibiotic therapy Left loculated cystic lesion, follow-up with urology Immobility after surgery, bilateral extremity ultrasound for DVTs no evidence of DVT. SCD. Disposition, right knee surgery, chronic left knee pain, now with Castillo catheter, GI bleed, awaiting residential placement Attestations Medical Necessity Statement*: Continue admission for additional assessment following GI bleed, with gains of blood pressure, with possible rebleeding, requiring additional assessment treatment and monitoring. Coding Level of Care Code Acute Area Mechanic for [facility] Fwd Exam Comprehensive Diagnoses GI bleed K92.2 Hemorrhagic shock R57.8 A-fib I48.19 Atrial fibrillation type: persistent (not longstanding) Hypertension I10 Hypertension type: primary hypertension Elevated troponin R77.8 Heart block, AV I44.30 Acute anemia D64.9
--- NOTE | 2021-05-23 16:40 | P.PN_ITS ---
Subjective Subjective: Interval history: I am seeing him in follow up for his renal failure. No nausea or vomiting Medications: Reviewed: Yes Vitals/I&O/Wt Last Vital Signs Temp 98.1 F 05/23/21 15:28 Pulse 124 H 05/23/21 15:28 Resp 17 05/23/21 15:28 BP 89/59 05/23/21 15:28 Pulse Ox 96 05/23/21 15:28 05/23/21 05/23/21 05/23/21 06:59 14:59 22:59 Intake Total 240 / 600 650 / 650 Output Total 1350 / 3400 1200 / 1200 Balance -1110 / -2800 650 / 650 -1200 / -550 Physical Exam Const: COMMON NORMALS: no acute distress, patient oriented x3 and alert GENERAL APPEARANCE: cooperative ORIENTATION/CONSCIOUSNESS: Yes awake OTHER: Telest[employer] did not connect Neuro: COMMON NORMALS: patient oriented x3 SENSORIUM/ORIENTATION: Yes alert Urinary Catheter Management^: Castillo: Cath Placed During This Visit: yes Reason for Continuing Indwelling Catheter: Acute Urinary Retention or Obstruc tion Urinary Catheter Date of Insertion: 05/15/21 Urinary Catheter Time of Insertion: 18:30 Data : 05/23/21 05:35 05/23/21 05:35 A&P Assessment and plan (1) RISA (acute kidney injury): Kidney function staying stable with creatinine at 1.6, avoid new nephroto xins and wide fluctuation in bp Status: Acute (2) Acute anemia: Follow hb Status: Acute Attestations Medical Necessity Statement*: RISA Coding Level of Care Code Acute Manager Food Safety for [facility] Fwd Exam Problem Focused Diagnoses RISA (acute kidney injury) N17.9 Acute anemia D64.9
[2021-05-23] MEDS: lidocaine 1% 5 ML in potassium chloride premix 100 ML 50 ML IV (17:22)
[2021-05-23] MEDS: lactated ringers 500 ML 999 ML IV (17:23)
--- NOTE | 2021-05-23 18:36 | ECG_ITS ---
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 Measurements Intervals [place] Rate: 102 P: [place]: QRS: -38 QRSD: 105 T: 0 QT: 352 QTc: 460 Interpretive Statements SUPRAVENTRICULAR TACHYCARDIA LEFT AXIS DEVIATION [QRS AXIS < -30] NONSPECIFIC T-WAVE ABNORMALITY Compared to ECG 05/20/2021 15:10:51 Atrial fibrillation no longer present T-wave abnormality still present Electronically Signed On 05-23-2021 23:22:01 CDT by Francesco Boles M.D. [email or web address]
[2021-05-23] MEDS: atorvastatin 40 mg Tablet PO (21:01)
[2021-05-24] VITALS (9 sets, daily range): BP systolic 108–131; BP diastolic 71–82; PULSE 66–103; RESP 14–97; TEMP 36.3–37.2; O2SAT 94–96
[2021-05-24] MEDS: pantoprazole 40 mg SDV IVP ×3 (02:04→21:57)
[2021-05-24 05:49] LABS: Basophils % 0.1 %; Hematocrit 29.6 % (42.0-52.0); Hemoglobin 9.9 g/dL (11.7-16.6); Lymphocytes # 1.4 10^3/uL (0.8-4.8); Lymphocytes % 17.4 %; Mean Corpuscular HGB Conc 33.4 g/dL (30.0-36.0); Mean Corpuscular Hemoglobin 30.5 pg (28.0-34.0); Mean Corpuscular Volume 91.1 fl (80-94); Mean Platelet Volume 10.6 fL (7.4-10.4); Monocytes % 11.9 %; Neutrophils # 5.47 10^3/uL (1.8-7.7); Neutrophils % 68.8 %; Nucleated Red Blood Cells % 0 %; Platelet Count 323 10^3/cmm (130-400); Red Blood Count 3.25 10^6/uL (4.1-5.3); Red Cell Distribution Width 16.5 % (12.1-15.1)
[2021-05-24 06:05] LABS: Anion Gap 15.4 (5-19); Blood Urea Nitrogen 34 mg/dL (8-23); Calcium 10.5 mg/dL (8.5-10.5); Carbon Dioxide 23 mmol/L (22-29); Chloride 101 mmol/L (98-107); Glucose 99 mg/dL (65-115); Magnesium 1.5 mg/dL (1.7-2.3); Osmolality Calculated 290 mOsm/kg (285-295); Potassium 3.4 mmol/L (3.5-5.1); Sodium 136 mmol/L (136-145)
--- NOTE | 2021-05-24 07:01 | PM.PN ---
Subjective Subjective: Interval history: anxious, concerned about bleeding. he is not eating. no sob or cp Medications: Reviewed: Yes Medication Review Details: Current Medications Acetaminophen (Acetaminophen 325 Mg Tablet) 650 mg PO Q6H PRN PRN Reason: Mild/Mod Pain Or Temp >/= 101 Last Admin: 05/23/21 04:32 Dose: 650 mg Documented by: Allopurinol (Allopurinol 100 Mg Tablet) 100 mg PO BID [facility] Last Admin: 05/23/21 18:18 Dose: 100 mg Documented by: Atorvastatin Calcium (Atorvastatin 40 Mg Tablet) 40 mg PO BEDTIME RADHA Last Admin: 05/23/21 21:01 Dose: 40 mg Documented by: Bisacodyl (Bisacodyl 5 Mg Tablet) 10 mg PO DAILY PRN; Protocol PRN Reason: Constipation (see protocol) Isosorbide Mononitrate (Isosorbide Mononitrate Er 30 Mg Tablet) 30 mg PO DAILY [facility] Last Admin: 05/23/21 09:42 Dose: 30 mg Documented by: Ondansetron HCl (Ondansetron 2 Mg/Ml Sdv 2 Ml) 4 mg IVP Q8H PRN PRN Reason: vomiting, or N/V if npo Pantoprazole Sodium (Pantoprazole 40 Mg Sdv) 40 mg IVP Q12H RAD[facility] Last Admin: 05/24/21 02:04 Dose: 40 mg Documented by: Sucralfate (Sucralfate 1 Gm/10 Ml Oral Liq Udc) 1 gm PO AC&BEDTIME [facility] Last Admin: 05/23/21 21:01 Dose: 1 gm Documented by: Tamsulosin HCl (Tamsulosin 0.4 Mg Capsule) 0.4 mg PO DAILY [facility] Last Admin: 05/23/21 09:42 Dose: 0.4 mg Documented by: Vitals/I&O/Wt Last Vital Signs Temp 98.2 F 05/24/21 04:00 Pulse 103 H 05/24/21 04:00 Resp 17 05/24/21 04:00 BP 112/76 05/24/21 04:00 Pulse Ox 94 05/24/21 04:00 05/23/21 05/24/21 05/24/21 22:59 06:59 14:59 Intake Total 480 / 1130 Output Total 1850 / 1850 1350 / 3200 Balance -1370 / -720 -1350 / -2070 Physical Exam Narrative: EXAM NARRATIVE: NARD, vs noted- heart irreg heent- nc/at, eomi, anicteric neck supple lungs clear heart -irreg irreg +s1, s2 abd soft, nt, nd, + bs ext 1+ rt ankle edema neuro-a,a, o x 3 no rash Urinary Catheter Management^: Almodovar: Cath Placed During This Visit: yes Reason for Continuing Indwelling Catheter: Not indwelling catheter Urinary Catheter Date of Insertion: 05/15/21 Urinary Catheter Time of Insertion: 18:30 Data : 05/24/21 04:58 05/24/21 04:58 A&P Additional A&P Information 75 yr old man 1. RISA- had rt Marked dilatation of the right pelvicaliceal system with abrupt change in caliber at the level of the UPJ, suggesting underlying UPJ stenosis. Nonobstructing right renal calculi, the largest measuring 6 mm. -urology f/u -good uop w/ almodovar 2. GI bleed EGD -duodenal ulcer s/p epi and clipping -hgb stable 3. a fib -replete k to 4, mag to 2 4. proteus mirabella UTI - s/p abx 5. calcium remains high at 10.5- no vit d- his level is very high -low iPTH -monitor ca -normal spep normal kappa/ lambda ratio 6 normal EF -echo- Follow 2D echo: 1-Normal left ventricular cavity size. Normal left ventricular systolic function. Left ventricular ejection fraction is estimated at 55 %. In the presence of atrial fibrillation diastolic function cannot be assessed accurately. 2-Aortic valve sclerosis without stenosis or regurgitation. 3-Mildly thickened mitral valve. No mitral valve stenosis. Trace mitral valve regurgitation. 4-There is no pericardial effusion. 5-No significant valve abnormalities. 6-There are no prior echocardiogram studies to compare. Telemetry Attestations Medical Necessity Statement*: per medicine Time Spent in Patient Care: 16 - 35 minutes Coding Level of Care Code Acute Conciliator for [facility] [place]
[2021-05-24] MEDS: sodium chloride 0.9% (100 ml) 100 ML 10 ML (08:10)
--- NOTE | 2021-05-24 10:14 | PC.CHAP ---
Pastoral Care Encounter/Spiritual Assessment Type of Contact [] Declined trimmer operator visit [] Patient/Family/Request visit [] Outpatient visit [] Follow-up visit [] Physician referral [] Code/Alert [x] Routine visit [] Staff referral [] Actively dying [] Patient sleeping [] Family support [] [] Out of room [] Palliative care [] [] Receiving care in room [] Pre-surgical visit [] Trauma [] Long length of stay [] ICU visit [] Other: Relational/Emotional Strength [x] Patient feels connected with others/family/visitors/staff [] Distress [] Loneliness/isolation [] Abandonment Spirituality of Patient [x] Person of Michelle [] Attends Islam of their Michelle [x] Believes in Prayer [] Reads Bible or Christianity materials [] There are Spiritual issues to be addressed Person Investigator Interventions [x] Prayer [x] Active listening [x] Non-anxious presence [] Spiritual/emotional support [] Crisis/trauma care [] Spiritual counseling [] Bereavement support [] Provided bereavement packet [] Provided Bible/devotional materials [] Provided toy/stuffed animal, coloring book to patient or family member [] Provided Communion [] Anointing/[place] [] Salvation [x] Completed spiritual assessment [] Other: Impact on Illness or Injury [] Angry [] Fearful [] Anxious [] Often cries [] Exhaustion [] Unable to work [] Unable to attend orthodoxy [] Unable to walk/stand [] Unable to read [] Unable to drive [] Unable to eat/drink [] Unable to sleep [] Unable to be with family [] Patient intubated [] Other: Summary Time spent with patient 15 min
[2021-05-24] MEDS: allopurinol 100 mg Tablet PO ×2 (10:29→17:33)
[2021-05-24] MEDS: sucralfate 1 gm/10 mL Oral Liq UDC PO ×4 (10:29→20:46)
[2021-05-24] MEDS: potassium chloride ER 20 mEq Tablet 40 MEQ PO (10:29)
--- NOTE | 2021-05-24 12:59 | PC.SOCIAL ---
IMM Update: pg 2 of IMM updated and reviewed w/ patient. Copy provided.
--- NOTE | 2021-05-24 19:20 | P.PN_ITS ---
Subjective Subjective: Interval history: Doing better today. Blood pressure appears to be doing better. Denies chest pain or pressure. No trouble breathing. No abdominal pain. Vitals/I&O/Wt Last Vital Signs Temp 98.7 F 05/24/21 16:00 Pulse 75 05/24/21 16:00 Resp 16 05/24/21 16:00 BP 125/81 05/24/21 16:00 Pulse Ox 95 05/24/21 16:00 05/24/21 05/24/21 05/24/21 06:59 14:59 22:59 Intake Total 690.167 / 690.167 520 / 1210.167 Output Total 1350 / 3200 1750 / 1750 Balance -1350 / -2070 690.167 / 690.167 -1230 / -539.833 Physical Exam Narrative: EXAM NARRATIVE: Daughter at bedside Const: COMMON NORMALS: no acute distress and patient oriented x3 GENERAL APPEARANCE: frail appearing HENMT: COMMON NORMALS: oropharynx normal Neck/C-Spine: COMMON NORMALS: no JVD Resp: COMMON NORMALS: normal respiratory effort and clear to auscultation bilaterally AUSCULTATION: clear to auscultation bilaterally Cardio: COMMON NORMALS: no JVD, regular rhythm, S1 normal heart sound present, S2 normal heart sound present and No murmurs present (Cardio) RHYTHM: regular rhythm HEART SOUNDS: S1 normal heart sound present and S2 normal heart sound present GI: COMMON NORMALS: Normal to inspection, nondistended, normoactive bowel sounds present, Soft to palpation and non-tender PALPATION: Yes Soft to palpation Extremity: COMMON NORMALS: no joint enlargement and no pedal edema Neuro: COMMON NORMALS: patient oriented x3 and moves all extremities Skin: COMMON NORMALS: no rashes or lesions noted GENERAL SKIN EXAM: no rashes or lesions noted Urinary Catheter Management^: Castillo: Cath Placed During This Visit: yes Reason for Continuing Indwelling Catheter: Not indwelling catheter Urinary Catheter Date of Insertion: 05/15/21 Urinary Catheter Time of Insertion: 18:30 Data : 05/24/21 04:58 05/24/21 04:58 A&P Assessment and plan (1) GI bleed: Yesterday with decompensation, hypotension, tachycardia, received additional 1 unit PRBC. Appears to have responded well to transfusion, heart appears to be sensitive to anemia, and yesterday with some decrease in hemoglobin. Discussed with him monitoring blood pressure, heart rate tonight. Appears anemia triggered atrial flutter in him. Discussed with him and his daughter. Currently rate controlled. Discussed risk of CVA, although currently not a candidate for anticoagulation. In case bleeding subsides, no further recurrence, consideration may be given to anticoagulation to reduce risk of CVA, but if risk of bleeding still elevated, or rebleeding, consideration may need to be given to left atrial appendage closure device. They verbalized understanding. Will be following up with primary provider. Recheck hemoglobin in the morning. Continue PPI. If remains stable, doing well, plan is to discharge to rehabilitation. Aspirin, anticoagulation had been held. court recording monitor. Bedrest for now. N.p.o. -Status post 2 units PRBC, moved to the ICU, remained hemodynamically stable -EGD showed showed duodenal ulcer status post epinephrine, and clipping Status: Acute (2) Hemorrhagic shock: Resolved. With transient hypotension, tachycardia again after additional decrease in hemoglobin on 05/23. Status: Acute (3) A-fib: Appears anemia triggered atrial flutter in him. Discussed with him and his daughter. Currently rate controlled. Discussed risk of CVA, although currently not a candidate for anticoagulation. In case bleeding subsides, no further recurrence, consideration may be given to anticoagulation to reduce risk of CVA, but if risk of bleeding still elevated, or rebleeding, consideration may need to be given to left atrial appendage closure device. They verbalized understanding. Will be following up with primary provider. Again hypomagnesemic and hypokalemic. Replace. Episodes of pauses intermittently, lasting 2 to 3 seconds Event monitor on discharge Cardiology Consult Status: Acute Qualifiers: Atrial fibrillation type: persistent (not longstanding) Qualified Code(s): I48.19 - Other persistent atrial fibrillation (4) Hypertension: Status: Acute Qualifiers: Hypertension type: primary hypertension Qualified Code(s): I10 - Essential (primary) hypertension (5) Elevated troponin: NSTEMI Type II : Demand Ischemia Patient denies any chest pain, EKG has failed to show any acute ST-T wave changes. Hold aspirin Lipitor 40 mg po daily Follow 2D echo: 1-Normal left ventricular cavity size. Normal left ventricular systolic function. Left ventricular ejection fraction is estimated at 55 %. In the presence of atrial fibrillation diastolic function cannot be assessed accurately. 2-Aortic valve sclerosis without stenosis or regurgitation. 3-Mildly thickened mitral valve. No mitral valve stenosis. Trace mitral valve regurgitation. 4-There is no pericardial effusion. 5-No significant valve abnormalities. 6-There are no prior echocardiogram studies to compare. Telemetry -Repeat elevated troponins, as high as 110, no complaints of chest pain, no acute ST-T wave changes, secondary to type II NSTEMI, treated to GI bleed as above Status: Acute (6) Heart block, AV: Status: Acute (7) Acute anemia: Status post additional RBC transfusion as above. 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 Follow-up with urology. Status: Acute Additional A&P Information Hypomagnesemia: Additional replacement ordered today RISA, creatinine persistently 1.6, unchanged. Blood pressures are better. Avoid hypotension. Follow-up with urology with regards to UPJ stenosis suggested by imaging. Left loculated cystic lesion. Postobstructive uropathy, maintain Castillo, continue Flomax, discharged with Castillo Proteus Mirabella's UTI, completed antibiotic therapy Left loculated cystic lesion, follow-up with urology Immobility after surgery, bilateral extremity ultrasound no evidence of DVT. SCD. Disposition, right knee surgery, chronic left knee pain, now with Castillo catheter, GI bleed, awaiting [facility] placement Attestations Medical Necessity Statement*: Additional monitoring of blood pressure recheck of hemoglobin tomorrow given recent GI bleed, hypotension, a flutter with RVR triggered by anemia, disposition planning and arrangements for transition to rehabilitation at SNF likely tomorrow. 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
[2021-05-24] MEDS: atorvastatin 40 mg Tablet PO (20:46)
[2021-05-25] VITALS (7 sets, daily range): BP systolic 104–111; BP diastolic 71–74; PULSE 68–112; RESP 16–18; TEMP 36.4–37.1; O2SAT 94–96
[2021-05-25 06:05] LABS: Basophils % 0.1 %; Hematocrit 35.5 % (42.0-52.0); Hemoglobin 11.3 g/dL (11.7-16.6); Lymphocytes # 1.4 10^3/uL (0.8-4.8); Lymphocytes % 16.6 %; Mean Corpuscular HGB Conc 31.8 g/dL (30.0-36.0); Mean Corpuscular Hemoglobin 30.3 pg (28.0-34.0); Mean Corpuscular Volume 95.2 fl (80-94); Mean Platelet Volume 10.5 fL (7.4-10.4); Monocytes % 12.6 %; Neutrophils # 5.76 10^3/uL (1.8-7.7); Neutrophils % 69.7 %; Nucleated Red Blood Cells % 0 %; Platelet Count 330 10^3/cmm (130-400); Red Blood Count 3.73 10^6/uL (4.1-5.3); White Blood Count 8.3 10^3/uL (4.0-10.0)
--- NOTE | 2021-05-25 06:12 | PC.NURSE ---
SHIFT SUMMAARY Has rested well tonight without any c/o pain or discomfort. Has denied any nausea. Castillo patent and has had large urine output tonight. Telemetry showing A-fib. Had some short episodes of bradycardia into 40's which lasted very briefly. Asymptomatic.
[2021-05-25] MEDS: sucralfate 1 gm/10 mL Oral Liq UDC PO ×4 (06:19→20:33)
[2021-05-25 06:28] LABS: Anion Gap 14.6 (5-19); Blood Urea Nitrogen 26 mg/dL (8-23); Calcium 10.7 mg/dL (8.5-10.5); Carbon Dioxide 24 mmol/L (22-29); Chloride 103 mmol/L (98-107); Glucose 94 mg/dL (65-115); Magnesium 1.5 mg/dL (1.7-2.3); Osmolality Calculated 291 mOsm/kg (285-295); Phosphorus 3.2 mg/dL (2.5-4.5); Potassium 3.6 mmol/L (3.5-5.1); Sodium 138 mmol/L (136-145)
--- NOTE | 2021-05-25 07:29 | P.PN_ITS ---
Subjective Subjective: Interval history: feels better. no bm for 2 days. wants to eat regular food. has palps, no sob or cp Medications: Reviewed: Yes Medication Review Details: Current Medications Acetaminophen (Acetaminophen 325 Mg Tablet) 650 mg PO Q6H PRN PRN Reason: Mild/Mod Pain Or Temp >/= 101 Last Admin: 05/23/21 04:32 Dose: 650 mg Documented by: Allopurinol (Allopurinol 100 Mg Tablet) 100 mg PO BID [facility] Last Admin: 05/24/21 17:33 Dose: 100 mg Documented by: Atorvastatin Calcium (Atorvastatin 40 Mg Tablet) 40 mg PO BEDTIME [facility] Last Admin: 05/24/21 20:46 Dose: 40 mg Documented by: Bisacodyl (Bisacodyl 5 Mg Tablet) 10 mg PO DAILY PRN; Protocol PRN Reason: Constipation (see protocol) Isosorbide Mononitrate (Isosorbide Mononitrate Er 30 Mg Tablet) 30 mg PO DAILY [facility] Last Admin: 05/23/21 09:42 Dose: 30 mg Documented by: Ondansetron HCl (Ondansetron 2 Mg/Ml Sdv 2 Ml) 4 mg IVP Q8H PRN PRN Reason: vomiting, or N/V if npo Pantoprazole Sodium (Pantoprazole 40 Mg Sdv) 40 mg IVP Q12H [facility] Last Admin: 05/24/21 21:57 Dose: 40 mg Documented by: Sucralfate (Sucralfate 1 Gm/10 Ml Oral Liq Udc) 1 gm PO AC&BEDTIME [facility] Last Admin: 05/25/21 06:19 Dose: 1 gm Documented by: Tamsulosin HCl (Tamsulosin 0.4 Mg Capsule) 0.4 mg PO DAILY [facility] Last Admin: 05/23/21 09:42 Dose: 0.4 mg Documented by: Vitals/I&O/Wt Last Vital Signs Temp 97.5 F L 05/25/21 04:00 Pulse 79 05/25/21 06:00 Resp 18 05/25/21 04:00 BP 108/71 05/25/21 04:00 Pulse Ox 94 05/25/21 04:00 05/24/21 05/25/21 05/25/21 22:59 06:59 14:59 Intake Total 520 / 1210.167 300 / 1510.167 Output Total 2850 / 2850 1300 / 4150 Balance -2330 / -1639.833 -1000 / -2639.833 Physical Exam Narrative: EXAM NARRATIVE: NARD, vs noted- heart irreg heent- nc/at, eomi, anicteric neck supple lungs clear heart -irreg irreg +s1, s2 abd soft, nt, nd, + bs ext 1+ rt ankle edema neuro-a,a, o x 3 no rash Urinary Catheter Management^: Almodovar: Cath Placed During This Visit: yes Reason for Continuing Indwelling Catheter: Acute Urinary Retention or Obstruction Urinary Catheter Date of Insertion: 05/15/21 Urinary Catheter Time of Insertion: 18:30 Data : 05/25/21 05:36 05/25/21 05:36 A&P Additional A&P Information 75 yr old man 1. RISA- had rt Marked dilatation of the right pelvicaliceal system with abrupt change in caliber at the level of the UPJ, suggesting underlying UPJ stenosis. Nonobstructing right renal calculi, the largest measuring 6 mm. -urology f/u -good uop w/ almodovar 2. GI bleed EGD -duodenal ulcer s/p epi and clipping -hgb stable 3. a fib -replete k to 4, mag to 2 4. proteus mirabella UTI - s/p abx 5. calcium remains high at 10.7- no vit d- his level is very high -low iPTH -monitor ca -normal spep normal kappa/ lambda ratio -check saundra level -ivf, lasix if sob, may need calcitonin 6 normal EF -echo- Follow 2D echo: 1-Normal left ventricular cavity size. Normal left ventricular systolic function. Left ventricular ejection fraction is estimated at 55 %. In the presence of atrial fibrillation diastolic function cannot be assessed accurately. 2-Aortic valve sclerosis without stenosis or regurgitation. 3-Mildly thickened mitral valve. No mitral valve stenosis. Trace mitral valve regurgitation. 4-There is no pericardial effusion. 5-No significant valve abnormalities. 6-There are no prior echocardiogram studies to compare. Telemetry Attestations Medical Necessity Statement*: per medicine Time Spent in Patient Care: 16 - 35 minutes Coding Level of Care Code Acute [employer]ables Worker for [facility] [place]
[2021-05-25] MEDS: allopurinol 100 mg Tablet PO ×2 (08:31→17:48)
[2021-05-25] MEDS: sodium chloride 0.9% 1,000 ML 100 ML IV ×2 (08:31→17:48)
[2021-05-25] MEDS: metoprolol tartrate 25 mg Tablet 12.5 MG PO (10:10)
[2021-05-25] MEDS: pantoprazole 40 mg SDV IVP ×2 (10:24→23:37)
[2021-05-25 11:30] LABS: SARS Covid-2 Antigen Negative (Negative)
[2021-05-25] MEDS: magnesium sulfate premix 2 GM/50 ML PIGGYBACK IV (12:15)
[2021-05-25] MEDS: potassium chloride ER 20 mEq Tablet PO (12:20)
[2021-05-25] MEDS: acetaminophen 325 mg Tablet 650 MG PO (13:33)
--- NOTE | 2021-05-25 19:19 | PM.PN ---
Subjective Subjective: Interval history: He is feeling okay today, he is looking forward to transitioning to rehabilitation at SNF. Denies any chest pain or pressure. Denies trouble breathing. Denies abdominal discomfort. Feels slightly tired. Vitals/I&O/Wt Last Vital Signs Temp 98.7 F 05/25/21 15:04 Pulse 92 05/25/21 15:04 Resp 16 05/25/21 15:04 BP 107/74 05/25/21 15:04 Pulse Ox 95 05/25/21 15:04 05/25/21 05/25/21 05/25/21 06:59 14:59 22:59 Intake Total 300 / 1510.167 410 / 410 1048.333 / 1458.333 Output Total 1300 / 4150 1200 / 1200 Balance -1000 / -2639.833 410 / 410 -151.667 / 258.333 Physical Exam Const: COMMON NORMALS: no acute distress, patient oriented x3 and alert GENERAL APPEARANCE: frail appearing ORIENTATION/CONSCIOUSNESS: Yes awake OTHER: Sitting up at bedside. HENMT: COMMON NORMALS: oropharynx normal Neck/C-Spine: COMMON NORMALS: no JVD Resp: COMMON NORMALS: normal respiratory effort and clear to auscultation bilaterally AUSCULTATION: clear to auscultation bilaterally Cardio: COMMON NORMALS: no JVD, regular rhythm, S1 normal heart sound present, S2 normal heart sound present and No murmurs present (Cardio) RHYTHM: regular rhythm HEART SOUNDS: S1 normal heart sound present and S2 normal heart sound present GI: COMMON NORMALS: Normal to inspection, nondistended, normoactive bowel sounds present, Soft to palpation and non-tender PALPATION: Yes Soft to palpation Extremity: COMMON NORMALS: no joint enlargement and no pedal edema Neuro: COMMON NORMALS: patient oriented x3 and moves all extremities SENSORIUM/ORIENTATION: Yes alert Skin: COMMON NORMALS: no rashes or lesions noted GENERAL SKIN EXAM: no rashes or lesions noted Urinary Catheter Management^: Castillo: Cath Placed During This Visit: yes Reason for Continuing Indwelling Catheter: Acute Urinary Retention or Obstruction Urinary Catheter Date of Insertion: 05/15/21 Urinary Catheter Time of Insertion: 18:30 Data : 05/25/21 05:36 05/25/21 05:36 A&P Assessment and plan (1) A-fib: 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 monitor. If rising further, may end up needing pacemaker placement with murphy blockade. Appears anemia triggered atrial flutter w RVR in him. Discussed with him and his daughter. Currently rate controlled. Discussed risk of CVA, although currently not a candidate for anticoagulation. In case bleeding subsides, no further recurrence, consideration may be given to anticoagulation to reduce risk of CVA, but if risk of bleeding still elevated, or rebleeding, consideration may need to be given to left atrial appendage closure device. They verbalized understanding. Will be following up with primary provider. Again hypomagnesemic and hypokalemic. Additional replacement requested. Episodes of pauses intermittently, lasting 2 to 3 seconds Event monitor on discharge Cardiology Consult Status: Acute Qualifiers: Atrial fibrillation type: persistent (not longstanding) Qualified Code(s): I48.19 - Other persistent atrial fibrillation (2) GI bleed: Hemoglobin without further decrease. Blood pressure remained steady. Yesterday with decompensation, hypotension, tachycardia, received additional 1 unit PRBC. Appears to have responded well to transfusion, heart appears to be sensitive to anemia, and yesterday with some decrease in hemoglobin. Discussed with him monitoring blood pressure, heart rate tonight. Appears anemia triggered atrial flutter in him. Discussed with him and his daughter. Currently rate controlled. Discussed risk of CVA, although currently not a candidate for anticoagulation. In case bleeding subsides, no further recurrence, consideration may be given to anticoagulation to reduce risk of CVA, but if risk of bleeding still elevated, or rebleeding, consideration may need to be given to left atrial appendage closure device. They verbalized understanding. Will be following up with primary provider. Recheck hemoglobin in the morning. Continue PPI. If remains stable, doing well, plan is to discharge to rehabilitation. Aspirin, anticoagulation had been held. 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 Bedrest for now. N.p.o. -Status post 2 units PRBC, moved to the ICU, remained hemodynamically stable -EGD showed showed duodenal ulcer status post epinephrine, and clipping Status: Acute (3) Hemorrhagic shock: Resolved. With transient hypotension, tachycardia again after additional decrease in hemoglobin on 05/23. Status: Acute (4) Hypertension: Status: Acute Qualifiers: Hypertension type: primary hypertension Qualified Code(s): I10 - Essential (primary) hypertension (5) Elevated troponin: NSTEMI Type II : Demand Ischemia Patient denies any chest pain, EKG has failed to show any acute ST-T wave changes. Hold aspirin Lipitor 40 mg po daily Follow 2D echo: 1-Normal left ventricular cavity size. Normal left ventricular systolic function. Left ventricular ejection fraction is estimated at 55 %. In the presence of atrial fibrillation diastolic function cannot be assessed accurately. 2-Aortic valve sclerosis without stenosis or regurgitation. 3-Mildly thickened mitral valve. No mitral valve stenosis. Trace mitral valve regurgitation. 4-There is no pericardial effusion. 5-No significant valve abnormalities. 6-There are no prior echocardiogram studies to compare. Telemetry -Repeat elevated troponins, as high as 110, no complaints of chest pain, no acute ST-T wave changes, secondary to type II NSTEMI, treated to GI bleed as above Status: Acute (6) Heart block, AV: Status: Acute (7) Acute anemia: Status post additional RBC transfusion as above. 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 Follow-up with urology. Status: Acute Additional A&P Information Hypomagnesemia: Additional replacement ordered today RISA, creatinine persistently 1.6, unchanged. Blood pressures are better. Avoid hypotension. Follow-up with urology with regards to UPJ stenosis suggested by imaging. Left loculated cystic lesion. Postobstructive uropathy, maintain Castillo, continue Flomax, discharged with Castillo Proteus Mirabella's UTI, completed antibiotic therapy Left loculated cystic lesion, follow-up with urology Immobility after surgery, bilateral extremity ultrasound no evidence of DVT. SCD. Disposition, right knee surgery, chronic left knee pain, now with Castillo catheter, GI bleed, awaiting fpc placement Attestations Medical Necessity Statement*: With improvement in heart rate with atrial flutter, resolution of GI bleeding, pending prior authorization for placement to SNF for rehabilitation. 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
[2021-05-25] MEDS: atorvastatin 40 mg Tablet PO (20:34)
[2021-05-26] VITALS: BP 100/68; PULSE 91; RESP 16; TEMP 36.7; O2SAT 95
--- NOTE | 2021-05-26 02:09 | ECG_ITS ---
[facility] Test Date: 2021-05-26 Pat Name: Enrique Murguia Department: Room: 277 Gender: Male Sales Support Coordinator: : 1945 Requested By: Erma Calderón Order Number: [id number] Rojelio MD: Madai Richard M.D. Measurements Intervals Starlight Rate: 83 P: DC: QRS: -41 QRSD: 102 T: 51 QT: 375 QTc: 441 Interpretive Statements Sinus rhythm with a first-degree AV block LEFT AXIS DEVIATION [QRS AXIS < -30] Compared to ECG 05/23/2021 18:51:35 Supraventricular rhythm now present Supraventricular tachycardia no longer present T-wave abnormality no longer present Electronically Signed On 05-26-2021 19:54:15 CDT by Madai Richard M.D. [id number]
[2021-05-26 04:00] VITALS: BP 109/75; PULSE 95; RESP 17; TEMP 36.8; O2SAT 93
[2021-05-26] MEDS: sodium chloride 0.9% 1,000 ML 100 ML IV (04:26)
[2021-05-26 05:57] LABS: Hematocrit 34.3 % (42.0-52.0); Hemoglobin 11.1 g/dL (11.7-16.6); Lymphocytes # 1.3 10^3/uL (0.8-4.8); Lymphocytes % 17.6 %; Mean Corpuscular HGB Conc 32.4 g/dL (30.0-36.0); Mean Corpuscular Hemoglobin 30.3 pg (28.0-34.0); Mean Corpuscular Volume 93.7 fl (80-94); Mean Platelet Volume 10.7 fL (7.4-10.4); Monocytes # 0.8 10^3/uL (0.2-0.9); Neutrophils # 5.25 10^3/uL (1.8-7.7); Neutrophils % 70.6 %; Nucleated Red Blood Cells % 0 %; Platelet Count 333 10^3/cmm (130-400); Red Blood Count 3.66 10^6/uL (4.1-5.3); Red Cell Distribution Width 16.5 % (12.1-15.1); White Blood Count 7.4 10^3/uL (4.0-10.0)
--- NOTE | 2021-05-26 05:57 | PC.NURSE ---
CARDIAC CHANGES: THROUGHOUT THE NIGHT THE PATIENT HAS BEEN NOTED TO HAVE WAVE CHANGES ON TELEMETRY. THE T WAVE APPEARS TALLER, CHANGES IN WAVE FORMS AND SHAPE, ST ELEVATION NOTED. PHYSICIAN NOTIFIED AND BEDSIDE EKG ORDERED. THE RESULTS OF THE EKG WERE REVIEWED BY PHYSICIAN. THE PATIENT HAS REMAINED ASYMPTOMATIC AND VITAL SIGNS STABLE.
[2021-05-26 06:19] LABS: Alanine Aminotransferase 14 U/L (0-41); Alkaline Phosphatase 94 IU/L (40-130); Anion Gap 11.5 (5-19); Aspartate Amino Transferase 10 U/L (0-40); Blood Urea Nitrogen 22 mg/dL (8-23); Calcium 10.2 mg/dL (8.5-10.5); Carbon Dioxide 24 mmol/L (22-29); Chloride 104 mmol/L (98-107); Globulin 2.8 g/dL (1.3-4.6); Glucose 96 mg/dL (65-115); Magnesium 1.5 mg/dL (1.7-2.3); Osmolality Calculated 285 mOsm/kg (285-295); Phosphorus 2.7 mg/dL (2.5-4.5); Potassium 3.5 mmol/L (3.5-5.1); Sodium 136 mmol/L (136-145); Total Bilirubin 0.8 mg/dL (0.15-1.2); Total Protein 5.8 g/dL (6.6-8.7)
[2021-05-26] MEDS: sucralfate 1 gm/10 mL Oral Liq UDC PO ×3 (06:32→17:16)
--- NOTE | 2021-05-26 07:01 | P.PN_ITS ---
Subjective Subjective: Interval history: hungry- wants real food. no n/v/f/c/puentes/d/sob. Medications: Reviewed: Yes Medication Review Details: Current Medications Acetaminophen (Acetaminophen 325 Mg Tablet) 650 mg PO Q6H PRN PRN Reason: Mild/Mod Pain Or Temp >/= 101 Last Admin: 05/25/21 13:33 Dose: 650 mg Documented by: Allopurinol (Allopurinol 100 Mg Tablet) 100 mg PO BID [facility] Last Admin: 05/25/21 17:48 Dose: 100 mg Documented by: Atorvastatin Calcium (Atorvastatin 40 Mg Tablet) 40 mg PO BEDTIME [facility] Last Admin: 05/25/21 20:34 Dose: 40 mg Documented by: Bisacodyl (Bisacodyl 5 Mg Tablet) 10 mg PO DAILY PRN; Protocol PRN Reason: Constipation (see protocol) Sodium Chloride (Sodium Chloride 0.9%) 1,000 mls @ 100 mls/hr IV .Q10H [facility] Last Admin: 05/26/21 04:26 Dose: 100 mls/hr Documented by: Isosorbide Mononitrate (Isosorbide Mononitrate Er 30 Mg Tablet) 30 mg PO DAILY [facility] Last Admin: 05/23/21 09:42 Dose: 30 mg Documented by: Metoprolol Tartrate (Metoprolol Tartrate 25 Mg Tablet) 12.5 mg PO BID@0900,2100 [facility] Last Admin: 05/25/21 10:10 Dose: 12.5 mg Documented by: Ondansetron HCl (Ondansetron 2 Mg/Ml Sdv 2 Ml) 4 mg IVP Q8H PRN PRN Reason: vomiting, or N/V if npo Pantoprazole Sodium (Pantoprazole 40 Mg Sdv) 40 mg IVP Q12H [facility] Last Admin: 05/25/21 23:37 Dose: 40 mg Documented by: Sucralfate (Sucralfate 1 Gm/10 Ml Oral Liq Udc) 1 gm PO AC&BEDTIME RADHA Last Admin: 05/26/21 06:32 Dose: 1 gm Documented by: Tamsulosin HCl (Tamsulosin 0.4 Mg Capsule) 0.4 mg PO DAILY [facility] Last Admin: 05/23/21 09:42 Dose: 0.4 mg Documented by: Vitals/I&O/Wt Last Vital Signs Temp 98.3 F 05/26/21 04:00 Pulse 95 05/26/21 04:00 Resp 17 05/26/21 04:00 BP 109/75 05/26/21 04:00 Pulse Ox 93 05/26/21 04:00 05/25/21 05/26/21 05/26/21 22:59 06:59 14:59 Intake Total 1048.333 / 0298.361 4081 / 2458.333 Output Total 1200 / 1200 Balance -151.667 / 795.306 1864 / 1258.333 Physical Exam Narrative: EXAM NARRATIVE: NARD, vs noted- heart irreg heent- nc/at, eomi, anicteric neck supple lungs clear heart -irreg irreg, +s1, s2 abd soft, nt, nd, + bs ext 1+ rt ankle edema neuro-a,a, o x 3 no rash mood- good Urinary Catheter Management^: Almodovar: Cath Placed During This Visit: yes Reason for Continuing Indwelling Catheter: Acute Urinary Retention or Obstruction Urinary Catheter Date of Insertion: 05/15/21 Urinary Catheter Time of Insertion: 18:30 Data : 05/26/21 05:10 05/26/21 05:10 A&P Additional A&P Information 75 yr old man 1. RISA- had rt Marked dilatation of the right pelvicaliceal system with abrupt change in caliber at the level of the UPJ, suggesting underlying UPJ stenosis. Nonobstructing right renal calculi, the largest measuring 6 mm. -urology f/u - needed as outpt -good uop w/ almodovar -cr stable at 1.5 2. GI bleed EGD -duodenal ulcer s/p epi and clipping -hgb stable -advance diet as per medicine 3. a fib -replete k to 4, mag to 2 4. proteus mirabella UTI - s/p abx 5. calcium remains high at 10.2- no oral vit d- his level is very high -calcium improving w/ ivf -immobility can cause hypercalcemia -low iPTH -monitor ca -normal spep normal kappa/ lambda ratio -check saundra level -ivf, lasix if sob, may need calcitonin 6 normal EF -echo- Follow 2D echo: 1-Normal left ventricular cavity size. Normal left ventricular systolic function. Left ventricular ejection fraction is estimated at 55 %. In the presence of atrial fibrillation diastolic function cannot be assessed accurately. 2-Aortic valve sclerosis without stenosis or regurgitation. 3-Mildly thickened mitral valve. No mitral valve stenosis. Trace mitral valve regurgitation. 4-There is no pericardial effusion. 5-No significant valve abnormalities. 6-There are no prior echocardiogram studies to compare. 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
[2021-05-26 07:38] VITALS: BP 112/76; PULSE 102; RESP 17; TEMP 36.9; O2SAT 93
[2021-05-26] MEDS: potassium chloride ER 20 mEq Tablet 40 MEQ PO (08:09)
[2021-05-26] MEDS: allopurinol 100 mg Tablet PO ×2 (08:09→17:16)
[2021-05-26] MEDS: pantoprazole 40 mg SDV IVP (10:20)
--- NOTE | 2021-05-26 10:56 | PC.SOCIAL ---
IMM Update Pg. 2 of [facility] updated and reviewed with patient who verbalized understanding, copy provided.
[2021-05-26 11:33] VITALS: BP 109/73; PULSE 102; RESP 17; TEMP 36.7; O2SAT 91
--- NOTE | 2021-05-26 13:26 | ECG_ITS ---
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 Measurements Intervals [place] Rate: 103 P: [place]: QRS: 215 QRSD: 107 T: 60 QT: 331 QTc: 433 Interpretive Statements Sinus rhythm with a first-degree AV block POSSIBLE RIGHT VENTRICULAR HYPERTROPHY [SOME/ALL OF: PROMINENT R IN V1, LATE TRANSITION, RAD, PAULINA, SSS] MODERATE ST DEPRESSION [0.05+ mV ST DEPRESSION] Nonspecific T wave changes Compared to ECG 05/26/2021 03:18:56 Atrial abnormality now present ST (T wave) deviation now present Electronically Signed On 05-26-2021 20:10:51 CDT by Madai Richard M.D. [id number] f
--- NOTE | 2021-05-26 15:18 | PC.OT ---
OT TREATMENT ATTEMPTED THIS MORNING, PATIENT STATES THAT HE IS AWAITING TO HEAR REGARDING INSURANCE APPROVAL FOR SNF REHAB PLACEMENT. WOULD LIKE TO WAIT UNTIL THIS AFTERNOON FOR OT. OT ATTEMPTED AGAIN THIS AFTERNOON, PATIENT IS SLEEPING SOUNDLY.
[2021-05-26 15:35] VITALS: BP 133/99; PULSE 126; RESP 17; TEMP 36.4; O2SAT 95
[2021-05-26 19:27] VITALS: BP 133/99; PULSE 126; RESP 17; TEMP 36.4; O2SAT 95
--- NOTE | 2021-05-26 21:08 | P.DS_ITS ---
Discharge Providers Date of Admission: 05/15/21 10:28 Date of Discharge: May 26, 2021 Attending Provider at Admission: García Jimenez MD Attending Provider at Discharge: Federico Mccallum Primary Care Provider: Raymond Jansen [facility] Diagnoses at Discharge Discharge Diagnosis (1) A-fib: Status: Acute Qualifiers: Atrial fibrillation type: persistent (not longstanding) Qualified Code(s): I48.19 - Other persistent atrial fibrillation (2) GI bleed: Status: Acute (3) Hemorrhagic shock: Status: Acute (4) Hypertension: Status: Acute Qualifiers: Hypertension type: primary hypertension Qualified Code(s): I10 - Essential (primary) hypertension (5) Elevated troponin: Status: Acute (6) Heart block, AV: Status: Acute (7) Acute anemia: Status: Acute (8) Nephrolithiasis: Status: Acute (9) Stenosis of ureteropelvic junction (UPJ): Status: Acute Reason for Visit Reason for Visit: AMS POSS UTI Hospital Course Hospital Course This is a 75-year-old male with a past medical history of hypertension, gout, severe bilateral knee osteoarthritis, status post right knee total replacement, who presents to [facility] due to increased confusion Patient presented to [facility] due to acute metabolic encephalopathy secondary to UTI, uremia. Patient received antibiotic therapy, received IV hydration, mentation improved, according to his sister, he is alert and oriented x2, he does forget the date, but this is his baseline he has some dementia. Patient has [facility] due to his right knee surgery, and his family checks up on him daily. Urine culture showed Proteus for which he completed antibiotic course with ceftriaxone. For his RISA on CKD, likely secondary to obstructive uropathy, Castillo catheter was placed. Creatinine improved down to 1.6. Noted left loculated cystic lesion. Noted possible UPJ stenosis suggested by imaging. Urolithiasis. Castillo catheter maintained in place at discharge with request for leg bag. Instructed to follow-up with urology for additional assessment, voiding trial. He is started on tamsulosin. Asked also to follow-up with nephrology. Patient also was found to have A. fib with slow ventricular response, and sinus pauses, cardiology was consulted, murphy blocking agents were held, he had episodes of sinus pauses, longest 2 seconds, but remained asymptomatic., Initially on aspirin, Eliquis for stroke risk reduction, however, developed GI bleeding, hemorrhagic shock, aspirin and anticoagulation had to be withheld. Underwent EGD and colonoscopy while here with noted actively pulsating ulcer among other ulcers in the duodenal bulb. Injected. Clip placed. However, subsequently with some rebleeding, again hypotension, requiring total 3 units PRBC transfusions. Anticoagulants and aspirin withheld for now until reassessment by primary provider. Additional several days monitoring without any further decrease in hemoglobin. In case of persistent issues with slow bleeding may need repeat endoscopy. All murphy blocking agents have been held, he will be discharged on event monitor, with a follow-up with cardiology as outpatient for consideration if pacemaker placement may be needed. Troponin level elevated was assessed by cardiology, found poor candidate for invasive management due to multiple medical comorbidities, with consideration of medical management, however, again also limited due to comorbidities as above. Consider escalating therapy with antiplatelet medication when safe. Consider st ress testing when it may be candidate for additional more invasive means of management. Atorvastatin dose increased to 40 mg. Due to prolonged hospitalization, chronic arthritis, TKA of the right knee, need for TKA of the left knee once medically possible, as well as Castillo catheter in place and additional comorbidities as above, arrangements were being made for placement to SNF, however, was not approved by insurance, thus returned home today with home health with arrangements for additional outpatient follow-up. Physical Exam Const: COMMON NORMALS: no acute distress, patient oriented x3 and alert GENERAL APPEARANCE: cooperative, comfortable and frail appearing ORIENTATION/CONSCIOUSNESS: Yes awake OTHER: Reclined in bed. Awake, alert, feeling well. Denies any complaints. Disappointed about not being able to go to SNF for rehabilitation. HENMT: COMMON NORMALS: oropharynx normal Neck/C-Spine: COMMON NORMALS: no JVD Resp: COMMON NORMALS: normal respiratory effort and clear to auscultation bilaterally AUSCULTATION: clear to auscultation bilaterally Cardio: COMMON NORMALS: no JVD, regular rhythm, S1 normal heart sound present, S2 normal heart sound present and No murmurs present (Cardio) RHYTHM: regular rhythm HEART SOUNDS: S1 normal heart sound present and S2 normal heart sound present GI: COMMON NORMALS: Normal to inspection, nondistended, normoactive bowel sounds present, Soft to palpation and non-tender PALPATION: Yes Soft to palpation Extremity: COMMON NORMALS: no joint enlargement and no pedal edema Neuro: COMMON NORMALS: patient oriented x3 and moves all extremities SENSORIUM/ORIENTATION: Yes alert Skin: COMMON NORMALS: no rashes or lesions noted GENERAL SKIN EXAM: no rashes or lesions noted Urinary Catheter Management^: Castillo: Cath Placed During This Visit: yes Reason for Continuing Indwelling Catheter: Acute Urinary Retention or Obstruction Urinary Catheter Date of Insertion: 05/15/21 Urinary Catheter Time of Insertion: 18:30 Discharge Data Data Completed and Pending: Completed Studies During Hospitalization Category Date Time Status CT abdomen pelvis wo con [id number] Urge nt Cat Scan 05/15/21 08:[address] head wo con* 7 0450 Urgent Cat Scan 05/15/21 08:13 Completed XR chest 1V mian ble [id number] Urgent Exams 05/15/21 08:13 [place] [id number] Routin e Ultrasound 05/17/21 11:11 Completed CV. echo complete * [id number] Routine Ultrasound 05/16/21 19:19 Completed US renal BI* [id number] Routine Ultrasound 05/16/21 07:58 Completed Pending at discharge Category Date Time Status Angiotensin Conve rting Enzyme Routi ne Lab 05/25/21 07:32 Ordered Leukocyte Reduced RBC Routine Lab 05/23/21 04:00 Results Type and Screen R outine Lab 05/23/21 04:00 Results Labs from last 24 hours 05/26/21 05/26/21 05:10 05:10 WBC 7.4 RBC 3.66 L Hgb 11.1 L Hct 34.3 L MCV 93.7 MCH 30.3 MCHC 32.4 RDW 16.5 H Plt Count 333 MPV 10.7 H Neut % (Auto) 70.6 Lymph % (Auto) 17.6 [place] % (Auto) 11.0 Eos % (Auto) 0.0 Baso % (Auto) 0.0 Neut # (Auto) 5.25 Lymph # (Auto) 1.3 [place] # (Auto) 0.8 Eos # (Auto) 0.0 Baso # (Auto) 0.0 Nucleated RBC % (a uto) 0 Nucleated RBCs # 0.0 Sodium 136 Potassium 3.5 Chloride 104 Carbon Dioxide 24 Anion Gap 11.5 BUN 22 Creatinine 1.5 H GFR Calculation Not Reportable Glucose 96 Calculated Osmolal ity 285 Calcium 10.2 Phosphorus 2.7 Magnesium 1.5 L Total Bilirubin 0.8 AST 10 ALT 14 Alkaline Phosphata se 94 Total Protein 5.8 L Albumin 3.0 L Globulin 2.8 Vitals: Last Vital Signs Temp 97.5 F L 05/26/21 19:27 Pulse 126 H 05/26/21 19:27 Resp 17 05/26/21 19:27 BP 133/99 05/26/21 19:27 Pulse Ox 95 05/26/21 19:27 Discharge Plan Discharge Patient Disposition: Home Health Service Condition: Stable Prescriptions: New tamsulosin 0.4 mg Capsule 0.4 mg PO DAILY 30 Days Qty: 30 RF: 0 isosorbide mononitrate 30 mg Tablet Extended Release 24 Hr 30 mg PO DAILY 30 Days Qty: 30 RF: 0 atorvastatin 40 mg Tablet 40 mg PO BEDTIME Qty: 90 RF: 0 pantoprazole 40 mg tablet,delayed release (DR/EC) 40 mg PO BID 56 Days Qty: 112 RF: 0 Continued allopurinol 100 mg tablet 100 mg PO BID RF: 0 oxycodone 5 mg Tablet 5 mg PO Q4H PRN (Reason: Pain) RF: 0 acetaminophen 500 mg tablet 1,000 mg PO Q8H PRN (Reason: Pain) RF: 0 Discontinued atenolol 50 mg tablet 50 mg PO DAILY RF: 0 hydrochlorothiazide 25 mg tablet 25 mg PO DAILY RF: 0 amlodipine 10 mg Tablet 10 mg PO DAILY Qty: 30 RF: 0 celecoxib 200 mg Capsule 200 mg PO Q12H 15 Days Qty: 30 RF: 0 aspirin 325 mg Tablet,Delayed Release (Dr/Ec) 325 mg PO DAILY 30 Days Qty: 30 RF: 0 sulfamethoxazole-trimethoprim [Bactrim DS] 800-160 mg tablet 1 tab PO BID Qty: 90 RF: 0 Discharge Orders: Discharge Order (Routine); Ordered 05/26/21 Ordered By: Federico Mccallum Other Ambulatory Orders: CA cardiac event monitor (Routine) Timeframe: 1 Day Facility: [facility] - Location: Cardiac Diagnostic Laboratory Ordered By: Dave Lockwood Referrals: [facility] [Outside] Raymond Jansen FNP-BC [Primary Care Provider] - 1-3 days (PLEASE CALL FOR APPOINTMENT FOR HOSPITAL FOLLOW UP) Bill Sesay MD [Referring] - 2 weeks (They will call you for an appointemnt. REFFERAL SENT TO DR EVAN PUENTES) Ebenezer Britt MD [Physician] - 1 week (DR BRITT OFFICE WILL CALL WITH APPOINTMENT.) Jesus Mcfarland MD [Physician] - 06/29/21 12:00 pm Arnulfo Lawler MD [Physician] - 06/22/21 2:15 pm Discharge Diet: Advance as tolerated and Cardiac Discharge Activity: Resume usual activity and As per PT/OT instructions Patient Instructions: Atorvastatin (By mouth), Tamsulosin (By mouth), Cefdinir (By mouth), A-fib (Atrial Fibrillation) (DC), Kidney Stones (DC), Heart Block (DC), Hypertension (DC), Opioid Safety, Urinary Tract Infection - Men Activity Restrictions/Additional Instructions: -Monitor for bloody or black stools if so go to the emergency room -Follow-up with primary care provider in 1 week for recheck hemoglobin -If you fall, or have is a significant injury, go to the emergency room -Please stop taking Celebrex and avoid any NSAIDs like ibuprofen, Aleve, or any other -Aspirin stopped for now -Please discuss with your primary doctor regarding when it may be safe to resume aspirin, possibly blood thinner given recurrent GI bleeding, or possibly consideration for referral of other methods of stroke prevention with atrial flutter/fibrillation like left atrial appendage closure device -Please stop taking atenolol -If you have chest pain, palpitations go to the emergency room -Follow-up with cardiology in a month -Event monitor ordered HEART CARE WILL CALL WITH APPOINTMENT FOR HEART MONITOR -Following up with urology in 1 week -Please maintain Castillo catheter in place until you follow-up with urology in office Discharge Attestations Time Spent in Discharge Care*: greater than 30 min Quality Metrics Clinical Quality Measures During this hospital stay, did patient experience: None Coding Level of Care Code Acute Chg FW DC note Diagnoses A-fib I48.19 Atrial fibrillation type: persistent (not longstanding) GI bleed K92.2 Hemorrhagic shock R57.8 Hypertension I10 Hypertension type: primary hypertension Elevated troponin R77.8 Heart block, AV I44.30 Acute anemia D64.9 Nephrolithiasis N20.0 Stenosis of ureteropelvic junction (UPJ) Q62.11
--- NOTE | 2021-05-27 15:17 | PC.SOCIAL ---
discharge follow up call made, spoke with patient. he reports he is feeling good, denies chest pain. patient states his daughter takes care of all medications and appointments. commercial underwriter spoke with daughter. she took all prescriptions to the pharmacy and had them filled, patient is taking as directed. daughter is aware of discontinued medications. daughter will make follow up appointment with pcp, discussed that patient needs hemoglobin redrawn at that appointment. let daughter know that dr. lopez's office would call with appointment and so would dr. najera. daughter is waiting for [facility] to call about heart monitor. she is aware of follow up appointments with dr. hawk and dr. morales. discussed with daughter to watch for bloody or black stools, she reports stools have been brown and loose. no questions voiced.
== END 2021-05-26 19:27 | disposition home health service (06) | DRG 689 ==
LOC: ER 10:26 → CSU 11:15 → ICU 05-20 13:29 → MEDSURG 05-21 22:27
PROVIDERS: Family Medicine; Internal Medicine; Admitting Provider Internal Medicine; Emergency Provider Emergency Medicine; PCP Nurse Practitioner Family; Visit Provider Internal Medicine
PROC: 0DJ08ZZ Inspection of Upper Intestinal Tract, Via Natural or Artificial Opening Endoscopic (ICD-10-PCS; CPT 43235; principal; 2021-05-21 08:00)
PROC: 0DJD8ZZ Inspection of Lower Intestinal Tract, Via Natural or Artificial Opening Endoscopic (ICD-10-PCS; CPT 45378; 2021-05-21 08:00)
DX: N39.0 Urinary tract infection, site not specified (principal); R57.8 Other shock; G93.41 Metabolic encephalopathy; I21.A1 Myocardial infarction type 2; K26.0 Acute duodenal ulcer with hemorrhage; I48.19 Other persistent atrial fibrillation; N17.9 Acute kidney failure, unspecified; Q62.11 Congenital occlusion of ureteropelvic junction; I12.9 Hypertensive chronic kidney disease with stage 1 through stage 4 chronic kidney disease, or unspecified chronic kidney disease; F03.90 Unspecified dementia, unspecified severity, without behavioral disturbance, psychotic disturbance, mood disturbance, and anxiety; M10.9 Gout, unspecified; I44.30 Unspecified atrioventricular block; B96.4 Proteus (mirabilis) (morganii) as the cause of diseases classified elsewhere; E83.42 Hypomagnesemia; E87.6 Hypokalemia; H91.90 Unspecified hearing loss, unspecified ear; N18.30 Chronic kidney disease, stage 3 unspecified; K20.90 Esophagitis, unspecified without bleeding; K57.90 Diverticulosis of intestine, part unspecified, without perforation or abscess without bleeding; Z87.440 Personal history of urinary (tract) infections; N28.89 Other specified disorders of kidney and ureter; Z96.651 Presence of right artificial knee joint; N21.0 Calculus in bladder; N13.2 Hydronephrosis with renal and ureteral calculous obstruction; N40.1 Benign prostatic hyperplasia with lower urinary tract symptoms; R33.8 Other retention of urine; Z79.891 Long term (current) use of opiate analgesic; I49.5 Sick sinus syndrome; K57.30 Diverticulosis of large intestine without perforation or abscess without bleeding; D64.9 Anemia, unspecified; I95.9 Hypotension, unspecified; G89.29 Other chronic pain; M17.12 Unilateral primary osteoarthritis, left knee
CPT/HCPCS: 36415; 36430; 43235; 43255; 45378; 51702; 51798; 70450; 71045; 74176; 76770; 80048; 80053; 81001; 82274; 82306; 82310; 82436; 82550; 82570; 83605; 83690; 83735; 83880; 83883; 83970; 84100; 84133; 84145; 84155; 84165; 84300; 84484; 85007; 85014; 85018; 85025; 85610; 85651; 85730; 86140; 86850; 86900; 86920; 87077; 87086; 87186; 87426; 93005; 93306; 93970; 96365; 96372; 97110; 97116; 97162; 97165; 97535; 99285; 99291; C9113; J0171; J0696; J1644; J1650; J2704; J3475; J3480; J7030; P9016; P9058; Q3014

== ENCOUNTER → 2021-08-26 15:15 | Outpatient (BNVA) | payer MEDICARE, SELFPAY | PROVIDERS: PCP Nurse Practitioner Family; Visit Provider Urology | DX: R33.8 Other retention of urine (principal) | CPT/HCPCS: 81003 ==

== ENCOUNTER → 2021-11-11 15:07 | Outpatient (BNVA) | payer MEDICARE, SELFPAY | PROVIDERS: PCP Nurse Practitioner Family; Visit Provider Urology | DX: R33.8 Other retention of urine (principal) | CPT/HCPCS: 81003 ==

== ENCOUNTER → 2021-12-02 14:39 | Outpatient (BNVA) | payer MEDICARE, SELFPAY | PROVIDERS: PCP Nurse Practitioner Family; Visit Provider Urology | DX: R33.8 Other retention of urine (principal); R33.9 Retention of urine, unspecified; N21.0 Calculus in bladder; R82.71 Bacteriuria | CPT/HCPCS: 81003; 87077; 87086; 87184 ==

== ENCOUNTER → 2021-12-20 12:58 | Outpatient (BNVA) | payer MEDICARE, SELFPAY | PROVIDERS: PCP Nurse Practitioner Family; Visit Provider Urology | DX: R82.71 Bacteriuria (principal) | CPT/HCPCS: 87086 ==

== ENCOUNTER → 2022-01-11 12:52 | Outpatient (BNVA) | payer MEDICARE, SELFPAY | PROVIDERS: PCP Nurse Practitioner Family; Visit Provider Urology | DX: R33.8 Other retention of urine (principal); N40.0 Benign prostatic hyperplasia without lower urinary tract symptoms; R33.9 Retention of urine, unspecified | CPT/HCPCS: 51798; 81003; 99213 ==

== ENCOUNTER → 2022-01-26 13:54 | Outpatient (BNVA) | payer MEDICARE, SELFPAY | PROVIDERS: PCP Nurse Practitioner Family; Visit Provider Orthopaedic Surgery | DX: M17.12 Unilateral primary osteoarthritis, left knee (principal) | CPT/HCPCS: 99213; 99214 ==

== ENCOUNTER → 2022-02-01 14:00 | Day surgery (SDC) | payer MEDICARE, SELFPAY | PROVIDERS: PCP Nurse Practitioner Family; Visit Provider Orthopaedic Surgery | DX: Z01.818 Encounter for other preprocedural examination (principal) | CPT/HCPCS: 80048; 85025; 93005 ==

== ENCOUNTER 2022-02-07 12:23 | Observation (INO) | payer MEDICARE, SELFPAY ==
[2022-02-01 14:07] VITALS: BMI 34.8
--- NOTE | 2022-02-01 14:16 | ECG_ITS ---
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 Measurements Intervals [place] Rate: 96 P: [place]: QRS: -49 QRSD: 100 T: 69 QT: 354 QTc: 447 Interpretive Statements SUPRAVENTRICULAR RHYTHM LEFT ANTERIOR FASCICULAR BLOCK [QRS AXIS <= -45, QR IN I, RS IN II] LEFT VENTRICULAR HYPERTROPHY AND ST-T CHANGE [VOLTAGE CRITERIA PLUS ST/T ABNORMALITY] Compared to ECG 05/26/2021 11:06:13 Supraventricular rhythm now present Left anterior fascicular block now present Left ventricular hypertrophy now present Sinus rhythm no longer present Atrial abnormality no longer present T-wave abnormality no longer present ST (T wave) deviation still present Electronically Signed On 02-01-2022 22:37:03 CDT by Madai Richard M.D. [id number]
[2022-02-01 14:51] LABS: Basophils % 0.3 %; Eosinophils # 0.1 10^3/uL (0.0-0.8); Hematocrit 44.8 % (42.0-52.0); Hemoglobin 15.3 g/dL (11.7-16.6); Lymphocytes # 1.1 10^3/uL (0.8-4.8); Lymphocytes % 18.5 %; Mean Corpuscular HGB Conc 34.2 g/dL (30.0-36.0); Mean Corpuscular Hemoglobin 31.5 pg (28.0-34.0); Mean Corpuscular Volume 92.2 fl (80-94); Mean Platelet Volume 10.9 fL (7.4-10.4); Monocytes # 0.4 10^3/uL (0.2-0.9); Neutrophils # 4.37 10^3/uL (1.8-7.7); Neutrophils % 72.9 %; Nucleated Red Blood Cells % 0 %; Platelet Count 170 10^3/cmm (130-400); Red Blood Count 4.86 10^6/uL (4.1-5.3); Red Cell Distribution Width 13.1 % (12.1-15.1)
--- NOTE | 2022-02-01 14:57 | P.ANESASSM_ITS ---
Pre-Anesthetic Assessment Height/Weight: Height 1.8 m Weight 113.398 kg Preop Diagnosis: Anemia blood loss Operation Date: 02/07/22 09:40 Proposed Procedures p left total knee arthroplasty/ 82368 M17.12(Left) - Arnulfo Lawler MD Familial anesthetic complications: None Was Beta Eric taken within 24 hours: Yes Was Clonidine taken within 24 hours: N/A Social No alcohol and No tobacco Exam alert, oriented x 3, clear to auscultation bilaterally and regular rate & rhythm Airway Submandibular: within normal limits Cervical ROM: within normal limits Mallampati: Class II Dentition: chipped CV/HEM Atrial Fibrillation, Anemia, Arrythmia and Hypertension Chronic Renal Insufficiency GI Gastroesophageal Reflux Disease Metabolic Morbid Obesity [facility]/[place] Osteoarthritis/DJD Anesthetic Plan ASA status: 3 Anesthesia: Regional (specify below) (SAB with adductor blk) Medications/Allergies Home Medications Medication Instructions Recorded Confirmed Last Taken Type allopurinol 100 mg tablet 100 mg PO BID 07/21/20 02/01/22 05/13/21 History acetaminophen 500 mg tablet 1,000 mg PO Q8H PRN 05/15/21 02/01/22 Unknown History atorvastatin 40 mg tablet 40 mg PO BEDTIME #90 tab 05/25/21 02/01/22 Unknown Rx methenamine hippurate 1 gram tablet 1 g PO BID #60 tab 06/14/21 02/01/22 Unknown Rx ascorbic acid (vitamin C) 1,000 mg 1,000 mg PO BID tab 06/29/21 02/01/22 Unknown History tablet isosorbide mononitrate 30 mg 30 mg PO DAILY 06/29/21 02/01/22 Unknown History tablet,extended release 24 hr metoprolol succinate 25 mg 12.5 mg PO DAILY #45 tab 06/29/21 02/01/22 Unknown Rx tablet,extended release 24 hr tamsulosin 0.4 mg capsule 0.4 mg PO DAILY 06/29/21 02/01/22 Unknown History losartan 50 mg tablet 50 mg PO DAILY 02/01/22 02/01/22 Unknown History Allergies Allergy/AdvReac Type Severity Reaction Status Date / Time No Known Allergies Allergy Verified 02/01/22 14:04 [facility] Anesthesia Medical History GI bleed Gout Hemorrhagic shock Hydronephrosis of right kidney Hypertension Hypertension Left renal mass Surgical History Status post total right knee replacement Family History Mother , AT AGE 67 Cancer Father , AT AGE 80 LEUKEMIA Cancer Social History Smoking and tobacco status: never smoked Alcohol intake: never Marital status: / Current occupational status: retired History of recent travel: No Data Anesthesia : 02/01/22 14:36 02/01/22 14:36 Short CBC 02/01/22 Range/Units 14:36 WBC 6.0 (4.0-10.0) 10^3/uL Hgb 15.3 (11.7-16.6) g/dL Hct 44.8 (42.0-52.0) % MCV 92.2 (80-94) fl Plt Count 170 (130-400) 10^3/cmm Neut % (Auto) 72.9 % Neut # (Auto) 4.37 (1.8-7.7) 10^3/uL Cardiac Studies: Echocardiogram 05/16/21 Cardiac Event Monitor 05/31/21
[2022-02-01 15:06] LABS: Anion Gap 15.9 (5-19); Blood Urea Nitrogen 34 mg/dL (8-23); Calcium 9.2 mg/dL (8.5-10.5); Carbon Dioxide 23 mmol/L (22-29); Chloride 102 mmol/L (98-107); Glucose 197 mg/dL (65-115); Osmolality Calculated 297 mOsm/kg (285-295); Potassium 3.9 mmol/L (3.5-5.1); Sodium 137 mmol/L (136-145)
[2022-02-07] VITALS (18 sets, daily range): BP systolic 101–207; BP diastolic 63–158; PULSE 57–95; RESP 14–18; TEMP 36.1–36.7; O2SAT 92–97; BMI 34.8
[2022-02-07] MEDS: sodium chloride 0.9% 1,000 ML 30 ML IV (08:12)
[2022-02-07] MEDS: CELEcoxib 200 mg Capsule 400 MG PO (08:35)
[2022-02-07] MEDS: gabapentin 300 mg Capsule PO (08:35)
[2022-02-07] MEDS: acetaminophen 500 mg Tablet 1000 MG PO ×2 (08:35→16:42)
[2022-02-07] MEDS: oxyCODONE 20 mg ER (12 HR) Tablet PO (08:35)
[2022-02-07] MEDS: hyDRALAzine 20 mg/mL INJ 1 mL 5 MG IVP (08:40)
[2022-02-07] MEDS: vancomycin 1,500 MG/300 ML PIGGYBACK 200 MG IV (09:00)
--- NOTE | 2022-02-07 09:08 | SUR.PREOP ---
upon arrival to OPS patient's BP was elevated. BP was taken again after pre-op process was completed and patient was resting in bed. BP was still elevated. RN notified Dr. Locke an order for hydralizine was entered. Medication was administered and BP monitored.
--- NOTE | 2022-02-07 09:30 | SUR.PREOP ---
Time out was completed in room at bedside. Nerve block was performed for patient's left knee surgery. Patient tolerated well. VS remained stable.
--- NOTE | 2022-02-07 09:44 | ANES.PAUD2 ---
Pre-Anesthetic Update Pre-Anesthetic Assessment: Date of Surgery/Procedure: 02/07/22 Preop Diagnosis: Osteoarthritis Left knee Proposed Procedure: Operation Date: 02/07/22 09:40 Proposed Procedures p left total knee arthroplasty/ 85405 M17.12(Left) - Arnulfo Lawler MD Any changes to Pre-Anesthetic Assessment?: No Last Intake: Intake Last Liquid Date 02/06/22 Last Liquid Time 23:30 Last Solid Date 02/06/22 Last Solid Time 21:00 Vitals: Temperature 97.5 F L 02/07/22 07:48 Temperature Source Temporal Artery S can 02/07/22 07:48 Pulse Rate 84 02/07/22 07:48 Respiratory Rate 17 02/07/22 07:48 Blood Pressure 207/158 02/07/22 07:48 Blood Pressure Diana n 174 02/07/22 07:48 Pulse Oximetry 95 02/07/22 07:48 Oxygen Delivery Me thod 02/07/22 07:53 Exam: Pre-Anes Outpt Exam: alert, oriented x 3, clear to auscultation bilaterally and regular rate & rhythm Other Pertinent Information: Other Pertinent Information: Hydralazine 5 mg IV for pre-operative HTN Cardiac Studies: Echocardiogram 05/16/21 Cardiac Event Monitor 05/31/21
--- NOTE | 2022-02-07 09:45 | ANES.PROC ---
Anesthesia Procedures Procedure/Date: 02/07/22 Nerve Block ^: Nerve Block 1: Main Anesthesia: spinal anesthesia block Time Out Performed: Yes Consent: requested by attending/covering physician, from patient, risks and benefits reviewed and patient agrees to proceed Nerve block location: adductor canal (L) Nerve block position: supine Anesthetic Used: ropivicaine 0.5% (30) and with decadron (4 mg) Amount of anesthesia used (mL): 30 Ultrasound used to: recognize landmarks and visualize and ID femerol nerve Nerve Stimulator Used?: No Interscalene/Femoral BLK: 4 stimuplex 21 g needle used for position and inplane approach, visualize local anesthetic spread and no vascular puncture identified Injection: neg aspiration of heme Patient Tolerated Procedure: well and no complications Complications: none
--- NOTE | 2022-02-07 09:57 | W.PM.OPSFHP ---
Same Day Surgery H&P Indication for Procedure/HPI DATE OF PROCEDURE: February 07, 2022 CHIEF COMPLAINT/INDICATIONFOR SURGICAL PROCEDURE: Osteoarthritis left knee here for total knee arthroplasty PREOP DIAGNOSIS: Osteoarthritis Left knee PLANNED PROCEDURE: Operation Date: 02/07/22 09:40 Proposed Procedures p left total knee arthroplasty/ 59270 M17.12(Left) - Arnulfo Lawler MD See presurgical clinic note Medications/Allergies* Home Medications Medication Instructions Recorded Confirmed Type allopurinol 100 mg tablet 100 mg PO BID 07/21/20 02/07/22 History acetaminophen 500 mg tablet 1,000 mg PO Q8H PRN 05/15/21 02/07/22 History ascorbic acid (vitamin C) 1,000 mg 1,000 mg PO BID tab 06/29/21 02/07/22 History tablet isosorbide mononitrate 30 mg 30 mg PO DAILY 06/29/21 02/07/22 History tablet,extended release 24 hr tamsulosin 0.4 mg capsule 0.4 mg PO DAILY 06/29/21 02/01/22 History losartan 50 mg tablet 50 mg PO DAILY 02/01/22 02/07/22 History Allergies/Adverse Reactions Allergy/AdvReac Type Severity Reaction Status Date / Time No Known Allergies Allergy Verified 02/01/22 14:04 Current Medications: Generic Name Dose Route Start Last Admin Trade Name Freq PRN Reason Stop Dose Admin Sodium Chloride 1,000 mls @ 30 mls/hr 02/07/22 07:45 02/07/22 08:12 Sodium Chloride 0.9% IV 02/08/22 07:44 30 mls/hr .Q24H RADHA Administration Pertinent History/Comorbid Conditions* Medical History (Updated 01/26/22 @ 15:08 by Arnulfo Lawler MD) GI bleed Gout Hemorrhagic shock Hydronephrosis of right kidney Hypertension Hypertension Left renal mass Surgical History (Updated 05/31/21 @ 13:31 by Jennifer Gaines MD) Status post total right knee replacement Family History (Updated 06/14/21 @ 13:31 by RENITA Steen) Father, AT AGE 80 LEUKEMIA Mother, AT AGE 67 Cancer Mother Father Social History Smoking and tobacco status: never smoked Alcohol intake: never Marital status: / Current occupational status: retired History of recent travel: No Pertinent Exam Findings alert, oriented x 3, clear to auscultation bilaterally, regular rate & rhythm and operative site marked Recommendations Surgery/Procedure today Coding Level of Care Code 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
[2022-02-07] MEDS: tranexamic acid 1,000 mg/10mL SDV 1000 MG IV (10:40)
[2022-02-07] MEDS: tranexamic acid 1,000 mg/10mL SDV 1000 MG XX (11:12)
[2022-02-07] MEDS: sodium chloride 0.9% 100 mL Bag XX (11:12)
[2022-02-07] MEDS: ketorolac 30 mg/mL INJ XX (11:13)
[2022-02-07] MEDS: EPINEPHrine 1 mg/mL INJ XX (11:14)
--- NOTE | 2022-02-07 12:32 | PM.OP ---
Operative Report Date of procedure: February 07, 2022 Pre-op diagnosis: Preop Diagnosis Osteoarthritis Left knee Post-op diagnosis: same Post-op diagnosis: Same Post-op findings: Same Procedure done: Left total knee arthroplasty Implants: Verenice total knee arthroplasty components were used includin) Size 6 left triathalon posterior stabilized femoral component 2) Size 7 universal tibial component 3) 38 mm /11 mm thickness Tritanium asymetric patella 4) Size 7/9 mm thickness posterior stabilized tibial bearing insert Pathology: none sent Surgeon: Arnulfo Lawler Anesthesia: Nerve Block (Spinal, adductor canal block) Estimated blood loss (mL): 100 Tourniquet time (min): 60 Complications: None Findings: The patient eburnated bone over his medial femoral condyle medial tibial plateau patella and trochlea Condition: stable Disposition: PACU Procedure: The patient was taken to the operating room. Patient was given 1 g of tranexamic acid . The above anesthesia provided by the anesthesia service. A timeout was performed. The patient was prepped and draped in the usual fashion with the lower extremity exposed. Tourniquet was inflated to 350 mmHg. A anterior incision was made, midline, from a point proximal to the patella to the distal tibial tubercle. The knee was entered through a medial parapatellar approach. The patella could be displaced laterally and the knee flexed. The patellar fat pad was resected to provide better visibility. Retractors were placed medially and laterally adjacent to the tibial plateau. The femoral canal was drilled in line with the longitudinal axis of the femur. Intramedullary femoral guide for used to make a distal femoral cut in 5 degrees of valgus, resecting 8 mm from the more prominent condyle. Next the extra medullary tibial guide was placed in alignment with the longitudinal axis of the tibia. The cutting guides were set to remove just over 9 mm from the high tibial plateau. The proximal tibia was then cut. The femoral measuring guide was then placed over the distal femur. Rotation was verified checking the relationship of the guide to the condyle and the trochlear groove. The femur was measured and cut for the desired femoral component. The desired tibial baseplate was then chosen. A trial reduction with the femur tibial baseplate and polyethylene was done, assuring that the knee was stable throughout full motion. Ligament balancing involved nothing more than a release of the deep medial collateral ligament and removal of medial osteophytes..The tibia was prepared for the tibial baseplate. Patellar thickness was then measured. The patella was cut removing articular cartilage and prepared for appropriate size patellar button. surfaces were cleaned with a gentamicin solution. The femur tibia and patella were then cemented into place. The tourniquet was deflated and hemostasis provided with the Aquamanis cautery. final polyethylene component was then snapped into place into the tibia. The extensor retinaculum was closed with a running 1 Stratafix interrupted 1 Ethibond. The subcutaneous tissues were closed with 2-0 Vicryl and the skin was closed with a running 4-0 Stratafix. The wound was covered with a Dermabond Prineo dressing. It was covered with 4xrs and a compressive Tubigauze was applied. The patient was taken to recovery room in stable condition.
--- NOTE | 2022-02-07 12:39 | XR_ITS ---
WS: [id number] XR knee LT 1-2V 46312 REASON FOR EXAM: Left Total knee arthroplasty FINDINGS: Total left knee arthroplasty. Prosthetic components are in proper position and alignment. No focal bony abnormality. Immediate postoperative soft tissue findings. XR/XR knee LT 1-2V [id number] IMPRESSION: Total left knee arthroplasty without abnormality.
--- NOTE | 2022-02-07 15:58 | ANE.PACU2 ---
Inpatient post-anesthesia follow up: Airway intact: Yes Vital signs: Temperature 97.5 F Pulse Rate 60 Respiratory Rate 16 Blood Pressure 175/87 Pulse Oximetry 95 Oxygen Delivery Me thod Room Air Oxygen Flow Rate 6 Fraction of Inspir ed Oxygen Hydration adequate: Yes Nausea and vomiting: No Pain level: 2 Mental status: Baseline
[2022-02-07] MEDS: sodium chloride 0.9% 1,000 ML 100 ML IV (16:41)
[2022-02-07] MEDS: CELEcoxib 200 mg Capsule PO (16:41)
[2022-02-07] MEDS: allopurinol 100 mg Tablet PO (18:22)
[2022-02-07] MEDS: atorvastatin 40 mg Tablet PO (21:22)
[2022-02-07] MEDS: oxyCODONE 5 mg IR Tab/Cap PO (22:51)
[2022-02-08] VITALS (10 sets, daily range): BP systolic 143–191; BP diastolic 82–104; PULSE 78–101; RESP 16–20; TEMP 36.6–37; O2SAT 95–96
[2022-02-08 03:39] LABS: Hemoglobin 14.9 g/dL (11.7-16.6)
[2022-02-08] MEDS: CELEcoxib 200 mg Capsule PO ×2 (03:39→17:12)
[2022-02-08] MEDS: oxyCODONE 5 mg IR Tab/Cap PO ×3 (03:39→14:32)
[2022-02-08] MEDS: aspirin 325 mg EC Tablet PO (08:27)
[2022-02-08] MEDS: isosorbide mononitrate ER 30 mg Tablet PO (08:27)
[2022-02-08] MEDS: losartan 50 mg Tablet PO (08:28)
[2022-02-08] MEDS: allopurinol 100 mg Tablet PO ×2 (08:28→17:12)
[2022-02-08] MEDS: metoprolol succinate ER (24 HR) 25 mg Tablet 12.5 MG PO (08:28)
[2022-02-08] MEDS: tamsulosin 0.4 mg Capsule PO (08:28)
--- NOTE | 2022-02-08 11:59 | PC.CHAP ---
Pastoral Care Encounter/Spiritual Assessment Type of Contact [] Declined rn ccu visit [] Patient/Family/Request visit [] Outpatient visit [] Follow-up visit [] Physician referral [] Code/Alert [x] Routine visit [] Staff referral [] Actively dying [] Patient sleeping [] Family support [] [] Out of room [] Palliative care [] [] Receiving care in room [] Pre-surgical visit [] Trauma [] Long length of stay [] ICU visit [] Other: Relational/Emotional Strength [x] Patient feels connected with others/family/visitors/staff [] Distress [] Loneliness/isolation [] Abandonment Spirituality of Patient [x] Person of Michelle [x] Attends Congregational of their Michelle [x] Believes in Prayer [x] Reads Bible or Jainism materials [] There are Spiritual issues to be addressed Network Programmer Interventions [x] Prayer [x] Active listening [x] Non-anxious presence x] Spiritual/emotional support [] Crisis/trauma care [] Spiritual counseling [] Bereavement support [] Provided bereavement packet [] Provided Bible/devotional materials [] Provided toy/stuffed animal, coloring book to patient or family member [] Provided Communion [] Anointing/[place] [] Salvation [x] Completed spiritual assessment [] Other: Impact on Illness or Injury [] Angry [] Fearful [] Anxious [] Often cries [] Exhaustion [] Unable to work [] Unable to attend congregation [] Unable to walk/stand [] Unable to read [] Unable to drive [] Unable to eat/drink [] Unable to sleep [] Unable to be with family [] Patient intubated [] Other: Summary Time spent with patient 10 min
--- NOTE | 2022-02-08 16:54 | PM.DCS ---
Discharge Providers Date of Admission: 02/07/22 12:23 Date of Discharge: February 08, 2022 Attending Provider at Admission: Arnulfo Lawler MD Attending Provider at Discharge: Arnulfo Lawler MD Primary Care Provider: Raymond Jansen [facility] Diagnoses at Discharge Discharge Diagnosis (1) Status post left knee replacement: Status: Acute (2) Osteoarthritis of left knee: Status: Resolved (3) Hypertension: Status: Acute Qualifiers: Hypertension type: primary hypertension Qualified Code(s): I10 - Essential (primary) hypertension (4) BPH w/o urinary obs/LUTS: Status: Acute Hospital Course Hospital Course The patient tolerated surgery well. They remained hemodynamically stable. They was begun on aspirin and foot pumps for DVT prophylaxis. The patient was mobilized with therapy beginning the day of surgery and by the first postoperative day independent with the walker. As the pain was adequately controlled and they were fully mobile they were discharged home. Physical Exam Narrative: On the day of discharge the knee incision was clean. They had no drainage. There is minimal swelling in the thigh and knee and the calf. No distal neurovascular deficits were noted Urinary Catheter Management: Castillo: Cath Placed During This Visit: yes Reason for Continuing Indwelling Catheter: Perioperative Use in Selected Surgeries Urinary Catheter Date of Insertion: 02/07/22 Urinary Catheter Time of Insertion: 10:30 Discharge Data Studies Completed and Pending Completed Studies During Hospitalization Category Date Time Status XR knee LT 1-2V 35060 Routine Exams 02/07/22 12:39 Completed Radiology Impressions Knee X-Ray 02/07/22 12:39 IMPRESSION: Total left knee arthroplasty without abnormality. Laboratory Results WBC 6.0 10^3/uL (4.0-10.0) 02/01/22 14:36 RBC 4.86 10^6/uL (4.1-5.3) 02/01/22 14:36 Hgb 14.9 g/dL (11.7-16.6) 02/08/22 02:44 Hct 44.8 % (42.0-52.0) 02/01/22 14:36 MCV 92.2 fl (80-94) 02/01/22 14:36 MCH 31.5 pg (28.0-34.0) 02/01/22 14:36 MCHC 34.2 g/dL (30.0-36.0) 02/01/22 14:36 RDW 13.1 % (12.1-15.1) 02/01/22 14:36 Plt Count 170 10^3/cmm (130-400) 02/01/22 14:36 MPV 10.9 fL (7.4-10.4) H 02/01/22 14:36 Neut % (Auto) 72.9 % 02/01/22 14:36 Lymph % (Auto) 18.5 % 02/01/22 14:36 [place] % (Auto) 7.0 % 02/01/22 14:36 Eos % (Auto) 1.0 % 02/01/22 14:36 Baso % (Auto) 0.3 % 02/01/22 14:36 Neut # (Auto) 4.37 10^3/uL (1.8-7.7) 02/01/22 14:36 Lymph # (Auto) 1.1 10^3/uL (0.8-4.8) 02/01/22 14:36 [place] # (Auto) 0.4 10^3/uL (0.2-0.9) 02/01/22 14:36 Eos # (Auto) 0.1 10^3/uL (0.0-0.8) 02/01/22 14:36 Baso # (Auto) 0.0 10^3/uL (0.0-0.1) 02/01/22 14:36 Nucleated RBC % (auto) 0 % 02/01/22 14:36 Nucleated RBCs # 0.0 /100WBC 02/01/22 14:36 Sodium 137 mmol/L (136-145) 02/01/22 14:36 Potassium 3.9 mmol/L (3.5-5.1) 02/01/22 14:36 Chloride 102 mmol/L (98-107) 02/01/22 14:36 Carbon Dioxide 23 mmol/L (22-29) 02/01/22 14:36 Anion Gap 15.9 (5-19) 02/01/22 14:36 BUN 34 mg/dL (8-23) H 02/01/22 14:36 Creatinine 1.2 mg/dL (0.7-1.2) 02/01/22 14:36 GFR Calculation Not Reportable 02/01/22 14:36 Glucose 197 mg/dL (65-115) H 02/01/22 14:36 Calculated Osmolality 297 mOsm/kg (285-295) H 02/01/22 14:36 Calcium 9.2 mg/dL (8.5-10.5) 02/01/22 14:36 Vitals Last Vital Signs Temp 98.6 F 02/08/22 16:00 Pulse 78 02/08/22 16:00 Resp 16 02/08/22 16:00 BP 143/82 02/08/22 16:00 Pulse Ox 95 02/08/22 16:00 Discharge Plan Discharge Patient Disposition: Home Condition: Stable Prescriptions: New oxycodone 5 mg Tablet 5 mg PO Q4H PRN (Reason: Moderate Pain) 7 Days Qty: 30 0RF aspirin 325 mg Tablet,Delayed Release (Dr/Ec) 325 mg PO DAILY 30 Days Qty: 30 0RF celecoxib 200 mg Capsule 200 mg PO Q12H 14 Days Qty: 28 0RF Continued allopurinol 100 mg tablet 100 mg PO BID 0RF isosorbide mononitrate 30 mg tablet extended release 24 hr 30 mg PO DAILY 0RF tamsulosin 0.4 mg capsule 0.4 mg PO DAILY 0RF ascorbic acid (vitamin C) 1,000 mg tablet 1,000 mg PO BID 0RF metoprolol succinate 25 mg tablet extended release 24 hr 12.5 mg PO DAILY Qty: 45 3RF methenamine hippurate 1 gram tablet 1 g PO BID Qty: 60 12RF Rx Instructions: Take 1000 mg of vitamin C with each dose of methenamine acetaminophen 500 mg tablet 1,000 mg PO Q8H PRN (Reason: Pain) 0RF atorvastatin 40 mg Tablet 40 mg PO BEDTIME Qty: 90 0RF losartan 50 mg Tablet 50 mg PO DAILY 0RF Discharge Orders: Discharge Order (Routine); Ordered 02/08/22 Ordered By: Arnulfo Lawler Referrals: [facility] [Outside] Tone Dumont FNP [Physician Materials And Corrosion Engineer] - 02/11/22 9:45 am Discharge Activity: Limit activity as instructed Patient Instructions: Opioid Safety Activity Restrictions/Additional Instructions: Okay to shower Keep Tubigauze sleeve in place for swelling. Okay to remove for hygiene. Apply FirstIce up to 20 min/hr for pain and swelling Take Celebrex twice a day for the next 15 days for pain , discontinue other anti-inflammatories take oxycodone for breakthrough pain. Exercises per physical therapy. May weight-bear as tolerated on total knee arthroplasty IF HAVE ANY PROBLEMS OR QUESTIONS CALL HOSPITAL CLERICAL SECRETARY AT AND ASK TO HAVE DR. JACK DENT. Discharge Attestations Time Spent in Discharge Care*: other Quality Metrics Clinical Quality Measures [ No reported AMI, CVA or VTE this stay] Coding Level of Care Code Acute Chg FW MI note Diagnoses Status post left knee replacement Z96.652 Osteoarthritis of left knee M17.12 Hypertension I10 Hypertension type: primary hypertension BPH w/o urinary obs/LUTS N40.0
== END 2022-02-08 19:50 | disposition home or self-care (01) ==
LOC: MEDSURG 12:24
PROVIDERS: Anesthesiology; Admitting Provider Orthopaedic Surgery; PCP Nurse Practitioner Family; Visit Provider Orthopaedic Surgery
PROC: (CPT 27447; principal; 2022-02-07 09:20)
DX: M17.12 Unilateral primary osteoarthritis, left knee (principal); I10 Essential (primary) hypertension; I48.91 Unspecified atrial fibrillation; K21.9 Gastro-esophageal reflux disease without esophagitis; E66.01 Morbid (severe) obesity due to excess calories; Z68.34 Body mass index [BMI] 34.0-34.9, adult
CPT/HCPCS: 27447; 36415; 51702; 73560; 85018; 97116; 97161; 97165; 97530; C1776; G0378; J0171; J0360; J1100; J1580; J1885; J2704; J2795; J3010; J3370; J7030

== ENCOUNTER → 2022-02-16 11:05 | Outpatient (BNVA) | payer MEDICARE, SELFPAY | PROVIDERS: PCP Nurse Practitioner Family; Visit Provider Nurse Practitioner Family | DX: Z96.652 Presence of left artificial knee joint (principal) | CPT/HCPCS: 73560; 73565; 99024 ==

== ENCOUNTER → 2022-03-16 13:10 | Outpatient (BNVA) | payer MEDICARE, SELFPAY | PROVIDERS: PCP Nurse Practitioner Family; Visit Provider Nurse Practitioner Family | DX: Z96.652 Presence of left artificial knee joint (principal) | CPT/HCPCS: 73560; 73565; 99024 ==

== ENCOUNTER → 2022-06-16 13:38 | Outpatient (BNVA) | payer MEDICARE, SELFPAY | PROVIDERS: PCP Nurse Practitioner Family; Visit Provider Nurse Practitioner Family | DX: Z96.652 Presence of left artificial knee joint (principal) | CPT/HCPCS: 73560; 73565; 99213 ==

== ENCOUNTER 2023-03-19 01:02 | Inpatient (IN) | payer MEDICARE, MEDICAID, SELFPAY ==
[2023-03-19] VITALS (10 sets, daily range): BP systolic 152–187; BP diastolic 85–112; PULSE 80–93; RESP 16–20; TEMP 36.3–37.1; O2SAT 94–96; BMI 30.7
--- NOTE | 2023-03-19 01:13 | XRR_ITS ---
PROCEDURE INFORMATION: Exam: XR Chest Exam date and time: 03/19/2023 1:18 AM Age: 77 years old Clinical indication: Chest pressure; Patient HX: C/O chest pain. History of afib. ; Additional info: Cp TECHNIQUE: Imaging protocol: Radiologic exam of the chest. Views: 1 view. COMPARISON: CR XR chest 1V portable [id number] 05/15/2021 9:01 AM FINDINGS: Lungs: Unremarkable. No consolidation. Pleural spaces: Unremarkable. No pleural effusion. No pneumothorax. Heart/Mediastinum: Unremarkable. No cardiomegaly. Bones/joints: Moderate to severe right glenohumeral primary osteoarthritis. Moderate left primary glenohumeral osteoarthritis. Moderate thoracic spondylosis. XR/XR chest 1V portable [id number] IMPRESSION: No acute findings.
--- NOTE | 2023-03-19 01:13 | CTR_ITS ---
PROCEDURE INFORMATION: Exam: CT Head Without Contrast Exam date and time: 03/19/2023 1:33 AM Age: 77 years old Clinical indication: Pain; Headache; Patient HX: PRICE with hypertension TECHNIQUE: Imaging protocol: Computed tomography of the head without contrast. Radiation optimization: All CT scans at this facility use at least one of these dose optimization techniques: automated exposure control; mA and/or kV adjustment per patient size (includes targeted exams where dose is matched to clinical indication); or iterative reconstruction. REPORTING DATA: Count of CT and Cardiac NM exams in prior 12 months: This patient has received 0 known CTs and 0 known cardiac nuclear medicine studies in the 12 months prior to the current study. COMPARISON: CT head wo con* [id number] 05/15/2021 10:13 AM RADIATION DOSE METRICS: Total DLP (mGy-cm): 1059.58 FINDINGS: Brain: Otilio cisterna magna which is a normal variant. Moderate calcified intracranial atherosclerotic vessel disease. Mild to moderate cerebral atrophy and ischemic leukoencephalopathy. 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 Cerebral ventricles: No ventriculomegaly. Paranasal sinuses: Visualized sinuses are unremarkable. No fluid levels. Mastoid air cells: Visualized mastoid air cells are well aerated. Bones/joints: Unremarkable. No acute fracture. Soft tissues: Unremarkable. CT/CT head wo con* [id number] IMPRESSION: No acute intracranial findings.
--- NOTE | 2023-03-19 01:24 | ED_ITS ---
HPI - Weakness General: Chief complaint: Weakness Stated complaint: hypertension Time Seen by Provider: 03/19/23 01:04 Source: patient and EMS Mode of arrival: EMS Limitations: no limitations History of Present Illness: 77-year-old male states he been having generalized weakness today. He states he has had multiple falls as he feels like his legs are not working states really the right worse than the left. He states his blood pressures been running high as well he has not taken his evening doses. He had no slurred speech denies any chest pain or shortness of breath. Associated symptoms: Denies chest pain, chills, dysuria, fever(s), headache(s), nausea or vomiting Review of Systems Const: Reports: fatigue and malaise; Denies: fever(s), chills, body aches or change in appetite ENMT: Denies: throat pain or dental pain Card: Denies: chest pain Resp: Denies: dyspnea GI: Denies: abdominal pain, nausea, vomiting or diarrhea : Denies: dysuria Musc: Denies: neck pain or back pain Skin/Breast: Denies: rash Neuro: Denies: headache(s) PFSH ED PFSH: Medical History A-fib Acute anemia Acute urinary retention RISA (acute kidney injury) Bacteriuria Bladder stone GI bleed Gout Heart block, AV Hemorrhagic shock Hydronephrosis of right kidney Hypertension Hypertension Incomplete bladder emptying Left renal mass Nephrolithiasis Right renal stone Sinus pause Surgical History Status post total right knee replacement Family History Mother , AT AGE 67 Cancer Father , AT AGE 80 LEUKEMIA Cancer Social History Smoking and tobacco status: never smoked Alcohol intake: never Substance/Drug Use: never Marital status: / Current occupational status: retired Physical Exam Const: COMMON NORMALS: patient oriented x3 HENMT: COMMON NORMALS: normocephalic and atraumatic HEAD & SCALP: normocephalic and atraumatic Eye: COMMON NORMALS: Equal, round and reactive pupils present and EOMs intact bilaterally PUPIL: Yes Equal, round and reactive pupils present Neck/C-Spine: COMMON NORMALS: full ROM and supple Chest: COMMONS NORMALS: normal inspection of the chest and normal palpation of entire chest wall Resp: COMMON NORMALS: normal respiratory effort, No retractions, No use of accessory muscles and clear to auscultation bilaterally AUSCULTATION: clear to auscultation bilaterally Cardio: COMMON NORMALS: regular rate, regular rhythm and No murmurs present ( Cardio) RATE: regular rate RHYTHM: regular rhythm GI: COMMON NORMALS: Normal to inspection, nondistended, normoactive bowel sounds present, Soft to palpation, non-tender and no masses PALPATION: Yes Soft to palpation Extremity: COMMON NORMALS: normal to inspection and full ROM Neuro: COMMON NORMALS: patient oriented x3, moves all extremities and no focal motor deficits Psych: COMMON NORMALS: mental status grossly normal, Normal thought process present and cooperative THOUGHT PROCESS: Normal thought process present Skin: COMMON NORMALS: no rashes or lesions noted and no wounds GENERAL SKIN EXAM: no rashes or lesions noted Course Vital Signs: Vital signs: Vital Signs Pulse Rate 93 03/19/23 01:09 Respiratory Rate 16 03/19/23 01:09 Blood Pressure 168/109 03/19/23 01:09 Pulse Oximetry 96 03/19/23 01:09 MDM - Weakness Medical Decision Making Patient presents here with weakness likely from an acute UTI did try to ambulate patient here and is not able to ambulate spoke to the hospitalist and will ad cony. Medical Records I reviewed the patient's medical records. Lab Data I reviewed the patient's lab results. 03/19/23 01:25 03/19/23 01:25 Radiology Impressions Chest X-Ray 03/19/23 01:13 IMPRESSION: No acute findings. Head CT 03/19/23 01:13 IMPRESSION: No acute intracranial findings. Laboratory Results WBC 8.1 10^3/uL (4.0-10.0) 03/19/23 01:25 RBC 5.02 10^6/uL (4.1-5.3) 03/19/23 01:25 Hgb 15.6 g/dL (11.7-16.6) 03/19/23 01:25 Hct 48.9 % (42.0-52.0) 03/19/23 01:25 MCV 97.4 fl (80-94) H 03/19/23 01:25 MCH 31.1 pg (28.0-34.0) 03/19/23 01:25 MCHC 31.9 g/dL (30.0-36.0) 03/19/23 01:25 RDW 13.0 % (12.1-15.1) 03/19/23 01:25 Plt Count 197 10^3/cmm (130-400) 03/19/23 01:25 MPV 10.2 fL (7.4-10.4) 03/19/23 01:25 Neut % (Auto) 69.3 % 03/19/23 01:25 Lymph % (Auto) 17.8 % 03/19/23 01:25 [place] % (Auto) 11.2 % 03/19/23 01:25 Eos % (Auto) 1.0 % 03/19/23 01:25 Baso % (Auto) 0.5 % 03/19/23 01:25 Neut # (Auto) 5.62 10^3/uL (1.8-7.7) 03/19/23 01:25 Lymph # (Auto) 1.4 10^3/uL (0.8-4.8) 03/19/23 01:25 [place] # (Auto) 0.9 10^3/uL (0.2-0.9) 03/19/23 01:25 Eos # (Auto) 0.1 10^3/uL (0.0-0.8) 03/19/23 01:25 Baso # (Auto) 0.0 10^3/uL (0.0-0.1) 03/19/23 01:25 Nucleated RBC % (auto) 0 % 03/19/23 01:25 Nucleated RBCs # 0.0 /100WBC 03/19/23 01:25 PT 12.20 SECONDS (12.1-14.9) 03/19/23 01:25 INR 0.88 (0.8-1.2) 03/19/23 01:25 Sodium 138 mmol/L (136-145) 03/19/23 01:25 Potassium 3.8 mmol/L (3.5-5.1) 03/19/23 01:25 Chloride 101 mmol/L (98-107) 03/19/23 01:25 Carbon Dioxide 25 mmol/L (22-29) 03/19/23 01:25 Anion Gap 15.8 (5-19) 03/19/23 01:25 BUN 29 mg/dL (8-23) H 03/19/23 01:25 Creatinine 1.1 mg/dL (0.7-1.2) 03/19/23 01:25 GFR Calculation Not Reportable 03/19/23 01:25 Glucose 111 mg/dL (65-115) 03/19/23 01:25 Calculated Osmolality 293 mOsm/kg (285-295) 03/19/23 01:25 Calcium 9.4 mg/dL (8.5-10.5) 03/19/23 01:25 Total Bilirubin 0.4 mg/dL (0.15-1.2) 03/19/23 01:25 AST 22 U/L (0-40) 03/19/23 01:25 ALT 31 U/L (0-41) 03/19/23 01:25 Alkaline Phosphatase 115 U/L (40-130) 03/19/23 01:25 Troponin T Baseline 26 ng/L (0-15) H 03/19/23 01:25 Total Protein 7.3 g/dL (6.6-8.7) 03/19/23 01:25 Albumin 4.1 g/dL (3.5-5.2) 03/19/23 01:25 Globulin 3.2 g/dL (1.3-4.6) 03/19/23 01:25 Urine Color Yellow (Yellow) 03/19/23 01:21 Urine Appearance Hazy (CLEAR) A 03/19/23 01:21 Urine pH 5 (5-7) 03/19/23 01:21 Ur Specific [place] 1.015 (1.005-1.030) 03/19/23 01:21 Urine Protein Neg (Negative) 03/19/23 01:21 Urine Glucose (UA) Norm (Normal) 03/19/23 01:21 Urine Ketones Negative (Negative) 03/19/23 01:21 Urine Blood 2+ (Negative) H 03/19/23 01:21 Urine Nitrate Negative (Negative) 03/19/23 01:21 Urine Bilirubin Neg (Negative) 03/19/23 01:21 Urine Urobilinogen Norm mg/dL (Negative) 03/19/23 01:21 Ur Leukocyte Esterase 1+ (Negative) H 03/19/23 01:21 Urine RBC 5-10 /hpf (0-2) H 03/19/23 01:21 Urine WBC 40-55 /hpf (0-5) H 03/19/23 01:21 Ur Squamous Epith Cells 0-4 /hpf (0-5) H 03/19/23 01:21 Amorphous Sediment Not Reportable 03/19/23 01:21 Urine Bacteria 3+ /hpf (NONE) H 03/19/23 01:21 Discharge Plan Discharge Patient Disposition: Admitted As Inpatient Clinical Impression: Acute cystitis, Weakness Condition: Stable Prescriptions: No Action allopurinol 100 mg tablet 100 mg PO BID isosorbide mononitrate 30 mg tablet extended release 24 hr 30 mg PO DAILY tamsulosin 0.4 mg capsule 0.4 mg PO DAILY ascorbic acid (vitamin C) 1,000 mg tablet 1,000 mg PO BID methenamine hippurate 1 gram tablet 1 g PO BID Qty: 60 12RF Rx Instructions: Take 1000 mg of vitamin C with each dose of methenamine metoprolol succinate 25 mg tablet extended release 24 hr 12.5 mg PO DAILY Qty: 15 0RF Rx Instructions: MUST have follow-up with new provider for further refills acetaminophen 500 mg tablet 1,000 mg PO Q8H PRN (Reason: Pain) atorvastatin 40 mg Tablet 40 mg PO BEDTIME Qty: 90 0RF losartan 50 mg Tablet 50 mg PO DAILY Referrals: Raymond Jansen, SURGICAL ENDOSCOPIST-BC [Primary Care Provider] - Coding Level of Care Code ED Grading Clerk for Main [place]
[2023-03-19 01:42] LABS: Basophils % 0.5 %; Eosinophils # 0.1 10^3/uL (0.0-0.8); Hematocrit 48.9 % (42.0-52.0); Hemoglobin 15.6 g/dL (11.7-16.6); Lymphocytes # 1.4 10^3/uL (0.8-4.8); Lymphocytes % 17.8 %; Mean Corpuscular HGB Conc 31.9 g/dL (30.0-36.0); Mean Corpuscular Hemoglobin 31.1 pg (28.0-34.0); Mean Corpuscular Volume 97.4 fl (80-94); Mean Platelet Volume 10.2 fL (7.4-10.4); Monocytes # 0.9 10^3/uL (0.2-0.9); Monocytes % 11.2 %; Neutrophils # 5.62 10^3/uL (1.8-7.7); Neutrophils % 69.3 %; Nucleated Red Blood Cells % 0 %; Platelet Count 197 10^3/cmm (130-400); Red Blood Count 5.02 10^6/uL (4.1-5.3); White Blood Count 8.1 10^3/uL (4.0-10.0)
[2023-03-19 01:46] LABS: Bilirubin Urine Neg (Negative); Blood Urine 2+ (Negative); Glucose Urine UA Norm (Normal); Ketones Urine Negative (Negative); Nitrate Urine Negative (Negative); Protein Urine Neg (Negative); Specific Gravity, Urine 1.015 (1.005-1.030); Urine Appearance Hazy (CLEAR); Urine Color Yellow (Yellow); Urobilinogen Urine Norm (Negative); pH Urine 5 (5-7)
[2023-03-19 01:47] LABS: Add Urine Microscopic? YES; Leukocyte Esterase Urine 1+ (Negative)
[2023-03-19 01:48] LABS: Bacteria Urine 3+ /hpf; Squamous Epithelial Cell Urine 0-4 /hpf (0-5); WBC Urine 40-55 /hpf (0-5)
[2023-03-19 01:49] LABS: Add Urine Culture? Yes
[2023-03-19] MEDS: labetalol 5 mg/mL SDV 20mL 10 MG IVP (01:50)
[2023-03-19 01:56] LABS: INR 0.88 (0.8-1.2)
[2023-03-19 02:08] LABS: Troponin(5th) Baseline 26 ng/L (0-15)
[2023-03-19 02:10] LABS: Alanine Aminotransferase 31 U/L (0-41); Albumin Level 4.1 g/dL (3.5-5.2); Alkaline Phosphatase 115 U/L (40-130); Anion Gap 15.8 (5-19); Aspartate Amino Transferase 22 U/L (0-40); Blood Urea Nitrogen 29 mg/dL (8-23); Calcium 9.4 mg/dL (8.5-10.5); Carbon Dioxide 25 mmol/L (22-29); Chloride 101 mmol/L (98-107); Globulin 3.2 g/dL (1.3-4.6); Glucose 111 mg/dL (65-115); Osmolality Calculated 293 mOsm/kg (285-295); Potassium 3.8 mmol/L (3.5-5.1); Sodium 138 mmol/L (136-145); Total Bilirubin 0.4 mg/dL (0.15-1.2); Total Protein 7.3 g/dL (6.6-8.7)
[2023-03-19] MEDS: cefTRIAXone 1,000 MG in sodium chloride 0.9% (plus) 50 ML 100 MG IV ×2 (02:36→22:43)
--- NOTE | 2023-03-19 03:22 | P.HP_ITS ---
Providers/Chief Complaint Admitting Physician: Brendan Handley MD Primary Care Provider: Raymond Jansen [facility] Chief Complaint: hypertension History of Present Illness Enrique Murguia is a 77 year old male with a past medical history significant for hyperlipidemia, hypertension, and BPH who presents emergency department with diffuse weakness x1 to 2 days. Endorses associated symptoms of recurrent falls. Endorses elevated blood pressure at home. Denies any focal deficits. Denies slurred speech, change in sensation, or facial droop. Denies other alleviating or aggravating factors. In the ED, patient was found to have urinary tract infection. His prior to urine cultures grew E. coli and Proteus mirabilis. Review of Systems Narrative: A complete review of systems was obtained and is negative except as stated in HPI. Medications/Allergies Home Medications Medication Instructions Recorded Confirmed Last Taken Type allopurinol 100 mg tablet 100 mg PO BID 07/21/20 06/16/22 02/06/22 21:30 History acetaminophen 500 mg tablet 1,000 mg PO Q8H PRN Pain 05/15/21 06/16/22 Unknown History atorvastatin 40 mg tablet 40 mg PO BEDTIME #90 tabs 05/25/21 06/16/22 02/06/22 21:30 Rx methenamine hippurate 1 gram tablet 1 g PO BID #60 tabs 06/14/21 06/16/22 02/06/22 18:00 Rx ascorbic acid (vitamin C) 1,000 mg 1,000 mg PO BID 06/29/21 06/16/22 02/06/22 18:00 History tablet isosorbide mononitrate 30 mg 30 mg PO DAILY 06/29/21 06/16/22 02/06/22 09:00 History tablet,extended release 24 hr tamsulosin 0.4 mg capsule 0.4 mg PO DAILY 06/29/21 06/16/22 Unknown History losartan 50 mg tablet 50 mg PO DAILY 02/01/22 06/16/22 02/06/22 09:00 History metoprolol succinate 25 mg 12.5 mg PO DAILY #15 tabs 06/13/22 06/16/22 Unknown Rx tablet,extended release 24 hr Allergies Allergy/AdvReac Type Severity Reaction Status Date / Time No Known Allergies Allergy Verified 06/16/22 13:33 PFSH Acute PFSH: Medical History A-fib Acute anemia Acute urinary retention RISA (acute kidney injury) Bacteriuria Bladder stone GI bleed Gout Heart block, AV Hemorrhagic shock Hydronephrosis of right kidney Hypertension Hypertension Incomplete bladder emptying Left renal mass Nephrolithiasis Right renal stone Sinus pause Surgical History Status post total right knee replacement Family History Mother , AT AGE 67 Cancer Father , AT AGE 80 LEUKEMIA Cancer Social History Smoking and tobacco status: never smoked Alcohol intake: never Substance/Drug Use: never Marital status: / Current occupational status: retired Vitals/I&O/Wt Last Vital Signs Pulse 93 03/19/23 01:09 Resp 16 03/19/23 01:09 BP 168/109 03/19/23 01:09 Pulse Ox 96 03/19/23 01:09 Weight last 48 hrs Weight 99.79 kg Physical Exam Narrative: General: Patient is awake and alert. Head: Normocephalic. Atraumatic. EOM intact. Neck: No JVD. Cardiovascular: RRR. No gallops. No murmurs. Hypertensive. Lungs: Clear to auscultation, no use of accessory muscles, no crackles or wheezes. Skin: No jaundice. No rashes. Abdomen: Normal bowel sounds, abdomen soft and nontender. Extremities: No cyanosis or clubbing. Musculoskeletal: no erythematous joints. Neurological: Moves all 4 extremities. No myoclonus. Data 03/19/23 01:25 03/19/23 01:25 A&P Assessment and plan (1) Acute cystitis: Follow-up urine culture Start Rocephin (2) Weakness: Secondary to infection Treat underlying infection Supportive care (3) Hypertension: Continue home losartan Continue home metoprolol Qualifiers: Hypertension type: primary hypertension Qualified Code(s): I10 - Essential (primary) hypertension (4) Gout: Continue home allopurinol (5) BPH w/o urinary obs/LUTS: Continue home Flomax Plan DVT prophylaxis: Lovenox CODE STATUS: Full code Attestations Medical Necessity Statement*: Patient presents with generalized weakness and fatigue secondary to urinary tract infection with expected hospitalization not to cross 2 midnights. Coding Level of Care Code Acute Code for [facility] Diagnoses Acute cystitis N30.00 Weakness R53.1 Hypertension I10 Hypertension type: primary hypertension Gout M10.9 BPH w/o urinary obs/LUTS N40.0
[2023-03-19 03:48] LABS: Troponin 5 2HR 31.25 ng/L (0-15)
[2023-03-19 03:50] LABS: Troponin 5 2HR Delta 5.25 ABS# (0-10)
[2023-03-19] MEDS: acetaminophen 500 mg Tablet 1000 MG PO (04:54)
--- NOTE | 2023-03-19 05:16 | ECG_ITS ---
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 Measurements Intervals [place] Rate: 81 P: 55 OR: 310 QRS: -31 QRSD: 83 T: 48 QT: 374 QTc: 435 Interpretive Statements SINUS RHYTHM WITH FIRST DEGREE AV BLOCK LEFT AXIS DEVIATION [QRS AXIS < -30] MODERATE VOLTAGE CRITERIA FOR LVH, CONSIDER NORMAL VARIANT [MEETS CRITERIA IN ONE OF: R(aVL), S(V1), R(V5), R(V5/V6)+S(V1)] Compared to ECG 02/01/2022 14:20:04 First degree AV block now present Left-axis deviation now present Supraventricular rhythm no longer present Left anterior fascicular block no longer present ST (T wave) deviation no longer present Electronically Signed On 03-19-2023 20:03:50 CDT by Madai Richard M.D. [id number]
[2023-03-19] MEDS: hyDRALAzine 20 mg/mL INJ 1 mL 10 MG IVP ×2 (06:30→23:37)
[2023-03-19 08:22] LABS: Troponin 5 6HR 23.35 ng/L (0-15)
[2023-03-19 08:43] LABS: Troponin 5 6HR Delta -2.65 ng/L (0-12)
[2023-03-19] MEDS: isosorbide mononitrate ER 30 mg Tablet PO (09:08)
[2023-03-19] MEDS: allopurinol 100 mg Tablet PO ×2 (09:09→17:22)
[2023-03-19] MEDS: losartan 50 mg Tablet PO (09:09)
[2023-03-19] MEDS: fluconazole 100 mg Tablet 150 MG PO (09:09)
[2023-03-19] MEDS: metoprolol succinate ER (24 HR) 25 mg Tablet 12.5 MG PO (09:09)
[2023-03-19] MEDS: tamsulosin 0.4 mg Capsule PO (09:09)
--- NOTE | 2023-03-19 09:53 | CTR_ITS ---
PROCEDURE INFORMATION: Exam: CTA Head With Contrast, Arteriography Exam date and time: 03/19/2023 12:46 PM Age: 77 years old Clinical indication: Weakness; Additional info: Right sided weakness TECHNIQUE: Imaging protocol: Computed tomographic angiography of the head with contrast. Exam focused on the arteries. 3D rendering (Not supervised by radiologist): MIP and/or 3D reconstructed images were created by the technologist. Radiation optimization: All CT scans at this facility use at least one of these dose optimization techniques: automated exposure control; mA and/or kV adjustment per patient size (includes targeted exams where dose is matched to clinical indication); or iterative reconstruction. Contrast material: OMNI 350; Contrast volume: 100 ml; Contrast route: INTRAVENOUS (IV); REPORTING DATA: Count of CT and Cardiac NM exams in prior 12 months: This patient has received 0 known CTs and 0 known cardiac nuclear medicine studies in the 12 months prior to the current study. COMPARISON: CT head wo con* [id number] 03/19/2023 1:33 AM RADIATION DOSE METRICS: Total DLP (mGy-cm): 1009.05 FINDINGS: ANTERIOR CIRCULATION: Right internal carotid artery: Calcified plaque causes mild stenosis the right intracranial ICA. Right middle cerebral artery: No occlusion or significant stenosis. No aneurysm. Right anterior cerebral artery: There is short segment moderate stenosis of the right anterior cerebral artery. Left internal carotid artery: Calcified plaque causes mild stenosis the left intracranial ICA. Left middle cerebral artery: No occlusion or significant stenosis. No aneurysm. Left anterior cerebral artery: No occlusion or significant stenosis. No aneurysm. POSTERIOR CIRCULATION: Right vertebral artery: No occlusion or significant stenosis. No aneurysm. Left vertebral artery: Calcified plaque causes mild stenosis of the dominant left vertebral artery at the level of the foramen ovale. Basilar artery: No occlusion or significant stenosis. No aneurysm. Right posterior cerebral artery: No occlusion or significant stenosis. No aneurysm. Left posterior cerebral artery: No occlusion or significant stenosis. No aneurysm. Brain: There are global involutional changes of the brain which are in keeping with the patient's age. Periventricular hypodensities are nonspecific but most likely reflect chronic microvascular ischemic disease. No acute intracranial hemorrhage, mass effect midline shift. No abnormal extra-axial fluid collections are identified. Cerebral ventricles: No ventriculomegaly. Bones/joints: Unremarkable. No acute fracture. Soft tissues: Unremarkable. PROCEDURE INFORMATION: Exam: CTA Neck With Contrast Exam date and time: 03/19/2023 12:46 PM Age: 77 years old Clinical indication: Weakness; Additional info: Right sided weakness TECHNIQUE: Imaging protocol: Computed tomographic angiography of the neck with contrast. 3D rendering (Not supervised by radiologist): MIP and/or 3D reconstructed images were created by the technologist. Radiation optimization: All CT scans at this facility use at least one of these dose optimization techniques: automated exposure control; mA and/or kV adjustment per patient size (includes targeted exams where dose is matched to clinical indication); or iterative reconstruction. Contrast material: OMNI 350; Contrast volume: 100 ml; Contrast route: INTRAVENOUS (IV); REPORTING DATA: Count of CT and Cardiac NM exams in prior 12 months: This patient has received 0 known CTs and 0 known cardiac nuclear medicine studies in the 12 months prior to the current study. COMPARISON: CT head wo con* [id number] 03/19/2023 1:33 AM RADIATION DOSE METRICS: Total DLP (mGy-cm): 1009.05 FINDINGS: Right common carotid artery: No stenosis. No dissection or occlusion. Right internal carotid artery: Calcified plaque mild stenosis of the right proximal ICA. Right external carotid artery: No occlusion or stenosis of the origin. Left common carotid artery: No stenosis. No dissection or occlusion. Left internal carotid artery: Calcified plaque causes mild stenosis left proximal ICA. Left external carotid artery: No occlusion or stenosis of the origin. Right vertebral artery: No stenosis. No dissection or occlusion. Left vertebral artery: No stenosis. No dissection or occlusion. Soft tissues: Normal. No significant soft tissue swelling. Bones/joints: Spinal degenerative changes. No acute fracture identified. CT/CT angio headneck* [id number] IMPRESSION: 1. 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 2. Moderate stenosis of the right anterior cerebral artery. 3. Mild stenosis of the dominant left vertebral artery at the level of the foramen ovale. IMPRESSION: Mild stenosis proximal ICAs bilaterally. REFERENCES: NASCET CRITERIA. The degree of stenosis in the cervical segment of the internal carotid artery is based on NASCET criteria. Normal is no stenosis. Mild is less than 50% stenosis. Moderate is 50-69% stenosis. Severe is 70% to 99% stenosis. Total occlusion is no detectable patent lumen.
--- NOTE | 2023-03-19 11:07 | ECG_ITS ---
[facility] Test Date: 2023-03-19 Pat Name: Enrique Murguia Department: Room: 259 Gender: Male Plant Wrapper: : 1945 Requested By: Lea Orellana Order Number: [id number] Rojelio MD: Madai Richard M.D. Measurements Intervals [place] Rate: 91 P: 32 MT: 265 QRS: -41 QRSD: 98 T: 51 QT: 376 QTc: 463 Interpretive Statements SINUS RHYTHM WITH FIRST DEGREE AV BLOCK LEFT AXIS DEVIATION [QRS AXIS < -30] MODERATE VOLTAGE CRITERIA FOR LVH, CONSIDER NORMAL VARIANT [MEETS CRITERIA IN ONE OF: R(aVL), S(V1), R(V5), R(V5/V6)+S(V1)] NONSPECIFIC T-WAVE ABNORMALITY Compared to ECG 03/19/2023 05:16:49 T-wave abnormality now present Electronically Signed On 03-19-2023 20:04:45 CDT by Madai Richard M.D. [email or web address] st[email or web address] ([id number]
[2023-03-19] MEDS: iohexol 350 mg/mL 500 mL Btl (per mL) IV (12:53)
--- NOTE | 2023-03-19 13:29 | PM.PN ---
Subjective Subjective: Patient denies any pain this morning. States that he does continue to have some right-sided weakness. Daughter is present and states that he is normally much stronger on his right side than he is currently. Vitals/I&O/Wt Last Vital Signs Temp 98.8 F 03/19/23 12:00 Pulse 93 03/19/23 12:00 Resp 17 03/19/23 12:00 BP 163/94 03/19/23 12:00 Pulse Ox 94 03/19/23 12:00 O2 Del Method Room Air 03/19/23 12:00 03/18/23 03/19/23 03/19/23 22:59 06:59 14:59 Intake Total 50 / 50 Output Total 300 / 300 225 / 225 Balance -250 / -250 -225 / -225 Weight last 48 hrs Weight 220 lb Physical Exam Narrative: General: Cooperative patient in no apparent distress. HEENT: Normocephalic, Atraumatic. There is some mild right-sided droop to his face. Right side appears slightly depressed when asked to smile. PERRLA, EOMI. External ears normal. Nasal passages patent without drainage. MMM. Heart: RRR. Resp: LCTA. No respiratory distress, no use of accessory muscles. Abd: Soft, non-tender. Non-distended. Extremities: RUE, LUE ROM is reduced. Unable to grasp on the R hand. RLE strength is 3-/5. Skin: No rash or lesions on exposed areas. Data 03/19/23 01:25 03/19/23 01:25 A&P Assessment and plan (1) Weakness: (2) Acute cystitis: (3) Hypertension: Qualifiers: Hypertension type: primary hypertension Qualified Code(s): I10 - Essential (primary) hypertension (4) Gout: (5) BPH w/o urinary obs/LUTS: Plan 77-year-old male admitted for weakness, UTI. Continue inpatient monitoring. Currently receiving Rocephin. Urine, Blood cultures are pending. Head CT was performed last night and did not demonstrate any acute infarction. He does have chronic cerebral atrophy. Continues to demonstrate right-sided weakness of the upper and lower extremity as well as some facial asymmetry. We will send for a CTA of the head and neck today. PT, OT, ENTREPRENEURIAL FINANCE PROFESSOR to eval and treat. VTE prophylaxis with Lovenox. Continue home medications for chronic illnesses. Code Status: Full IVF: none DVT PPx: Lovenox GI PPx: none ABx: Rocephin Diet: Regular Discharge plan:TBD Attestations Medical Necessity Statement*: Inpatient monitoring for IV ABx, Urine and blood cultures and evaluation by PT, OT, ENTREPRENEURIAL FINANCE PROFESSOR. Coding Level of Care Code Acute Code for Chg Fwd Moderate MDM includes number and complexity of problems actively addressed during encounter, amount and/or complexity of data reviewed/ordered and described risk of complication, morbidity or mortality of management as documented Diagnoses Weakness R53.1 Acute cystitis N30.00 Hypertension I10 Hypertension type: primary hypertension Gout M10.9 BPH w/o urinary obs/LUTS N40.0
[2023-03-19] MEDS: acetaminophen 325 mg Tablet 650 MG PO ×2 (16:16→21:30)
[2023-03-19] MEDS: atorvastatin 40 mg Tablet PO (21:30)
[2023-03-20] VITALS (11 sets, daily range): BP systolic 125–189; BP diastolic 85–102; PULSE 80–101; RESP 14–18; TEMP 36.4–37; O2SAT 94–95
[2023-03-20 05:07] LABS: Basophils % 0.3 %; Eosinophils # 0.1 10^3/uL (0.0-0.8); Eosinophils % 1.3 %; Hematocrit 45.2 % (42.0-52.0); Hemoglobin 14.9 g/dL (11.7-16.6); Lymphocytes # 1.2 10^3/uL (0.8-4.8); Lymphocytes % 16.1 %; Mean Corpuscular Hemoglobin 32.1 pg (28.0-34.0); Mean Corpuscular Volume 97.4 fl (80-94); Mean Platelet Volume 10.3 fL (7.4-10.4); Monocytes # 0.7 10^3/uL (0.2-0.9); Monocytes % 9.3 %; Neutrophils # 5.51 10^3/uL (1.8-7.7); Neutrophils % 72.5 %; Nucleated Red Blood Cells % 0 %; Platelet Count 167 10^3/cmm (130-400); Red Blood Count 4.64 10^6/uL (4.1-5.3); Red Cell Distribution Width 13.5 % (12.1-15.1); White Blood Count 7.6 10^3/uL (4.0-10.0)
[2023-03-20] MEDS: hyDRALAzine 20 mg/mL INJ 1 mL 10 MG IVP (05:21)
[2023-03-20] MEDS: acetaminophen 325 mg Tablet 650 MG PO ×2 (05:25→17:19)
[2023-03-20 05:47] LABS: Alanine Aminotransferase 23 U/L (0-41); Albumin Level 3.7 g/dL (3.5-5.2); Alkaline Phosphatase 118 U/L (40-130); Anion Gap 15.2 (5-19); Aspartate Amino Transferase 17 U/L (0-40); Blood Urea Nitrogen 22 mg/dL (8-23); C Reactive Protein 13.5 mg/L (0.0-4.9); Calcium 9.2 mg/dL (8.5-10.5); Carbon Dioxide 25 mmol/L (22-29); Chloride 105 mmol/L (98-107); Globulin 2.4 g/dL (1.3-4.6); Glucose 115 mg/dL (65-115); Osmolality Calculated 296 mOsm/kg (285-295); Potassium 4.2 mmol/L (3.5-5.1); Sodium 141 mmol/L (136-145); Thyroid Stimulating Hormone 6.46 uIU/mL (0.27-4.20); Total Bilirubin 0.8 mg/dL (0.15-1.2); Total Protein 6.1 g/dL (6.6-8.7)
[2023-03-20] MEDS: metoprolol succinate ER (24 HR) 25 mg Tablet 12.5 MG PO (08:07)
[2023-03-20] MEDS: allopurinol 100 mg Tablet PO ×2 (08:07→17:19)
[2023-03-20] MEDS: isosorbide mononitrate ER 30 mg Tablet PO (08:07)
[2023-03-20] MEDS: tamsulosin 0.4 mg Capsule PO (08:07)
[2023-03-20] MEDS: losartan 50 mg Tablet PO (08:08)
[2023-03-20] MEDS: fluconazole 100 mg Tablet 150 MG PO (08:09)
--- NOTE | 2023-03-20 11:37 | MR_ITS ---
WS: [id number] MRI BRAIN WITHOUT CONTRAST HISTORY: cva COMPARISON: CT head 03/19/2023 TECHNIQUE: Diffusion imaging, multiplanar T1, T2 and FLAIR imaging obtained. Acute diffusion abnormalities in the han radiata, bilateral. At the level of the lateral ventricle s there are diffusion abnormalities, greatest on the LEFT. The LEFT acute infarct extends along the e xternal capsule. Smaller tiny focal infarct RIGHT han radiata. Otherwise there is extensive, patchy and confluent small vessel ischemic changes throughout the white matter. Additional small vessel ischemic changes are probably present also in the cerebellum. Multiple moderate cerebral and cerebellar atrophy. No hemorrhage. No inferior displacement of cerebellar tonsils. The sella turcica and pituitary gland are unremarkabl e. Dural venous sinuses and [place] demonstrate no abnormality on this unenhanced studies. Smal l caliber RIGHT vertebral artery. Small flow voids are present. Paranasal sinuses: Very mild mucoperiosteal thickening in the maxillary sinuses. No air-fluid levels. Mastoid air cells: Normal. Calvarium and scalp: Intact. MR/MR head wo con* [id number] IMPRESSION: 1. Acute bilateral, nonhemorrhagic han radiata infarcts, LEFT greater than RIGHT in size. Due to the bilateral distribution consider embolic etiology as a source. 2. Bilateral moderate cerebral cerebellar atrophy with small vessel ischemic d isease.
--- NOTE | 2023-03-20 11:39 | USCV_ITS ---
Enrique Murguia Age: 77 Gender: M : 1945 Exam Date: 03/20/2023 14:03 Ordering Phys: Dave Lockwood MD Technologist: CT Exam Location: [facility] [place]_ Indication: stroke BP: 149 / 80 HR: 100 Rhythm: Sinus Technical Quality: Technically difficult study MEASUREMENTS (Male / Female) Normal Values 2D ECHO LVOT Diameter 2.3 cm LV Ejection Fraction MOD 2C 50.6 % LV Ejection Fraction 2C AL 50.9 % LA Diameter 4.6 cm Aorta at Sinotubular Diameter 2.6 cm M-MODE Aortic Annulus Diameter 3.7 cm LA Ao Ratio MM 1.4 MV E Point Septal Separation 1.0 cm DOPPLER TR Peak Velocity 119.0 cm/s TR Peak Gradient 5.7 mmHg TV Peak E Velocity 106.0 cm/s Right Atrial Pressure 3.0 mmHg Pulmonary Artery Systolic Pressu 8.7 mmHg FINDINGS Left Ventricle Left ventricle is normal in size. LV systolic function is normal with EF of 50 to 55%. No regional wall motion abnormalities are seen. Right Ventricle Normal in size and function Right Atrium Normal in size Left Atrium Normal in size Mitral Valve Not well visualized Aortic Valve Not well visualized Tricuspid Valve Not well visualized Pulmonic Valve Not visualized Pericardium Grossly normal Aorta Normal in size IVC Not well visualized CONCLUSIONS Technically limited quality echocardiogram because of poor ultrasonic windows. LV systolic function is normal with EF of 50 to 55%. Valvular structures are not well visualized Comparison with prior echocardiograms not possible because of poor ultrasonic windows. Francesco Boles MD (Electronically Signed) Final Date: 21 March 2023 07:52 S
[2023-03-20] MEDS: perflutren protein-a microsphr 0.22 mg/mL SDV 3 mL IV (15:03)
[2023-03-20] MEDS: pantoprazole DR 40 mg Tablet PO ×2 (15:05→17:19)
[2023-03-20] MEDS: sucralfate 1 gm Tablet PO (15:05)
[2023-03-20] MEDS: aspirin 81 mg EC Tablet PO (15:05)
--- NOTE | 2023-03-20 17:55 | PM.PN ---
Subjective Subjective: - Patient was examined this morning = is at bedside - tells me that on 2 PM on Monday she noticed that he had right-sided weakness, suddenly, slurring of his words, right-sided facial droop -However he did not want to come to the hospital -So they waited until about midnight before they called EMS -She tells me that EMS checked his strength, of his upper extremities, and they were not too concerned that he had a stroke but she was concerned given his right-sided weakness -She tells me that she told the ER about the right-sided weakness -She tells me that she noticed the right-sided weakness yesterday, which prompted CTA -This morning patient has a right sided facial droop, slurring of his words, right upper and right lower extremity weakness -Patient has had a CVA, clinically a left hemispheric stroke -Timeframe of the CVA is likely 2 PM on Monday -I am not exactly sure if he got better at all during his ER stay and his hospitalization or he got better and his right-sided weakness is new, but according to he was like this when he came into the emergency room, he was like this yesterday, she tells me that Monday on 2 PM he was like this, and she was certain he had a stroke -As he might have been encephalopathic from the UTI -But it might have been that he did get better, as I do not see any documentation on the ER providers note about unilateral weakness -He is working with physical therapy is alert oriented x 2, he has significant weakness of his left upper extremity left lower extremity, currently his NIH stroke scale -His is at bedside, informed consent is difficult from him so most the history taking and decision-making was made by at bedside -Discussed with that he is out of tPA window, CTA head no acute findings, will order MRI of the brain today, however I do not think that is can change his management, will have to medically manage with aspirin, statin -However I am very concerned that his stroke was an embolic phenomenon given within his history of atrial fibrillation -He has a known history of atrial fibrillation and intolerance to anticoagulation given history of GI bleeds -Back in May 2021 he had episodes of A-fib with RVR, was placed on anticoagulation developed a GI bleed underwent EGD colonoscopy, was found to have ulcers in the duodenal bulb that required clipping and injection, required 3 units PRBC, since then he has not been put on anticoagulation -Given his current symptomatology and very suspicious that this is an embolic phenomenon -I discussed the risks and benefits of anticoagulation -Risks of anticoagulation including but not limited to recurrent GI bleed, morbidity and mortality associated -Spoke to neurology plan is reasonable -Risk of not anticoagulating him include recurrent cva - is very concerned about his risk of GI bleed -Shared decision making, -After discussing the risks and benefits, she voiced understanding, all question answered, declined anticoagulation for now -Continue aspirin, statin -Right upper extremity strength 3 out of 5, right lower extremity strength 2 out of 5 compared to the left -Right-sided facial droop -Right-sided slurring of the words -No visual field deficits -Pupils equal round reactive to light -No paresthesias reported -Does have word finding difficulty Vitals/I&O/Wt Last Vital Signs Temp 97.8 F 03/20/23 15:41 Pulse 89 03/20/23 15:41 Resp 16 03/20/23 15:41 BP 179/101 03/20/23 15:41 Pulse Ox 94 03/20/23 15:41 O2 Del Method Room Air 03/20/23 15:41 03/20/23 03/20/23 03/20/23 06:59 14:59 22:59 Intake Total 480 / 480 Output Total 600 / 1325 400 / 400 Balance -600 / -675 80 / 80 Weight last 48 hrs Weight 123.785 kg Weight 99.79 kg Physical Exam Const: COMMON NORMALS: no acute distress Resp: COMMON NORMALS: normal respiratory effort, No retractions, No use of accessory muscles and clear to auscultation bilaterally AUSCULTATION: clear to auscultation bilaterally Cardio: COMMON NORMALS: regular rate, regular rhythm, S1 normal heart sound present and S2 normal heart sound present RATE: regular rate RHYTHM: regular rhythm HEART SOUNDS: S1 normal heart sound present and S2 normal heart sound present GI: COMMON NORMALS: Normal to inspection, nondistended, normoactive bowel sounds present and non-tender Extremity: COMMON NORMALS: no pedal edema Psych: COMMON NORMALS: mental status grossly normal Data 03/20/23 04:47 03/20/23 04:47 Micro: Microbiology 03/19/23 01:21 Urine Culture - Preliminary Urine,Clean Catch A&P Assessment and plan (1) Acute CVA (cerebrovascular accident): (2) Acute cystitis: Plan Acute CVA -With right-sided weakness, right-sided facial droop, slurring of his words, word finding difficulty -Out of tPA window -NIH stroke scale not assessed on admission, currently 12 -Head CT no acute findings -Head CTA 1. ? 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 2. ? Moderate stenosis of the right anterior cerebral artery. 3. ? Mild stenosis of the dominant left vertebral artery at the level of the foramen ovale. IMPRESSION: Mild stenosis proximal ICAs bilaterally. Plan -Speak to neurology -MRI of the brain -Allow for permissive hypertension, treat if systolic greater than 220 diastolic greater than 120 -Neurochecks, aspiration precautions, and a stroke scale -Rocephin for UTI -Aspirin, statin -scd for DVT prophylaxis full code -anticoagulation currently contraindicated given history of GI bleed History of atrial fibrillation -Continue telemetry monitoring History of GI bleeds -History of duodenal ulcers -Continue aspirin, will add Protonix, Carafate History of CKD History of nephrolithiasis, history of UPJ stenosis Attestations Medical Necessity Statement*: Patient requires hospitalization for acute CVA, with right-sided weakness, slurring of his words, facial droop, word finding difficulty inpatient, greater than 2 midnights Diagnoses Acute CVA (cerebrovascular accident) I63.9 Acute cystitis N30.00
--- NOTE | 2023-03-20 18:25 | USR_ITS ---
PROCEDURE INFORMATION: Exam: US Retroperitoneal Complete, Kidneys Aorta IVC. Exam date and time: 03/20/2023 6:42 PM Age: 77 years old Clinical indication: Condition or disease; Kidney or ureter condition; Other: Nephrolithisis, cystic lesion TECHNIQUE: Imaging protocol: Real-time ultrasound of the retroperitoneum with image documentation. Complete exam. 49image(s) are provided. Other technique: Grayscale, color images are provided. COMPARISON: 1. US renal BI* [id number] 05/16/2021 8:[address] abdomen pelvis wo con [id number] 05/15/2021 10:16 AM FINDINGS: Right kidney: The right kidney measures 11.9 x 5.8 x 5.4 cm. There is some echogenic calculus type shadowing of the right renal level measuring approximately 2 cm in length. There is some extrarenal pelvis type appearance on the right. Right ureter: The right bladder ureteral jet is demonstrated indicative of overall patency with the left not appreciated. Left kidney: The left kidney measures 15.2 x 8.6 x 8.8 cm. There is some overall hydronephrosis and cortical thinning type appearance of the left kidney similar to the CT description. This could be seen with processes including chronic renal disease or chronic postobstructive related change including of the UPJ. Bowel: There is some bowel gas and penetration artifact overall. Aorta: Obscured. Common iliac arteries: Obscured. Inferior vena cava: Obscured. Intraperitoneal space: No free fluid collections are appreciated. Urinary bladder: The prevoid bladder volume is 496 mL. No emptying postvoid images are available with report of the patient being unable to void. The bladder contours appear unremarkable overall. The bladder wall thickness posteriorly is approximately 6 mm. There is some motion artifact although no definite layering debris is currently appreciated to correspond with the previous CT description. Other findings: No other significant interval changes are appreciated. US/US renal BI* [id number] IMPRESSION: 1. No postvoid images are available with the report of the patient being unable to void. 2. The right bladder ureteral jet is demonstrated indicative of overall patency with the left not appreciated. 3. There is some extrarenal pelvis and calculus type appearance similar on the right. 4. There is hydronephrosis and chronic appearing cortical thinning suggestive of chronic renal disease or postobstructive related changes on the left.
[2023-03-20] MEDS: atorvastatin 40 mg Tablet PO (21:11)
--- NOTE | 2023-03-20 22:39 | PC.NURSE ---
Family member-Renay states she does not want the patient to have a permanent almodovar, but would be okay with in and out caths.
[2023-03-20] MEDS: cefTRIAXone 1,000 MG in sodium chloride 0.9% (plus) 50 ML 100 MG IV (23:25)
[2023-03-21] VITALS (11 sets, daily range): BP systolic 129–213; BP diastolic 76–113; PULSE 73–114; RESP 17–19; TEMP 36.6–37.4; O2SAT 91–95
[2023-03-21] MEDS: sucralfate 1 gm Tablet PO ×2 (05:04→21:22)
[2023-03-21] MEDS: acetaminophen 325 mg Tablet 650 MG PO ×2 (05:04→19:55)
[2023-03-21 05:16] LABS: Basophils % 0.4 %; Eosinophils # 0.1 10^3/uL (0.0-0.8); Eosinophils % 1.7 %; Hematocrit 46.2 % (42.0-52.0); Hemoglobin 14.7 g/dL (11.7-16.6); Lymphocytes # 1.4 10^3/uL (0.8-4.8); Lymphocytes % 19.7 %; Mean Corpuscular HGB Conc 31.8 g/dL (30.0-36.0); Mean Corpuscular Hemoglobin 31.6 pg (28.0-34.0); Mean Corpuscular Volume 99.4 fl (80-94); Mean Platelet Volume 10.6 fL (7.4-10.4); Monocytes # 0.8 10^3/uL (0.2-0.9); Monocytes % 11.2 %; Neutrophils # 4.58 10^3/uL (1.8-7.7); Neutrophils % 66.7 %; Nucleated Red Blood Cells % 0 %; Platelet Count 170 10^3/cmm (130-400); Red Blood Count 4.65 10^6/uL (4.1-5.3); Red Cell Distribution Width 13.7 % (12.1-15.1); White Blood Count 6.9 10^3/uL (4.0-10.0)
[2023-03-21 05:42] LABS: Anion Gap 16.4 (5-19); Blood Urea Nitrogen 24 mg/dL (8-23); Calcium 9.3 mg/dL (8.5-10.5); Carbon Dioxide 24 mmol/L (22-29); Chloride 106 mmol/L (98-107); Glucose 104 mg/dL (65-115); Osmolality Calculated 298 mOsm/kg (285-295); Potassium 4.4 mmol/L (3.5-5.1); Sodium 142 mmol/L (136-145)
[2023-03-21] MEDS: losartan 50 mg Tablet PO (08:09)
[2023-03-21] MEDS: fluconazole 100 mg Tablet 150 MG PO (08:10)
[2023-03-21] MEDS: metoprolol succinate ER (24 HR) 25 mg Tablet 12.5 MG PO (08:10)
[2023-03-21] MEDS: tamsulosin 0.4 mg Capsule PO (08:10)
[2023-03-21] MEDS: isosorbide mononitrate ER 30 mg Tablet PO (08:10)
[2023-03-21] MEDS: pantoprazole DR 40 mg Tablet PO ×2 (08:11→17:04)
[2023-03-21] MEDS: aspirin 81 mg EC Tablet PO (08:11)
[2023-03-21] MEDS: allopurinol 100 mg Tablet PO ×2 (08:11→17:04)
--- NOTE | 2023-03-21 09:41 | PC.CHAP ---
Pastoral Care Encounter/Spiritual Assessment Type of Contact [] Declined fountain pen nibs inspector visit [] Patient/Family/Request visit [] Outpatient visit [] Follow-up visit [] Physician referral [] Code/Alert [x] Routine visit [] Staff referral [] Actively dying [] Patient sleeping [] Family support [] [] Out of room [] Palliative care [] [] Receiving care in room [] Pre-surgical visit [] Trauma [] Long length of stay [] ICU visit [] Other: Relational/Emotional Strength [x] Patient feels connected with others/family/visitors/staff [] Distress [] Loneliness/isolation [] Abandonment Spirituality of Patient [] Person of Michelle [] Attends Zoroastrian of their Michelle [x] Believes in Prayer [] Reads Bible or Scientologist materials [] There are Spiritual issues to be addressed Software Technician Interventions [x] Prayer [x] Active listening [] Non-anxious presence [] Spiritual/emotional support [] Crisis/trauma care [] Spiritual counseling [] Bereavement support [] Provided bereavement packet [] Provided Bible/devotional materials [] Provided toy/stuffed animal, coloring book to patient or family member [] Provided Communion [] Anointing/[place] [] Salvation [x] Completed spiritual assessment [] Other: Impact on Illness or Injury [] Angry [] Fearful [] Anxious [] Often cries [] Exhaustion [] Unable to work [] Unable to attend confucianist [] Unable to walk/stand [] Unable to read [] Unable to drive [] Unable to eat/drink [] Unable to sleep [] Unable to be with family [] Patient intubated [] Other: Summary Time spent with patient 5 min
--- NOTE | 2023-03-21 09:42 | XR_ITS ---
WS: [id number] XR chest 1V portable [id number] REASON FOR EXAM: wheezing/coughing while eating FINDINGS: No significant interval change compared to the examination of 03/19/2023. Significant tortuosity and ectasia of the thoracic aorta. No significant cardiac enlargement. Chronic interstitial lung opacities in both lower lung maddox. No acute or subacute focal or diffuse pulmonary parenchymal or pleural abnormality. 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 Moderate degenerative spondylosis in the mid thoracic spine. IMPRESSION: Stable abnormal chest with no acute abnormality.
[2023-03-21] MEDS: hyDRALAzine 20 mg/mL INJ 1 mL 10 MG IVP (09:46)
--- NOTE | 2023-03-21 12:15 | FL_ITS ---
WS: [id number] FL barium swallow modifd [id number] REASON FOR EXAM: Oral dysphagia FLUOROSCOPY TIME: 4min [id number] # OF SPOT FILMS: None FINDINGS: Examination was supervised by the speech therapy department. The patient was examined in the upright sitting lateral projection. The swallowing of varying consistencies of barium was monitored fluoroscopically and video recorded. Detailed analysis and report will be rendered by the speech therapy department. IMPRESSION: Modified barium swallow as above.
[2023-03-21] MEDS: amlodipine 10 mg Tablet PO (12:50)
--- NOTE | 2023-03-21 15:26 | PM.PN ---
Subjective Subjective: Patient was examined this morning, he is alert to person, to place, continues to have productive aphasia, slurring of his words, right facial droop, has intermittent coughing episodes, has wheezing on exam although scattered, continues to have flaccid paralysis of right upper extremity, and right lower extremity, strength right upper extremity is 0 out of 5, right lower extremity 0-5, according to nursing staff he has been swallowing his pills, has been having intermittent coughing episodes, possible concerns for aspiration continue dysphagia diet will place order for modified barium swallow, needs better blood pressure control, Vitals/I&O/Wt Last Vital Signs Temp 98.8 F 03/21/23 12:00 Pulse 114 H 03/21/23 12:00 Resp 17 03/21/23 12:00 BP 129/76 03/21/23 12:00 Pulse Ox 94 03/21/23 12:00 O2 Del Method Room Air 03/20/23 15:41 03/21/23 03/21/23 03/21/23 06:59 14:59 22:59 Intake Total 50 / 770 240 / 240 Balance 50 / 120 240 / 240 Weight last 48 hrs Weight 79.288 kg Weight 123.785 kg Physical Exam Const: COMMON NORMALS: no acute distress Resp: COMMON NORMALS: normal respiratory effort, No retractions and No use of accessory muscles AUSCULTATION: wheezes Cardio: COMMON NORMALS: regular rate, regular rhythm, S1 normal heart sound present and S2 normal heart sound present RATE: regular rate RHYTHM: regular rhythm HEART SOUNDS: S1 normal heart sound present and S2 normal heart sound present GI: COMMON NORMALS: Normal to inspection, nondistended, normoactive bowel sounds present and non-tender Extremity: COMMON NORMALS: no pedal edema Psych: COMMON NORMALS: mental status grossly normal Data 03/21/23 04:36 03/21/23 04:36 Micro: Microbiology 03/19/23 01:21 Urine Culture - Final Urine,Clean Catch A&P Assessment and plan (1) Acute CVA (cerebrovascular accident): (2) Acute cystitis: (3) Embolic stroke: (4) Right flaccid hemiplegia: (5) Aspiration into respiratory tract: Plan Acute CVA -Concerns for embolic CVA -With persistent right-sided hemiplegia, right-sided facial droop, slurring of his words, word finding difficulty -Out of tPA window -NIH stroke scale not assessed on admission, currently 12 -Head CT no acute findings -Head CTA 1. ? 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 2. ? Moderate stenosis of the right anterior cerebral artery. 3. ? Mild stenosis of the dominant left vertebral artery at the level of the foramen ovale. IMPRESSION: Mild stenosis proximal ICAs bilaterally. Brain MRI 1.? Acute bilateral, nonhemorrhagic han radiata infarcts, LEFT greater than RIGHT in size. Due to the bilateral distribution consider embolic etiology as a source. 2.? Bilateral moderate cerebral cerebellar atrophy with small vessel ischemic disease Cardiac echo Technically limited quality echocardiogram because of poor ?ultrasonic windows. ?LV systolic function is normal with EF of 50 to 55%. ?Valvular structures are not well visualized ?Comparison with prior echocardiograms not possible because of ?poor ultrasonic windows. Plan -Monitor as inpatient -Monitor respiratory status, has intermittent wheezing, suspect possible aspiration, continue dysphagia diet, aspiration precautions, modified barium swallow -Out of permissive hypertension window, blood pressure control -Neurochecks, aspiration precautions, and a stroke scale -Rocephin for UTI -Aspirin, statin -Discussed with about anticoagulation as there is concerns for embolic CVA, declined anticoagulation -scd for DVT prophylaxis full code -anticoagulation currently contraindicated given history of GI bleed History of atrial fibrillation -Continue telemetry monitoring History of GI bleeds -History of duodenal ulcers -Continue aspirin, will add Protonix, Carafate History of CKD History of nephrolithiasis, history of UPJ stenosis Renal ultrasound IMPRESSION: 1. ? No postvoid images are available with the report of the patient being unable to void. 2. ? The right bladder ureteral jet is demonstrated indicative of overall patency with the left not appreciated. 3. ? There is some extrarenal pelvis and calculus type appearance similar on the right. 4. ? There is hydronephrosis and chronic appearing cortical thinning suggestive of chronic renal disease or postobstructive related changes on the left. Attestations Medical Necessity Statement*: Patient requires hospitalization for embolic CVA, acute CVA, with right-sided hemiplegia Diagnoses Acute CVA (cerebrovascular accident) I63.9 Acute cystitis N30.00 Embolic stroke I63.9 Right flaccid hemiplegia G81.01 Aspiration into respiratory tract T17.908A
[2023-03-21] MEDS: atorvastatin 40 mg Tablet PO (21:22)
[2023-03-21] MEDS: cefTRIAXone 1,000 MG in sodium chloride 0.9% (plus) 50 ML 100 MG IV (23:42)
[2023-03-22] VITALS (8 sets, daily range): BP systolic 137–169; BP diastolic 81–100; PULSE 85–113; RESP 17–18; TEMP 36.8–37; O2SAT 92–94
[2023-03-22 05:54] LABS: Basophils % 0.4 %; Eosinophils # 0.2 10^3/uL (0.0-0.8); Eosinophils % 2.8 %; Hematocrit 46.7 % (42.0-52.0); Hemoglobin 15.1 g/dL (11.7-16.6); Lymphocytes # 1.1 10^3/uL (0.8-4.8); Lymphocytes % 14.2 %; Mean Corpuscular HGB Conc 32.3 g/dL (30.0-36.0); Mean Corpuscular Hemoglobin 32.3 pg (28.0-34.0); Mean Corpuscular Volume 99.8 fl (80-94); Mean Platelet Volume 10.8 fL (7.4-10.4); Monocytes # 0.7 10^3/uL (0.2-0.9); Monocytes % 9.9 %; Neutrophils # 5.42 10^3/uL (1.8-7.7); Neutrophils % 72.4 %; Nucleated Red Blood Cells % 0 %; Platelet Count 166 10^3/cmm (130-400); Red Blood Count 4.68 10^6/uL (4.1-5.3); Red Cell Distribution Width 13.9 % (12.1-15.1); White Blood Count 7.5 10^3/uL (4.0-10.0)
[2023-03-22 06:14] LABS: Blood Urea Nitrogen 28 mg/dL (8-23); Calcium 9.1 mg/dL (8.5-10.5); Carbon Dioxide 25 mmol/L (22-29); Chloride 106 mmol/L (98-107); Glucose 127 mg/dL (65-115); Osmolality Calculated 297 mOsm/kg (285-295); Sodium 140 mmol/L (136-145)
[2023-03-22 06:15] LABS: Anion Gap 13.3 (5-19); Potassium 4.3 mmol/L (3.5-5.1)
[2023-03-22] MEDS: hyDRALAzine 20 mg/mL INJ 1 mL 10 MG IVP (06:22)
[2023-03-22] MEDS: tamsulosin 0.4 mg Capsule PO (08:44)
[2023-03-22] MEDS: losartan 50 mg Tablet PO (08:44)
[2023-03-22] MEDS: isosorbide mononitrate ER 30 mg Tablet PO (08:44)
[2023-03-22] MEDS: fluconazole 100 mg Tablet 150 MG PO (08:44)
[2023-03-22] MEDS: pantoprazole DR 40 mg Tablet PO (08:44)
[2023-03-22] MEDS: metoprolol succinate ER (24 HR) 25 mg Tablet PO (08:44)
[2023-03-22] MEDS: aspirin 81 mg EC Tablet PO (08:45)
[2023-03-22] MEDS: sucralfate 1 gm Tablet PO (08:45)
[2023-03-22] MEDS: allopurinol 100 mg Tablet PO (08:45)
[2023-03-22] MEDS: amlodipine 10 mg Tablet PO (11:56)
--- NOTE | 2023-03-22 12:46 | PM.DCS ---
Discharge Providers Date of Admission: 03/20/23 15:37 Date of Discharge: March 22, 2023 Attending Provider at Admission: Brendan Handley MD Attending Provider at Discharge: Dave Lockwood MD Primary Care Provider: Raymond Jansen [facility] Diagnoses at Discharge Discharge Diagnosis (1) Acute CVA (cerebrovascular accident): Status: Acute (2) Acute cystitis: Status: Acute (3) Embolic stroke: Status: Acute (4) Right flaccid hemiplegia: Status: Acute (5) Aspiration into respiratory tract: Status: Acute Reason for Visit Reason for Visit: hypertension Hospital Course Hospital Course Enrique Murguia is a 77 year old male with a past medical history significant for hyperlipidemia, hypertension, and BPH who presents emergency department with diffuse weakness x1 to 2 days. Patient was admitted to [facility], initially it was thought patient weakness was more diffuse however on further examination patient had right-sided deficits, on my evaluation, his NIH stroke scale was 12, with right-sided hemiplegia right-sided facial droop, slurring of his words, word finding difficulty, diagnosed with acute CVA concerns for embolic CVA, out of tPA window? cute CVA -Concerns for embolic CVA -With persistent right-sided hemiplegia, right-sided facial droop, slurring of his words, word finding difficulty -Out of tPA window -NIH stroke scale not assessed on admission, currently 12 -Head CT no acute findings -Head CTA 1. ? 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 2. ? Moderate stenosis of the right anterior cerebral artery. 3. ? Mild stenosis of the dominant left vertebral artery at the level of the foramen ovale. IMPRESSION: Mild stenosis proximal ICAs bilaterally. Brain MRI 1.? Acute bilateral, nonhemorrhagic han radiata infarcts, LEFT greater than RIGHT in size. Due to the bilateral distribution consider embolic etiology as a source. 2.? Bilateral moderate cerebral cerebellar atrophy with small vessel ischemic disease Cardiac echo Technically limited quality echocardiogram because of poor ?ultrasonic windows. ?LV systolic function is normal with EF of 50 to 55%. ?Valvular structures are not well visualized ?Comparison with prior echocardiograms not possible because of ?poor ultrasonic windows. -Patient was monitored as inpatient -Received PT OT, speech therapy eval, started on aspirin, statin -Given his history of atrial fibrillation, MRI findings, I am very highly suspicious that patient's stroke is an embolic phenomenon -Given his dense hemiplegia on the right, I had an extensive discussion about anticoagulation with patient and family members, for now patient and family have declined anticoagulation -In terms of his long-term anticoagulation, he has a history of GI bleeds, duodenal ulcers, and a discussion with family about his long-term risk of further embolic phenomenon, [place]. He has a high risk of embolic strokes, -But certainly this is a difficult situation, as he has a history of GI bleeds on anticoagulation from his atrial fibrillation, requiring transfusions, EGD and colonoscopy, with findings of duodenal ulcers -On the one hand he has a risk of GI bleeds and morbidity and mortality associated. But on the other hand he certainly has a high risk of recurrent CVAs and embolic phenomenon to morbidity mortality associated -After extensive discussion with patient and family, shared decision making, for now family wants to decline anticoagulation they are agreeable to aspirin -I did discuss with him that even with aspirin there is a risk of strokes, risk of GI bleeds -Discussed risk and benefits, they voiced understanding, all questions answered, agreed to proceed with aspirin 81 mg -Decision of anticoagulation should be revisited in the near future, further discussion with cardiology and neurology -Will also discharge on Protonix and Carafate for GI prophylaxis -Patient received inpatient physical therapy, he continues to have dense hemiplegia of right upper extremity, right lower extremity strength is improving, strength 2 out of 5, continues to have productive aphasia slurring of his words, continues to have right facial droop, he is on a dysphagia diet did have speech therapy eval, did have a barium swallow, needs to be kept on aspiration precautions as he does have a risk of aspiration -Discharged to care home facility, rehab for physical therapy, speech therapy -He needs to be seen by neurology in the next 2 weeks -Needs to be seen by cardiology in 1 week -Patient has a history of nephrolithiasis, history of UPJ stenosis, repeated a renal ultrasound Renal ultrasound IMPRESSION: 1. ? No postvoid images are available with the report of the patient being unable to void. 2. ? The right bladder ureteral jet is demonstrated indicative of overall patency with the left not appreciated. 3. ? There is some extrarenal pelvis and calculus type appearance similar on the right. 4. ? There is hydronephrosis and chronic appearing cortical thinning suggestive of chronic renal disease or postobstructive related changes on the left. -penitentiary was instructed to monitor urine output, follow-up with urology as outpatient Physical Exam Const: COMMON NORMALS: no acute distress Resp: COMMON NORMALS: normal respiratory effort, No retractions, No use of accessory muscles and clear to auscultation bilaterally AUSCULTATION: clear to auscultation bilaterally Cardio: COMMON NORMALS: regular rate, regular rhythm, S1 normal heart sound present and S2 normal heart sound present RATE: regular rate RHYTHM: regular rhythm HEART SOUNDS: S1 normal heart sound present and S2 normal heart sound present GI: COMMON NORMALS: Normal to inspection, nondistended, normoactive bowel sounds present and non-tender Extremity: COMMON NORMALS: no pedal edema Psych: COMMON NORMALS: mental status grossly normal Discharge Data Studies Completed and Pending Completed Studies During Hospitalization Category Date Time Status CT angio head neck [CT angio headneck* [id number]] Cat Scan 03/19/23 09:[address] head wo con* [id number] Stat Cat Scan 03/19/23 01:13 Completed Modified barium swallow [FL barium swallow modifd [id number] Exams 03/21/23 12:15 Completed ] Routine XR chest 1V portable [id number] Stat Exams 03/19/23 01:13 Completed XR chest 1V portable [id number] Stat Exams 03/21/23 09:42 Completed MR head wo con* [id number] Routine MRI 03/20/23 11:37 Completed CV. echo wo/w contrast [id number] Routine Ultrasound 03/20/23 11:39 Completed US renal BI* [id number] Routine Ultrasound 03/20/23 18:25 Completed Pending at discharge Category Date Time Status Basic Metabolic Panel AM LABS Lab 03/23/23 04:00 Ordered Complete Blood Count w/Auto AM LABS Lab 03/23/23 04:00 Ordered SARS Covid-2 Antigen Routine Lab 03/22/23 12:17 Uncollected Radiology Impressions Head CT 03/19/23 01:13 IMPRESSION: No acute intracranial findings. Head/Neck CTA 03/19/23 09:53 IMPRESSION: 1. 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 2. Moderate stenosis of the right anterior cerebral artery. 3. Mild stenosis of the dominant left vertebral artery at the level of the foramen ovale. IMPRESSION: Mild stenosis proximal ICAs bilaterally. REFERENCES: NASCET CRITERIA. The degree of stenosis in the cervical segment of the internal carotid artery is based on NASCET criteria. Normal is no stenosis. Mild is less than 50% stenosis. Moderate is 50-69% stenosis. Severe is 70% to 99% stenosis. Total occlusion is no detectable patent lumen. Head MRI 03/20/23 11:37 IMPRESSION: 1. Acute bilateral, nonhemorrhagic han radiata infarcts, LEFT greater than RIGHT in size. Due to the bilateral distribution consider embolic etiology as a source. 2. Bilateral moderate cerebral cerebellar atrophy with small vessel ischemic disease. Renal Ultrasound 03/20/23 18:25 IMPRESSION: 1. No postvoid images are available with the report of the patient being unable to void. 2. The right bladder ureteral jet is demonstrated indicative of overall patency with the left not appreciated. 3. There is some extrarenal pelvis and calculus type appearance similar on the right. 4. There is hydronephrosis and chronic appearing cortical thinning suggestive of chronic renal disease or postobstructive related changes on the left. Laboratory Results WBC 7.5 10^3/uL (4.0-10.0) 03/22/23 04:58 RBC 4.68 10^6/uL (4.1-5.3) 03/22/23 04:58 Hgb 15.1 g/dL (11.7-16.6) 03/22/23 04:58 Hct 46.7 % (42.0-52.0) 03/22/23 04:58 MCV 99.8 fl (80-94) H 03/22/23 04:58 MCH 32.3 pg (28.0-34.0) 03/22/23 04:58 MCHC 32.3 g/dL (30.0-36.0) 03/22/23 04:58 RDW 13.9 % (12.1-15.1) 03/22/23 04:58 Plt Count 166 10^3/cmm (130-400) 03/22/23 04:58 MPV 10.8 fL (7.4-10.4) H 03/22/23 04:58 Neut % (Auto) 72.4 % 03/22/23 04:58 Lymph % (Auto) 14.2 % 03/22/23 04:58 [place] % (Auto) 9.9 % 03/22/23 04:58 Eos % (Auto) 2.8 % 03/22/23 04:58 Baso % (Auto) 0.4 % 03/22/23 04:58 Neut # (Auto) 5.42 10^3/uL (1.8-7.7) 03/22/23 04:58 Lymph # (Auto) 1.1 10^3/uL (0.8-4.8) 03/22/23 04:58 [place] # (Auto) 0.7 10^3/uL (0.2-0.9) 03/22/23 04:58 Eos # (Auto) 0.2 10^3/uL (0.0-0.8) 03/22/23 04:58 Baso # (Auto) 0.0 10^3/uL (0.0-0.1) 03/22/23 04:58 Nucleated RBC % (auto) 0 % 03/22/23 04:58 Nucleated RBCs # 0.0 /100WBC 03/22/23 04:58 PT 12.20 SECONDS (12.1-14.9) 03/19/23 01:25 INR 0.88 (0.8-1.2) 03/19/23 01:25 Sodium 140 mmol/L (136-145) 03/22/23 04:58 Potassium 4.3 mmol/L (3.5-5.1) 03/22/23 04:58 Chloride 106 mmol/L (98-107) 03/22/23 04:58 Carbon Dioxide 25 mmol/L (22-29) 03/22/23 04:58 Anion Gap 13.3 (5-19) 03/22/23 04:58 BUN 28 mg/dL (8-23) H 03/22/23 04:58 Creatinine 1.3 mg/dL (0.7-1.2) H 03/22/23 04:58 GFR Calculation Not Reportable 03/22/23 04:58 Glucose 127 mg/dL (65-115) H 03/22/23 04:58 Calculated Osmolality 297 mOsm/kg (285-295) H 03/22/23 04:58 Calcium 9.1 mg/dL (8.5-10.5) 03/22/23 04:58 Total Bilirubin 0.8 mg/dL (0.15-1.2) 03/20/23 04:47 AST 17 U/L (0-40) 03/20/23 04:47 ALT 23 U/L (0-41) 03/20/23 04:47 Alkaline Phosphatase 118 U/L (40-130) 03/20/23 04:47 Troponin T Baseline 26 ng/L (0-15) H 03/19/23 01:25 Troponin T 120 Minute 31.25 ng/L (0-15) H 03/19/23 03:20 Delta Troponin T 5.25 ABS# (0-10) 03/19/23 03:20 Troponin T Hi Sens 6Hr 23.35 ng/L (0-15) H 03/19/23 07:30 Troponin T Hi Sens 6Hr Delta -2.65 ng/L (0-12) L 03/19/23 07:30 C-Reactive Protein 13.5 mg/L (0.0-4.9) H 03/20/23 04:47 Total Protein 6.1 g/dL (6.6-8.7) L 03/20/23 04:47 Albumin 3.7 g/dL (3.5-5.2) 03/20/23 04:47 Globulin 2.4 g/dL (1.3-4.6) 03/20/23 04:47 TSH 6.46 uIU/mL (0.27-4.20) H 03/20/23 04:47 Urine Color Yellow (Yellow) 03/19/23 01:21 Urine Appearance Hazy (CLEAR) A 03/19/23 01:21 Urine pH 5 (5-7) 03/19/23 01:21 Ur Specific [place] 1.015 (1.005-1.030) 03/19/23 01:21 Urine Protein Neg (Negative) 03/19/23 01:21 Urine Glucose (UA) Norm (Normal) 03/19/23 01:21 Urine Ketones Negative (Negative) 03/19/23 01:21 Urine Blood 2+ (Negative) H 03/19/23 01:21 Urine Nitrate Negative (Negative) 03/19/23 01:21 Urine Bilirubin Neg (Negative) 03/19/23 01:21 Urine Urobilinogen Norm mg/dL (Negative) 03/19/23 01:21 Ur Leukocyte Esterase 1+ (Negative) H 03/19/23 01:21 Urine RBC 5-10 /hpf (0-2) H 03/19/23 01:21 Urine WBC 40-55 /hpf (0-5) H 03/19/23 01:21 Ur Squamous Epith Cells 0-4 /hpf (0-5) H 03/19/23 01:21 Amorphous Sediment Not Reportable 03/19/23 01:21 Urine Bacteria 3+ /hpf (NONE) H 03/19/23 01:21 Vitals Last Vital Signs Temp 98.6 F 03/22/23 11:27 Pulse 113 H 03/22/23 11:27 Resp 18 03/22/23 11:27 BP 137/81 03/22/23 11:27 Pulse Ox 92 03/22/23 11:27 O2 Del Method Room Air 03/22/23 11:27 Discharge Plan Discharge Patient Disposition: Xfer SNF Condition: Stable Prescriptions: New atorvastatin 40 mg Tablet 40 mg PO BEDTIME 30 Days Qty: 30 0RF metoprolol succinate 25 mg Tablet Extended Release 24 Hr 25 mg PO DAILY 30 Days Qty: 30 0RF aspirin 81 mg Tablet,Delayed Release (Dr/Ec) 81 mg PO DAILY 30 Days Qty: 30 0RF pantoprazole 40 mg Tablet,Delayed Release (Dr/Ec) 40 mg PO BID 30 Days Qty: 60 0RF sucralfate 1 gram Tablet 1 g PO Q12H 30 Days Qty: 60 0RF amlodipine 10 mg Tablet 10 mg PO Q24H 30 Days Qty: 30 0RF Continued allopurinol 100 mg tablet 100 mg PO BID isosorbide mononitrate 30 mg tablet extended release 24 hr 30 mg PO QAM tamsulosin 0.4 mg capsule 0.4 mg PO QAM ascorbic acid (vitamin C) 1,000 mg tablet 1,000 mg PO QAM acetaminophen 500 mg tablet 1,000 mg PO BID albuterol sulfate 1.25 mg/3 mL solution for nebulization 1.25 mg inhalation Q6H PRN (Reason: Shortness Of Breath) budesonide 0.5 mg/2 mL suspension for nebulization 0.5 mg inhalation BID PRN (Reason: unknown) Vitamin D3 25 mcg (1,000 unit) Tablet 25 mcg PO DAILY Prostate Complete 2 tab PO QAM Changed losartan 50 mg Tablet 50 mg PO QAM 30 Days Qty: 30 0RF Discontinued fluconazole 100 mg tablet 100 mg PO DAILY Rx Instructions: for 10 days (rx filled 03/17/23) metoprolol succinate 50 mg tablet extended release 24 hr 50 mg PO QAM Discharge Orders: Discharge Order (Routine); Ordered 03/22/23 Ordered By: Dave Lockwood Referrals: [facility] [Other] Bruce Serna MD [Physician] - 2 weeks (cva) Raymond Jansen, [facility]LIND[facility] FLANGER- [Primary Care Provider] - Dipika Pyle MD [Physician] - 1 week Discharge Diet: As Directed and Cardiac Discharge Activity: As per PT/OT instructions Patient Instructions: A-fib (Atrial Fibrillation) (DC), Left Hemispheric Stroke (DC), Opioid Safety Activity Restrictions/Additional Instructions: - Please continue dysphagia diet, aspiration precautions -Continue PT OT, for right-sided weakness, -Continue aspirin, statin -Slowly titrate blood pressure -If patient develops bloody or black stools please go to the emergency room Please follow-up with neurology in 2 weeks -Please follow-up with cardiology in 1 week -Monitor for aspiration -Monitor urine output -Creatinine on discharge 1.3, monitor creatinine outpatient repeat BMP in 24 hours Discharge Attestations Time Spent in Discharge Care*: greater than 30 min Quality Metrics Clinical Quality Measures [ Cerebrovascular Accident { Contraindication to Antithrombotic: None; antithrombotic prescribed; Contraindication to Anticoagulation: Drug declined by patient; Contraindication to Statin: None; Statin prescribed;}] Coding Level of Care Code 51077 Total time (in minutes) for Discharge: 45 Diagnoses Acute CVA (cerebrovascular accident) I63.9 Acute cystitis N30.00 Embolic stroke I63.9 Right flaccid hemiplegia G81.01 Aspiration into respiratory tract T17.908A
--- NOTE | 2023-03-22 14:19 | PC.NURSE ---
Called report to Devi Andersen LPN at [facility].
--- NOTE | 2023-03-22 14:30 | PC.NURSE ---
Tried to call Renay Sebastian, patients daughter. Left message for her to call me at [facility] on med surg floor.
[2023-03-22 15:14] LABS: SARS Covid-2 Antigen negative (Negative)
== END 2023-03-22 15:30 | disposition skilled nursing facility (03) | DRG 65 ==
LOC: ER 03:13 → MEDSURG 03:18
PROVIDERS: Family Medicine; Admitting Provider Internal Medicine; Emergency Provider Emergency Medicine; PCP Nurse Practitioner Family; Visit Provider Family Medicine
DX: I63.40 Cerebral infarction due to embolism of unspecified cerebral artery (principal); G81.91 Hemiplegia, unspecified affecting right dominant side; N30.00 Acute cystitis without hematuria; R47.01 Aphasia; R29.810 Facial weakness; R29.712 NIHSS score 12; E78.5 Hyperlipidemia, unspecified; I10 Essential (primary) hypertension; N40.1 Benign prostatic hyperplasia with lower urinary tract symptoms; R39.14 Feeling of incomplete bladder emptying; Z79.51 Long term (current) use of inhaled steroids; I48.91 Unspecified atrial fibrillation; M10.9 Gout, unspecified; Z96.651 Presence of right artificial knee joint
CPT/HCPCS: 36415; 70450; 70496; 70498; 70551; 71045; 74230; 76770; 80048; 80053; 81001; 84443; 84484; 85025; 85610; 86140; 87086; 87426; 92507; 92523; 92526; 92610; 92611; 93005; 96365; 96375; 97110; 97161; 97166; 97530; 97535; 99285; C8929; G0378; J0360; J0696; J3490; Q3014; Q9956; Q9967